=== PATIENT | female | born 1945 | race Caucasian/White ===

== ENCOUNTER → 2017-07-01 | Outpatient (POV) | payer MEDICARE, MEDICAID, SELFPAY | PROVIDERS: Family Provider Internal Medicine; PCP Internal Medicine; Visit Provider Internal Medicine | DX: D53.9 Nutritional anemia, unspecified (principal) | CPT/HCPCS: 99213 ==

== ENCOUNTER → 2017-07-04 | Outpatient (CLI) | payer MEDICARE, MEDICAID, SELFPAY | PROVIDERS: Visit Provider Internal Medicine | DX: R68.89 Other general symptoms and signs (principal) | CPT/HCPCS: 87275; 87276 ==

== ENCOUNTER 2017-11-03 09:26 | Outpatient (CLI) | payer MEDICARE, MEDICAID, SELFPAY ==
[2017-11-03 09:20] VITALS: BP 122/70; PULSE 68; RESP 20; TEMP 36.3; O2SAT 96
[2017-11-03 10:00] VITALS: BP 128/70; PULSE 68; RESP 20; TEMP 36.9; O2SAT 93
[2017-11-03 10:45] VITALS: BP 122/74; PULSE 68; RESP 20; TEMP 36.7; O2SAT 93
== END 2017-11-03 10:45 | disposition home or self-care (01) ==
LOC: INF 09:26
PROVIDERS: Family Provider Internal Medicine; PCP Internal Medicine; Visit Provider Internal Medicine
DX: D50.9 Iron deficiency anemia, unspecified
CPT/HCPCS: 96365; J1756

== ENCOUNTER 2017-11-10 08:40 | Outpatient (CLI) | payer MEDICARE, MEDICAID, SELFPAY ==
[2017-11-10 09:05] VITALS: BP 137/85; PULSE 68; RESP 20; TEMP 36.9; O2SAT 92
[2017-11-10 09:30] VITALS: BP 145/70; PULSE 66; RESP 20; TEMP 36.9; O2SAT 94
[2017-11-10 11:49] VITALS: BP 157/85; PULSE 68; RESP 20; TEMP 36.9; O2SAT 94
== END 2017-11-10 10:10 | disposition home or self-care (01) ==
LOC: INF 08:40
PROVIDERS: Family Provider Internal Medicine; PCP Internal Medicine; Visit Provider Internal Medicine
DX: D50.9 Iron deficiency anemia, unspecified (principal)
CPT/HCPCS: 96365; J1756

== ENCOUNTER → 2018-05-25 08:44 | Outpatient (CLI) | payer MEDICARE, MEDICAID, SELFPAY ==
--- NOTE | 2018-05-25 08:47 | MM_ITS ---
MM Dig screening mamm BI w/CAD CAD Screening COMPARISON: Digital mammograms with CAD 06/06/2011 INDICATION: There is a history of breast cancer in a patient paternal uncle diagnosed at age 50. There has been previous biopsy left breast for benign disease. TECHNIQUE: Standard CC and MLO images were obtained. R2 CAD reviewed. FINDINGS: Moderate diffuse fibroglandular densities are seen throughout both breasts. There is a mole marker in her quadrant right breast. There is no suspicious lesion and there are no suspicious microcalcifications. IMPRESSION: Moderate diffuse breast density with no suspicious lesion seen BI-RADS Category: 1 Negative RECOMMENDED FOLLOW-UP: 1YR - 1 YEAR FOLLOW-UP (A letter has been sent to the patient regarding results of the study.)
== END ==
PROVIDERS: PCP Family Medicine; Visit Provider Family Medicine
DX: Z12.31 Encounter for screening mammogram for malignant neoplasm of breast (principal)
CPT/HCPCS: 77067

== ENCOUNTER → 2018-07-01 06:17 | Outpatient (CLI) | payer MEDICARE, MEDICAID, SELFPAY ==
--- NOTE | 2018-07-01 06:22 | NM_ITS ---
CARDIOLITE SPECT MYOCARDIAL PERFUSION SCAN, REST AND STRESS: EXERCISE STRESS [facility] REVIEW QGS EF AND WALL MOTION EVALUATION: QPS - PERFUSION EVALUATION HISTORY: chest pain..short of air DOSE: 10.19 mCi technetium 99m mibi intravenously at rest followed by 31.0 mCi technetium 99m mibi following the intravenous ministration of 0.4 mg of Lexiscan. Resting blood pressure is 146/78. Stress blood pressure 150/71. FINDINGS: Ejection fraction is calculated to be 56%. Stress images reveal decreased activity in the anterior wall and inferior wall. There is also decreased activity in the lateral wall. Rest images reveal improved activity in the lateral wall with no significant change in the inferior and anterior wall. IMPRESSION: Lateral reversible ischemia. Decreased activity in the anterior and inferior wall suggests previous nontransmural myocardial infarction. There is normal ejection fraction normal wall motion. Clinical correlation is advised. This is a high risk abnormal stress test
--- NOTE | 2018-07-01 08:38 | HMH.ITSHM ---
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 []bisoprolol nitro asa cymbalta prilosec zocor lasix isosorbide gabapentin losartan
[2018-07-01 10:21] LABS: Basophils # 0.1 K/mm3 (0-0.2); Basophils % 0.5 % (0.1-2.0); Eosinophils # 0.1 K/mm3 (0.0-0.4); Eosinophils % 1.6 % (0.1-12.0); Hematocrit 32.3 % (37.0-47.0); Hemoglobin 9.5 g/dL (12.2-16.2); Lymphocytes # 1.4 K/mm3 (0.7-4.5); Lymphocytes % 16.6 % (10-50); Mean Corpuscular HGB Conc 29.6 g/dL (31.8-35.4); Mean Corpuscular Hemoglobin 23.1 pg (27.0-31.2); Mean Corpuscular Volume 78.2 fl (81-99); Mean Platelet Volume 6.7 fl (7.4-10.4); Monocytes # 0.4 K/mm3 (0.1-1.0); Monocytes % 4.7 % (1.7-9.3); Neutrophils # 6.5 K/mm3 (1.8-7.8); Neutrophils % 76.6 % (37.0-80.0); Platelet Count 333 K/mm3 (142-424); Red Blood Count 4.13 M/mm3 (4.20-5.40); Red Cell Distribution Width 15.6 % (11.5-17.5); White Blood Count 8.5 K/mm3 (4.8-10.8)
[2018-07-01 11:17] LABS: Alanine Aminotransferase 21 U/L (12-78); Albumin Level 3.3 gm/dL (3.4-5.0); Alkaline Phosphatase 95 U/L (46-116); Anion Gap 12.3 mEq/L (5-15); Aspartate Amino Transferase 13 U/L (15-37); Bilirubin,Direct 0.2 mg/dL (0.0-0.2); Bilirubin,Indirect 0.1 mg/dL (0.0-0.9); Bilirubin,Total 0.3 mg/dL (0.2-1.0); Blood Urea Nitrogen 17 mg/dL (7-18); Calcium 8.9 mg/dL (8.5-10.1); Carbon Dioxide 34 mmol/L (21.0-32.0); Chloride 98 mmol/L (98-107); Chol/HDL Ratio 4.1 (1-3.5); Cholesterol 155 mg/dL (140-200); Creatinine,Serum 0.85 mg/dL (0.55-1.02); Estimated Glomerular Filt Rate 66 ml/min (>60); GFR (African American) 80 ML/MIN (>60); Glucose 117 mg/dL (74-106); HDL Cholesterol 38 mg/dL (29-89); LDL Cholesterol 75 mg/dL (0-130); Potassium 4.3 mmoL/L (3.5-5.1); Sodium 140 mmol/L (136-145); Thyroid Stimulating Hormone 0.54 uIU/ml (0.358-3.740); Triglycerides 208 mg/dL (30-200); VLDL Cholesterol 42 mg/dL (0-40)
== END ==
PROVIDERS: Physician Assistant; Visit Provider Internal Medicine
DX: R06.02 Shortness of breath (principal); I10 Essential (primary) hypertension; E78.5 Hyperlipidemia, unspecified; E11.9 Type 2 diabetes mellitus without complications
CPT/HCPCS: 36415; 78452; 80048; 80061; 80076; 84443; 85025; 93017; 93306; A9502; J2785

== ENCOUNTER → 2018-07-11 08:30 | Outpatient (CLI) | payer MEDICARE, MEDICAID, SELFPAY ==
[2018-07-11 09:12] LABS: Occult Blood,Stool Positive (Negative)
== END ==
PROVIDERS: Visit Provider Family Medicine
DX: D64.9 Anemia, unspecified (principal)
CPT/HCPCS: 82272; G0328

== ENCOUNTER → 2018-08-02 13:27 | Outpatient (POV) | payer MEDICARE, MEDICAID, SELFPAY ==
[2018-08-02 14:56] LABS: Basophils # 0.1 K/mm3 (0-0.2); Basophils % 0.6 % (0.1-2.0); Eosinophils # 0.2 K/mm3 (0.0-0.4); Eosinophils % 1.8 % (0.1-12.0); Hematocrit 33.2 % (37.0-47.0); Hemoglobin 9.5 g/dL (12.2-16.2); Lymphocytes # 2.2 K/mm3 (0.7-4.5); Lymphocytes % 21.2 % (10-50); Mean Corpuscular HGB Conc 28.6 g/dL (31.8-35.4); Mean Corpuscular Hemoglobin 22.6 pg (27.0-31.2); Mean Platelet Volume 7.1 fl (7.4-10.4); Monocytes # 0.5 K/mm3 (0.1-1.0); Monocytes % 4.9 % (1.7-9.3); Neutrophils # 7.3 K/mm3 (1.8-7.8); Neutrophils % 71.4 % (37.0-80.0); Platelet Count 359 K/mm3 (142-424); Red Cell Distribution Width 15.6 % (11.5-17.5); White Blood Count 10.3 K/mm3 (4.8-10.8)
[2018-08-02 16:47] LABS: Alanine Aminotransferase 19 U/L (12-78); Albumin Level 3.5 gm/dL (3.4-5.0); Albumin/Globulin Ratio 0.9 (1.1-1.8); Alkaline Phosphatase 90 U/L (46-116); Anion Gap 12.1 mEq/L (5-15); Aspartate Amino Transferase 11 U/L (15-37); Bilirubin,Total 0.3 mg/dL (0.2-1.0); Blood Urea Nitrogen 30 mg/dL (7-18); Calcium 9.9 mg/dL (8.5-10.1); Carbon Dioxide 32 mmol/L (21.0-32.0); Chloride 97 mmol/L (98-107); Creatinine,Serum 1.17 mg/dL (0.55-1.02); Estimated Glomerular Filt Rate 45 ml/min (>60); Ferritin 26 ng/mL (8-388); GFR (African American) 55 ML/MIN (>60); Globulin 3.9 gm/dl (1.3-3.2); Glucose 110 mg/dL (74-106); Sodium 135 mmol/L (136-145); Total Protein,Serum 7.4 gm/dL (6.4-8.2)
[2018-08-02 16:53] LABS: Potassium 6.1 mmoL/L (3.5-5.1)
[2018-08-04 05:11] LABS: Iron 35 ug/dL (27-139); UIBC 355 ug/dL (118-369)
[2018-08-04 08:38] LABS: Iron Saturation 9 % (15-55)
== END ==
PROVIDERS: Visit Provider Nurse Practitioner Acute Care
DX: D64.9 Anemia, unspecified (principal)
CPT/HCPCS: 36415; 80053; 82728; 83540; 83550; 85025

== ENCOUNTER → 2018-08-03 13:23 | Outpatient (CLI) | payer MEDICARE, MEDICAID, SELFPAY ==
[2018-08-03 16:21] LABS: Potassium 6.4 mmoL/L (3.5-5.1)
== END ==
PROVIDERS: Visit Provider Family Medicine
DX: E87.5 Hyperkalemia (principal)
CPT/HCPCS: 84132

== ENCOUNTER → 2018-08-22 12:00 | Outpatient (CLI) | payer MEDICARE, MEDICAID, SELFPAY ==
[2018-08-25 18:39] LABS: Occult Blood,Stool Positive (Negative)
== END ==
PROVIDERS: Visit Provider Nurse Practitioner Acute Care
DX: D64.9 Anemia, unspecified (principal)
CPT/HCPCS: 82272; G0328

== ENCOUNTER → 2018-08-23 12:00 | Outpatient (CLI) | payer MEDICARE, MEDICAID, SELFPAY ==
[2018-08-25 18:40] LABS: Occult Blood,Stool Positive (Negative)
== END ==
PROVIDERS: Visit Provider Nurse Practitioner Acute Care
DX: D64.9 Anemia, unspecified (principal)
CPT/HCPCS: 82272; G0328

== ENCOUNTER → 2018-08-25 14:42 | Outpatient (CLI) | payer MEDICARE, MEDICAID, SELFPAY ==
[2018-08-25 18:40] LABS: Occult Blood,Stool Positive (Negative)
== END ==
PROVIDERS: Visit Provider Nurse Practitioner Acute Care
DX: D64.9 Anemia, unspecified (principal)
CPT/HCPCS: 82272; G0328

== ENCOUNTER 2018-09-26 07:51 | Inpatient (IN) ==
[2018-09-26 08:34] LABS: Basophils % 0.5 % (0.1-2.0); Eosinophils # 0.1 K/mm3 (0.0-0.4); Eosinophils % 1.6 % (0.1-12.0); Hematocrit 31.9 % (37.0-47.0); Lymphocytes # 1.2 K/mm3 (0.7-4.5); Lymphocytes % 14.7 % (10-50); Mean Corpuscular HGB Conc 28.3 g/dL (31.8-35.4); Mean Corpuscular Hemoglobin 21.5 pg (27.0-31.2); Mean Platelet Volume 6.6 fl (7.4-10.4); Monocytes # 0.4 K/mm3 (0.1-1.0); Monocytes % 4.7 % (1.7-9.3); Neutrophils # 6.2 K/mm3 (1.8-7.8); Neutrophils % 78.4 % (37.0-80.0); Platelet Count 343 K/mm3 (142-424); Red Cell Distribution Width 16.3 % (11.5-17.5); White Blood Count 7.9 K/mm3 (4.8-10.8)
[2018-09-26 08:43] LABS: INR 1.02 (0.9-1.1); Prothrombin Time 10.5 seconds (9.4-11.8)
--- NOTE | 2018-09-26 08:43 | Emergency Department Note ---
ED Disposition Clinical Impression: CHF (congestive heart failure), COPD (chronic obstructive pulmonary disease), Morbid obesity, Diastolic dysfunction, Anemia, LLL pneumonia Disposition: Still a Patient Condition on Discharge: Fair Referrals: Provider,Referral, [Primary Care Provider] - - Critical Care Critical Care Time: No Attestation: On 09/26/18, the high probability of a clinically significant, sudden or life threatening deterioration of the following system(s) required my full and direct attention, intervention and personal management. The time I documented below is in addition to time spent performing reported procedures but includes the following listed in this critical care notation. Medical Decision Making - Medical Records Medical records reviewed: Yes: I reviewed the patient's medical records. - Demond Inquiry Pt receiving controlled substance: No Demond was queried for this patient: No Vital Signs: 09/26/18 07:53 09/26/18 08:54 09/26/18 09:00 Temperature 100.1 F H Temperature Source Oral Pulse Rate [Left Radial] 77 79 78 Respiratory Rate 18 Blood Pressure [Left Arm] 158/70 H 140/44 L 138/89 Blood Pressure Mean [Left Arm] 99 76 105 Blood Pressure Source [Left Arm] Automatic Cuff Automatic Cuff Blood Pressure Position [Left Arm] Supine Sitting 02 Sat by Pulse Oximetry 89 L 91 L 92 L Oxygen Delivery Method Nasal Cannula Nasal Cannula Oxygen Flow Rate (LPM) 3 - Lab Data Lab Results 09/26/18 08:02: WBC 7.9, RBC 4.20, Hgb 9.0 L, Hct 31.9 L, MCV 76.0 L, MCH 21.5 L , MCHC 28.3 L, RDW 16.3, Plt Count 343, MPV 6.6 L, Neut % (Auto) 78.4, Lymph % (Auto) 14.7, [place] % (Auto) 4.7, Eos % (Auto) 1.6, Baso % (Auto) 0.5, Neut # (Auto) 6.2, Lymph # (Auto) 1.2, [place] # (Auto) 0.4, Eos # (Auto) 0.1, Baso # (Auto) 0.0 09/26/18 08:02: PT 10.5, INR 1.02 09/26/18 08:02: Sodium 142, Potassium 4.5, Chloride 100, Carbon Dioxide 34 H, Anion Gap 12.5, BUN 15, Creatinine 0.82, Estimated Creat Clear 49, Estimated GFR 69, Est GFR ( Amer) 83, Glucose 105, Calcium 9.4, Total Bilirubin 0.3, AST 10 L, ALT 14, Alkaline Phosphatase 83, Troponin I < 0.02, Total Protein 7.9, Albumin 3.3 L, Globulin 4.6 H, Albumin/Globulin Ratio 0.7 L 09/26/18 08:02: Lactate 1.0 09/26/18 08:02: B-Natriuretic Peptide 53 09/26/18 09:11: POC Glucose 106 Result diagrams: 09/26/18 08:02 09/26/18 08:02 Orders (Tests/Meds): ED MEDICATIONS Generic Name Dose Route Start Last Admin Trade Name Freq PRN Reason Stop Dose Admin Levofloxacin/Dextrose 750 mg in 150 mls @ 100 mls/hr 09/26/18 09:30 Levofloxacin 750mg/150ml Premix IV 10/10/18 09:29 Q24H JEROME Protocol Irbesartan 150 mg 09/26/18 09:00 09/26/18 10:14 Avapro 150mg Tablet PO 10/26/18 08:59 150 mg DAILY JEROME Administration Isosorbide Mononitrate 60 mg 09/26/18 09:00 09/26/18 08:40 Imdur 60mg Er Tablet PO 10/26/18 08:59 60 mg DAILY JEROME Administration Discontinued Medications Generic Name Dose Route Start Last Admin Trade Name Freq PRN Reason Stop Dose Admin Acetaminophen 1,000 mg 09/26/18 08:39 09/26/18 10:14 Tylenol 500mg Tablet PO 09/26/18 08:40 1,000 mg ONCE ONE Administration ORDERS Category Date Time Status XR chest portable Stat Exams 09/26/18 08:17 Taken Blood Culture Stat Micro 09/26/18 08:02 Received ECG Request by /Kalin Stat Y 09/26/18 08:17 Ordered - Radiology Data #1 Image Reviewed: Yes I reviewed the patient's radiology image Preliminary Findings: Abnormal Bibasilar chronic changes cannot exclude acute infiltrates, highly suspicious for lingular infiltrates. - ECG Data Tracing #1 Normal sinus rhythm 76/min, unifocal PAC, baseline artifact. No acute ST segment or T wave changes ECG initial impression date: 09/26/18 ECG initial impression time: 08:00 Medical Decision Narrative: Cardiac cath report from July 25 with diagnosis of diastolic dysfunction: IMPRESSION: 1. Normal coronary arteries 2. Normal ejection fraction 3. Severe diastolic congestive heart failure with secondary severe pulmonary hypertension based on LVEDP of 45 mmHg PLAN: 1. Patient requires significant diuresis with furosemide and Aldactone 2. Weight-loss would be beneficial 3. Recommend sleep study given patient's high likelihood for obstructive sleep apnea The patient remained hemodynamically stable, obtain her labs reviewed her chest x-ray and discussed with Dr. Beckford on-call for Dr. Morel agreed to admit for pneumonia. Started Levaquin 750 IV in the ED. Resp/SOB HPI - General Chief Complaint: Chest Pain Stated Complaint: chest tightness Time Seen by Provider: 09/26/18 08:00 Mode of Arrival: EMS Limitations: Physical Limitations Description of Symptoms (Recalled from ER Triage Doc. by RN): chest pain, SOB started 3 days ago, hx of COPD - History of Present Illness 73 years old white female with end-stage COPD, CHF, morbid obesity, she is on diuretics and oxygen dependent 2 L per nasal cannula. She is a resident of longterm, this morning she was found to have oxygen saturation of 84% and respiratory difficulty, also the patient experiences retrosternal chest pressure. She has chronic anemia and she is due for GI workup tomorrow. Upon arrival the patient was placed on 3 L of nasal cannula that brought her oxygen saturations to 91% and was found to have a temperature of 100.1F. The patient felt better and her symptoms resolved. The patient denies having palpitations hemoptysis coffee-ground emesis melanotic stool or bleeding per rectum. Patient denies having abdominal pain nausea vomiting or diarrhea. MD Complaint: shortness of breath, chest pain Onset (ago): hour(s) (1 hour prior to arrival.) Severity: mild Consistency/Duration: now resolved Relieving factors: oxygen, rest, bronchodilators, upright position Exacerbating factors: exertion Known history of: COPD, congestive heart failure Associated symptoms: chest pain, fever, wheezing - Related Data Home oxygen amount: 2 liters Home Medications Medication Instructions Recorded Confirmed aspirin 325 mg tablet 0.5 tab PO QDAY 08/05/17 07/27/18 duloxetine 60 mg capsule,delayed 120 mg PO QDAY cap 08/05/17 07/27/18 release hydrocodone 10 mg-acetaminophen 1 tab PO TID 08/05/17 07/27/18 325 mg tablet insulin human U-100 NPH-regulr 60 unit SUB-Q TID ml 08/05/17 07/27/18 70-30 mix 100 unit/mL subcutaneous susp isosorbide mononitrate ER 60 mg 60 mg PO BID tab 08/05/17 07/27/18 tablet,extended release 24 hr losartan 100 mg tablet 100 mg PO QDAY 08/05/17 07/27/18 melatonin 3 mg tablet 3 mg PO HS PRN 08/05/17 07/27/18 metformin 1,000 mg tablet 1,000 mg PO BID 08/05/17 07/27/18 nitroglycerin 0.4 mg sublingual 0.4 mg SUBLINGUAL Q5M PRN 08/05/17 07/27/18 tablet omeprazole 20 mg capsule,delayed 20 mg PO QDAY 08/05/17 07/27/18 release ondansetron HCl 4 mg tablet 4 mg PO Q8H PRN tab 08/05/17 07/27/18 polyethylene glycol powder 1 each MISCELLANE DAILY 08/05/17 07/27/18 polyvinyl alcohol 1.4 % eye drops 1 drp OPHTHALMIC BID PRN ml 08/05/17 07/27/18 sennosides 8.6 mg tablet 8.6 mg PO BID PRN tab 08/05/17 07/27/18 simvastatin 10 mg tablet 10 mg PO HS 08/05/17 07/27/18 verapamil 120 mg tablet 120 mg PO BID tab 08/05/17 07/27/18 acetaminophen 500 mg capsule 500 mg PO Q4-6H PRN 08/19/17 07/27/18 ipratropium-albuterol 0.5 mg-3 3 ml INHALATION Q20M 08/19/17 07/27/18 mg(2.5 mg base)/3 mL nebulization soln aluminum hydrox-magnesium carb 95 30 ml PO Q4HP PRN 09/22/17 07/27/18 mg-358 mg/15 mL oral suspension Cholecalciferol (Vitamin D3) 50,000 unit PO WEEKLY 10/15/17 07/27/18 [Vitamin D3 50,000 unit Cap] Multivitamin [Multivitamins] 1 each PO DAILY 10/15/17 07/27/18 gabapentin 100 mg capsule 200 mg PO TID cap 06/24/18 07/27/18 aripiprazole 5 mg tablet 5 mg PO DAILY 07/27/18 07/27/18 dextromethorphan-guaifenesin 10 10 ml PO Q4-6H PRN 07/27/18 07/27/18 mg-100 mg/5 mL oral syrup phenol 1.4 % mucosal aerosol spray 4 spray MUCOUS MEM Q4H 07/27/18 07/27/18 psyllium oral powder 1 tbsp PO DAILY PRN 07/27/18 07/27/18 sodium chloride 0.65 % nasal drops 1 drp INTRANASAL Q4H PRN 07/27/18 07/27/18 Bisoprolol Fumarate [Bisoprolol 5 mg PO DAILY 09/21/18 5mg Tablet] Miscellaneous [Unknown Home 0 each EYE-BOTH BID 09/21/18 09/21/18 Medication] guaiFENesin [Guaifenesin] 400 mg PO TID 09/21/18 09/21/18 Allergies Allergy/AdvReac Type Severity Reaction Status Date / Time codeine [CODEINE] Allergy Mild Unknown Verified 09/21/18 13:32 allergy reaction naproxen [NAPROXEN] Allergy Mild Unknown Verified 09/21/18 13:32 allergy reaction pregabalin [From LYRICA] Allergy Mild Unknown Verified 09/21/18 14:13 allergy reaction promethazine [PROMETHAZINE] Allergy Mild Unknown Verified 09/21/18 13:32 allergy reaction JOSE ELIAS Inhibitors Allergy Unknown Verified 09/21/18 13:32 allergy reaction [facility] History - Hepatitis A Screen Drug use history?: No High risk sexual behaviors?: No History of sexually transmitted infection?: No Currently employed?: No Childcare worker?: No Do you have indoor plumbing?: Yes Do you have electricity?: Yes Attestation statement:: This patient has been screened for Hepatitis A risk factors. I have reviewed the patient's past medical history: Yes Medical History: Reports:: Anxiety, Atrial Fibrillation, Cancer, Congestive Heart Failure, Depression, Diabetes Mellitus Type 2, Hyperlipidemia, Hypertension, Lung Disease (COPD), Migraine, Seizures Denies:: Diabetes Mellitus Type 1, Internal Pacemaker Other Medical History: Reports: Anemia, Arthritis, Other Other Surgeries: Yes: Appendectomy. No: Pacemaker Comment: gallbladder - Social History Smoking Status: Former smoker Tobacco Type: cigarettes Alcohol Intake: never Alcohol Intake Frequency:: other Substance Use Type: denies use Occupational Status: retired Household Members: family - Psychiatric History Expresses thoughts of harming self/others: None Suicide Plan Description: No Plan Pschychiatric History:: Reports:: Anxiety, Depression Family Hx:: Diabetes ROS Obtained: Yes All systems reviewed & no additional complaints Physical Exam - General General appearance: alert, in no apparent distress, obese, other (Sitting upright.) - Head Head exam: atraumatic, normocephalic, normal inspection - Eye Eye exam: Present: normal appearance, PERRL, EOMI. Absent: scleral icterus, nystagmus - ENT ENT exam: Present: normal exam, normal oropharynx, mucous membranes moist, TM's normal bilaterally, normal external ear exam - Neck Neck exam: Present: normal inspection, full ROM, trachea midline. Absent: tenderness, meningismus, lymphadenopathy - Chest Chest inspection: Present: normal inspection, symmetric chest wall rise. Absent: tenderness - Respiratory Respiratory exam: Present: normal lung sounds bilaterally. Absent: respiratory distress, wheezes - Cardiovascular Cardiovascular exam: Present: regular rate, normal rhythm, normal heart sounds. Absent: JVD - Abdominal Exam Abdominal exam: Present: soft, normal bowel sounds, other (Large abdominal girth, soft, nontender no guarding no rigidity no rebound.). Absent: distention, tenderness, guarding, rebound, rigidity, Altman's sign, tenderness at McBurney's Point - External exam: Present: normal external exam, other (Equal bilateral femoral pulse. ) - Extremities Exam Extremities exam: Present: normal inspection, full ROM, normal capillary refill. Absent: tenderness, pedal edema, calf tenderness - Back Exam Back exam: Present: normal inspection. Absent: tenderness, CVA tenderness (R), CVA tenderness (L) - Neurological Exam Neurological exam: Present: alert, oriented X3, CN II-XII intact, motor sensory deficit, reflexes normal - Psychiatric Psychiatric exam: Present: normal affect, normal mood - Skin Skin exam: Present: warm, dry, intact, normal color - Lymphatic Lymphatic Findings: no adenopathy
[2018-09-26 08:48] LABS: Alanine Aminotransferase 14 U/L (12-78); Albumin Level 3.3 gm/dL (3.4-5.0); Albumin/Globulin Ratio 0.7 (1.1-1.8); Alkaline Phosphatase 83 U/L (46-116); Anion Gap 12.5 mEq/L (5-15); Aspartate Amino Transferase 10 U/L (15-37); Bilirubin,Total 0.3 mg/dL (0.2-1.0); Blood Urea Nitrogen 15 mg/dL (7-18); Calcium 9.4 mg/dL (8.5-10.1); Carbon Dioxide 34 mmol/L (21.0-32.0); Chloride 100 mmol/L (98-107); Globulin 4.6 gm/dl (1.3-3.2); Glucose 105 mg/dL (74-106); Potassium 4.5 mmoL/L (3.5-5.1); Sodium 142 mmol/L (136-145); Total Protein,Serum 7.9 gm/dL (6.4-8.2)
--- NOTE | 2018-09-26 11:09 | History & Physical Report ---
*Admission Date: 09/26/18 *Chief complaint: Increased shortness of breath *History of present illness: She is a 73-year-old female who is a resident at [facility] started to having some shortness of breath this morning. She usually uses 2 L of oxygen at the long-term. However this morning her oxygen saturation dropped to 79 at 2 L. After getting neb treatments, she was not improving as far as her oxygen saturation. She was also having trouble breathing. In the ED chest x- ray showed possible pneumonia. Her previous cath showed HFpEF, needing severe diuresis with Aldactone and Lasix. Blood cultures were obtained in the ED and she was started on Levaquin 750 mg daily. During my exam, patient mentions that she still having some short of breath at 2 L of oxygen. I have increased it to 4 L which helped with her breathing. Mention to me that she has an appointment with Dr. Reyes for a EGD tomorrow morning. I reassured her that we will be changing that appointment for her to after this hospital visit. [facility] History I have reviewed the patient's past medical history: Yes Medical History: Reports:: Anxiety, Atrial Fibrillation, Cancer, Congestive Heart Failure, Depression, Diabetes Mellitus Type 2, Hyperlipidemia, Hypertension, Lung Disease (COPD), Migraine, Seizures Denies:: Diabetes Mellitus Type 1, Internal Pacemaker *Have you ever received a pneumonia vaccine?: Yes *Have you received a flu vaccine this season?: Yes Other Medical History: Reports: Anemia, Arthritis, Other Other Surgeries: Yes: Appendectomy. No: Pacemaker - *Social History Smoking Status: Former smoker Tobacco Type: cigarettes Alcohol Intake: never Alcohol Intake Frequency:: other Substance Use Type: denies use *Occupational Status:: retired Household Members: family *Travel in the last 8 weeks: None - Psychiatric History Expresses thoughts of harming self/others: None Suicide Plan Description: No Plan Pschychiatric History:: Reports:: Anxiety, Depression Family Hx:: Diabetes Review of Systems - Constitutional Reports lack of energy - Eyes Denies blurry vision - ENT Denies abnormal hearing, Denies bleeding gums - *Cardiovascular Denies chest pain at rest, Denies chest pain with activity - *Respiratory Reports cough, Reports shortness of breath, Reports shortness of breath with activity - *Gastrointestinal Denies abdominal pain - *Genitourinary Denies abnormal periods - *Musculoskeletal Denies abnormal walking, Denies joint pain, Denies decreased muscle mass - Integumentary/Breasts Denies bleeding lesions - *Neurologic Denies abnormal walking - Psychiatric Denies abnormal sleep pattern, Denies behavioral changes - Endocrine Denies cold intolerance - Hematologic/Lymphatic Denies easy bleeding - Allergic/Immunologic Denies tongue swelling Meds Home Medications Medication Instructions Recorded Confirmed Type aspirin 325 mg tablet 0.5 tab PO QDAY 08/05/17 07/27/18 History duloxetine 60 mg capsule,delayed 120 mg PO QDAY cap 08/05/17 07/27/18 History release hydrocodone 10 mg-acetaminophen 1 tab PO TID 08/05/17 07/27/18 History 325 mg tablet insulin human U-100 NPH-regulr 60 unit SUB-Q TID ml 08/05/17 07/27/18 History 70-30 mix 100 unit/mL subcutaneous susp isosorbide mononitrate ER 60 mg 60 mg PO BID tab 08/05/17 07/27/18 History tablet,extended release 24 hr losartan 100 mg tablet 100 mg PO QDAY 08/05/17 07/27/18 History melatonin 3 mg tablet 3 mg PO HS PRN 08/05/17 07/27/18 History metformin 1,000 mg tablet 1,000 mg PO BID 08/05/17 07/27/18 History nitroglycerin 0.4 mg sublingual 0.4 mg SUBLINGUAL Q5M PRN 08/05/17 07/27/18 History tablet omeprazole 20 mg capsule,delayed 20 mg PO QDAY 08/05/17 07/27/18 History release ondansetron HCl 4 mg tablet 4 mg PO Q8H PRN tab 08/05/17 07/27/18 History polyethylene glycol powder 1 each MISCELLANE DAILY 08/05/17 07/27/18 History polyvinyl alcohol 1.4 % eye drops 1 drp OPHTHALMIC BID PRN ml 08/05/17 07/27/18 History sennosides 8.6 mg tablet 8.6 mg PO BID PRN tab 08/05/17 07/27/18 History simvastatin 10 mg tablet 10 mg PO HS 08/05/17 07/27/18 History verapamil 120 mg tablet 120 mg PO BID tab 08/05/17 07/27/18 History acetaminophen 500 mg capsule 500 mg PO Q4-6H PRN 08/19/17 07/27/18 History ipratropium-albuterol 0.5 mg-3 3 ml INHALATION Q20M 08/19/17 07/27/18 History mg(2.5 mg base)/3 mL nebulization soln aluminum hydrox-magnesium carb 95 30 ml PO Q4HP PRN 09/22/17 07/27/18 History mg-358 mg/15 mL oral suspension Cholecalciferol (Vitamin D3) 50,000 unit PO WEEKLY 10/15/17 07/27/18 History [Vitamin D3 50,000 unit Cap] Multivitamin [Multivitamins] 1 each PO DAILY 10/15/17 07/27/18 History gabapentin 100 mg capsule 200 mg PO TID cap 06/24/18 07/27/18 History aripiprazole 5 mg tablet 5 mg PO DAILY 07/27/18 07/27/18 History dextromethorphan-guaifenesin 10 10 ml PO Q4-6H PRN 07/27/18 07/27/18 History mg-100 mg/5 mL oral syrup phenol 1.4 % mucosal aerosol spray 4 spray MUCOUS MEM Q4H 07/27/18 07/27/18 History psyllium oral powder 1 tbsp PO DAILY PRN 07/27/18 07/27/18 History sodium chloride 0.65 % nasal drops 1 drp INTRANASAL Q4H PRN 07/27/18 07/27/18 History Bisoprolol Fumarate [Bisoprolol 5 mg PO DAILY 09/21/18 History 5mg Tablet] Miscellaneous [Unknown Home 0 each EYE-BOTH BID 09/21/18 09/21/18 History Medication] guaiFENesin [Guaifenesin] 400 mg PO TID 09/21/18 09/21/18 History Allergies Allergy/AdvReac Type Severity Reaction Status Date / Time codeine [CODEINE] Allergy Mild Unknown Verified 09/21/18 13:32 allergy reaction naproxen [NAPROXEN] Allergy Mild Unknown Verified 09/21/18 13:32 allergy reaction pregabalin [From LYRICA] Allergy Mild Unknown Verified 09/21/18 14:13 allergy reaction promethazine [PROMETHAZINE] Allergy Mild Unknown Verified 09/21/18 13:32 allergy reaction JOSE ELIAS Inhibitors Allergy Unknown Verified 09/21/18 13:32 allergy reaction Exam Vital signs and Labs for Last 24 Hours: Temp Pulse Resp BP Pulse Ox 100.1 F H 78 18 138/89 92 L 09/26/18 07:53 09/26/18 09:00 09/26/18 07:53 09/26/18 09:00 09/26/18 09:00 Laboratory Results - last 24 hr 09/26/18 08:02: WBC 7.9, RBC 4.20, Hgb 9.0 L, Hct 31.9 L, MCV 76.0 L, MCH 21.5 L , MCHC 28.3 L, RDW 16.3, Plt Count 343, MPV 6.6 L, Neut % (Auto) 78.4, Lymph % (Auto) 14.7, [place] % (Auto) 4.7, Eos % (Auto) 1.6, Baso % (Auto) 0.5, Neut # (Auto) 6.2, Lymph # (Auto) 1.2, [place] # (Auto) 0.4, Eos # (Auto) 0.1, Baso # (A uto) 0.0 09/26/18 08:02: PT 10.5, INR 1.02 09/26/18 08:02: Sodium 142, Potassium 4.5, Chloride 100, Carbon Dioxide 34 H, Anion Gap 12.5, BUN 15, Creatinine 0.82, Estimated Creat Clear 49, Estimated GFR 69, Est GFR ( Amer) 83, Glucose 105, Calcium 9.4, Total Bilirubin 0.3, AST 10 L, ALT 14, Alkaline Phosphatase 83, Troponin I < 0.02, Total Protein 7.9, Albumin 3.3 L, Globulin 4.6 H, Albumin/Globulin Ratio 0.7 L 09/26/18 08:02: Lactate 1.0 09/26/18 08:02: B-Natriuretic Peptide 53 09/26/18 09:11: POC Glucose 106 I & O for Last 24 hours: Intake & Output 09/23/18 09/24/18 09/25/18 09/26/18 11:59 11:59 11:59 11:59 Weight 302 lb - Constitutional morbidly obese - *Routine HEENT Exam Head: Present: normocephalic Eye: Present: EOMI, PERRL ENT: Present: mucous membranes moist - *Routine Neck Exam Present: supple. Absent: lymphadenopathy - *Routine Respiratory Exam Present: decreased breath sounds (Bilaterally with some wheezing), wheezes - *Routine Cardiovascular Exam Present: RRR - *Routine Abdominal Exam Present: soft, normoactive bowel sounds. Absent: tenderness - *Routine Extremities Exam Present: edema (2+ edema bilaterally). Absent: cyanosis, clubbing - *Routine Skin Exam Present: warm. Absent: rash Assessment and Plan (1) Acute and chronic respiratory failure with hypoxia Current visit: Yes Status: Acute Category: Medical Code(s): J96.21 - Acute and chronic respiratory failure with hypoxia (2) Bilateral pneumonia Current visit: Yes Status: Acute Category: Medical Code(s): J18.9 - Pneumonia, unspecified organism (3) (HFpEF) heart failure with preserved ejection fraction Current visit: Yes Status: Acute Category: Medical Code(s): I50.30 - Unspecified diastolic (congestive) heart failure (4) Morbid obesity Current visit: Yes Status: Acute Category: Medical Code(s): E66.01 - Morbid (severe) obesity due to excess calories (5) Type 2 diabetes mellitus with diabetic neuropathy Current visit: Yes Status: Acute Category: Medical Code(s): E11.40 - Type 2 diabetes mellitus with diabetic neuropathy, unspecified (6) HLD (hyperlipidemia) Current visit: No Status: Chronic Qualifiers: Hyperlipidemia type: mixed hyperlipidemia Qualified Code(s): E78.2 - Mixed hyperlipidemia Category: Medical Code(s): E78.5 - Hyperlipidemia, unspecified (7) HTN (hypertension) Current visit: No Status: Chronic Qualifiers: Hypertension type: essential hypertension Qualified Code(s): I10 - Essential (primary) hypertension Category: Medical Code(s): I10 - Essential (primary) hypertension (8) Peripheral edema Current visit: Yes Status: Acute Category: Medical Code(s): R60.9 - Edema, unspecified - Assessment and plan all Dx Assessment and Plan for all problems:: We will continue IV Levaquin daily, DuoNeb every 4 hours, albuterol every 2 hours as needed and oxygen supplementation for her pneumonia. We will continue Lasix and Aldactone for diuresis. Continue home meds for her other diagnoses.
[2018-09-26 12:18] LABS: ABG Base Excess 6.4 mmol/L (-2.4-2.3); ABG HCO3 31.5 mmhg (22.0-26.0); ABG Oxygen Saturation 96 % (90-100); ABG PH 7.38 mmol/L (7.35-7.45); ABG PO2 87.2 mmhg (80-100); ABG TCO2 33.2 mmhg (23-27)
[2018-09-26 12:19] LABS: Allen's Test ACCEPTABLE; Oxygen 3.5 LPM %
[2018-09-26 12:21] LABS: ABG PCO2 54.2 mmhg (35.0-45.0)
[2018-09-27 06:56] LABS: Basophils % 0.3 % (0.1-2.0); Eosinophils # 0.1 K/mm3 (0.0-0.4); Eosinophils % 0.8 % (0.1-12.0); Hematocrit 30.7 % (37.0-47.0); Hemoglobin 8.5 g/dL (12.2-16.2); Lymphocytes # 1.4 K/mm3 (0.7-4.5); Lymphocytes % 14.6 % (10-50); Mean Corpuscular HGB Conc 27.8 g/dL (31.8-35.4); Mean Corpuscular Hemoglobin 21.7 pg (27.0-31.2); Mean Platelet Volume 6.6 fl (7.4-10.4); Monocytes # 0.5 K/mm3 (0.1-1.0); Monocytes % 4.7 % (1.7-9.3); Neutrophils # 7.8 K/mm3 (1.8-7.8); Neutrophils % 79.7 % (37.0-80.0); Platelet Count 323 K/mm3 (142-424); Red Blood Count 3.93 M/mm3 (4.20-5.40); Red Cell Distribution Width 16.2 % (11.5-17.5); White Blood Count 9.8 K/mm3 (4.8-10.8)
[2018-09-27 07:25] LABS: Anion Gap 10.3 mEq/L (5-15); Calcium 9.5 mg/dL (8.5-10.1); Potassium 4.3 mmoL/L (3.5-5.1)
--- NOTE | 2018-09-27 07:28 | Pharmacy Consult Notes ---
[facility] Pharmacy VTE Monitoring - Patient Demographics Admission date: 09/26/18 Report Date: 09/27/18 Time: 07:28 Allergies/Adverse Reactions: Patient Allergies codeine [CODEINE] Allergy (Mild, Verified 09/21/18 13:32) Unknown allergy reaction naproxen [NAPROXEN] Allergy (Mild, Verified 09/21/18 13:32) Unknown allergy reaction pregabalin [From LYRICA] Allergy (Mild, Verified 09/21/18 14:13) Unknown allergy reaction promethazine [PROMETHAZINE] Allergy (Mild, Verified 09/21/18 13:32) Unknown allergy reaction JOSE ELIAS Inhibitors Allergy (Verified 09/21/18 13:32) Unknown allergy reaction Height: 1.7 m Weight: 142.173 kg Patient Problems: Current Active Problems CHF (congestive heart failure) (Acute) Morbid obesity (Acute) Diastolic dysfunction (Acute) Anemia (Acute) LLL pneumonia (Acute) Bilateral pneumonia (Acute) Acute and chronic respiratory failure with hypoxia (Acute) (HFpEF) heart failure with preserved ejection fraction (Acute) Type 2 diabetes mellitus with diabetic neuropathy (Acute) Peripheral edema (Acute) COPD (chronic obstructive pulmonary disease) (Chronic) - VTE Risk Labs: VTE Related Lab Results Hgb 8.5 g/dL (12.2-16.2) L 09/27/18 06:08 Hct 30.7 % (37.0-47.0) L 09/27/18 06:08 Plt Count 323 K/mm3 (142-424) 09/27/18 06:08 PT 10.5 seconds (9.4-11.8) 09/26/18 08:02 INR 1.02 (0.9-1.1) 09/26/18 08:02 BUN 15 mg/dL (7-18) 09/26/18 08:02 Creatinine 0.82 mg/dL (0.55-1.02) 09/26/18 08:02 Estimated Creat Clear 49 mL/min (50-200) 09/26/18 08:02 VTE Score: 6 VTE Risk Level: Moderate Risk - Prophylaxis VTE Prophylaxis Ordered?: Yes Types of VTE Prophylaxis: TEDS Knee High Location of Applied Device: Bilateral Lower Extremeties - VTE Diagnosis Confirmed Treatment or plan recommended: Continue Current Treatment
--- NOTE | 2018-09-27 08:34 | Progress Note ---
<Leana Mcgowan - Last Filed: 09/27/18 08:38> Internal Medicine - PN: Subj Interval history: The patient is resting quietly in bed, she denies any complaints of pain or SOB. She reports that she feels like she is breathing easier this morning and she ate well. She is very concerned about making sure that Dr. Reyes' office be notified of her admisstion. Exam Vital signs and Labs for Last 24 Hours: Temp Pulse Resp BP Pulse Ox 97.9 F 85 18 150/52 H 91 L 09/27/18 07:56 09/27/18 07:56 09/27/18 07:56 09/27/18 07:56 09/27/18 07:56 Laboratory Results - last 24 hr 09/26/18 08:02: WBC 7.9, RBC 4.20, Hgb 9.0 L, Hct 31.9 L, MCV 76.0 L, MCH 21.5 L , MCHC 28.3 L, RDW 16.3, Plt Count 343, MPV 6.6 L, Neut % (Auto) 78.4, Lymph % (Auto) 14.7, [place] % (Auto) 4.7, Eos % (Auto) 1.6, Baso % (Auto) 0.5, Neut # (Auto) 6.2, Lymph # (Auto) 1.2, [place] # (Auto) 0.4, Eos # (Auto) 0.1, Baso # (Au to) 0.0 09/26/18 08:02: PT 10.5, INR 1.02 09/26/18 08:02: Sodium 142, Potassium 4.5, Chloride 100, Carbon Dioxide 34 H, Anion Gap 12.5, BUN 15, Creatinine 0.82, Estimated Creat Clear 49, Estimated GFR 69, Est GFR ( Amer) 83, Glucose 105, Calcium 9.4, Total Bilirubin 0.3, AST 10 L, ALT 14, Alkaline Phosphatase 83, Troponin I < 0.02, Total Protein 7.9, Albumin 3.3 L, Globulin 4.6 H, Albumin/Globulin Ratio 0.7 L 09/26/18 08:02: Lactate 1.0 09/26/18 08:02: B-Natriuretic Peptide 53 09/26/18 09:11: POC Glucose 106 09/26/18 11:44: Specimen Source R. radial, O2 % 3.5 lpm, ABG pH 7.38, ABG pCO2 54.2 H, ABG pO2 87.2, ABG HCO3 31.5 H, ABG Total CO2 33.2 H, ABG O2 Saturation 96, ABG Base Excess 6.4 H, Levar Test Acceptable 09/26/18 16:30: POC Glucose 184 H 09/26/18 21:16: POC Glucose 174 H 09/27/18 06:08: WBC 9.8, RBC 3.93 L, Hgb 8.5 L, Hct 30.7 L, MCV 78.0 L, MCH 21.7 L, MCHC 27.8 L, RDW 16.2, Plt Count 323, MPV 6.6 L, Neut % (Auto) 79.7, Lymph % (Auto) 14.6, [place] % (Auto) 4.7, Eos % (Auto) 0.8, Baso % (Auto) 0.3, Neut # (Auto) 7.8, Lymph # (Auto) 1.4, [place] # (Auto) 0.5, Eos # (Auto) 0.1, Baso # (Auto) 0.0 09/27/18 06:18: Sodium 141, Potassium 4.3, Chloride 100, Carbon Dioxide 35 H, An ion Gap 10.3, BUN 12, Creatinine 0.87, Estimated Creat Clear 49, Estimated GFR 64, Est GFR ( Amer) 77, Glucose 198 H D, Calcium 9.5 09/27/18 06:21: POC Glucose 213 H I & O for Last 24 hours: Intake & Output 09/24/18 09/25/18 09/26/18 09/27/18 11:59 11:59 11:59 11:59 Intake Total 1150 / 1150 1320 / 1320 Output Total 3800 / 3800 Balance 1150 / 1150 -2480 / -2480 Weight 314 lb 6 oz 313 lb 7 oz Radiology Reports for the Last 24 Hours: 09/26/18 CXR: Impression: Cardiomegaly with bibasilar atelectasis or infiltrate with 2 cm nodular opacity right lung base. Consider CT for further evaluation. - Constitutional no acute distress - *Routine HEENT Exam Head: Present: normocephalic, atraumatic ENT: Present: mucous membranes moist - *Routine Respiratory Exam Comments: generally diminished, rhonchi throughout with few scattered wheezes - *Routine Cardiovascular Exam Present: RRR - *Routine Abdominal Exam Comments: BS present, soft, nontender, obese, no G/M/R - *Routine Extremities Exam Present: full ROM, pulses intact. Absent: edema, calf tenderness - *Routine Neurological Exam Present: alert, oriented X3, moving all extremities, normal speech Assessment and Plan (1) Acute and chronic respiratory failure with hypoxia Current visit: Yes Status: Acute Category: Medical Code(s): J96.21 - Acute and chronic respiratory failure with hypoxia (2) Bilateral pneumonia Current visit: Yes Status: Acute Category: Medical Code(s): J18.9 - Pneumonia, unspecified organism (3) (HFpEF) heart failure with preserved ejection fraction Current visit: Yes Status: Acute Category: Medical Code(s): I50.30 - Unspecified diastolic (congestive) heart failure (4) Morbid obesity Current visit: Yes Status: Acute Category: Medical Code(s): E66.01 - Morbid (severe) obesity due to excess calories (5) Type 2 diabetes mellitus with diabetic neuropathy Current visit: Yes Status: Acute Category: Medical Code(s): E11.40 - Type 2 diabetes mellitus with diabetic neuropathy, unspecified (6) HLD (hyperlipidemia) Current visit: No Status: Chronic Qualifiers: Hyperlipidemia type: mixed hyperlipidemia Qualified Code(s): E78.2 - Mixed hyperlipidemia Category: Medical Code(s): E78.5 - Hyperlipidemia, unspecified (7) HTN (hypertension) Current visit: No Status: Chronic Qualifiers: Hypertension type: essential hypertension Qualified Code(s): I10 - Essential (primary) hypertension Category: Medical Code(s): I10 - Essential (primary) hypertension (8) Peripheral edema Current visit: Yes Status: Acute Category: Medical Code(s): R60.9 - Edema, unspecified - Assessment and plan all Dx Assessment and Plan for all problems:: Continue current care. CT chest for further evaluation of nodule seen on CXR. Cardiology consult ordered. <Gary Morel - Last Filed: 09/27/18 13:16> Exam Vital signs and Labs for Last 24 Hours: Temp Pulse Resp BP Pulse Ox 97.9 F 93 H 20 150/52 H 91 L 09/27/18 07:56 09/27/18 10:10 09/27/18 08:00 09/27/18 07:56 09/27/18 08:00 Laboratory Results - last 24 hr 09/26/18 16:30: POC Glucose 184 H 09/26/18 21:16: POC Glucose 174 H 09/27/18 06:08: WBC 9.8, RBC 3.93 L, Hgb 8.5 L, Hct 30.7 L, MCV 78.0 L, MCH 21.7 L, MCHC 27.8 L, RDW 16.2, Plt Count 323, MPV 6.6 L, Neut % (Auto) 79.7, Lymph % (Auto) 14.6, [place] % (Auto) 4.7, Eos % (Auto) 0.8, Baso % (Auto) 0.3, Neut # (Auto) 7.8, Lymph # (Auto) 1.4, [place] # (Auto) 0.5, Eos # (Auto) 0.1, Baso # (Auto) 0.0 09/27/18 06:18: Sodium 141, Potassium 4.3, Chloride 100, Carbon Dioxide 35 H, Anion Gap 10.3, BUN 12, Creatinine 0.87, Estimated Creat Clear 49, Estimated GFR 64, Est GFR ( Amer) 77, Glucose 198 H D, Calcium 9.5 09/27/18 06:21: POC Glucose 213 H 09/27/18 11:16: POC Glucose 240 H I & O for Last 24 hours: Intake & Output 09/25/18 09/26/18 09/27/18 09/28/18 11:59 11:59 11:59 11:59 Intake Total 1150 / 1150 1320 / 1320 Output Total 4200 / 4200 Balance 1150 / 1150 -2880 / -2880 Weight 314 lb 6 oz 313 lb Assessment and Plan (1) Acute and chronic respiratory failure with hypoxia Current visit: Yes Status: Acute Category: Medical Code(s): J96.21 - Acute and chronic respiratory failure with hypoxia (2) Bilateral pneumonia Current visit: Yes Status: Acute Category: Medical Code(s): J18.9 - Pneumonia, unspecified organism (3) (HFpEF) heart failure with preserved ejection fraction Current visit: Yes Status: Acute Category: Medical Code(s): I50.30 - Unspecified diastolic (congestive) heart failure (4) Morbid obesity Current visit: Yes Status: Acute Category: Medical Code(s): E66.01 - Morbid (severe) obesity due to excess calories (5) Type 2 diabetes mellitus with diabetic neuropathy Current visit: Yes Status: Acute Category: Medical Code(s): E11.40 - Type 2 diabetes mellitus with diabetic neuropathy, unspecified (6) HLD (hyperlipidemia) Current visit: No Status: Chronic Qualifiers: Hyperlipidemia type: mixed hyperlipidemia Qualified Code(s): E78.2 - Mixed hyperlipidemia Category: Medical Code(s): E78.5 - Hyperlipidemia, unspecified (7) HTN (hypertension) Current visit: No Status: Chronic Qualifiers: Hypertension type: essential hypertension Qualified Code(s): I10 - Essential (primary) hypertension Category: Medical Code(s): I10 - Essential (primary) hypertension (8) Peripheral edema Current visit: Yes Status: Acute Category: Medical Code(s): R60.9 - Edema, unspecified (9) Pulmonary hypertension Current visit: Yes Status: Acute Category: Medical Code(s): I27.20 - Pulmonary hypertension, unspecified (10) Lung nodule seen on imaging study Current visit: Yes Status: Acute Category: Medical Code(s): R91.1 - Solitary pulmonary nodule - Assessment and plan all Dx Assessment and Plan for all problems:: Patient seen and examined. She appear comfortable. Concur with assessment and plan.
--- NOTE | 2018-09-27 09:14 | Consult Report ---
History of Present Illness Consult date: 09/27/18 Requesting physician: Gary Morel Consult reason: shortness of breath Chief complaint: SOA Additional Medical History:: 1. Diastolic CHF with pulmonary HTN Cardiac cath, 07/2018 ANGIOGRAPHIC RESULTS: 1. The left main artery normal 2. The left anterior descending artery normal 3. The circumflex artery normal 4. The right coronary artery dominant normal 5. The HUSSEIN ventriculogram reveals normal 60% 6. The left ventricular end-diastolic pressure severely elevated at 45 mmHg IMPRESSION: 1. Normal coronary arteries 2. Normal ejection fraction 3. Severe diastolic congestive heart failure with secondary severe pulmonary hypertension based on LVEDP of 45 mmHg PLAN: 1. Patient requires significant diuresis with furosemide and Aldactone 2. Weight-loss would be beneficial 3. Recommend sleep study given patient's high likelihood for obstructive sleep apnea 2. Diabetes mellitus, treated for many years 3. Morbid obesity 4. prison resident 5. History of focal seizures 6. Hypertension 7. Hyperlipidemia History of present illness: She is a 73-year-old female who is a resident at [facility] started to having some shortness of breath this morning. She usually uses 2 L of oxygen at the residential. However this morning her oxygen saturation dropped to 79 at 2 L. After getting neb treatments, she was not improving as far as her oxygen saturation. She was also having trouble breathing. In the ED chest x- ray showed possible pneumonia. Her previous cath showed HFpEF, needing severe diuresis with Aldactone and Lasix. Blood cultures were obtained in the ED and she was started on Levaquin 750 mg daily. During my exam, patient mentions that she still having some short of breath at 2 L of oxygen. I have increased it to 4 L which helped with her breathing. Mention to me that she has an appointment with Dr. Reyes for a EGD tomorrow morning. I reassured her that we will be changing that appointment for her to after this hospital visit. The above per Dr. Beckford Pt denies any chest pain but continues to have SOA, some of which is chronic but worse recently. She has been told she has pneumonia and is awaiting a CT of the chest today. Recent cardiac cath 2 months ago showed evidence of normal coronary arteries, normal ejection fraction with elevated left ventricular end- diastolic pressure consistent with pulmonary hypertension. Diuretic therapy recommended. Cardiac troponins normal x1 with BNP 53 and no chest x-ray evidence of congestive heart failure. [facility] History Medical History: Reports:: Anxiety, Atrial Fibrillation, Congestive Heart Failure, Depression, Diabetes Mellitus Type 2, Hyperlipidemia, Hypertension, Lung Disease (COPD), Migraine, Seizures Denies:: Cancer, Diabetes Mellitus Type 1, Internal Pacemaker, MRSA *Have you ever received a pneumonia vaccine?: Yes *Have you received a flu vaccine this season?: Yes Other Medical History: Reports: Anemia, Arthritis, Other Other Surgeries: Yes: Appendectomy, Cholecystectomy. No: Pacemaker Amputation: No Fractures: No - *Social History Educational Level: Completed High School Smoking Status: Former smoker Tobacco Type: cigarettes Alcohol Intake: never Alcohol Intake Frequency:: other Substance Use Type: denies use *Occupational Status:: retired Housing: residential Household Members: family *Travel in the last 8 weeks: None - Psychiatric History Expresses thoughts of harming self/others: None Suicide Plan Description: No Plan Pschychiatric History:: Reports:: Anxiety, Depression Family Hx:: Diabetes Meds Home Medications Medication Instructions Recorded Confirmed Type aspirin 325 mg tablet 0.5 tab PO DAILY 08/05/17 09/27/18 History duloxetine 60 mg capsule,delayed 120 mg PO DAILY cap 08/05/17 09/26/18 History release hydrocodone 10 mg-acetaminophen 1 tab PO TID 08/05/17 09/26/18 History 325 mg tablet insulin human U-100 NPH-regulr 60 unit SQ TID ml 08/05/17 09/27/18 History 70-30 mix 100 unit/mL subcutaneous susp isosorbide mononitrate ER 60 mg 60 mg PO BID tab 08/05/17 09/26/18 History tablet,extended release 24 hr losartan 100 mg tablet 100 mg PO DAILY 08/05/17 09/27/18 History melatonin 3 mg tablet 3 mg PO HS 08/05/17 09/26/18 History metformin 1,000 mg tablet 1,000 mg PO BID 08/05/17 09/26/18 History nitroglycerin 0.4 mg sublingual 0.4 mg SUBLINGUAL Q5MINP PRN 08/05/17 09/27/18 History tablet omeprazole 20 mg capsule,delayed 20 mg PO HS 08/05/17 09/26/18 History release ondansetron HCl 4 mg tablet 4 mg PO Q8HP PRN tab 08/05/17 09/27/18 History polyethylene glycol powder 1 each PO BIDP PRN 08/05/17 09/27/18 History polyvinyl alcohol 1.4 % eye drops 1 drp OPHTHALMIC BID PRN ml 08/05/17 09/26/18 History simvastatin 10 mg tablet 10 mg PO HS 08/05/17 09/26/18 History verapamil 120 mg tablet 120 mg PO BID tab 08/05/17 09/26/18 History acetaminophen 500 mg capsule 500 mg PO Q4HP PRN 08/19/17 09/27/18 History aluminum hydrox-magnesium carb 95 30 ml PO Q4HP PRN 09/22/17 09/26/18 History mg-358 mg/15 mL oral suspension Multivitamin [Multivitamins] 1 each PO DAILY 10/15/17 09/26/18 History gabapentin 100 mg capsule 200 mg PO TID cap 06/24/18 09/26/18 History aripiprazole 5 mg tablet 5 mg PO DAILY 07/27/18 09/26/18 History dextromethorphan-guaifenesin 10 10 ml PO Q4HP PRN 07/27/18 09/27/18 History mg-100 mg/5 mL oral syrup phenol 1.4 % mucosal aerosol spray 2 spray MUCOUS MEM QIDP PRN 07/27/18 09/27/18 History psyllium oral powder 1 tbsp PO BIDP PRN 07/27/18 09/27/18 History sodium chloride 0.65 % nasal drops 1 drp INTRANASAL Q4H PRN 07/27/18 09/26/18 History Bisoprolol Fumarate [Bisoprolol 5 mg PO DAILY 09/21/18 09/26/18 History 5mg Tablet] guaiFENesin [Guaifenesin] 400 mg PO TID 09/21/18 09/26/18 History Cholecalciferol (Vitamin D3) 2,000 unit PO DAILY 09/26/18 09/26/18 History [Vitamin D3] Cyanocobalamin (Vitamin B-12) 2,000 mcg PO DAILY 09/26/18 09/26/18 History [Vitamin B-12 1000mcg Tablet] Icosapent Ethyl [Vascepa] 1 gram PO BIDWM 09/26/18 09/26/18 History Propylene Glycol/Peg 400 [Systane 1 drop OP BID 09/26/18 09/26/18 History Gel Eye Drops] Sennosides/Docusate Sodium 1 each PO BIDP PRN 09/26/18 09/27/18 History [Senna-Docusate Sodium Tablet] Torsemide 50 mg PO DAILY 09/26/18 09/26/18 History Ipratropium/Albuterol Sulfate 3 ml IH Q2HP PRN 09/27/18 09/27/18 History [Duoneb 3mL neb] Allergies Allergy/AdvReac Type Severity Reaction Status Date / Time codeine [CODEINE] Allergy Mild Unknown Verified 09/21/18 13:32 allergy reaction naproxen [NAPROXEN] Allergy Mild Unknown Verified 09/21/18 13:32 allergy reaction pregabalin [From LYRICA] Allergy Mild Unknown Verified 09/21/18 14:13 allergy reaction promethazine [PROMETHAZINE] Allergy Mild Unknown Verified 09/21/18 13:32 allergy reaction JOSE ELIAS Inhibitors Allergy Unknown Verified 09/21/18 13:32 allergy reaction Review of Systems - *Cardiovascular Reports shortness of breath, Reports shortness of breath with activity, Denies chest pain - *Respiratory Reports shortness of breath, Reports shortness of breath with activity - *Gastrointestinal Reports abdominal pain, Denies loose stools - *Genitourinary Denies blood in urine - *Musculoskeletal Reports joint pain, Reports back pain - *Neurologic Denies abnormal walking, Denies abnormal hearing, Denies behavioral changes Exam Vital signs and Labs for Last 24 Hours: Temp Pulse Resp BP Pulse Ox 97.9 F 85 18 150/52 H 91 L 09/27/18 07:56 09/27/18 07:56 09/27/18 07:56 09/27/18 07:56 09/27/18 07:56 Laboratory Results - last 24 hr 09/26/18 09:11: POC Glucose 106 09/26/18 11:44: Specimen Source R. radial, O2 % 3.5 lpm, ABG pH 7.38, ABG pCO2 54.2 H, ABG pO2 87.2, ABG HCO3 31.5 H, ABG Total CO2 33.2 H, ABG O2 Saturation 96, ABG Base Excess 6.4 H, Levar Test Acceptable 09/26/18 16:30: POC Glucose 184 H 09/26/18 21:16: POC Glucose 174 H 09/27/18 06:08: WBC 9.8, RBC 3.93 L, Hgb 8.5 L, Hct 30.7 L, MCV 78.0 L, MCH 21.7 L, MCHC 27.8 L, RDW 16.2, Plt Count 323, MPV 6.6 L, Neut % (Auto) 79.7, Lymph % (Auto) 14.6, [place] % (Auto) 4.7, Eos % (Auto) 0.8, Baso % (Auto) 0.3, Neut # (Auto) 7.8, Lymph # (Auto) 1.4, [place] # (Auto) 0.5, Eos # (Auto) 0.1, Baso # (Auto) 0.0 09/27/18 06:18: Sodium 141, Potassium 4.3, Chloride 100, Carbon Dioxide 35 H, Anion Gap 10.3, BUN 12, Creatinine 0.87, Estimated Creat Clear 49, Estimated GFR 64, Est GFR ( Amer) 77, Glucose 198 H D, Calcium 9.5 09/27/18 06:21: POC Glucose 213 H I & O for Last 24 hours: Intake & Output 09/24/18 09/25/18 09/26/18 09/27/18 11:59 11:59 11:59 11:59 Intake Total 1150 / 1150 1320 / 1320 Output Total 3800 / 3800 Balance 1150 / 1150 -2480 / -2480 Weight 314 lb 6 oz 313 lb 7 oz - *Routine HEENT Exam Head: Present: normocephalic Eye: Present: EOMI, PERRL ENT: Present: mucous membranes moist - *Routine Respiratory Exam Present: decreased breath sounds, diminished air movement. Absent: accessory muscle use, rales, rhonchi, wheezes - *Routine Cardiovascular Exam Present: RRR. Absent: murmur, gallop, rubs - *Routine Abdominal Exam Present: soft. Absent: tenderness, distended, guarding - *Routine Extremities Exam Absent: edema, calf tenderness - *Routine Neurological Exam Present: alert, oriented X3, moving all extremities Assessment and Plan (1) Acute and chronic respiratory failure with hypoxia Current visit: Yes Status: Acute Category: Medical Code(s): J96.21 - Acute and chronic respiratory failure with hypoxia (2) Bilateral pneumonia Current visit: Yes Status: Acute Category: Medical Code(s): J18.9 - Pneumonia, unspecified organism (3) (HFpEF) heart failure with preserved ejection fraction Current visit: Yes Status: Acute Category: Medical Code(s): I50.30 - Unspecified diastolic (congestive) heart failure (4) Morbid obesity Current visit: Yes Status: Acute Category: Medical Code(s): E66.01 - Morbid (severe) obesity due to excess calories (5) Type 2 diabetes mellitus with diabetic neuropathy Current visit: Yes Status: Acute Category: Medical Code(s): E11.40 - Type 2 diabetes mellitus with diabetic neuropathy, unspecified (6) HLD (hyperlipidemia) Current visit: No Status: Chronic Qualifiers: Hyperlipidemia type: mixed hyperlipidemia Qualified Code(s): E78.2 - Mixed hyperlipidemia Category: Medical Code(s): E78.5 - Hyperlipidemia, unspecified (7) HTN (hypertension) Current visit: No Status: Chronic Qualifiers: Hypertension type: essential hypertension Qualified Code(s): I10 - Essential (primary) hypertension Category: Medical Code(s): I10 - Essential (primary) hypertension (8) Peripheral edema Current visit: Yes Status: Acute Category: Medical Code(s): R60.9 - Edema, unspecified - Assessment and plan all Dx Assessment and Plan for all problems:: 1. Continue with aggressive IV diuretic therapy with close monitoring of renal status and I/O. 2. Continue treatment for pneumonia. 3. Nothing further to add at this time. Please call if needed.
--- NOTE | 2018-09-28 08:26 | Progress Note ---
<Leana Mcgowan - Last Filed: 09/28/18 08:23> Internal Medicine - PN: Subj *Date: 09/28/18 *Time: 07:50 Interval history: The patient is sitting up at bedside without complaint this morning. She reports she is breathing easier and coughing up only minimal sputum. She denies any pain and states she rested well overnight after a dose of benadryl. Exam Vital signs and Labs for Last 24 Hours: Temp Pulse Resp BP Pulse Ox 98.8 F 83 20 123/57 L 94 L 09/28/18 07:25 09/28/18 07:25 09/28/18 07:25 09/28/18 07:25 09/28/18 07:50 Laboratory Results - last 24 hr 09/27/18 11:16: POC Glucose 240 H I & O for Last 24 hours: Intake & Output 09/25/18 09/26/18 09/27/18 09/28/18 11:59 11:59 11:59 11:59 Intake Total 1150 / 1150 1320 / 1320 960 / 960 Output Total 4200 / 4200 1700 / 1700 Balance 1150 / 1150 -2880 / -2880 -740 / -740 Weight 314 lb 6 oz 313 lb 310 lb 7 oz Radiology Reports for the Last 24 Hours: 09/27/18 CT chest: IMPRESSION: 1. Bandlike area of increased density in the right middle lobe consistent with atelectasis and likely corresponding to the radiographic abnormality. No suspicious pulmonary nodules are evident. 2. Cardiomegaly with coronary artery calcifications. 3. Bilateral thyroid enlargement with heterogeneous density suggesting thyroid nodules which may be better ascertained with ultrasound. - Constitutional no acute distress - *Routine HEENT Exam Head: Present: normocephalic, atraumatic ENT: Present: mucous membranes moist - *Routine Respiratory Exam Comments: improved air movement with expiratory wheezes throughout - *Routine Cardiovascular Exam Present: RRR - *Routine Abdominal Exam Present: soft, normoactive bowel sounds. Absent: tenderness, rebound, guarding, rigid, organomegaly, mass Comments: obese - *Routine Extremities Exam Present: full ROM, pulses intact. Absent: edema, calf tenderness - *Routine Neurological Exam Present: alert, oriented X3, moving all extremities Assessment and Plan (1) Acute and chronic respiratory failure with hypoxia Status: Acute Category: Medical Code(s): J96.21 - Acute and chronic respiratory failure with hypoxia (2) Bilateral pneumonia Status: Acute Category: Medical Code(s): J18.9 - Pneumonia, unspecified organism (3) (HFpEF) heart failure with preserved ejection fraction Status: Acute Category: Medical Code(s): I50.30 - Unspecified diastolic (congestive) heart failure (4) Morbid obesity Status: Acute Category: Medical Code(s): E66.01 - Morbid (severe) obesity due to excess calories (5) Type 2 diabetes mellitus with diabetic neuropathy Status: Acute Category: Medical Code(s): E11.40 - Type 2 diabetes mellitus with diabetic neuropathy, unspecified (6) HLD (hyperlipidemia) Status: Chronic Qualifiers: Hyperlipidemia type: mixed hyperlipidemia Qualified Code(s): E78.2 - Mixed hyperlipidemia Category: Medical Code(s): E78.5 - Hyperlipidemia, unspecified (7) HTN (hypertension) Status: Chronic Qualifiers: Hypertension type: essential hypertension Qualified Code(s): I10 - Essential (primary) hypertension Category: Medical Code(s): I10 - Essential (primary) hypertension (8) Peripheral edema Status: Acute Category: Medical Code(s): R60.9 - Edema, unspecified (9) Pulmonary hypertension Status: Acute Category: Medical Code(s): I27.20 - Pulmonary hypertension, unspecified (10) Lung nodule seen on imaging study Status: Acute Category: Medical Code(s): R91.1 - Solitary pulmonary nodule - Assessment and plan all Dx Assessment and Plan for all problems:: Patient is improving. Cardiology note seen and appreciated. Will continue current care. Further per Dr. Morel. <Gary Morel - Last Filed: 09/28/18 13:18> Exam Vital signs and Labs for Last 24 Hours: Temp Pulse Resp BP Pulse Ox 98.8 F 78 20 123/57 L 94 L 09/28/18 07:25 09/28/18 09:42 09/28/18 07:25 09/28/18 07:25 09/28/18 07:50 I & O for Last 24 hours: Intake & Output 09/26/18 09/27/18 09/28/18 09/29/18 11:59 11:59 11:59 11:59 Intake Total 1150 / 1150 1470 / 1470 960 / 960 Output Total 4200 / 4200 1700 / 1700 Balance 1150 / 1150 -2730 / -2730 -740 / -740 Weight 314 lb 6 oz 313 lb 310 lb 7 oz Microbiology Reports for the Last 24 Hours: Microbiology 09/28/18 05:55 Sputum - Expectorated Sputum Gram Stain - Final 09/28/18 05:55 Sputum - Expectorated Sputum Sputum Culture - Final 09/26/18 08:02 Blood Blood Culture - Preliminary NO GROWTH AFTER 48 HOURS 09/26/18 08:02 Blood Blood Culture - Preliminary NO GROWTH AFTER 48 HOURS Assessment and Plan (1) Acute and chronic respiratory failure with hypoxia Status: Acute Category: Medical Code(s): J96.21 - Acute and chronic respiratory failure with hypoxia (2) (HFpEF) heart failure with preserved ejection fraction Status: Acute Category: Medical Code(s): I50.30 - Unspecified diastolic (congestive) heart failure (3) Morbid obesity Status: Acute Category: Medical Code(s): E66.01 - Morbid (severe) obesity due to excess calories (4) Type 2 diabetes mellitus with diabetic neuropathy Status: Acute Category: Medical Code(s): E11.40 - Type 2 diabetes mellitus with diabetic neuropathy, unspecified (5) HLD (hyperlipidemia) Status: Chronic Qualifiers: Hyperlipidemia type: mixed hyperlipidemia Qualified Code(s): E78.2 - Mixed hyperlipidemia Category: Medical Code(s): E78.5 - Hyperlipidemia, unspecified (6) HTN (hypertension) Status: Chronic Qualifiers: Hypertension type: essential hypertension Qualified Code(s): I10 - Essential (primary) hypertension Category: Medical Code(s): I10 - Essential (primary) hypertension (7) Peripheral edema Status: Acute Category: Medical Code(s): R60.9 - Edema, unspecified (8) Pulmonary hypertension Status: Acute Category: Medical Code(s): I27.20 - Pulmonary hypertension, unspecified (9) Lung nodule seen on imaging study Status: Acute Category: Medical Code(s): R91.1 - Solitary pulmonary nodule (10) Acute bronchitis Status: Acute Category: Medical Code(s): J20.9 - Acute bronchitis, unspecified - Assessment and plan all Dx Assessment and Plan for all problems:: Patient seen and examined. The CT yesterday ruled out any suspicious nodules and showed only some atelecatisis and no pneumonia. She is stable to return to [facility] and continue aggressive diuresis as recommended by cardiology for her pulmonary hypertension.
--- NOTE | 2018-09-28 09:32 | Discharge Summary ---
General - General Admission date:: 09/27/18 <AdrielGary - 09/28/18 13:19> 09/27/18 <Leana Mcgowan - 09/28/18 09:32> Discharge date: 09/28/18 <Leana Mcgowan - 09/28/18 09:32> HPI HPI: Ms. Cortés was a 73-year-old female who was a resident at [facility] who started having some shortness of breath on the morning of admission. She usually used 2 L of oxygen at the intermediate, however, that morning her oxygen saturation dropped to 79 at 2 L. After getting neb treatments, she was not improving as far as her oxygen saturation. She was also having trouble breath ing. In the ED, chest x-ray showed possible pneumonia. Her previous cath showed HFpEF, needing severe diuresis with Aldactone and Lasix. Blood cultures were obtained in the ED and she was started on Levaquin 750 mg daily. Upon initial exam, patient mentioned that she was still having some short of breath at 2 L of oxygen. Her oxygen was increased to 4 L which helped with her breathing. <Leana Mcgowan - 09/28/18 09:50> Hospital Course Hospital Course: The morning following admission, the patient was feeling slightly better with less SOB. CT of the chest was ordered to further evaluate a possible nodule seen on CXR and showed an area of atelectasis likely corresponding to the radiographic abnormality. CT also showed cardiomegaly with CAD and bilateral thyroid enlargement. By the morning of 09/28/18, the patient was feeling much better. She denied any SOB and was stable for discharge back to [facility]. <Leana Mcgowan - 09/28/18 09:50> Objective Vital signs: Temp Pulse Resp BP Pulse Ox 98.8 F 78 20 123/57 L 94 L 09/28/18 07:25 09/28/18 09:42 09/28/18 07:25 09/28/18 07:25 09/28/18 07:50 <AdrielGary chew - 09/28/18 13:19> Temp Pulse Resp BP Pulse Ox 98.8 F 83 20 123/57 L 94 L 09/28/18 07:25 09/28/18 07:25 09/28/18 07:25 09/28/18 07:25 09/28/18 07:50 <Leana Mcgowan 09/28/18 09:32> Results Labs on day of discharge: Preliminary micro results at discharge 09/26/18 08:02 Blood Culture - Preliminary Blood NO GROWTH AFTER 48 HOURS 09/26/18 08:02 Blood Culture - Preliminary Blood NO GROWTH AFTER 48 HOURS <Gary Morel - 09/28/18 13:19> Labs from last 24 hours 09/27/18 11:16 POC Glucose 240 H Preliminary micro results at discharge 09/26/18 08:02 Blood Culture - Preliminary Blood NO GROWTH AFTER 48 HOURS 09/26/18 08:02 Blood Culture - Preliminary Blood NO GROWTH AFTER 48 HOURS <Leana Mcgowan 09/28/18 09:32> DS: Diagnosis - Discharge Diagnosis (1) Acute and chronic respiratory failure with hypoxia Status: Acute (2) Bilateral pneumonia Status: Acute (3) (HFpEF) heart failure with preserved ejection fraction Status: Acute (4) Morbid obesity Status: Acute (5) Type 2 diabetes mellitus with diabetic neuropathy Status: Acute (6) HLD (hyperlipidemia) Status: Chronic (7) HTN (hypertension) Status: Chronic (8) Peripheral edema Status: Acute (9) Pulmonary hypertension Status: Acute (10) Lung nodule seen on imaging study Status: Acute <Leana Mcgowan 09/28/18 09:42> (1) Acute and chronic respiratory failure with hypoxia Status: Acute (2) (HFpEF) heart failure with preserved ejection fraction Status: Acute (3) Morbid obesity Status: Acute (4) Type 2 diabetes mellitus with diabetic neuropathy Status: Acute (5) HLD (hyperlipidemia) Status: Chronic (6) HTN (hypertension) Status: Chronic (7) Peripheral edema Status: Acute (8) Pulmonary hypertension Status: Acute (9) Lung nodule seen on imaging study Status: Acute (10) Acute bronchitis Status: Acute <Gary Morel - 09/28/18 13:19> Discharge Plan - Patient Discharge Instructions ACTIVITY: Continue current activity <Leana Mcgowan 09/28/18 09:32> DIET: continue same diet <Leana Mcgowan 09/28/18 09:32> Patient Instructions: Pulmonary Hypertension -- Adult, DI for Heart Failure, DI for Chronic Obstructive Pulmonary Disease, DI for Diabetes Type 2 <Gary Morel - 09/28/18 13:19> Forms: <Gary Morel - 09/28/18 13:19> - Follow up Plan Follow up with: <Gary Morel - 09/28/18 13:19> Disposition: Xfer SNF <Gary Morel - 09/28/18 13:19> Home Medications: Home Medications Medication Instructions Recorded Confirmed Type aspirin 325 mg tablet 0.5 tab PO DAILY 08/05/17 09/27/18 History duloxetine 60 mg capsule,delayed 120 mg PO DAILY cap 08/05/17 09/26/18 History release hydrocodone 10 mg-acetaminophen 1 tab PO TID 08/05/17 09/26/18 History 325 mg tablet insulin human U-100 NPH-regulr 60 unit SQ TID ml 08/05/17 09/27/18 History 70-30 mix 100 unit/mL subcutaneous susp isosorbide mononitrate ER 60 mg 60 mg PO BID tab 08/05/17 09/26/18 History tablet,extended release 24 hr losartan 100 mg tablet 100 mg PO DAILY 08/05/17 09/27/18 History metformin 1,000 mg tablet 1,000 mg PO BID 08/05/17 09/26/18 History nitroglycerin 0.4 mg sublingual 0.4 mg SUBLINGUAL Q5MINP PRN 08/05/17 09/27/18 History tablet omeprazole 20 mg capsule,delayed 20 mg PO HS 08/05/17 09/26/18 History release ondansetron HCl 4 mg tablet 4 mg PO Q8HP PRN tab 08/05/17 09/27/18 History polyethylene glycol powder 1 each PO BIDP PRN 08/05/17 09/27/18 History polyvinyl alcohol 1.4 % eye drops 1 drp OPHTHALMIC BID PRN ml 08/05/17 09/26/18 History simvastatin 10 mg tablet 10 mg PO HS 08/05/17 09/26/18 History verapamil 120 mg tablet 120 mg PO BID tab 08/05/17 09/26/18 History acetaminophen 500 mg capsule 500 mg PO Q4HP PRN 08/19/17 09/27/18 History aluminum hydrox-magnesium carb 95 30 ml PO Q4HP PRN 09/22/17 09/26/18 History mg-358 mg/15 mL oral suspension Multivitamin [Multivitamins] 1 each PO DAILY 10/15/17 09/26/18 History gabapentin 100 mg capsule 200 mg PO TID cap 06/24/18 09/26/18 History aripiprazole 5 mg tablet 5 mg PO DAILY 07/27/18 09/26/18 History dextromethorphan-guaifenesin 10 10 ml PO Q4HP PRN 07/27/18 09/27/18 History mg-100 mg/5 mL oral syrup phenol 1.4 % mucosal aerosol spray 2 spray MUCOUS MEM QIDP PRN 07/27/18 09/27/18 History psyllium oral powder 1 tbsp PO BIDP PRN 07/27/18 09/27/18 History sodium chloride 0.65 % nasal drops 1 drp INTRANASAL Q4H PRN 07/27/18 09/26/18 History Bisoprolol Fumarate [Bisoprolol 5 mg PO DAILY 09/21/18 09/26/18 History 5mg Tablet] guaiFENesin [Guaifenesin] 400 mg PO TID 09/21/18 09/26/18 History Cholecalciferol (Vitamin D3) 2,000 unit PO DAILY 09/26/18 09/26/18 History [Vitamin D3] Cyanocobalamin (Vitamin B-12) 2,000 mcg PO DAILY 09/26/18 09/26/18 History [Vitamin B-12 1000mcg Tablet] Icosapent Ethyl [Vascepa] 1 gram PO BIDWM 09/26/18 09/26/18 History Propylene Glycol/Peg 400 [Systane 1 drop OP BID 09/26/18 09/26/18 History Gel Eye Drops] Sennosides/Docusate Sodium 1 each PO BIDP PRN 09/26/18 09/27/18 History [Senna-Docusate Sodium Tablet] Torsemide 50 mg PO DAILY 09/26/18 09/26/18 History Ipratropium/Albuterol Sulfate 3 ml IH Q2HP PRN 09/27/18 09/27/18 History [Duoneb 3mL neb] Spironolactone [Aldactone 25mg 50 mg PO BID #60 tab 09/28/18 Rx Tab] diphenhydrAMINE HCl [Benadryl 25mg 25 mg PO HS PRN #30 cap 09/28/18 Rx Capsule] levoFLOXacin [Levaquin 500mg 500 mg PO DAILY #7 tab 09/28/18 Rx tab] <Gary Morel - 09/28/18 13:19> Prescriptions/Medication Reconciliation: New Spironolactone [Aldactone 25mg Tab] 50 mg PO BID #60 tab levoFLOXacin [Levaquin 500mg tab] 500 mg PO DAILY #7 tab diphenhydrAMINE HCl [Benadryl 25mg Capsule] 25 mg PO HS PRN #30 cap PRN Reason: Sleep Continue polyvinyl alcohol 1.4 % eye drops 1 drp OPHTHALMIC BID PRN ml PRN Reason: eyes nitroglycerin 0.4 mg sublingual tablet 0.4 mg SUBLINGUAL Q5MINP PRN PRN Reason: cp aspirin 325 mg tablet 0.5 tab PO DAILY duloxetine 60 mg capsule,delayed release 120 mg PO DAILY cap insulin human U-100 NPH-regulr 70-30 mix 100 unit/mL subcutaneous susp 60 unit SQ TID ml hydrocodone 10 mg-acetaminophen 325 mg tablet 1 tab PO TID isosorbide mononitrate ER 60 mg tablet,extended release 24 hr 60 mg PO BID tab losartan 100 mg tablet 100 mg PO DAILY metformin 1,000 mg tablet 1,000 mg PO BID simvastatin 10 mg tablet 10 mg PO HS verapamil 120 mg tablet 120 mg PO BID tab gabapentin 100 mg capsule 200 mg PO TID cap phenol 1.4 % mucosal aerosol spray 2 spray MUCOUS MEM QIDP PRN PRN Reason: Sore Throat psyllium oral powder 1 tbsp PO BIDP PRN PRN Reason: Constipation dextromethorphan-guaifenesin 10 mg-100 mg/5 mL oral syrup 10 ml PO Q4HP PRN PRN Reason: Cough aripiprazole 5 mg tablet 5 mg PO DAILY ondansetron HCl 4 mg tablet 4 mg PO Q8HP PRN tab PRN Reason: Nausea omeprazole 20 mg capsule,delayed release 20 mg PO HS acetaminophen 500 mg capsule 500 mg PO Q4HP PRN PRN Reason: pain aluminum hydrox-magnesium carb 95 mg-358 mg/15 mL oral suspension 30 ml PO Q4HP PRN PRN Reason: Indigestion sodium chloride 0.65 % nasal drops 1 drp INTRANASAL Q4H PRN PRN Reason: UNKNOWN Bisoprolol Fumarate [Bisoprolol 5mg Tablet] 5 mg PO DAILY Sennosides/Docusate Sodium [Senna-Docusate Sodium Tablet] 1 each PO BIDP PRN PRN Reason: Constipation Cyanocobalamin (Vitamin B-12) [Vitamin B-12 1000mcg Tablet] 2,000 mcg PO DAILY Icosapent Ethyl [Vascepa] 1 gram PO BIDWM Multivitamin [Multivitamins] 1 each PO DAILY guaiFENesin [Guaifenesin] 400 mg PO TID Cholecalciferol (Vitamin D3) [Vitamin D3] 2,000 unit PO DAILY Torsemide 50 mg PO DAILY Propylene Glycol/Peg 400 [Systane Gel Eye Drops] 1 drop OP BID Ipratropium/Albuterol Sulfate [Duoneb 3mL neb] 3 ml IH Q2HP PRN PRN Reason: Shortness Of Breath Discontinued melatonin 3 mg tablet 3 mg PO HS No Action polyethylene glycol powder 1 each PO BIDP PRN PRN Reason: Constipation <Gary Morel - 09/28/18 13:19>
== END 2018-09-28 11:12 | DRG 189 ==
LOC: ER 07:51 → 2ND 07:51
PROVIDERS: ADMIT Emergency Medicine; ATTEND Family Medicine
CPT/HCPCS: 36415; 71010; 71045; 71270; 80048; 80053; 82803; 82962; 83605; 83880; 84484; 85025; 85610; 87040; 87205; 93005; 94640; 94761; 96365; 96375; 99282; G0378; J1956; J2405; Q9967

== ENCOUNTER 2018-12-10 09:08 | Outpatient (CLI) | payer MEDICARE, MEDICAID, SELFPAY ==
[2018-12-10] VITALS (20 sets, daily range): BP systolic 110–139; BP diastolic 40–66; PULSE 64–83; RESP 18–22; TEMP 36.7–37.1; O2SAT 94–95; BMI 50.1
[2018-12-10 09:43] LABS: Hematocrit 28.5 % (37.0-47.0)
--- NOTE | 2018-12-10 10:06 | PC.NURSE ---
Spoke with Tamera at Dr. Morel's office. Informed this am's H&H 8.0, 28.5, up from 7.4 hgb on 12/08/18. Questioned if they want her to have the 2 units ordered just one unit based on increased H&H. Awaiting new orders
--- NOTE | 2018-12-10 16:06 | PC.NURSE ---
12/10/08 1120 Transfusion of 1st unit PRBC's initiated at this time. O2 in use at 2 lpm per NC/pt O2 dependent at 2lpm at [facility]. Lungs diminished in bases, otherwise no crackles or other adventitious lung sounds noted. VSS. Skin warm/dry to touch. Pt verbalizes s/s of transfusion reaction as reviewed with pt per nurse, handout provided. 1350 Transfusion of 1st unit of PRBC's complete. VSS. Pt has yarely well with no problems noted. No s/s reaction noted. Lungs remain diminished in bases b/l, consistent with baseline. Pt has slept at intervals and awakens easily for assessment/monitoring. Pt denies c/o. 1410 Transfusion of 2nd unit PRBC's initiated at this time. VSS. Pt denies c/o. No s/s reaction noted. Skin warm/dry to touch. Lungs diminished b/l bases, otherwise CTA. Reviewed s/s transfusion reaction with pt, who verbalizes understanding. 1610 2nd unit of PRBC's complete at this time. Pt has yarely well with no problems, denies c/o. VSS. Resp unlabored. O2 remains in use throughout stay at 2lpm per NC per pt chronic O2 dependency. Pt will receive Lasix 20mg IV as ordered due to hx of CHF, COPD
--- NOTE | 2018-12-10 17:38 | PC.NURSE ---
12/10/18 2698 detailed report called to [facility] [place]
--- NOTE | 2018-12-10 17:39 | PC.NURSE ---
12/10/18 1725 Pt transported back to [place] per [place] staff. VSS. Pt denies c/o. No s/s transfusion reaction noted. Pt has yarely blood transfusion well. Has had good urine output after receiving Lasix as ordered post transfusion. Pt states she is feeling some better/stronger. 1 hour post transfusion H&H pending.
[2018-12-10 17:49] LABS: Hematocrit 30.1 % (37.0-47.0); Hemoglobin 8.7 g/dL (12.2-16.2)
--- NOTE | 2018-12-10 18:19 | PC.NURSE ---
12/10/18 1 hour post H&H called to [facility] [place]
== END 2018-12-10 17:25 | disposition home or self-care (01) ==
LOC: INF 09:09
PROVIDERS: Visit Provider Family Medicine
DX: D64.9 Anemia, unspecified (principal)
CPT/HCPCS: 36430; 85014; 85018; 86850; P9016

== ENCOUNTER 2018-12-22 13:38 | Outpatient (CLI) | payer MEDICARE, MEDICAID, SELFPAY ==
[2018-12-22 13:41] VITALS: BP 95/57; PULSE 78; RESP 20
[2018-12-22 14:27] VITALS: BP 121/58; PULSE 74; RESP 18
== END 2018-12-22 14:27 | disposition home or self-care (01) ==
LOC: INF 13:39
PROVIDERS: Visit Provider Internal Medicine Gastroenterology
DX: D64.9 Anemia, unspecified (principal); D50.9 Iron deficiency anemia, unspecified; T45.4X5A Adverse effect of iron and its compounds, initial encounter
CPT/HCPCS: 96365; J1439

== ENCOUNTER 2018-12-29 13:20 | Outpatient (CLI) | payer MEDICARE, MEDICAID, SELFPAY ==
[2018-12-29 13:51] VITALS: BP 109/46; PULSE 74; RESP 18; O2SAT 93
[2018-12-29 14:30] VITALS: BP 122/49; PULSE 78; RESP 18; O2SAT 93
== END 2018-12-29 14:30 | disposition home or self-care (01) ==
LOC: INF 13:28
PROVIDERS: Visit Provider Internal Medicine Gastroenterology
DX: D64.9 Anemia, unspecified (principal); D50.0 Iron deficiency anemia secondary to blood loss (chronic); K29.40 Chronic atrophic gastritis without bleeding
CPT/HCPCS: 96365; J1439

== ENCOUNTER → 2019-08-03 12:40 | Outpatient (CLI) | payer MEDICARE, MEDICAID, SELFPAY ==
[2019-08-03 12:45] LABS: Microscopic, Urine URINE MICROSCOPIC (MICROSCOPIC)
[2019-08-03 12:53] LABS: Basophils % 0.5 % (0.1-2.0); Eosinophils # 0.1 K/mm3 (0.0-0.4); Eosinophils % 1.4 % (0.1-12.0); Lymphocytes # 1.2 K/mm3 (0.7-4.5); Mean Corpuscular HGB Conc 31.3 g/dL (31.8-35.4); Mean Corpuscular Hemoglobin 27.6 pg (27.0-31.2); Mean Corpuscular Volume 88.1 fl (81-99); Mean Platelet Volume 8.6 fl (7.4-10.4); Monocytes # 0.3 K/mm3 (0.1-1.0); Monocytes % 4.6 % (1.7-9.3); Neutrophils # 5.7 K/mm3 (1.8-7.8); Neutrophils % 77.5 % (37.0-80.0); Platelet Count 221 K/mm3 (142-424); Red Blood Count 3.97 M/mm3 (4.20-5.40); Red Cell Distribution Width 14.6 % (11.5-17.5); White Blood Count 7.3 K/mm3 (4.8-10.8)
[2019-08-03 13:06] LABS: Appearance,Urine CLEAR (Clear); Bilirubin,Urine Negative (Negative); Blood, Urine Negative (Negative); Color,Urine YELLOW (Yellow); Glucose,Urine (UA) Negative (Negative); Ketones,Urine Negative (Negative); Leukocyte Esterase,Urine Negative (Negative); Nitrate,Urine Negative (Negative); PH,Urine 7.5 (5.0-8.5); Protein,Urine Negative (Negative)
[2019-08-03 13:26] LABS: Bacteria,Urine Trace /lpf
== END ==
PROVIDERS: Visit Provider Family Medicine
DX: R05 Cough (principal); R31.9 Hematuria, unspecified
CPT/HCPCS: 81001; 85025

== ENCOUNTER → 2019-11-18 12:14 | Outpatient (CLI) | payer MEDICARE, MEDICAID, SELFPAY ==
[2019-11-18 12:17] LABS: Microscopic, Urine URINE MICROSCOPIC (MICROSCOPIC)
[2019-11-18 12:27] LABS: Appearance,Urine CLEAR (Clear); Bilirubin,Urine Negative (Negative); Blood, Urine Negative (Negative); Color,Urine YELLOW (Yellow); Glucose,Urine (UA) Negative (Negative); Ketones,Urine Negative (Negative); Leukocyte Esterase,Urine TRACE (Negative); Nitrate,Urine Negative (Negative); Protein,Urine Negative (Negative); Specific Gravity, Urine 1.015 (1.005-1.030); Urobilinogen,Urine 0.2 EU/dl (0.2)
[2019-11-18 12:34] LABS: Amorphous Sediment,Urine Trace /lpf; WBC,Urine Occasional #/hpf (0-3)
== END ==
PROVIDERS: Visit Provider Family Medicine
DX: N39.0 Urinary tract infection, site not specified (principal)
CPT/HCPCS: 81001; 87086; 87088; 87186

== ENCOUNTER → 2019-11-28 23:35 | Outpatient (REF) | payer MEDICARE, MEDICAID, SELFPAY ==
[2019-11-28 23:45] LABS: Microscopic, Urine URINE MICROSCOPIC (MICROSCOPIC)
[2019-11-28 23:46] LABS: Appearance,Urine CLEAR (Clear); Bilirubin,Urine Negative (Negative); Blood, Urine Negative (Negative); Color,Urine YELLOW (Yellow); Glucose,Urine (UA) Negative (Negative); Ketones,Urine Negative (Negative); Leukocyte Esterase,Urine TRACE (Negative); Nitrate,Urine Negative (Negative); PH,Urine 5.5 (5.0-8.5); Protein,Urine Negative (Negative); Specific Gravity, Urine 1.015 (1.005-1.030); Urobilinogen,Urine 0.2 EU/dl (0.2)
[2019-11-29 00:08] LABS: Bacteria,Urine 1+ /lpf
== END ==
LOC: LAB.DROPOF 23:35
PROVIDERS: Visit Provider Family Medicine
DX: Z79.899 Other long term (current) drug therapy (principal)
CPT/HCPCS: 81001; 87086

== ENCOUNTER → 2020-03-19 14:34 | Outpatient (POV) | payer MEDICARE, MEDICAID, SELFPAY | PROVIDERS: Visit Provider Nurse Practitioner Family | DX: Z00.00 Encounter for general adult medical examination without abnormal findings (principal) ==

== ENCOUNTER → 2020-10-23 05:49 | Outpatient (CLI) | payer MEDICARE, MEDICAID, SELFPAY ==
[2020-10-23 06:24] LABS: Occult Blood,Stool Negative (Negative)
[2020-10-23 06:24] LABS: Occult Blood,Stool Negative (Negative)
== END ==
PROVIDERS: Visit Provider Family Medicine
DX: D50.9 Iron deficiency anemia, unspecified (principal)
CPT/HCPCS: 82272; G0328

== ENCOUNTER 2020-10-24 12:53 | Outpatient (CLI) | payer MEDICARE, MEDICAID, SELFPAY ==
[2020-10-24 13:23] VITALS: BP 118/42; PULSE 67; RESP 18; TEMP 36.3; O2SAT 97
[2020-10-24 14:09] VITALS: BP 121/50; PULSE 70; RESP 18; O2SAT 98
--- NOTE | 2020-10-24 14:59 | PC.NURSE ---
10/24/20-1410-pt transported here from [place] with another resident getting tx. Informed pt that there is a slight delay due to the other pt taking more time and ordered a lunch tray to eat while waiting.
== END 2020-10-24 15:45 | disposition home or self-care (01) ==
LOC: INF 12:53
PROVIDERS: Visit Provider Nurse Practitioner Family
DX: D64.9 Anemia, unspecified (principal)
CPT/HCPCS: 96365; J1439

== ENCOUNTER 2020-11-01 13:00 | Outpatient (CLI) | payer MEDICARE, MEDICAID, SELFPAY ==
[2020-11-01 14:05] VITALS: BP 137/64; PULSE 73; RESP 16; O2SAT 97
== END 2020-11-01 14:49 | disposition home or self-care (01) ==
LOC: INF 13:01
PROVIDERS: Visit Provider Nurse Practitioner Family
DX: D64.9 Anemia, unspecified (principal)
CPT/HCPCS: 96365; J1439

== ENCOUNTER 2021-01-18 15:24 | Emergency (ER) | payer MEDICARE, MEDICAID, SELFPAY ==
[2021-01-18 15:25] VITALS: BP 136/56; PULSE 77; RESP 22; TEMP 36.9; O2SAT 96; BMI 47.2
[2021-01-18 16:18] VITALS: BP 136/56; PULSE 73; O2SAT 95
[2021-01-18 16:31] VITALS: BP 138/59; PULSE 72; RESP 20; O2SAT 96
--- NOTE | 2021-01-18 16:31 | CT_ITS ---
PROCEDURE INFORMATION: Exam: CT Abdomen And Pelvis With Contrast Exam date and time: 01/18/2021 4:31 PM Age: 75 years old Clinical indication: Abdominal pain; Tenderness; Other: Left flank; Patient HX: Lt flank pain; Additional info: L flank pain TECHNIQUE: Imaging protocol: Computed tomography of the abdomen and pelvis with contrast. Radiation optimization: All CT scans at this facility use at least one of these dose optimization techniques: automated exposure control; mA and/or kV adjustment per patient size (includes targeted exams where dose is matched to clinical indication); or iterative reconstruction. Contrast material: ISOVUE; Contrast volume: 100 ml; Contrast route: IV; COMPARISON: ABDPELW CT abdomen pelvis wo con 12/27/2018 9:44 AM FINDINGS: Lungs: Mild bibasilar atelectasis. Calcified pulmonary nodule noted. Heart: Mild cardiac enlargement. Aortic valvular calcifications noted. Mediastinal space: Calcified lymph nodes seen along the right lateral wall of the esophagus. Liver: Normal. No mass. Gallbladder and bile ducts: Status post cholecystectomy. Pancreas: Normal. No ductal dilation. Spleen: Normal. No splenomegaly. Adrenal glands: Normal. No mass. Kidneys and ureters: There is 3 cm hypodensity in the right kidney that was present on prior and is most likely cyst. Stomach and bowel: Redundant sigmoid colon. Appendix: No evidence of appendicitis. Intraperitoneal space: Unremarkable. No free air. No significant fluid collection. Vasculature: See Heart finding. Lymph nodes: Unremarkable. No enlarged lymph nodes. Urinary bladder: Unremarkable as visualized. Reproductive: Unremarkable as visualized. Bones/joints: Unremarkable. No acute fracture. Soft tissues: Small fat containing paraumbilical hernia. IMPRESSION: No acute intra-abdominal pathology. No findings to explain the patient's symptoms.
[2021-01-18 16:54] LABS: Microscopic, Urine URINE MICROSCOPIC (MICROSCOPIC)
[2021-01-18 16:58] LABS: Basophils # 0.1 K/mm3 (0-0.2); Basophils % 0.5 % (0.1-2.0); Eosinophils # 0.2 K/mm3 (0.0-0.4); Eosinophils % 1.8 % (0.1-12.0); Hematocrit 35.4 % (37.0-47.0); Hemoglobin 11.8 g/dL (12.2-16.2); Lymphocytes # 1.8 K/mm3 (0.7-4.5); Lymphocytes % 19.7 % (10-50); Mean Corpuscular HGB Conc 33.3 g/dL (31.8-35.4); Mean Corpuscular Hemoglobin 31.9 pg (27.0-31.2); Mean Corpuscular Volume 95.7 fl (81-99); Mean Platelet Volume 7.3 fl (7.4-10.4); Monocytes # 0.5 K/mm3 (0.1-1.0); Monocytes % 5.4 % (1.7-9.3); Neutrophils # 6.5 K/mm3 (1.8-7.8); Neutrophils % 72.6 % (37.0-80.0); Platelet Count 271 K/mm3 (142-424); Red Cell Distribution Width 14.5 % (11.5-17.5)
[2021-01-18 17:00] LABS: Chloride 100 mmol/L (98-107); Potassium 4.1 mmoL/L (3.5-5.1); Sodium 140 mmol/L (136-145)
[2021-01-18 17:01] VITALS: BP 134/56; PULSE 76; RESP 18; O2SAT 96
[2021-01-18 17:03] LABS: Alanine Aminotransferase 16 U/L (12-78); Albumin Level 4.3 g/dl (3.5-5.0); Albumin/Globulin Ratio 1.3 (1.1-1.8); Alkaline Phosphatase 74 U/L (38-126); Anion Gap 13.1 mEq/L (5-15); Aspartate Amino Transferase 22 U/L (14-36); Bilirubin,Total 0.2 mg/dl (0.2-1.3); Blood Urea Nitrogen 18 mg/dl (7-17); Calcium 9.3 mg/dl (8.4-10.2); Carbon Dioxide 31 mmol/L (22.0-30.0); Creatinine Clearance Estimated 48 mL/min (50-200); Estimated Glomerular Filt Rate 70 ml/min (>60); GFR (African American) 85 ML/MIN (>60); Globulin 3.2 g/dL (1.3-3.2); Glucose 141 mg/dl (74-100); Total Protein,Serum 7.5 g/dl (6.3-8.2)
[2021-01-18 17:06] LABS: Appearance,Urine SL CLOUDY (Clear); Bilirubin,Urine Negative (Negative); Blood, Urine Negative (Negative); Color,Urine YELLOW (Yellow); Glucose,Urine (UA) Negative (Negative); Ketones,Urine Negative (Negative); Leukocyte Esterase,Urine 1+ (Negative); Nitrate,Urine Negative (Negative); Protein,Urine Negative (Negative); Specific Gravity, Urine 1.015 (1.005-1.030); Urobilinogen,Urine 0.2 EU/dl (0.2)
[2021-01-18 17:25] LABS: WBC,Urine Occasional #/hpf (0-3)
--- NOTE | 2021-01-18 17:28 | HMH.EDGENADL ---
ED Disposition Clinical Impression: Left flank pain, Urinary hesitancy Disposition: Home, Self-Care Condition on Discharge: Good Instructions: DI for Flank Pain Additional Instructions: Follow-up with Dr. Morel for further care and evaluation. Follow-up urine culture results in 2 to 3 days. Referrals: Gary Morel MD [Primary Care Provider] - - Critical Care Critical Care Time: No Attestation: On 01/18/21, the high probability of a clinically significant, sudden or life threatening deterioration of the following system(s) required my full and direct attention, intervention and personal management. The time I documented below is in addition to time spent performing reported procedures but includes the following listed in this critical care notation. Medical Decision Making - Demond Inquiry Pt receiving controlled substance: No Vital Signs: 01/18/21 15:25 01/18/21 16:18 01/18/21 16:31 Temperature 98.5 F Temperature Source Oral Pulse Rate 73 72 Pulse Rate [Left] 77 Respiratory Rate 22 20 Blood Pressure 136/56 L 138/59 L Blood Pressure [Right Arm] 136/56 L Blood Pressure Mean 72 Blood Pressure Mean [Right Arm] 82 Blood Pressure Source [Right Arm] Automatic Cuff Blood Pressure Position [Right Arm] Supine 02 Sat by Pulse Oximetry 96 95 96 Oxygen Delivery Method Room Air 01/18/21 17:01 01/18/21 17:31 Temperature Temperature Source Pulse Rate 76 77 Pulse Rate [Left] Respiratory Rate 18 18 Blood Pressure 134/56 L 137/51 L Blood Pressure [Right Arm] Blood Pressure Mean 82 89 Blood Pressure Mean [Right Arm] Blood Pressure Source [Right Arm] Blood Pressure Position [Right Arm] 02 Sat by Pulse Oximetry 96 95 Oxygen Delivery Method - Lab Data Lab Results 01/18/21 16:07: WBC 9.0, RBC 3.70 L, Hgb 11.8 L, Hct 35.4 L, MCV 95.7, MCH 31.9 H, MCHC 33.3, RDW 14.5, Plt Count 271, MPV 7.3 L, Neut % (Auto) 72.6, Lymph % (Auto) 19.7, [place] % (Auto) 5.4, Eos % (Auto) 1.8, Baso % (Auto) 0.5, Neut # (Auto) 6.5, Lymph # (Auto) 1.8, [place] # (Auto) 0.5, Eos # (Auto) 0.2, Baso # (Auto) 0.1 01/18/21 16:07: Sodium 140, Potassium 4.1, Chloride 100, Carbon Dioxide 31 H, Anion Gap 13.1, BUN 18 H, Creatinine 0.80, Estimated Creat Clear 48, Estimated GFR 70, Est GFR ( Amer) 85, Glucose 141 H, Calcium 9.3, Total Bilirubin 0.2, AST 22, ALT 16, Alkaline Phosphatase 74, Total Protein 7.5, Albumin 4.3, Globulin 3.2, Albumin/Globulin Ratio 1.3 01/18/21 16:21: Urine Color Yellow, Urine Appearance Sl cloudy, Urine pH 6.0, Ur Specific [place] 1.015, Urine Protein Negative, Urine Glucose (UA) Negative, Urine Ketones Negative, Urine Blood Negative, Urine Nitrate Negative, Urine Bilirubin Negative, Urine Urobilinogen 0.2, Ur Leukocyte Esterase 1+ A, Urine RBC None, Urine WBC Occasional, Ur Squamous Epith Cells None, Urine Bacteria None Result diagrams: 01/18/21 16:07 01/18/21 16:07 Orders (Tests/Meds): ED MEDICATIONS Discontinued Medications Generic Name Dose Route Start Last Admin Trade Name Daveq PRN Reason Stop Dose Admin Iopamidol 100 ml 01/18/21 17:48 01/18/21 17:49 Iopamidol-370 (76%);100ml Bottle IV 01/18/21 17:49 100 ml ONCE ONE Administration Ketorolac Tromethamine 15 mg 01/18/21 17:37 01/18/21 18:03 Ketorolac 30mg/Ml Vial IV 01/18/21 17:38 15 mg ONCE ONE Administration Sodium Chloride 10 ml 01/18/21 17:48 01/18/21 17:49 Sodium Chloride 0.9% 10ml Syr (Rad Only) IV 01/18/21 17:49 10 ml ONCE ONE Administration ORDERS Category Date Time Status Urine Culture Stat Micro 01/18/21 16:21 Received - CT Data CT Scan: Abdomen, Pelvis Time Received: 18:[address] Reviewed: Yes: I have viewed the radiologist's interpretation Findings Narrative: PROCEDURE INFORMATION: Exam: CT Abdomen And Pelvis With Contrast Exam date and time: 01/18/2021 4:31 PM Age: 75 years old Clinical indication: Abdominal pain; Tenderness; Other: Left
[2021-01-18 17:31] VITALS: BP 137/51; PULSE 77; RESP 18; O2SAT 95
--- NOTE | 2021-01-18 18:58 | PC.NURSE ---
Dave called and I provided update on patient condition. informed [facility] that patient will be transported back to them once discharged.
--- NOTE | 2021-01-18 19:07 | PC.NURSE ---
called fabby [facility] about arranging transport to get patient back to facility. spoke with Margo and she stated that she will have to call her DON about arranging transportation for patient back to facility.
--- NOTE | 2021-01-18 19:15 | PC.NURSE ---
phone call from Margo @ [facility], states that the two people they have to transport patient back are not available to transport patient, one person is in [place] and the other is in [place]. Margo was told that [facility] has a contract with the ambulance service to transport patient back to facility if [facility] is unable to do so. I placed a phone call to [facility]'s ambulance and spoke with Prema Seth, [facility] and was told that he would check with his bosses and get back with me.
--- NOTE | 2021-01-18 19:22 | PC.NURSE ---
Spoke with Prema Seth, they will come to hand picker patient and return her to [place]
[2021-01-18 19:27] VITALS: BP 135/60; PULSE 74; RESP 18; TEMP 36.9; O2SAT 95
== END 2021-01-18 19:32 | disposition home or self-care (01) ==
PROVIDERS: Emergency Provider Emergency Medicine; PCP Family Medicine
DX: R10.32 Left lower quadrant pain (principal); R39.11 Hesitancy of micturition; I48.0 Paroxysmal atrial fibrillation; J44.9 Chronic obstructive pulmonary disease, unspecified; F41.8 Other specified anxiety disorders; I10 Essential (primary) hypertension; I50.9 Heart failure, unspecified; E78.5 Hyperlipidemia, unspecified; Z79.899 Other long term (current) drug therapy
CPT/HCPCS: 74177; 80053; 81001; 85025; 87086; 99283; Q9967

== ENCOUNTER → 2021-01-21 13:02 | Outpatient (POV) | payer MEDICARE, MEDICAID, SELFPAY | PROVIDERS: Visit Provider Nurse Practitioner Family | DX: Z00.00 Encounter for general adult medical examination without abnormal findings (principal) ==

== ENCOUNTER → 2021-03-19 13:11 | Outpatient (CLI) | payer MEDICARE, MEDICAID, SELFPAY ==
[2021-03-19 14:30] VITALS: PULSE 68; PULSE 70
--- NOTE | 2021-03-19 15:04 | CT_ITS ---
PROCEDURE: CT CHEST WO CON CLINICAL INDICATION: SOB Shortness of breath, former smoker COMPARISON: CT CHESTWW CT chest wo/w con from 09/27/2018 TECHNIQUE: Axial images obtained with sagittal and coronal reformats. All CT scans at the facility use one or more dose reduction, viz: automated exposure control, ma/kV adjustment per patient size (including targeted exams where dose is matched to indication, i.e. head), or iterative reconstruction technique. FINDINGS: HEART AND MEDIASTINAL STRUCTURES: The thyroid gland is enlarged bilaterally left greater than right. The trachea is slightly deviated toward the right from the enlarged left lobe. Partially calcified nodes are present in the mediastinum there are scattered small mediastinal lymph nodes present unchanged. Minor coronary artery calcification noted. Aortic valve calcifications are present. LUNGS AND PLEURAL SPACES: There is a calcified granuloma in the right middle lobe with scarring in the right middle lobe medially. Scarring and/or atelectatic change present in the left lower lobe posteriorly slightly increased. There is some mild scarring in the right lung base is well.. BONY STRUCTURES: Mild midthoracic curvature convex right. UPPER ABDOMEN: There is a right renal cyst incompletely imaged. ADDITIONAL FINDINGS: No other significant abnormalities. IMPRESSION: 1. Thyromegaly. 2. Scattered atelectatic and/or fibrotic changes. No acute finding the Dictated by: Levar Brown MD 03/20/2021 15:18 Levar Brown MD in [place] 03/20/2021 15:18
== END ==
PROVIDERS: PCP Family Medicine; Visit Provider Internal Medicine Pulmonary Disease
DX: R06.00 Dyspnea, unspecified (principal)
CPT/HCPCS: 71250; 94060; 94640; 94727; 94729

== ENCOUNTER → 2021-04-30 14:48 | Outpatient (CLI) | payer MEDICARE, MEDICAID, SELFPAY | PROVIDERS: Visit Provider Family Medicine | DX: L03.115 Cellulitis of right lower limb (principal); B95.8 Unspecified staphylococcus as the cause of diseases classified elsewhere | CPT/HCPCS: 87070; 87186; 87205 ==

== ENCOUNTER → 2021-05-15 07:24 | Outpatient (CLI) | payer MEDICARE, MEDICAID, SELFPAY ==
--- NOTE | 2021-05-15 07:28 | MM_ITS ---
PROCEDURE: MM DIG SCREENING MAMM BI W/CAD Digital Breast Tomosynthesis Included CLINICAL INDICATION: SCREENING There is a history of breast cancer patient's paternal uncle diagnosed at age 50. There has been a previous biopsy left breast for benign disease. There is a questionable palpable area right breast. COMPARISON: MG DMSB DIGITAL MAMM-SCREEN BILATERAL from 06/04/2010 MG DMSB DIGITAL MAMM-SCREEN BILATERAL from 06/06/2011 MG SCBI MM Dig screening mamm BI w/CAD from 05/25/2018 TECHNIQUE: Standard CC and MLO images and 3D Tomosynthesis was obtained. R2 CAD reviewed. FINDINGS: Moderate diffuse fibroglandular densities are seen throughout both breasts. There is a markedly suspicious mass with spiculated borders outer quadrant right breast approximately 5 cm from the nipple. The spiculated borders is definitely appreciated on the marlo images. There are faint tiny microcalcifications associated with the lesion too small to definitely characterize. There is a mole marker inner quadrant right breast. There is no suspicious lesion left breast. IMPRESSION: Markedly suspicious spiculated mass outer quadrant right breast BI-RAD Category: 5 highly suspicious of malignancy FOLLOW-UP: Biopsy recommended (A letter has been sent to the patient regarding results of the study.) Dictated by: Dr. Tristan Lincoln MD 05/17/2021 15:58 Dr. Tristan Lincoln MD in [place] 05/17/2021 15:58
--- NOTE | 2021-05-15 07:30 | US_ITS ---
PROCEDURE: US THYROID CLINICAL INDICATION: SCREENING FOR THYROID DISORDER COMPARISON: US THY US THYROID from 05/05/2014 FINDINGS: Thyroid is poorly demonstrated due to patient's body habitus and limited mobility. No obvious thyroid mass. The right lobe is 3.9 x 1.7 x 1.7 cm in the left lobe is 4.9 x 2.2 x 2.5 cm. The isthmus is prominent at 1 cm in thickness IMPRESSION: Somewhat limited exam. No obvious thyroid nodule. Mildly prominent thyroid gland. Dictated by: Levar Brown MD 05/15/2021 17:28 Levar Brown MD in [place] 05/15/2021 17:28
--- NOTE | 2021-05-15 08:25 | US_ITS ---
PROCEDURE: US BREAST RT COMPLETE CLINICAL INDICATION: RT BREAST PAIN AND TENDERNESS PALPABLE AREA COMPARISON: US US BREAST LT COMPLETE from 05/15/2021 MG MM DIG SCREENING MAMM BI W/CAD from 05/15/2021 FINDINGS: There is a hypoechoic irregular spiculated nodule in the right breast near the nipple at 9 o'clock corresponding to the palpable abnormality. There is posterior acoustical shadowing. This measures 2.1 x 1.5 cm and is highly suspicious for malignancy. This corresponds to the spiculated nodule noted in the outer aspect of the right breast on the previous mammogram. There is a mildly prominent right axillary lymph node at 2.6 x 1 cm IMPRESSION: Right breast mass at 9 o'clock highly suspicious for malignancy. BI-RADS category 5. Highly suspicious Recommendations: Ultrasound-guided mammotome biopsy of the right breast. Would also consider ultrasound-guided FNA of right axillary lymph nodes in the same setting Dictated by: Levar Brown MD 05/24/2021 11:25 Levar Brown MD in [place] 05/24/2021 11:25
--- NOTE | 2021-05-15 08:28 | US_ITS ---
PROCEDURE: US BREAST LT COMPLETE CLINICAL INDICATION: LIMITED MAMM, COMPARISON: MG MM DIG SCREENING MAMM BI W/CAD from 05/15/2021 FINDINGS: Hypoechoic nodule 4 o'clock near the nipple 10 x 6 x 4 mm and may be due to a complicated cyst. Small cyst at 8 o'clock near the nipple at 2 mm. Simple appearing cyst at 11 o'clock at 7 x 6 mm. Additional cyst at 11 o'clock at 3 mm. Mildly prominent axillary lymph nodes. IMPRESSION: Probably benign findings regarding left breast nodules. Recommend six-month sonographic follow-up. Mildly prominent axillary lymph nodes for which correlation with clinical parameters are needed Dictated by: Levar Brown MD 05/24/2021 11:28 Levar Brown MD in [place] 05/24/2021 11:28
--- NOTE | 2021-05-15 08:46 | XR_ITS ---
PROCEDURE: XR CHEST 2V CLINICAL HISTORY: BREAST PAIN, RT COMPARISON: CR CXR1 CHEST-PORTABLE from 07/19/2016 CR XR chest portable from 09/26/2018 CR XR CHEST PORTABLE from 04/06/[address] CHEST WO CON from 03/19/2021 FINDINGS: Borderline cardiomegaly without failure. Bilateral lower lobe atelectatic changes. Calcified granuloma right lung base. No acute bony abnormalities. IMPRESSION: Bibasilar atelectasis with cardiomegaly Dictated by: Levar Brown MD 05/15/2021 15:36 Levar Brown MD in [place] 05/15/2021 15:36
== END ==
PROVIDERS: PCP Family Medicine; Visit Provider Family Medicine
DX: Z12.31 Encounter for screening mammogram for malignant neoplasm of breast (principal); N64.4 Mastodynia; Z13.9 Encounter for screening, unspecified; Z79.899 Other long term (current) drug therapy
CPT/HCPCS: 71046; 76536; 76641; 77063; 77067

== ENCOUNTER → 2021-06-06 09:49 | Outpatient (CLI) | payer MEDICARE, MEDICAID, SELFPAY ==
--- NOTE | 2021-06-06 | MM_ITS ---
PROCEDURE: US MAMMOTOME BX RT Mm clip placement right CLINICAL INDICATION: BREAST CA Right breast mass upper at 9 o'clock near the nipple COMPARISON: US US BREAST RT COMPLETE from 05/15/2021 MG MM DIG SCREENING MAMM BI W/CAD from 05/15/2021 MG MM CLIP PLACEMENT RT from 06/06/2021 FINDINGS: Following obtaining informed consent and time-out procedure, under aseptic conditions and local anesthesia with 1 percent buffered lidocaine and deeper anesthesia with lidocaine mixed with epinephrine, mammotome needle was inserted within the right breast mass at the 9 o'clock region. Multiple mammotome biopsies were obtained and a clip placed. The patient tolerated the procedure well without evidence of immediate complication and left radiology suite in stable condition. In the same setting FNA was performed a mildly prominent right axillary nodule. Two passes were made into the nodule. 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 ER IN positive and HER2 Erin negative Right axillary node FNA: Negative for malignant cells consistent with reactive lymphadenopathy. Mammo right clip placement: Post biopsy changes with clip present within the central aspect of the spiculated mass within the junction of the anterior 1/3 of the right breast slightly lateral to the nipple. IMPRESSION: Uneventful ultrasound-guided mammotome biopsy of the right breast showing invasive ductal carcinoma and focal low-grade DCIS. FNA of prominent right axillary lymph node demonstrates reactive adenopathy. Negative for malignancy Dictated by: Levar Brown MD 06/14/2021 12:24 Levar Brown MD in [place] 06/14/2021 12:24
== END ==
PROVIDERS: PCP Family Medicine; Visit Provider Surgery
DX: R92.8 Other abnormal and inconclusive findings on diagnostic imaging of breast (principal)
CPT/HCPCS: 19083; 76641; 77065; 88173; 88305; 88342; 88360; C2618

== ENCOUNTER → 2021-07-04 14:55 | Outpatient (CLI) | payer MEDICARE, MEDICAID, SELFPAY ==
--- NOTE | 2021-07-04 14:55 | CT_ITS ---
PROCEDURE INFORMATION: Exam: CT Chest Without Contrast; Diagnostic; High Resolution Exam date and time: 07/04/2021 2:55 PM Age: 76 years old Clinical indication: Shortness of breath; Additional info: Severe SOB TECHNIQUE: Imaging protocol: Diagnostic computed tomography of the chest without contrast. Exam was performed with high resolution protocol. Radiation optimization: All CT scans at this facility use at least one of these dose optimization techniques: automated exposure control; mA and/or kV adjustment per patient size (includes targeted exams where dose is matched to clinical indication); or iterative reconstruction. COMPARISON: CT CHEST WO CON 03/19/2021 3:14 PM FINDINGS: Lungs: Atelectasis is seen in the lower lobes bilaterally, greater on the left. Pneumonitis cannot be excluded. There is evidence of previous granulomatous reaction. Pleural space: Pleural thickening is seen at the left lung base. No pneumothorax. Heart: There is mild cardiomegaly. No pericardial effusion. Pulmonary arteries: There is central prominence of the pulmonary vasculature. Consider pulmonary arterial hypertension. Aorta: The thoracic aorta is normal caliber. No aneurysm or dissection is seen. Lymph nodes: Small to mildly prominent mediastinal and hilar lymph nodes remain within upper limits of normal size. Bones/joints: No acute osseous abnormality is detected. Spinal degenerative changes are noted. IMPRESSION: 1. Prominence of the central pulmonary vasculature. Consider pulmonary arterial hypertension. 2. Mild cardiomegaly. 3. Atelectasis in the lower lobes, the left. Pneumonitis cannot be excluded. 4. Evidence of previous granulomatous reaction.
== END ==
PROVIDERS: PCP Family Medicine; Visit Provider Internal Medicine Pulmonary Disease
DX: R06.02 Shortness of breath (principal)
CPT/HCPCS: 71250

== ENCOUNTER → 2021-07-23 13:45 | Outpatient (CLI) | payer MEDICARE, MEDICAID, SELFPAY | PROVIDERS: PCP Family Medicine; Visit Provider Internal Medicine Pulmonary Disease | DX: R06.02 Shortness of breath (principal) | CPT/HCPCS: 94762 ==

== ENCOUNTER → 2021-08-13 20:25 | Outpatient (CLI) | payer MEDICARE, MEDICAID, SELFPAY | PROVIDERS: PCP Family Medicine; Visit Provider Internal Medicine Pulmonary Disease | DX: G47.30 Sleep apnea, unspecified (principal) | CPT/HCPCS: 95810 ==

== ENCOUNTER 2021-11-04 06:14 | Emergency (ER) | payer MEDICARE, MEDICAID, SELFPAY ==
[2021-11-04 05:49] VITALS: BP 181/79; PULSE 84; RESP 21; TEMP 36.8; O2SAT 97
[2021-11-04 06:07] VITALS: BMI 49.9
--- NOTE | 2021-11-04 06:08 | XR_ITS ---
FINAL REPORT CLINICAL HISTORY: soa..rt breast ca..copd COMPARISON: 05/15/2021 FINDINGS: SINGLE-VIEW CHEST The heart size is normal. The mediastinum is normal. There is mild bibasilar atelectasis or scar. There is no pneumothorax. IMPRESSION: Mild bibasilar atelectasis or scar. Reviewed, Interpreted and Dictated by Albino Nuno III, MD Transcribed by Alma Schaefer Authenticated by Albino Nuno III, MD on 11/04/2021 08:04:19 AM [facility]
--- NOTE | 2021-11-04 06:13 | ECG_ITS ---
APPROVED REPORT Exam: Resting ECG HR:86 bpm ECG Measurements Heart Rate 86 AXES QRSd 83 QRS 30 QT 337 T 64 QTc 380 Conclusion Sinus rhythm with a variable atrial morphology-questionable wandering pacemaker MINIMAL ST DEPRESSION [0.025+ mV ST DEPRESSION] ABNORMAL RHYTHM ECG UNCONFIRMED REPORT Electronically signed by : Kyle Thomas MD 11/06/2021 17:59:16
[2021-11-04 06:28] LABS: ABG Base Excess 7.2 mmol/L (-2.4-2.3); ABG HCO3 32.2 mmhg (22.0-26.0); ABG Oxygen Saturation 95 % (90-100); ABG PH 7.38 mmol/L (7.35-7.45); ABG PO2 74.8 mmhg (80-100); ABG TCO2 33.9 mmhg (23-27)
[2021-11-04 06:28] LABS: Coronavirus 19, PCR Not Detected (NotDetected); Influenza A, PCR Not Detected (NotDetected); Influenza B, PCR Not Detected (NotDetected)
[2021-11-04 06:29] LABS: Basophils # 0.1 K/mm3 (0-0.2); Basophils % 0.8 % (0.1-2.0); Eosinophils # 0.2 K/mm3 (0.0-0.4); Eosinophils % 2.6 % (0.1-12.0); Hematocrit 34.3 % (37.0-47.0); Hemoglobin 11.4 g/dL (12.2-16.2); Lymphocytes # 1.3 K/mm3 (0.7-4.5); Lymphocytes % 19.4 % (10-50); Mean Corpuscular HGB Conc 33.1 g/dL (31.8-35.4); Mean Corpuscular Hemoglobin 31.1 pg (27.0-31.2); Mean Platelet Volume 7.7 fl (7.4-10.4); Monocytes # 0.4 K/mm3 (0.1-1.0); Monocytes % 5.3 % (1.7-9.3); Neutrophils # 4.8 K/mm3 (1.8-7.8); Platelet Count 201 K/mm3 (142-424); Red Blood Count 3.65 M/mm3 (4.20-5.40); Red Cell Distribution Width 14.4 % (11.5-17.5); White Blood Count 6.6 K/mm3 (4.8-10.8)
[2021-11-04 06:30] LABS: Allen's Test Acceptable; Oxygen 2 LPM %
[2021-11-04 06:31] LABS: Source Right Radial
[2021-11-04 06:32] LABS: ABG PCO2 55.2 mmhg (35.0-45.0)
[2021-11-04 06:52] LABS: Alanine Aminotransferase 22 U/L (12-78); Alkaline Phosphatase 74 U/L (38-126); Anion Gap 10.5 mEq/L (5-15); Aspartate Amino Transferase 21 U/L (14-36); Bilirubin,Direct 0.1 mg/dl (0.0-0.4); Bilirubin,Indirect 0.2 mg/dL (0.0-0.9); Bilirubin,Total 0.3 mg/dl (0.2-1.3); Bilirubin,Unconjugated 0.2 mg/dL (0.0-1.1); Blood Urea Nitrogen 20 mg/dl (7-17); Calcium 9.2 mg/dl (8.4-10.2); Carbon Dioxide 33 mmol/L (22.0-30.0); Chloride 97 mmol/L (98-107); Creatinine Clearance Estimated 44 mL/min (50-200); Erythrocyte Sedimentation Rate 68 mm/hr (0-30); Estimated Glomerular Filt Rate 70 ml/min (>60); GFR (African American) 85 ML/MIN (>60); Glucose 157 mg/dl (74-100); Magnesium 1.6 mg/dl (1.6-2.3); Potassium 4.5 mmoL/L (3.5-5.1); Sodium 136 mmol/L (136-145)
[2021-11-04 06:58] LABS: C-Reactive Protein 16.4 mg/L (0-4)
[2021-11-04 07:03] VITALS: BP 151/65; PULSE 82; O2SAT 95
[2021-11-04 07:07] LABS: Troponin I < 0.01 ng/ml (0.00-0.034)
[2021-11-04 07:11] LABS: Procalcitonin 0.079 ng/mL (0.0-2.0)
[2021-11-04 07:31] VITALS: BP 115/50; PULSE 80; O2SAT 97
--- NOTE | 2021-11-04 07:43 | HMH.EDSOB ---
ED Disposition Condition on Discharge: Fair - Critical Care Critical Care Time: No <Flynn Landa - Last Filed: 11/04/21 07:53> Condition on Discharge: Fair - Critical Care Critical Care Time: No <Erik Patton - Last Filed: 11/04/21 09:53> Clinical Impression: Morbid obesity CHF (congestive heart failure) Qualifiers: Heart failure type: diastolic Heart failure chronicity: acute on chronic Qualified Code(s): I50.33 - Acute on chronic diastolic (congestive) heart failure Disposition: Home, Self-Care Instructions: Heart Failure Referrals: Gary Morel MD [Primary Care Provider] - Attestation: On 11/04/21, the high probability of a clinically significant, sudden or life threatening deterioration of the following system(s) required my full and direct attention, intervention and personal management. The time I documented below is in addition to time spent performing reported procedures but includes the following listed in this critical care notation. Medical Decision Making - Medical Records Medical records reviewed: Yes: I reviewed the patient's medical records. - Demond Inquiry Pt receiving controlled substance: No - Lab Data Lab results reviewed: Yes: I reviewed the patient's lab results. Result diagrams: 11/04/21 06:19 11/04/21 06:19 - ECG Data Tracing #1 Arrhythmias present: wandering atrial pacemaker Ischemic changes: non-specific ST-T wave changes - CARMELO Score for Non-Stemi Age of Patient: 70-79 years old Heart Rate: 70-89 bpm Systolic Blood Pressure: 160-199 mmHg Serum Creatinine: 0.80-1.19 mg/dl CHF Killip Class: II-Pulmonary Rales or Jug Other Risk Factors: None Non-Stemi Risk Score: 121 <Flynn Landa - Last Filed: 11/04/21 07:53> - Lab Data Result diagrams: 11/04/21 06:19 11/04/21 06:19 - Reevaluation(s) Time: 09:52 <Erki Patton - Last Filed: 11/04/21 09:53> Vital Signs: 11/04/21 05:49 11/04/21 07:03 11/04/21 07:31 Temperature 98.2 F Temperature Source Oral Pulse Rate 82 80 Pulse Rate [Right] 84 Respiratory Rate 21 Blood Pressure 151/65 H 115/50 L Blood Pressure [Right Arm] 181/79 H Blood Pressure Mean [Right Arm] 113 Blood Pressure Source [Right Arm] Automatic Cuff 02 Sat by Pulse Oximetry 97 95 97 Oxygen Delivery Method Nasal Cannula Nasal Cannula Nasal Cannula Oxygen Flow Rate (LPM) 2 3 3 11/04/21 08:00 Temperature Temperature Source Pulse Rate 81 Pulse Rate [Right] Respiratory Rate Blood Pressure 123/61 Blood Pressure [Right Arm] Blood Pressure Mean [Right Arm] Blood Pressure Source [Right Arm] 02 Sat by Pulse Oximetry 93 L Oxygen Delivery Method Nasal Cannula Oxygen Flow Rate (LPM) 3 - Lab Data Lab Results 11/04/21 06:08: Specimen Source Right radial, O2 % 2 lpm, ABG pH 7.38, ABG pCO2 55.2 H, ABG pO2 74.8 L, ABG HCO3 32.2 H, ABG Total CO2 33.9 H, ABG O2 Saturation 95, ABG Base Excess 7.2 H, Levar Test Acceptable 11/04/21 06:19: WBC 6.6, RBC 3.65 L, Hgb 11.4 L, Hct 34.3 L, MCV 94.0, MCH 31.1, MCHC 33.1, RDW 14.4, Plt Count 201, MPV 7.7, Neut % (Auto) 72.0, Lymph % (Auto) 19.4, [place] % (Auto) 5.3, Eos % (Auto) 2.6, Baso % (Auto) 0.8, Neut # (Auto) 4.8, Lymph # (Auto) 1.3, [place] # (Auto) 0.4, Eos # (Auto) 0.2, Baso # (Auto) 0.1, ESR 68 H 11/04/21 06:19: Sodium 136, Potassium 4.5, Chloride 97 L, Carbon Dioxide 33 H, Anion Gap 10.5, BUN 20 H, Creatinine 0.80, Estimated Creat Clear 44, Estimated GFR 70, Est GFR ( Amer) 85, Glucose 157 H, Calcium 9.2, Magnesium 1.6, Total Bilirubin 0.3, Direct Bilirubin 0.1, Conjugated Bilirubin 0.0, Indirect Bilirubin 0.2, Unconjugated Bilirubin 0.2, AST 21, ALT 22, Alkaline Phosphatase 74, Troponin I < 0.01, C-Reactive Protein 16.4 H, Total Protein 7.0, Albumin 4.0, Procalcitonin 0.079 11/04/21 06:19: SARS-CoV-2 (PCR) Not detected, Influenza A Untype (PCR) Not detected, Influenza Type B (PCR) Not detected 11/04/21 06:19: NT-Pro-B Natriuret Pep 93.0 11/04/21 0
--- NOTE | 2021-11-04 07:52 | CA_ITS ---
APPROVED REPORT EXAM: Comprehensive 2D, Doppler, and color-flow Echocardiogram Practical Nursing Faculty: Traci Velasquez, [place], RVS Ht: 5 ft 5 in Wt: 300lbs BSA: 2.35 BP: 151/65 mmHg Indications: SOA, Afib, CHF, CAD, Home O2, phtn, niru, Breast ca x 6mo with RX TX. 2D Dimensions IVSd 1.16 cm LVEF (Visual) 46.60 % PWd 1.28 cm LA Volume 84.70 mL LVDd 6.32 cm LA Volume Index 36.00 mL/m2 (M/F) 16-34 LVDs 4.59 cm Aortic Root 3.59 cm Left Atrium 3.41 cm LVOT 1.95 cm (M/F) 1.5-2.5 M-Mode Dimensions LA Diam 3.95 cm (1.9-4.0) Ao Diam 3.95 cm (2.0-3.7) EPSs 0.94 cm TAPSE 2.61 (<1.7) LV Diastology E Decel Time 150.00 (160-240 msec) E/A Ratio 1.15 MED E' 7.00 (< 7 cm/sec) MED A' 8.80 cm/s E'/MED E' Ratio 16.17 (>14) LAT E' 6.80 (<10 cm/sec) LAT A' 10.50 cm/s E/LAT E' Ratio 16.65 (>14) Aortic Valve LVOT Max 109.00 (70-110 cm/s) LVOT VTI 21.94 cm AoV Peak Ismael. 252.00 (50-130 cm/s) AO Peak GR. 25.40 mmHg AO Mean GR. 12.40 (<5 mmHg) AO VTI 46.93 (18-25 cm) HAFSA (VTI) 1.40 (2.5-4.5 cm2) Mitral Valve MV A Velocity 98.00 (40-130 cm/s) E/A Ratio 1.15 MV Decel. Time 150.00 (160-240 ms) MV Mean Gr. 2.20 (<2mmHg) MV PHT 43.00 ms Pulmonary Valve PV Peak Velocity 102.00 (50-150 cm/s) MN End VMAX 182.00 cm/s Tricuspid Valve TR P. Velocity 168.00 cm/s RAP Estimate 10.00 mmHg RVSP 21.30 mmHg Left Ventricle Left atrium is mildly enlarged, left ventricle is normal size, mild concentric left ventricular hypertrophy, estimated ejection fraction 55% with no obvious regional wall motion abnormality, endocardial surfaces are poorly visualized. Grade 1 diastolic dysfunction seen with tissue Doppler evidence of raise left atrial pressure. Right Ventricle Right atrium and right ventricle are mildly enlarged with normal contractility. Aortic Valve Aortic valve is thickened and calcified with mean gradient across valve is 12 mmHg, valve area is 1.4 cm represents mild aortic stenosis, there is no significant aortic insufficiency. Mitral Valve Mitral valve leaflets are minimally thickened, there is mild mitral regurgitation. Tricuspid Valve Tricuspid valve grossly normal, there is mild tricuspid regurgitation, tricuspid regurgitation jet velocity is inadequate for calculation of the right ventricular systolic pressure. Pulmonic Valve Pulmonic valve is poorly visualized. Great Vessels Aortic root is normal size. Inferior vena cava is poorly visualized. Pericardium No significant pericardial effusion noted. Conclusion 1. Biatrial enlargement, normal left ventricular size, mild concentric left ventricular hypertrophy, estimated ejection fraction 55% with no regional wall motion abnormality, grade 1 diastolic dysfunction seen with tissue Doppler evidence of raise left atrial pressure. 2. Mildly enlarged right ventricle with normal contractility. 3. Thickened and calcified aortic valve with mild aortic stenosis, valve area is 1.4 cm???, there is no significant aortic insufficiency. 4. Mild mitral and tricuspid regurgitation. 5. No significant pericardial effusion noted. Electronically signed by : Jagjit Hill MD 11/04/2021 10:33:13
[2021-11-04 08:00] VITALS: BP 123/61; PULSE 81; O2SAT 93
--- NOTE | 2021-11-04 08:01 | PC.NURSE ---
Received report from SUKUMAR Treviño. No new needs at this time
--- NOTE | 2021-11-04 08:17 | PC.NURSE ---
CV at bedside at this time.
--- NOTE | 2021-11-04 09:04 | PC.NURSE ---
Marlo Arellano at bedside
--- NOTE | 2021-11-04 09:30 | HMH.CNCARD ---
History of Present Illness Consult date: 11/04/21 Requesting physician: Flynn Landa Consult reason: shortness of breath Chief complaint: SOA Additional Medical History:: 1. Obesity 2. Diabetes mellitus 3. Ex-smoker with history of COPD 4. Left heart catheterization, 07/2018, 1. Normal coronary arteries 2. Normal ejection fraction 3. Severe diastolic congestive heart failure with secondary severe pulmonaryhypertension based on LVEDP of 45 mmHg 5. Hypertension 6. Hyperlipidemia 7. EKG today, 11-04-21, shows what appears to be a wandering atrial pacemaker. Discussed with Dr. Luo, it does not appear to be atrial fibrillation and she does not need anticoagulation at this time. 8. History of diastolic congestive heart failure History of present illness: 76-year-old white female resident of [facility] care home sent to the emergency department for complaint of shortness of breath. Patient denies chest pain, pressure or tightness. She has noted a 9 pound weight increase recently. She is aware that she needs to be eating more protein and less carbohydrates and reducing her salt intake but states it is hard since she does not do her own shopping and cooking. Initial troponin here and BNP were within normal limits. Second troponin is pending. Preliminary echocardiogram today shows ejection fraction around 50% with mild valvular heart disease and evidence of diastolic dysfunction. [facility] History Medical History: Reports:: Anxiety, Atrial Fibrillation, Cancer, Congestive Heart Failure, Chronic Obstructive Pulmonary Disease (COPD), Coronary Artery Disease, Depression, Diabetes Mellitus Type 2, Home Oxygen, Hyperlipidemia, Hypertension, Lung Disease, Migraine Denies:: Diabetes Mellitus Type 1, Internal Pacemaker, MRSA, Seizures *Have you ever received a pneumonia vaccine?: Yes *Have you received a flu vaccine this season?: Yes Other Medical History: Reports: Anemia, Arthritis, Other. Denies: Blood Transfusion Reaction Other Surgeries: Yes: Appendectomy, Cholecystectomy, Colonoscopy, EGD. No: Pacemaker Amputation: No Fractures: No - *Social History Smoking Status: Never smoker Tobacco Type: cigarettes Alcohol Intake: never Alcohol Intake Frequency:: other Substance Use Type: denies use *Occupational Status:: disabled Housing: care home Household Members: family *Travel in the last 8 weeks: Inside the [place] - Psychiatric History Pschychiatric History:: Reports:: Anxiety, Depression Family Hx:: Diabetes Meds Home Medications Medication Instructions Recorded Confirmed Type Cholecalciferol (Vitamin D3) 2,000 unit PO DAILY 04/06/19 11/04/21 History [Vitamin D3] Cyanocobalamin/Folic Acid [Vitamin 1 each PO DAILY 04/06/19 11/04/21 History Z58-Alfzh Acid Tablet] Duloxetine HCl 120 mg PO DAILY 04/06/19 11/04/21 History Hydrocodone/Acetaminophen 10 mg PO NEEDED PRN 04/06/19 11/04/21 History [Hydrocodone-Acetamin 10-325 mg] Icosapent Ethyl [Vascepa] 1 g PO BID 04/06/19 11/04/21 History Isosorbide Mononitrate [Imdur 60mg 60 mg PO BID 04/06/19 11/04/21 History ER tablet] Losartan Potassium 100 mg PO DAILY 04/06/19 11/04/21 History Multivit with Calcium,Iron,Min 1 each PO DAILY 04/06/19 11/04/21 History [One Daily Women's] Nitroglycerin 0.4 mg SL NEEDED PRN 04/06/19 11/04/21 History Sennosides [Senna] 8.6 mg PO NEEDED PRN 04/06/19 11/04/21 History Simvastatin 10 mg PO DAILY 04/06/19 11/04/21 History Torsemide 100 mg PO DAILY 04/06/19 11/04/21 History Verapamil HCl 120 mg PO DAILY 04/06/19 11/04/21 History bisoproloL fumarate [Bisoprolol 5 mg PO DAILY 04/06/19 11/04/21 History Fumarate] levETIRAcetam [Levetiracetam] 750 mg PO BID 04/06/19 11/04/21 History ondansetron HCL [Ondansetron 4mg 4 mg PO NEEDED PRN 04/06/19 11/04/21 History Tablet] Famotidine [Acid Controller] 20 mg PO HS 01/18/21 11/04/21 History Linaclotide [Linzess] 290 mcg PO DAILY 01/18/21 11/04/21
[2021-11-04 09:50] LABS: Troponin I < 0.01 ng/ml (0.00-0.034)
--- NOTE | 2021-11-04 09:55 | PC.NURSE ---
marlo sequeira for pt transport
[2021-11-04 10:41] VITALS: BP 124/64; PULSE 80; RESP 16; TEMP 36.9; O2SAT 97
== END 2021-11-04 10:42 | disposition home or self-care (01) ==
PROVIDERS: Emergency Provider Emergency Medicine; PCP Family Medicine
DX: I50.33 Acute on chronic diastolic (congestive) heart failure (principal); E66.01 Morbid (severe) obesity due to excess calories; Z68.42 Body mass index [BMI] 45.0-49.9, adult; I10 Essential (primary) hypertension; F41.8 Other specified anxiety disorders; I48.0 Paroxysmal atrial fibrillation; Z79.899 Other long term (current) drug therapy
CPT/HCPCS: 36415; 71045; 80048; 80076; 82803; 83735; 83880; 84145; 84484; 85025; 85651; 86140; 93005; 93306; 99284; C9803; U0003; U0005

== ENCOUNTER 2022-01-10 09:31 | Outpatient (CLI) | payer MEDICARE, MEDICAID, SELFPAY ==
[2022-01-10 09:55] VITALS: BP 109/51; PULSE 65; RESP 20; TEMP 36.9; O2SAT 95
[2022-01-10 10:40] VITALS: BP 124/53; PULSE 61; RESP 20; TEMP 36.9; O2SAT 95
== END 2022-01-10 10:40 | disposition home or self-care (01) ==
LOC: INF 09:31
PROVIDERS: PCP Family Medicine; Visit Provider Family Medicine
DX: D50.8 Other iron deficiency anemias (principal)
CPT/HCPCS: 96365; J1439

== ENCOUNTER 2022-01-17 10:17 | Outpatient (CLI) | payer MEDICARE, MEDICAID, SELFPAY ==
[2022-01-17 10:45] VITALS: BP 130/52; PULSE 68; RESP 20; TEMP 36.9; O2SAT 95
[2022-01-17 11:15] VITALS: BP 132/58; PULSE 68; RESP 20; TEMP 36.9; O2SAT 95
== END 2022-01-17 11:25 | disposition home or self-care (01) ==
LOC: INF 10:18
PROVIDERS: PCP Family Medicine; Visit Provider Family Medicine
DX: D50.9 Iron deficiency anemia, unspecified (principal)
CPT/HCPCS: 96365; J1439

== ENCOUNTER 2022-07-18 15:28 | Emergency (ER) | payer MEDICARE, MEDICAID, SELFPAY ==
[2022-07-18] VITALS (9 sets, daily range): BP systolic 122–187; BP diastolic 64–82; PULSE 72–83; RESP 14–22; TEMP 36.8; O2SAT 94–97; BMI 49.7
--- NOTE | 2022-07-18 15:28 | ECG_ITS ---
APPROVED REPORT Exam: Resting ECG HR:79 bpm ECG Measurements Heart Rate 79 AXES OH 232 P 62 QRSd 149 QRS -33 QT 372 T -42 QTc 406 Conclusion Afib vs flutter POSSIBLE RIGHT ATRIAL ENLARGEMENT [0.25mV P-WAVE] LEFT AXIS DEVIATION [QRS AXIS < -30] INTRAVENTRICULAR CONDUCTION DELAY [130+ ms QRS DURATION] ABNORMAL ECG UNCONFIRMED REPORT Electronically signed by : Kyle Thmoas MD 07/18/2022 17:28:06
--- NOTE | 2022-07-18 15:36 | XR_ITS ---
FINAL REPORT TECHNIQUE: Single view chest CLINICAL HISTORY: chest pain COMPARISON: 11/04/2021 FINDINGS: A single view of the chest was obtained. The heart is enlarged. There is mild bibasilar atelectasis or pneumonia. There is no pneumothorax. Osseous structures are unremarkable. IMPRESSION: Mild bibasilar atelectasis or pneumonia. Reviewed, Interpreted and Dictated by Albino Nuno III, MD Transcribed by Sarah Minaya Authenticated and [facility]
[2022-07-18 16:06] LABS: Basophils # 0.1 K/mm3 (0-0.2); Basophils % 0.7 % (0.1-2.0); Chloride 97 mmol/L (98-107); Eosinophils # 0.2 K/mm3 (0.0-0.4); Hematocrit 35.3 % (37.0-47.0); Hemoglobin 11.6 g/dL (12.2-16.2); Lymphocytes # 1.5 K/mm3 (0.7-4.5); Lymphocytes % 15.2 % (10-50); Mean Corpuscular HGB Conc 32.8 g/dL (31.8-35.4); Mean Corpuscular Hemoglobin 31.4 pg (27.0-31.2); Mean Platelet Volume 7.4 fl (7.4-10.4); Monocytes # 0.5 K/mm3 (0.1-1.0); Monocytes % 4.6 % (1.7-9.3); Neutrophils # 7.6 K/mm3 (1.8-7.8); Neutrophils % 77.5 % (37.0-80.0); Platelet Count 236 K/mm3 (142-424); Red Blood Count 3.68 M/mm3 (4.20-5.40); Red Cell Distribution Width 13.6 % (11.5-17.5); Sodium 139 mmol/L (136-145); White Blood Count 9.8 K/mm3 (4.8-10.8)
[2022-07-18 16:07] LABS: Potassium 4.5 mmoL/L (3.5-5.1)
[2022-07-18 16:09] LABS: Blood Urea Nitrogen 15 mg/dl (7-17); Estimated Glomerular Filt Rate 61 ml/min (>60); GFR (African American) 74 ML/MIN (>60)
[2022-07-18 16:10] LABS: Anion Gap 9.5 mEq/L (5-15); Calcium 9.2 mg/dl (8.4-10.2); Carbon Dioxide 37 mmol/L (22.0-30.0); Creatine Kinase 32 U/L (30-135); Glucose 168 mg/dl (74-100)
[2022-07-18 16:19] LABS: CKMB Relative Index 1.3 U/L (0-4.0); Creatine Kinase MB 0.4 ng/ml (0.0-2.03)
[2022-07-18 16:28] LABS: Troponin I < 0.01 ng/ml (0.00-0.034)
[2022-07-18 16:30] LABS: Lipase 66 U/L (23-300)
[2022-07-18 16:40] LABS: NT Pro Brain Natriuretic Pep. 325 pg/mL (0-450)
--- NOTE | 2022-07-18 17:12 | PC.NURSE ---
assisted patient to walk to bathroom and wheeled patient back to room call light within reach
[2022-07-18 17:32] LABS: Coronavirus 19, PCR Not Detected (NotDetected); Influenza A, PCR Not Detected (NotDetected); Influenza B, PCR Not Detected (NotDetected)
--- NOTE | 2022-07-18 19:44 | PC.NURSE ---
repeat troponin sent per attending
--- NOTE | 2022-07-18 20:01 | HMH.EDGENADL ---
Discharge Plan Disposition Patient Disposition: Home, Self-Care Condition: Fair Prescriptions Prescriptions: New doxycycline hyclate 100 mg tablet 100 mg PO BID 5 Days Qty: 10 0RF amoxicillin-pot clavulanate 875-125 mg tablet 1 tab PO BID Qty: 10 0RF No Action albuterol sulfate 90 mcg/actuation HFA aerosol inhaler 1 inh INHALATION Q6H PRN (Reason: shortness of breath or wheezing) 90 Days Qty: 8.5 3RF acetaminophen [Tylenol Extra Strength] 500 mg tablet 500 mg PO Q6H PRN (Reason: pain) [facility] 2.65 % aerosol,spray 1 spray INTRANASAL NEEDED PRN (Reason: Congestion) bisacodyl [Dulcolax (bisacodyl)] 10 mg suppository 10 mg MN DAILY PRN (Reason: bowel) Systane Complete 0.6 % drops 1 drp OPHTHALMIC DAILY PRN (Reason: dryness) anastrozole 1 mg tablet 1 mg PO DAILY insulin asp prt-insulin aspart 100 unit/mL (70-30) insulin pen 47 unit SQ BID polyethylene glycol 3350 [Miralax] 17 gram/dose powder 17 g PO DAILY Relistor 12 mg/0.6 mL solution 12 mg SQ Q OTHER DAY potassium chloride 20 mEq tablet,ER particles/crystals 20 meq PO DAILY ipratropium-albuterol 0.5 mg-3 mg(2.5 mg base)/3 mL solution for nebulization 3 ml INHALATION QID PRN (Reason: shortness of breath or wheezing) 90 Days Qty: 360 3RF hydrocodone-acetaminophen 10MG-32 tablet 10 mg PO NEEDED PRN (Reason: pain) losartan 100 MG tablet 100 mg PO DAILY icosapent ethyl 1 G capsule 1 g PO BID sennosides 8.6 MG tablet 8.6 mg PO NEEDED PRN (Reason: Constipation) ondansetron HCl 4 MG tablet 4 mg PO NEEDED PRN (Reason: Nausea) simvastatin 10 MG tablet 10 mg PO DAILY bisoprolol fumarate 5 MG tablet 5 mg PO DAILY torsemide 100 MG tablet 100 mg PO DAILY nitroglycerin 0.4 MG tablet, sublingual 0.4 mg SL NEEDED PRN (Reason: Chest Pain) levetiracetam 750 MG tablet 750 mg PO BID duloxetine 60 MG capsule,delayed release(DR/EC) 120 mg PO DAILY verapamil 120 MG tablet 120 mg PO DAILY isosorbide mononitrate 60 MG tablet extended release 24 hr 60 mg PO BID vvkazcmscayd-Ye-hvpb-minerals 1 EACH tablet 1 each PO DAILY cholecalciferol (vitamin D3) 2,000 UNIT tablet 2,000 unit PO DAILY vitamin X06-cskiu acid 1 EACH tablet 1 each PO DAILY metformin 1,000 mg tablet 1,000 mg PO BID insulin NPH and regular human 100 unit/mL (70-30) insulin pen 52 unit SQ DAILY famotidine 20 MG tablet 20 mg PO HS melatonin-pyridoxine (vit B6) 1 EACH tablet 1 each PO HS linaclotide 290 MCG capsule 290 mcg PO DAILY gabapentin 300 mg capsule 400 mg PO BID tiotropium-olodaterol 4 GM mist 2 puff IH DAILY Referrals Follow up/Referrals: Gary Morel MD [Primary Care Provider] - See instructions Clinical Impressions Clinical Impression: Chest pain Instructions Patient Instructions: DI for Pneumonia -- Adult, DI for Chest Pain Discharge ED Provider: Juarez Carr General Adult HPI General Chief complaint: PAIN Stated complaint: chest pain Time Seen by Provider: 07/18/22 15:35 Mode of Arrival: EMS Source of Information: Patient Limitations: No Limitations Description of Symptoms (Recalled from ER Triage Doc. by RN): pt to ed c/o right sided chest pain that radiates into her arm. pt states the pain started a few days ago. pt states she has a hx of gerd and was receivng her acid reflux medication with no relief. History of Present Illness HPI narrative: Patient is a 77-year-old female with a past medical history of chronic respiratory failure, heart failure, diabetes congestive heart failure, COPD, hyperlipidemia, hypertension who presents with concern for chest pain. Patient states that for the last for the last couple of days she has had some right-sided chest pain. She says that it really stays there but might go up i
--- NOTE | 2022-07-18 20:02 | PC.NURSE ---
pt's son, Michael Shanks, called for an update and pt gave consent to give update. Son was updated on pt's poc and that she will be d/c soon but may need to stay in the er until EMS can transfer.
--- NOTE | 2022-07-18 20:30 | PC.NURSE ---
Report called to Margo at [facility]. Spoke to [facility] and they will be here within the next 1-1.5 hour d/t another truck being out of town.
--- NOTE | 2022-07-18 20:55 | PC.NURSE ---
Pt wanted to know when she would be going back to [place]. She was advised that has soon as [place] had a truck available they would be here to get her and take her back.
[2022-07-18 20:59] LABS: Troponin I < 0.01 ng/ml (0.00-0.034)
--- NOTE | 2022-07-18 21:16 | PC.NURSE ---
Tung called about pt transport back to [place]
== END 2022-07-18 22:10 | disposition home or self-care (01) ==
PROVIDERS: Emergency Provider Student in an Organized Health Care Education/Training Program; PCP Family Medicine
DX: R07.89 Other chest pain (principal); J96.00 Acute respiratory failure, unspecified whether with hypoxia or hypercapnia; I50.9 Heart failure, unspecified; E11.9 Type 2 diabetes mellitus without complications; I11.0 Hypertensive heart disease with heart failure; E78.5 Hyperlipidemia, unspecified; J44.9 Chronic obstructive pulmonary disease, unspecified; Z20.822 Contact with and (suspected) exposure to COVID-19
CPT/HCPCS: 71045; 80048; 82550; 82553; 83690; 83880; 84484; 85025; 93005; 99285; C9803; U0003; U0005

== ENCOUNTER → 2022-09-26 10:09 | Outpatient (CLI) | payer MEDICARE, MEDICAID, SELFPAY ==
--- NOTE | 2022-09-26 10:16 | XR_ITS ---
FINAL REPORT CLINICAL HISTORY: pain FINDINGS: RIGHT SHOULDER Three views demonstrate no acute fracture or dislocation. There is moderate glenohumeral joint space narrowing with sclerosis seen along the medial humeral head. The soft tissues are unremarkable. IMPRESSION: Degenerative changes without acute process. Reviewed, Interpreted and Dictated by Gonzalo Bryant MD Transcribed by Sarah Minaya Authenticated and . [facility]
== END ==
PROVIDERS: PCP Emergency Medicine; Visit Provider Orthopaedic Surgery
DX: M25.511 Pain in right shoulder (principal)
CPT/HCPCS: 73030

== ENCOUNTER 2022-10-12 11:03 | Inpatient (IN) | payer MEDICARE, MEDICAID, SELFPAY ==
[2022-10-12] VITALS (18 sets, daily range): BP systolic 91–139; BP diastolic 35–99; PULSE 66–125; RESP 16–25; TEMP 36.4–36.6; O2SAT 92–100; BMI 47.1; BMI 48.6
--- NOTE | 2022-10-12 11:09 | ECG_ITS ---
APPROVED REPORT Exam: Resting ECG HR:98 bpm ECG Measurements Heart Rate 98 AXES QRSd 92 QRS 3 QT 363 T 36 QTc 419 Conclusion ATRIAL FIBRILLATION POSSIBLE RIGHT VENTRICULAR CONDUCTION DELAY [RSR (QR) IN V1/V2] ABNORMAL RHYTHM ECG UNCONFIRMED REPORT Electronically signed by : Kyle Thomas MD 10/12/2022 15:54:37
--- NOTE | 2022-10-12 11:11 | CT_ITS ---
PROCEDURE INFORMATION: Exam: CTA Chest With Contrast Exam date and time: 10/12/2022 11:59 AM Age: 77 years old Clinical indication: Cough and dyspnea and shortness of breath; Patient HX: PT unable to lay flat at all- morbidly obese and unable to hold breath- best possible images- could not move any further into scanner due to hitting the sides and stopping the scan due to safety feature; Additional info: SOA, cough, HX breast cancer, afib not on anticoag TECHNIQUE: Imaging protocol: Computed tomographic angiography of the chest with contrast. 3D rendering (Not supervised by radiologist): MIP and/or 3D reconstructed images were created by the technologist. Radiation optimization: All CT scans at this facility use at least one of these dose optimization techniques: automated exposure control; mA and/or kV adjustment per patient size (includes targeted exams where dose is matched to clinical indication); or iterative reconstruction. Contrast material: ISOVUE; Contrast volume: 75 ml; Contrast route: INTRAVENOUS (IV); REPORTING DATA: Count of CT and Cardiac NM exams in prior 12 months: This patient has received 0 known CTs and 0 known cardiac nuclear medicine studies in the 12 months prior to the current study. COMPARISON: CT HR CHEST X3 07/04/2021 3:10 PM FINDINGS: Pulmonary arteries: No filling defects are identified in lobar and segmental pulmonary arteries. Contrast opacification of the pulmonary arteries is not optimal. Aorta: Unremarkable. No aortic aneurysm. No aortic dissection. Veins: Persistent alee azygous vein flows into the left subclavian vein. Lungs: Consolidation both lower lobes could be due to atelectasis or pneumonia. Pleural spaces: Small bilateral pleural effusions. Heart: The heart is enlarged including left atrial enlargement, which measures 9 cm in diameter. Small pericardial effusion. Coronary arteries: Small number coronary artery calcifications. Lymph nodes: Calcified right hilar and pretracheal and subcarinal mediastinal lymph nodes are unchanged. Kidneys and ureters: Right kidney has a 3 cm low-density cyst that was reported on 12/27/2018 CT of the abdomen and pelvis. Bones/joints: Unremarkable. No acute fracture. Soft tissues: Unremarkable. IMPRESSION: 1. No pulmonary emboli in the proximal pulmonary arteries. Distal pulmonary artery opacification is not optimal. 2. No aortic aneurysm or intimal dissection. 3. Bibasilar atelectasis or pneumonia. 4. Small bilateral pleural effusions. 5. Cardiomegaly. 6. 3 cm right kidney cyst. COMMENTS: Consistent with the [employer]'s Incidental Findings Committee white paper (J Am Melanie Radiol 2018): Any incidental renal lesion less than 1 cm or classified as too small to characterize, or any incidental cystic renal lesion characterized as simple-appearing, is likely benign. No follow-up imaging is recommended for these lesions per consensus recommendations based on imaging criteria.
--- NOTE | 2022-10-12 11:16 | HMH.EDGENADL ---
Discharge Plan Disposition Patient Disposition: Admitted As Inpatient Condition: Fair Chief Complaint: Arrhythmia/Palpitations Prescriptions Prescriptions: No Action albuterol sulfate 90 mcg/actuation HFA aerosol inhaler 1 inh inhalation Q6H PRN (Reason: shortness of breath or wheezing) 90 Days Qty: 8.5 3RF acetaminophen [Tylenol Extra Strength] 500 mg tablet 500 mg PO Q6H PRN (Reason: pain) [place] [facility] 2.65 % aerosol,spray 1 spray intranasal NEEDED PRN (Reason: Congestion) bisacodyl [Dulcolax (bisacodyl)] 10 mg suppository 10 mg [place] DAILY PRN (Reason: bowel) Systane Complete 0.6 % drops 1 drp OPHTHALMIC DAILY PRN (Reason: dryness) anastrozole 1 mg tablet 1 mg PO DAILY insulin asp prt-insulin aspart 100 unit/mL (70-30) insulin pen 47 unit SQ BID polyethylene glycol 3350 [Miralax] 17 gram/dose powder 17 g PO DAILY Relistor 12 mg/0.6 mL solution 12 mg SQ Q OTHER DAY potassium chloride 20 mEq tablet,ER particles/crystals 20 meq PO DAILY ipratropium-albuterol 0.5 mg-3 mg(2.5 mg base)/3 mL solution for nebulization 3 ml inhalation QID PRN (Reason: shortness of breath or wheezing) 90 Days Qty: 360 3RF gabapentin 800 mg tablet 800 mg PO BID Qty: 60 2RF hydrocodone-acetaminophen 10MG-32 tablet 10 mg PO NEEDED PRN (Reason: pain) losartan 100 MG tablet 100 mg PO DAILY icosapent ethyl 1 G capsule 1 g PO BID sennosides 8.6 MG tablet 8.6 mg PO NEEDED PRN (Reason: Constipation) ondansetron HCl 4 MG tablet 4 mg PO NEEDED PRN (Reason: Nausea) simvastatin 10 MG tablet 10 mg PO DAILY bisoprolol fumarate 5 MG tablet 5 mg PO DAILY torsemide 100 MG tablet 100 mg PO DAILY nitroglycerin 0.4 MG tablet, sublingual 0.4 mg SL NEEDED PRN (Reason: Chest Pain) levetiracetam 750 MG tablet 750 mg PO BID duloxetine 60 MG capsule,delayed release(DR/EC) 120 mg PO DAILY verapamil 120 MG tablet 120 mg PO DAILY isosorbide mononitrate 60 MG tablet extended release 24 hr 60 mg PO BID smarmultizhs-Dj-yekh-minerals 1 EACH tablet 1 each PO DAILY cholecalciferol (vitamin D3) 2,000 UNIT tablet 2,000 unit PO DAILY vitamin E56-ianke acid 1 EACH tablet 1 each PO DAILY metformin 1,000 mg tablet 1,000 mg PO BID insulin NPH and regular human 100 unit/mL (70-30) insulin pen 52 unit SQ DAILY famotidine 20 MG tablet 20 mg PO HS melatonin-pyridoxine (vit B6) 1 EACH tablet 1 each PO HS linaclotide 290 MCG capsule 290 mcg PO DAILY tiotropium-olodaterol 4 GM mist 2 puff IH DAILY doxycycline hyclate 100 mg tablet 100 mg PO BID 5 Days Qty: 10 0RF amoxicillin-pot clavulanate 875-125 mg tablet 1 tab PO BID Qty: 10 0RF Clinical Impressions Clinical Impression: Acute exacerbation of chronic obstructive pulmonary disease, Hypercapnic acidosis, Elevated brain natriuretic peptide (BNP) level Discharge ED Provider: Stephon Hatfield General Adult HPI General Chief complaint: Arrhythmia/Palpitations Stated complaint: elevated HR Time Seen by Provider: 10/12/22 11:11 History of Present Illness HPI narrative: Patient is a 77-year-old female with past medical history of atrial fibrillation unspecified not on anticoagulation, COPD on 2 L nasal cannula at baseline, previous breast cancer on oral medication therapy chronically, insulin-dependent diabetes, history of previous COVID-19, history of chronic falls, history of hypertension, hyperlipidemia, GERD who presents to the emergency department as a transfer patient from retirement for evaluation of intermittent rapid heart rate. Per report patient had heart rate in the 140s at retirement however upon EMS arrival rate was consistently below 100 with intermittent spikes up to approximately 110 bpm. Patient has associated cough, chest soreness that has been going on f
[2022-10-12 11:25] LABS: VBG Base Excess 9.2 mmol/L (-2.4-2.3); VBG HCO3 35.7 mmol/L (23-30); VBG Oxygen Saturation 54.1 % (50-70); VBG PO2 28.4 mmol/L (28-40); VBG Total CO2 37.9 mmol/L (23-27)
[2022-10-12 11:27] LABS: VBG PCO2 74.3 mmol/L (35-51)
[2022-10-12 11:27] LABS: Basophils % 0.4 % (0.1-2.0); Eosinophils # 0.2 K/mm3 (0.0-0.4); Eosinophils % 2.3 % (0.1-12.0); Hematocrit 35.4 % (37.0-47.0); Hemoglobin 11.1 g/dL (12.2-16.2); Lymphocytes # 1.5 K/mm3 (0.7-4.5); Lymphocytes % 16.3 % (10-50); Mean Corpuscular HGB Conc 31.5 g/dL (31.8-35.4); Mean Corpuscular Hemoglobin 31.2 pg (27.0-31.2); Mean Corpuscular Volume 99.2 fl (81-99); Mean Platelet Volume 7.6 fl (7.4-10.4); Monocytes # 0.4 K/mm3 (0.1-1.0); Monocytes % 4.4 % (1.7-9.3); Neutrophils # 6.8 K/mm3 (1.8-7.8); Neutrophils % 76.7 % (37.0-80.0); Platelet Count 265 K/mm3 (142-424); Red Blood Count 3.57 M/mm3 (4.20-5.40); Red Cell Distribution Width 13.5 % (11.5-17.5); White Blood Count 8.9 K/mm3 (4.8-10.8)
--- NOTE | 2022-10-12 11:29 | PC.NURSE ---
vbg results given to TERESA MOORE MD requests pt be on bipap for at least an hr, notified RT
[2022-10-12 11:30] LABS: Chloride 99 mmol/L (98-107); Potassium 5.1 mmoL/L (3.5-5.1); Sodium 139 mmol/L (136-145)
[2022-10-12 11:32] LABS: Alanine Aminotransferase 18 U/L (12-78); Aspartate Amino Transferase 19 U/L (14-36); Blood Urea Nitrogen 19 mg/dl (7-17); Creatinine Clearance Estimated 47 mL/min (50-200); Estimated Glomerular Filt Rate 70 ml/min (>60); GFR (African American) 84 ML/MIN (>60)
[2022-10-12 11:33] LABS: Albumin Level 3.9 g/dl (3.5-5.0); Albumin/Globulin Ratio 1.3 (1.1-1.8); Alkaline Phosphatase 79 U/L (38-126); Anion Gap 9.1 mEq/L (5-15); Bilirubin,Total 0.3 mg/dl (0.2-1.3); Calcium 8.9 mg/dl (8.4-10.2); Carbon Dioxide 36 mmol/L (22.0-30.0); Globulin 3.1 g/dL (1.3-3.2); Glucose 77 mg/dl (74-100); Magnesium 2.3 mg/dl (1.6-2.3)
--- NOTE | 2022-10-12 11:35 | PC.NURSE ---
RT at BS
[2022-10-12 11:44] LABS: NT Pro Brain Natriuretic Pep. 1700 pg/mL (0-450)
[2022-10-12 11:48] LABS: Troponin I < 0.01 ng/ml (0.00-0.034)
--- NOTE | 2022-10-12 11:49 | PC.NURSE ---
Patient to CT
[2022-10-12 11:52] LABS: Coronavirus 19, PCR Not Detected (NotDetected); Influenza A, PCR Not Detected (NotDetected); Influenza B, PCR Not Detected (NotDetected)
[2022-10-12 12:03] LABS: Lactic Acid 1.1 mmol/L (0.7-2.1)
--- NOTE | 2022-10-12 12:25 | PC.NURSE ---
TERESA CHOWDARY speaking with hospitalist
--- NOTE | 2022-10-12 12:25 | PC.NURSE ---
ED doctor on phone with hospitalist re: admission
--- NOTE | 2022-10-12 12:27 | PC.NURSE ---
notified clubhouse manager of admission
[2022-10-12 13:04] LABS: Microscopic, Urine URINE MICROSCOPIC (MICROSCOPIC)
[2022-10-12 13:07] LABS: Appearance,Urine CLEAR (Clear); Bilirubin,Urine Negative (Negative); Blood, Urine Negative (Negative); Color,Urine YELLOW (Yellow); Glucose,Urine (UA) Negative (Negative); Ketones,Urine Negative (Negative); Leukocyte Esterase,Urine Negative (Negative); Nitrate,Urine Negative (Negative); PH,Urine 5.5 (5.0-8.5); Protein,Urine Negative (Negative); Specific Gravity, Urine <= 1.005 (1.005-1.030); Urobilinogen,Urine 0.2 EU/dl (0.2)
--- NOTE | 2022-10-12 13:12 | PC.NURSE ---
pt on bedpan at this time.
[2022-10-12 13:25] LABS: Bacteria,Urine Trace /lpf; Squamous Epithelial Cell,Urine Occasional #/hpf (0-5)
--- NOTE | 2022-10-12 13:29 | PC.NURSE ---
Pt arrived to the floor at this time
--- NOTE | 2022-10-12 14:04 | EXP.HP ---
History of Present Illness *Admission Date: 10/12/22 *Reason for visit:: tachycardia *History of present illness: Dina Cortés is a 77 year old female resident at [facility] with a past medical history of atrial fibrillation not on anticoagulation, CAD, CHF, COPD, chronic hypoxic respiratory failure on 2L NC continuously at baseline, t2dm, HTN, HLD, morbid obesity, seizure disorder, and right sided breast cancer. She presented to the ED earlier this morning because her nurse was obtaining routine vitals and saw that her HR was elevated in the 140s. Her HR has been below 110 here. VBG revealed pH 7.3 and pCO2 74 and CTA Chest revealed bibasilar atelectasis or pneumonia. She denies worsening shortness of breath, cough, fever or swelling. She has chronic joint pain that is unchanged. She takes gabapentin 800mg BID and Norco10 HS and BID PRN. No new medications or any recent changes to her medications. She denies having had any confusion. Initial vitals: BP 111/67 - P 114 - RR 20 - SpO2 92% on 2L NC - T 97.8 degrees F Initial workup includes: VBG pH 7.3 and pCO2 74 COVID and Flu PCR studies are negative BNP 1700 (325 on 07/18/22) troponin I <0.01 Chest CTA - No pulmonary emboli. Bibasilar atelectasis or pneumonia Echo 11/05/21 - LVEF 45-50%, LV diastolic dysfunction/slight dysynchrony ED Medications: Solumedrol 125mg, Duoneb, Ceftriaxone 1 g PFSH PFSH Disclaimer: The information contained in this section may have been updated after the patient was seen, as this information can be updated by other users. Medical History Abnormal EKG Abnormal stress test Atypical chest pain COPD (chronic obstructive pulmonary disease) Diabetes Edema Fatigue HLD (hyperlipidemia) HTN (hypertension) Shortness of Breath ST segment abnormality Family History (Updated 10/12/22 @ 13:11 by Fanta Simental RN) Other No significant family history Social History (Updated 10/12/22 @ 13:12 by Fanta Simental RN) Smoking Status: Never smoker second hand exposure: No alcohol intake: never counseling provided: provider counseling substance use type: denies use current occupational status: disabled Travel in the last 8 weeks: None household members: caregiver housing: group home caffeine: No Review of Systems Review of Systems Review of systems (narrative): All systems were reviewed and are negative except for what is mentioned in the HPI. Meds Home Medications and Allergies Home Medications Medication Instructions Recorded Confirmed Type bisoprolol fumarate 5 mg tablet 5 mg PO DAILY BLOOD PRESSURE 04/06/19 10/12/22 History duloxetine 60 mg capsule,delayed 120 mg PO DAILY Depression 04/06/19 10/12/22 History release icosapent ethyl 1 gram capsule 1 g PO BID Cholesterol 04/06/19 10/12/22 History isosorbide mononitrate 60 mg 60 mg PO BID Hypertension 04/06/19 10/12/22 History tablet,extended release 24 hr levetiracetam 750 mg tablet 750 mg PO BID SEIZURES 04/06/19 10/12/22 History losartan 100 mg tablet 100 mg PO DAILY Hypertension 04/06/19 10/12/22 History jffrwvjvhdyu-Jp-bvky-minerals 27 1 each PO DAILY Supplement 04/06/19 10/12/22 History mg-0.4 mg tablet nitroglycerin 0.4 mg sublingual 0.4 mg sublingual NEEDED PRN 04/06/19 10/12/22 History tablet Chest Pain ondansetron HCl 4 mg tablet 4 mg PO Q6HP PRN Nausea 04/06/19 10/12/22 History simvastatin 10 mg tablet 10 mg PO HS Cholesterol 04/06/19 10/12/22 History torsemide 100 mg tablet 50 mg PO DAILY Fluid 04/06/19 10/12/22 History verapamil 120 mg tablet 120 mg PO BID BLOOD PRESSURE 04/06/19 10/12/22 History famotidine 20 mg tablet 20 mg PO HS GERD 01/18/21 10/12/22 History linaclotide 290 mcg capsule 290 mcg PO DAILY IBS 01/18/21 10/12/22 History potassium chloride 20 mEq 20 meq PO DAILY Supplement 03/05/21 10/12/22 History tablet,extended release(part/cryst) acetaminophen 500 mg tablet
[2022-10-12 14:42] LABS: VBG Base Excess 3.9 mmol/L (-2.4-2.3); VBG HCO3 31.3 mmol/L (23-30); VBG Oxygen Saturation 90.3 % (50-70); VBG PH 7.24 mmol/L (7.31-7.41); VBG PO2 61.7 mmol/L (28-40); VBG Total CO2 33.6 mmol/L (23-27)
[2022-10-12 14:44] LABS: VBG PCO2 74.3 mmol/L (35-51)
[2022-10-12 14:55] LABS: Troponin I < 0.01 ng/ml (0.00-0.034)
--- NOTE | 2022-10-12 16:39 | PC.NURSE ---
notified Dr. Bartlett of HR sustaining in the 130's and FSBS of 91, new orders received for HR, ok to hold humalog 75/25
[2022-10-12 17:07] LABS: ABG Base Excess 4.3 mmol/L (-2.4-2.3); ABG HCO3 29.9 mmhg (22.0-26.0); ABG Oxygen Saturation 97 % (90-100); ABG PH 7.35 mmol/L (7.35-7.45); ABG PO2 92.2 mmhg (80-100); ABG TCO2 31.6 mmhg (23-27)
[2022-10-12 17:10] LABS: Allen's Test Y; Oxygen 50 %; Source Left Radial; Vent Rate 20
[2022-10-12 17:11] LABS: ABG PCO2 55.1 mmhg (35.0-45.0)
--- NOTE | 2022-10-12 17:20 | PC.NURSE ---
notified Dr. Bartlett of ABG results, stated ok to put on 2L NC while eating and awake, but Bipap at night to sleep, Will RT notified of plan
[2022-10-12 17:59] LABS: Troponin I < 0.01 ng/ml (0.00-0.034)
[2022-10-12 19:48] LABS: POC Glucose,Bedside 197 (70-110)
--- NOTE | 2022-10-12 23:02 | PC.NURSE ---
Spoke with Sarahy WHEAT regarding patients heart rate bouncing from 100 to 130's. Awaiting order to be put in.
--- NOTE | 2022-10-12 23:35 | PC.NURSE ---
Po metoprolol given for high heart rate
[2022-10-13] VITALS (20 sets, daily range): BP systolic 84–146; BP diastolic 41–78; PULSE 64–140; RESP 18–22; TEMP 36.3–36.7; O2SAT 90–97; BMI 49.3
--- NOTE | 2022-10-13 00:30 | PC.NURSE ---
Sarahy WHEAT notified of patients heart rate staying elevated 110-140's, afib on the monitor after po metoprolol given. Patient denies any chest pain or sob at this time. one time dose of 2.5mg IV metoprolol given. BP 110/51 at this time. Will continue to monitor.
--- NOTE | 2022-10-13 00:40 | PC.NURSE ---
Sarahy WHEAT spoke with Valerio regarding patients heart rate, patient to be transferred to step down for diltiazem drip.
--- NOTE | 2022-10-13 01:31 | PC.NURSE ---
Addendum entered by Lou Sun, SUKUMAR 10/13/22 01:42: after gave diltiazem bolus pt's HR decreased from 130-140's to 80-120's, started drip at 5mg/hr Original Note: pt admitted to 217 from 207, pt needs step down and is being placed on diltiazem drip at 15mg/hr
--- NOTE | 2022-10-13 06:17 | PC.NURSE ---
pt requested to remove bipap and be placed on nasal cannula, placed pt on 2LNC and oxygen saturations were 86%, placed pt on 4LNC and oxygen saturations were 90%
[2022-10-13 06:20] LABS: Basophils % 0.2 % (0.1-2.0); Eosinophils # 0.1 K/mm3 (0.0-0.4); Eosinophils % 0.9 % (0.1-12.0); Hematocrit 34.3 % (37.0-47.0); Hemoglobin 10.9 g/dL (12.2-16.2); Lymphocytes # 0.6 K/mm3 (0.7-4.5); Lymphocytes % 5.7 % (10-50); Mean Corpuscular HGB Conc 31.6 g/dL (31.8-35.4); Mean Corpuscular Hemoglobin 31.1 pg (27.0-31.2); Mean Corpuscular Volume 98.4 fl (81-99); Mean Platelet Volume 7.7 fl (7.4-10.4); Monocytes # 0.3 K/mm3 (0.1-1.0); Monocytes % 2.7 % (1.7-9.3); Neutrophils % 90.5 % (37.0-80.0); Platelet Count 223 K/mm3 (142-424); Red Blood Count 3.49 M/mm3 (4.20-5.40); Red Cell Distribution Width 13.6 % (11.5-17.5); White Blood Count 9.9 K/mm3 (4.8-10.8)
[2022-10-13 06:23] LABS: MANUAL DIFFERENTIAL MANUAL DIFFERENTIAL (MANUAL DIFF)
[2022-10-13 06:36] LABS: Chloride 98 mmol/L (98-107); Potassium 5.5 mmoL/L (3.5-5.1); Sodium 135 mmol/L (136-145)
[2022-10-13 06:39] LABS: Anion Gap 11.5 mEq/L (5-15); Blood Urea Nitrogen 29 mg/dl (7-17); Calcium 8.8 mg/dl (8.4-10.2); Carbon Dioxide 31 mmol/L (22.0-30.0); Creatinine Clearance Estimated 45 mL/min (50-200); Estimated Glomerular Filt Rate 61 ml/min (>60); GFR (African American) 74 ML/MIN (>60); Glucose 197 mg/dl (74-100)
--- NOTE | 2022-10-13 07:05 | PC.NURSE ---
Diltiazem increased to 10mls/hr heart rate at 136.
[2022-10-13 07:19] LABS: Lymphocytes % 6 % (10-50); Monocytes % 1 % (2-9); Neutrophils % 93 % (42-76); Total Cells Counted 100
[2022-10-13 07:20] LABS: Anisocytosis 1+; Hypochromasia 1+; Macrocytosis 1+; Platelet Estimate Normal
--- NOTE | 2022-10-13 07:22 | INFXCTL.NOTE ---
Diltiazem increased to 15mls/hr heart rate 144 right radial.
--- NOTE | 2022-10-13 07:23 | EXP.PN ---
Subjective *Date: 10/13/22 *Time: 09:57 Interval history: Overnight the patient's heart rate went into the 140s; Cardiology was consulted and she was started on a Cardizem drip. This morning she is saturating 90% on 4L NC K is 5.5 She states that she feels weak generally but not significantly different from her baseline. She slept well last night with BIPAP. No worsening pain, dyspnea. Exam Data for Last 24 hours Vital signs and Labs for Last 24 Hours: Temp Pulse Resp BP Pulse Ox FiO2 97.4 F L 113 H 21 114/78 90 L 50 10/13/22 04:00 10/13/22 06:00 10/13/22 06:00 10/13/22 06:00 10/13/22 06:00 10/13/22 05:55 Laboratory Results - last 24 hr 10/12/22 11:11: VBG pH 7.30 L, VBG pCO2 74.3 H, VBG pO2 28.4, VBG HCO3 35.7 H, VBG Total CO2 37.9 H, VBG O2 Saturation 54.1, VBG Base Excess 9.2 H 10/12/22 11:14: Urine Color Yellow, Urine Appearance Clear, Urine pH 5.5, Ur Specific [place] <= 1.005, Urine Protein Negative, Urine Glucose (UA) Negative, Urine Ketones Negative, Urine Blood Negative, Urine Nitrate Negative, Urine Bilirubin Negative, Urine Urobilinogen 0.2, Ur Leukocyte Esterase Negative, Urine RBC None, Urine WBC None, Ur Squamous Epith Cells Occasional, Urine Bacteria Trace 10/12/22 11:17: WBC 8.9, RBC 3.57 L, Hgb 11.1 L, Hct 35.4 L, MCV 99.2 H, MCH 31.2, MCHC 31.5 L, RDW 13.5, Plt Count 265, MPV 7.6, Neut % (Auto) 76.7, Lymph % (Auto) 16.3, [place] % (Auto) 4.4, Eos % (Auto) 2.3, Baso % (Auto) 0.4, Neut # (Auto) 6.8, Lymph # (Auto) 1.5, [place] # (Auto) 0.4, Eos # (Auto) 0.2, Baso # (Auto) 0.0 10/12/22 11:17: Sodium 139, Potassium 5.1, Chloride 99, Carbon Dioxide 36 H, Anion Gap 9.1, BUN 19 H, Creatinine 0.80, Estimated Creat Clear 47, Estimated GFR 70, Est GFR ( Amer) 84, Glucose 77, Calcium 8.9, Magnesium 2.3, Total Bilirubin 0.3, AST 19, ALT 18, Alkaline Phosphatase 79, Troponin I < 0.01, NT-Pro-B Natriuret Pep 1700 H, Total Protein 7.0, Albumin 3.9, Globulin 3.1, Albumin/Globulin Ratio 1.3 10/12/22 11:39: Lactate 1.1 10/12/22 11:45: SARS-CoV-2 (PCR) Not detected, Influenza A Untype (PCR) Not detected, Influenza Type B (PCR) Not detected 10/12/22 13:16: VBG pH 7.24 L, VBG pCO2 74.3 H, VBG pO2 61.7 H, VBG HCO3 31.3 H, VBG Total CO2 33.6 H, VBG O2 Saturation 90.3 H, VBG Base Excess 3.9 H 10/12/22 14:24: Troponin I < 0.01 10/12/22 17:14: Specimen Source Left radial, O2 % 50, ABG pH 7.35, ABG pCO2 55.1 H, ABG pO2 92.2, ABG HCO3 29.9 H, ABG Total CO2 31.6 H, ABG O2 Saturation 97, ABG Base Excess 4.3 H, Levar Test Y, Vent Rate 20 10/12/22 17:25: Troponin I < 0.01 10/12/22 19:40: POC Glucose 197 H 10/13/22 06:10: WBC 9.9, RBC 3.49 L, Hgb 10.9 L, Hct 34.3 L, MCV 98.4, MCH 31.1, MCHC 31.6 L, RDW 13.6, Plt Count 223, MPV 7.7, Neut % (Auto) 90.5 H, Lymph % (Auto) 5.7 L, [place] % (Auto) 2.7, Eos % (Auto) 0.9, Baso % (Auto) 0.2, Neut # (Auto) 9.0 H, Lymph # (Auto) 0.6 L, [place] # (Auto) 0.3, Eos # (Auto) 0.1, Baso # (Auto) 0.0, Total Counted 100, Neutrophils % (Manual) 93 H, Lymphocytes % (Manual) 6 L, Monocytes % (Manual) 1 L, Platelet Estimate Normal, Hypochromasia 1+, Anisocytosis 1+, Macrocytosis 1+ 10/13/22 06:10: Sodium 135 L, Potassium 5.5 H, Chloride 98, Carbon Dioxide 31 H, Anion Gap 11.5, BUN 29 H D, Creatinine 0.90, Estimated Creat Clear 45, Estimated GFR 61, Est GFR ( Amer) 74, Glucose 197 H D, Calcium 8.8 I & O for Last 24 hours: Intake & Output 10/10/22 10/11/22 10/12/22 10/13/22 23:59 23:59 23:59 23:59 Intake Total 610 / 730 120 / 120 Output Total 0 / 0 Balance 610 / 730 120 / 120 Weight 141.096 kg 142.457 kg Constitutional Constitutional: no acute distress *Routine HEENT Exam Head: Present normocephalic Eye: Present EOMI and PERRL ENT: Present mucous membranes moist *Routine Neck Exam Neck: Present supple; Absent lymphadenopathy *Routine Respiratory Exam Respiratory: Present crackles (bilateral bases) *Routine Cardiovascular Exam Cardiovascular: Present RRR *Routine Abdominal Exam Abdominal: Present soft a
--- NOTE | 2022-10-13 07:25 | XR_ITS ---
FINAL REPORT CLINICAL HISTORY: acute hypercapneic respiratory failure COMPARISON: 07/18/2022 FINDINGS: A single portable view of the chest was obtained. There is cardiomegaly and pulmonary vascular congestion. There pulmonary opacities, favor edema. The bony thorax is intact. IMPRESSION: Cardiomegaly with pulmonary vascular congestion. Pulmonary opacities favor edema, overall not significantly changed. Reviewed, Interpreted and Dictated by Albino Nuno III, MD Transcribed by Susannah Escobar Authenticated and [facility]
--- NOTE | 2022-10-13 07:30 | PC.NURSE ---
Cardizem drips titrated to 15 mg/hr HR- 140's.
[2022-10-13 08:48] LABS: ABG Base Excess 5.1 mmol/L (-2.4-2.3); ABG HCO3 30.7 mmhg (22.0-26.0); ABG Oxygen Saturation 92 % (90-100); ABG PH 7.35 mmol/L (7.35-7.45); ABG PO2 63.3 mmhg (80-100); ABG TCO2 32.5 mmhg (23-27)
[2022-10-13 08:49] LABS: Allen's Test ACCEPTABLE; Oxygen 4 %; Source Right Radial
[2022-10-13 08:50] LABS: ABG PCO2 56.8 mmhg (35.0-45.0)
--- NOTE | 2022-10-13 09:35 | EXP.PULM.CON ---
History of Present Illness History of present illness: Ms. Cortés is a 79-year-old female greater than [id number] smoking has a diagnosis COPD, diastolic heart failure, history of breast cancer, untreated sleep apnea presented to hospital worsening respiratory distress found to be hypercarbic and pulmonary was consulted for further evaluation. [facility] Disclaimer: The information contained in this section may have been updated after the patient was seen, as this information can be updated by other users. Medical History Abnormal EKG Abnormal stress test Atypical chest pain COPD (chronic obstructive pulmonary disease) Diabetes Edema Fatigue HLD (hyperlipidemia) HTN (hypertension) Shortness of Breath ST segment abnormality Family History (Updated 10/12/22 @ 13:11 by Fanta Simental RN) Other No significant family history Social History (Updated 10/12/22 @ 13:12 by Fanta Simental, RN) Smoking Status: Never smoker second hand exposure: No alcohol intake: never counseling provided: provider counseling substance use type: denies use current occupational status: disabled Travel in the last 8 weeks: None household members: caregiver housing: correction caffeine: No Review of Systems Constitutional Constitutional: Reports anorexia, Reports body ache(s) and Reports fatigue Eyes Eyes: Denies eye discharge, Denies dry eyes, Denies irritation and Denies itchy eyes ENT Ears, Nose, Mouth, and Throat: Denies epistaxis, Denies facial pain, Denies lip swelling and Denies throat swelling *Cardiovascular Cardiovascular: Reports dyspnea, Reports dyspnea on exertion and Reports orthopnea *Respiratory Respiratory: Reports chest congestion, Reports cough, Reports dyspnea, Reports dyspnea on exertion, Reports excessive phlegm production and Reports wheezing *Gastrointestinal Gastrointestinal: Denies abdominal pain, Denies belching and Denies cramping *Musculoskeletal Musculoskeletal: Reports back pain, Reports myalgias and Reports other (No small joint swelling or Pain) Psychiatric Psychiatric: Denies homicidal ideation and Denies suicidal ideation Endocrine Endocrine: Reports fatigue and Denies heat intolerance Hematologic/Lymphatic Hematologic/Lymphatic: Denies easy bleeding and Denies lymphadenopathy Allergic/Immunologic Allergic/Immunologic: Denies itchy eyes, Denies lip swelling, Denies throat swelling and Reports wheezing Pulmonology Exam Inpatient Vital signs and Labs for Last 24 Hours: Temp Pulse Resp BP Pulse Ox FiO2 98.0 F 120 H 22 108/53 L 93 L 50 04/10/23 08:00 10/13/22 08:00 10/13/22 08:00 10/13/22 08:00 10/13/22 08:00 10/13/22 05:55 Laboratory Results - last 24 hr 10/12/22 11:11: VBG pH 7.30 L, VBG pCO2 74.3 H, VBG pO2 28.4, VBG HCO3 35.7 H, VBG Total CO2 37.9 H, VBG O2 Saturation 54.1, VBG Base Excess 9.2 H 10/12/22 11:14: Urine Color Yellow, Urine Appearance Clear, Urine pH 5.5, Ur Specific [place] <= 1.005, Urine Protein Negative, Urine Glucose (UA) Negative, Urine Ketones Negative, Urine Blood Negative, Urine Nitrate Negative, Urine Bilirubin Negative, Urine Urobilinogen 0.2, Ur Leukocyte Esterase Negative, Urine RBC None, Urine WBC None, Ur Squamous Epith Cells Occasional, Urine Bacteria Trace 10/12/22 11:17: WBC 8.9, RBC 3.57 L, Hgb 11.1 L, Hct 35.4 L, MCV 99.2 H, MCH 31.2, MCHC 31.5 L, RDW 13.5, Plt Count 265, MPV 7.6, Neut % (Auto) 76.7, Lymph % (Auto) 16.3, Rich % (Auto) 4.4, Eos % (Auto) 2.3, Baso % (Auto) 0.4, Neut # (Auto) 6.8, Lymph # (Auto) 1.5, Rich # (Auto) 0.4, Eos # (Auto) 0.2, Baso # (Auto) 0.0 10/12/22 11:17: Sodium 139, Potassium 5.1, Chloride 99, Carbon Dioxide 36 H, Anion Gap 9.1, BUN 19 H, Creatinine 0.80, Estimated Creat Clear 47, Estimated GFR 70, Est GFR ( Amer) 84, Glucose 77, Calcium 8.9, Magnesium 2.3, Total Bilirubin 0.3, AST 19, ALT 18, Alkaline Phosphatase 79, Troponin I < 0.01, NT-Pro-B Natriuret
--- NOTE | 2022-10-13 09:53 | EXP.CARD.CON ---
History of Present Illness History of Present Illness Consult date: 10/13/22 Requesting physician: Rikki Bartlett Consult reason: atrial fibrillation Chief complaint: tachycardia History of present illness: 77-year-old white female with significant past medical history for A-fib not on anticoagulation, HFpEF, COPD, chronic hypoxic respiratory failure on 2 L nasal cannula continuously at baseline, diabetes mellitus type 2, hypertension, hyperlipidemia, obstructive sleep apnea, morbid obesity, seizure disorder and history of right-sided breast cancer presented to emergency department early this morning with complaints of tachycardia. Patient was evaluated by her nurse this morning and her heart rate was found to be 140 prompting nursing staff to send patient to emergency department. Patient denies chest pain, worsening shortness of breath, cough, fever or swelling. EKG upon arrival to ER showed A-fib with a rate of 98 and was negative for acute ischemic changes. Labs were significant as follow: WBC 8.9, hemoglobin 11.1, hematocrit 35.4, sodium 139, potassium 5.1, creatinine 0.80, BUN 19 troponin 0.01, proBNP 17,000. Respiratory PCR was negative for COVID and influenza. CTA of chest was negative for PE and aortic dissection. Bibasilar atelectasis or pneumonia was noted with small bilateral pleural effusions and cardiomegaly. VBG on admission: pH 7.3 and PCO2 74. Patient was admitted for acute on chronic respiratory failure and A-fib. Over the evening patient's heart rate went into the 140s and cardiology was consulted. Patient was started on Cardizem drip this morning heart rate has improved. Of note last time patient was evaluated in cardiology clinic was in 2018. At that time patient was ordered a myocardial perfusion scan which did come back abnormal. Patient never followed up Echo from 11/2021 Conclusion 1.? Biatrial enlargement, normal left ventricular size, mild concentric left ventricular hypertrophy, estimated ejection fraction 55% with no regional wall motion abnormality, grade 1 diastolic dysfunction seen with tissue Doppler evidence of raise left atrial pressure. 2.? Mildly enlarged right ventricle with normal contractility. 3.? Thickened and calcified aortic valve with mild aortic stenosis, valve area is 1.4 cm???, there is no significant aortic insufficiency. 4.? Mild mitral and tricuspid regurgitation. 5.? No significant pericardial effusion noted. Stress from 08/2017 IMPRESSION: Lateral reversible ischemia. Decreased activity in the anterior and inferior wall suggests previous nontransmural myocardial infarction. There is normal ejection fraction normal wall motion. Clinical correlation is advised. This is a high risk abnormal stress test [facility] Disclaimer: The information contained in this section may have been updated after the patient was seen, as this information can be updated by other users. Medical History Abnormal EKG Abnormal stress test Atypical chest pain COPD (chronic obstructive pulmonary disease) Diabetes Edema Fatigue HLD (hyperlipidemia) HTN (hypertension) Shortness of Breath ST segment abnormality Family History (Updated 10/12/22 @ 13:11 by Fanta Simental, RN) Other No significant family history Social History (Updated 10/12/22 @ 13:12 by Fanta Simental, RN) Smoking Status: Never smoker second hand exposure: No alcohol intake: never counseling provided: provider counseling substance use type: denies use current occupational status: disabled Travel in the last 8 weeks: None household members: caregiver housing: senior care caffeine: No Review of Systems Review of Systems Review of systems:: pertinent systems reviewed and negative unless documented below *Respiratory Comments: Chronic shortness of air Exam Data for Last 24 hours Vital signs and Labs for Last 24 Hours: Temp Pulse Resp BP Pulse Ox FiO
--- NOTE | 2022-10-13 11:02 | PC.NURSE ---
Attempted to call cardiology office to speak with JARRET Arreola in regards to new medication orders, no answer at this time. Spoke with Marcel in pharmacy regarding new meds order and he is going to work on calling Elba d/t carmela navarroe in therapy.
--- NOTE | 2022-10-13 11:25 | PC.NURSE ---
Spoke with Marcel in pharmacy who spoke with El[facility] regarding new orders for medications. Instructed to go ahead and give Bumex at this time d/t Dr. Luo wanting patient to have both Torsemide and Bumex. Instructed to restart Cardizem drip at low dose, pt will receive po Cardizem today at 1700 and then to stop the Cardizem drip at 1800.
[2022-10-13 11:26] LABS: POC Glucose,Bedside 269 (70-110)
[2022-10-13 13:50] LABS: Chloride 95 mmol/L (98-107); Potassium 5.2 mmoL/L (3.5-5.1); Sodium 136 mmol/L (136-145)
[2022-10-13 13:53] LABS: Blood Urea Nitrogen 31 mg/dl (7-17)
[2022-10-13 13:54] LABS: Anion Gap 14.2 mEq/L (5-15); Calcium 9.1 mg/dl (8.4-10.2); Carbon Dioxide 32 mmol/L (22.0-30.0); Creatinine Clearance Estimated 45 mL/min (50-200); Estimated Glomerular Filt Rate 54 ml/min (>60); GFR (African American) 65 ML/MIN (>60); Glucose 248 mg/dl (74-100)
--- NOTE | 2022-10-13 15:15 | PC.NURSE ---
while helping patient to BSC pt was c/o right shoulder pain. upon furthering assess characteristics of pain pt stated that this is pain that she always has and that it isn't a new pain. pt denies chest pain. pt to be medicated per MAR for pain.
--- NOTE | 2022-10-13 15:56 | PC.NURSE ---
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 pt's pain again addressed and pt states this is pain she has daily. pt informed that pain has been addressed and we would continue to monitor. pt denies chest pain again. pt states pain has been presents for awhile with no new changes.
--- NOTE | 2022-10-13 16:15 | PC.NURSE ---
pt states Tylenol relieved pain and she is currently pain free. pt states she takes pain meds at [facility] as needed for pain.
--- NOTE | 2022-10-13 16:43 | PC.NURSE ---
Called Dr. Bartlett regarding pt's fsbs of 184 with sliding scale insulin and scheduled insulin ordered, MD states to give both.
--- NOTE | 2022-10-13 17:42 | PC.NURSE ---
pt alert and oriented t/o shift. pt has been wearing 2LNC since earlier this am when she was titrated from 4L-2L, pt has tolerated well with sats being 90-94% t/o today. LS diminished t/o. pt has been on a Cardizem drip t/o this shift at various titrations. Pt was started on PO Cardizem today and educated on medication and reasoning. Abdomen is round, firm with active bowel sounds. bowel regimen in place. pt has sat on the side of the bed most of the day. pt was washed up today.
--- NOTE | 2022-10-13 17:50 | PC.NURSE ---
Called Dr. Bartlett regarding pt's heart rate being 140's and Cardizem supposed to be stopped at 1800 due to PO med being given. Dr. Bartlett states to call and let cardiology know.
--- NOTE | 2022-10-13 17:52 | PC.NURSE ---
Dr. Luo paged at this time.
--- NOTE | 2022-10-13 18:28 | PC.NURSE ---
Addendum entered by Crys Gandhi RN 10/13/22 18:39: also notified that pt received PO dose of Cardizem at 1616 and is currently on 15 mg/hr Cardizem drip. Original Note: Spoke with Dr. Luo regarding pt's heart rate, MD states to give 10 mg PO Bisoprolol at this time. Order read back and verified. Faxed order to night watch.
--- NOTE | 2022-10-13 18:39 | PC.NURSE ---
order faxed to continue [facility]ri[facility] ip.
[2022-10-13 20:40] LABS: POC Glucose,Bedside 180 (70-110)
[2022-10-13 21:11] LABS: POC Glucose,Bedside 184 (70-110)
[2022-10-13 21:11] LABS: POC Glucose,Bedside 224 (70-110)
--- NOTE | 2022-10-13 21:11 | PC.NURSE ---
HR sustaining 80-90, Dilt gtt titrated to 10mg/hr at this time.
--- NOTE | 2022-10-13 23:55 | PC.NURSE ---
HR sustaining 70-90, Dilt gtt titrated to 5mg/hr at this time.
[2022-10-14] VITALS (32 sets, daily range): BP systolic 70–150; BP diastolic 40–93; PULSE 72–145; RESP 16–22; TEMP 36.6–36.8; O2SAT 70–100; BMI 48.6
[2022-10-14 01:51] LABS: POC Glucose,Bedside 91 (70-110)
--- NOTE | 2022-10-14 03:37 | PC.NURSE ---
Pt sat mid 80s on 2L nc while asleep. Pt titrated up to 4 L nc at this time.
--- NOTE | 2022-10-14 04:26 | PC.NURSE ---
Dilt gtt turned off at this time due to pt HR 65-80. [employer] aware.
[2022-10-14 05:52] LABS: Basophils % 0.2 % (0.1-2.0); Eosinophils # 0.1 K/mm3 (0.0-0.4); Eosinophils % 0.6 % (0.1-12.0); Hematocrit 32.3 % (37.0-47.0); Hemoglobin 10.1 g/dL (12.2-16.2); Lymphocytes # 1.8 K/mm3 (0.7-4.5); Lymphocytes % 18.7 % (10-50); Mean Corpuscular HGB Conc 31.3 g/dL (31.8-35.4); Mean Corpuscular Hemoglobin 30.9 pg (27.0-31.2); Mean Corpuscular Volume 98.7 fl (81-99); Mean Platelet Volume 7.6 fl (7.4-10.4); Monocytes # 0.4 K/mm3 (0.1-1.0); Monocytes % 4.7 % (1.7-9.3); Neutrophils # 7.2 K/mm3 (1.8-7.8); Neutrophils % 75.8 % (37.0-80.0); Platelet Count 209 K/mm3 (142-424); Red Blood Count 3.27 M/mm3 (4.20-5.40); Red Cell Distribution Width 13.7 % (11.5-17.5); White Blood Count 9.5 K/mm3 (4.8-10.8)
[2022-10-14 06:00] LABS: Chloride 95 mmol/L (98-107); Sodium 135 mmol/L (136-145)
[2022-10-14 06:03] LABS: Blood Urea Nitrogen 38 mg/dl (7-17); Carbon Dioxide 36 mmol/L (22.0-30.0); Creatinine Clearance Estimated 41 mL/min (50-200); Estimated Glomerular Filt Rate 48 ml/min (>60); GFR (African American) 58 ML/MIN (>60)
[2022-10-14 06:04] LABS: Calcium 8.7 mg/dl (8.4-10.2); Glucose 94 mg/dl (74-100)
[2022-10-14 06:04] LABS: POC Glucose,Bedside 110 (70-110)
--- NOTE | 2022-10-14 06:05 | PC.NURSE ---
Pt is currently on 3 L nc. Tolerates 2 L nc while awake but requires 3-4L nc while asleep. Dilt gtt remains off and HR is sustaining 70-90, Afib on tele. Pt is able to use BSC with 1x assist. No BM thus far. Abdomen is firm and round, no tenderness noted. Call light within reach.
--- NOTE | 2022-10-14 09:34 | EXP.ACUTE.PN ---
Subjective *Date: 10/14/22 *Time: 09:34 Interval history: Feels better today. Wants to try diet. Medical Exam Vital signs and Labs for Last 24 Hours: Vital Signs Temp Pulse Pulse Resp BP Pulse Ox 10/14/22 08:00 90 L 10/14/22 08:00 98.2 F 81 16 113/49 L 90 L 10/14/22 05:50 85 L 10/14/22 06:00 75 17 117/87 90 L 10/14/22 05:53 78 10/14/22 05:53 72 10/14/22 05:53 92 L 10/14/22 04:37 97 10/14/22 04:00 87 91 L 10/14/22 04:00 82 20 104/48 L 92 L 10/14/22 04:00 80 10/14/22 02:00 79 20 109/54 L 93 L 10/14/22 00:00 70 L 10/14/22 00:00 77 20 105/47 L 91 L 10/14/22 00:00 100 H 10/13/22 22:00 84 18 98/41 L 90 L 10/13/22 20:00 100 H 10/13/22 20:00 106 H 94 L 10/13/22 20:00 106 H 20 146/76 H 96 10/13/22 20:00 98.0 F 10/13/22 18:42 75 10/13/22 18:42 75 10/13/22 18:42 91 L 10/13/22 18:00 97.8 F 124 H 18 138/60 91 L 10/13/22 16:00 80 10/13/22 16:00 115 H 90 L 10/13/22 15:59 97.9 F 107 H 20 140/63 90 L 10/13/22 15:41 93 H 10/13/22 15:40 94 L 10/13/22 13:58 97.8 F 92 H 18 123/53 L 91 L 10/13/22 12:00 80 10/13/22 12:43 75 10/13/22 12:43 73 10/13/22 12:00 82 10/13/22 12:00 97.7 F 85 20 126/72 91 L 10/13/22 11:16 64 20 101/70 L 90 L 10/13/22 10:00 87 20 91/51 L 90 L Intake and Output 10/13/22 10/14/22 10/14/22 23:59 07:59 15:59 Intake Total 480 / 1512 103 / 343 240 / 343 Output Total 1500 / 2500 400 / 400 0 / 400 Balance -1020 / -988 -297 / -57 240 / -57 Intake: Intake, Oral Amount 480 / 1440 240 / 240 Intake, Total IV Amount 103 / 103 dilTIAZem HCL 100 mg In 0.9 % 103 / 103 Sodium Chloride 100 ml @ 15 mls /hr IV .[id number] [facility] Rx#:[id number] Output: Output, Urine Amount 1500 / 2500 400 / 400 0 / 400 Other: Number of Voids 0 Number of Unmeasured Voids 1 1 Weight 140.75 kg Patient Weight 10/14/22 23:59 Weight 140.75 kg Laboratory Results - last 24 hr 10/12/22 16:33: POC Glucose 91 10/13/22 06:06: POC Glucose 224 H 10/13/22 11:18: POC Glucose 269 H 10/13/22 13:36: Sodium 136, Potassium 5.2 H, Chloride 95 L, Carbon Dioxide 32 H, Anion Gap 14.2, BUN 31 H, Creatinine 1.00, Estimated Creat Clear 45, Estimated GFR 54 L, Est GFR ( Amer) 65, Glucose 248 H D, Calcium 9.1 10/13/22 16:37: POC Glucose 184 H 10/13/22 20:25: POC Glucose 180 H 10/14/22 05:35: WBC 9.5, RBC 3.27 L, Hgb 10.1 L, Hct 32.3 L, MCV 98.7, MCH 30.9, MCHC 31.3 L, RDW 13.7, Plt Count 209, MPV 7.6, Neut % (Auto) 75.8, Lymph % (Auto) 18.7, [place] % (Auto) 4.7, Eos % (Auto) 0.6, Baso % (Auto) 0.2, Neut # (Auto) 7.2, Lymph # (Auto) 1.8, [place] # (Auto) 0.4, Eos # (Auto) 0.1, Baso # (Auto) 0.0 10/14/22 05:35: Sodium 135 L, Potassium 5.0, Chloride 95 L, Carbon Dioxide 36 H, Anion Gap 9.0, BUN 38 H, Creatinine 1.10 H, Estimated Creat Clear 41, Estimated GFR 48 L, Est GFR ( Amer) 58 L, Glucose 94 D, Calcium 8.7 10/14/22 05:58: POC Glucose 110 I & O for Labs for Last 24 Hours: Intake & Output 10/11/22 10/12/22 10/13/22 10/14/22 23:59 23:59 23:59 23:59 Intake Total 610 / 730 1512 / 1512 343 / 343 Output Total 0 / 0 2300 / 2500 400 / 400 Balance 610 / 730 -788 / -988 -57 / -57 Weight 141.096 kg 142.5 kg 140.75 kg Constitutional: Present no acute distress and obese Comment:: Nasal cannula Respiratory: Present normal respiratory effort Cardiac: Present Reg Rate and Rhythm GI: Present normal bowel sounds; Absent tenderness Extremities: Present normal inspection and full ROM Skin: Present intact; Absent erythema Neuro: Present Grossly Intact and moves all extremities Assessment and Plan *Assessment and plan (1) Mild aortic stenosis: Status: Acute Category: Medical Code(s): I35.0 - Nonrheumatic aortic (valve) stenosis (2) Atrial fibril
--- NOTE | 2022-10-14 09:38 | EXP.PULM.PN ---
Subjective *Date: 10/14/22 *Time: 10:11 Interval history: No acute respiratory vents overnight. Patient denies any worsening respiratory symptoms. Pulmonology Exam Inpatient Vital signs and Labs for Last 24 Hours: Temp Pulse Resp BP Pulse Ox FiO2 98.2 F 81 16 113/49 L 90 L 50 10/14/22 08:00 10/14/22 08:00 10/14/22 08:00 10/14/22 08:00 10/14/22 08:00 10/13/22 05:55 Laboratory Results - last 24 hr 10/12/22 16:33: POC Glucose 91 10/13/22 06:06: POC Glucose 224 H 10/13/22 11:18: POC Glucose 269 H 10/13/22 13:36: Sodium 136, Potassium 5.2 H, Chloride 95 L, Carbon Dioxide 32 H, Anion Gap 14.2, BUN 31 H, Creatinine 1.00, Estimated Creat Clear 45, Estimated GFR 54 L, Est GFR ( Amer) 65, Glucose 248 H D, Calcium 9.1 10/13/22 16:37: POC Glucose 184 H 10/13/22 20:25: POC Glucose 180 H 10/14/22 05:35: WBC 9.5, RBC 3.27 L, Hgb 10.1 L, Hct 32.3 L, MCV 98.7, MCH 30.9, MCHC 31.3 L, RDW 13.7, Plt Count 209, MPV 7.6, Neut % (Auto) 75.8, Lymph % (Auto) 18.7, [place] % (Auto) 4.7, Eos % (Auto) 0.6, Baso % (Auto) 0.2, Neut # (Auto) 7.2, Lymph # (Auto) 1.8, [place] # (Auto) 0.4, Eos # (Auto) 0.1, Baso # (Auto) 0.0 10/14/22 05:35: Sodium 135 L, Potassium 5.0, Chloride 95 L, Carbon Dioxide 36 H, Anion Gap 9.0, BUN 38 H, Creatinine 1.10 H, Estimated Creat Clear 41, Estimated GFR 48 L, Est GFR ( Amer) 58 L, Glucose 94 D, Calcium 8.7 10/14/22 05:58: POC Glucose 110 I & O for Labs for Last 24 Hours: Intake & Output 10/11/22 10/12/22 10/13/22 10/14/22 23:59 23:59 23:59 23:59 Intake Total 610 / 730 1512 / 1512 343 / 343 Output Total 0 / 0 2300 / 2500 400 / 400 Balance 610 / 730 -788 / -988 -57 / -57 Weight 311 lb 1 oz 314 lb 2.539 oz 310 lb 4.8 oz Constitutional: Present moderate distress Head: Present normocephalic and atraumatic ENT: Present normal exam, normal oropharynx and mucous membranes moist Neck: Present normal inspection and full ROM Respiratory: Present respiratory distress, wheezes, crackles, diminished air movement and able to speak in complete sentences Cardiac: Present Tachycardia and radial pulses present; Absent S1/S2 GI: Present soft and distention; Absent tenderness or guarding Rectal (female): Present deferred (female): Present deferred Skin: Present intact; Absent cyanosis or jaundice Neuro: Present alert, awake and oriented x 3 Extremities: Present normal inspection; Absent clubbing or cyanosis Psychiatric: Present normal affect and cooperative Assessment and Plan *Assessment and plan (1) Acute and chronic respiratory failure with hypercapnia: Status: Acute Category: Medical Code(s): J96.22 - Acute and chronic respiratory failure with hypercapnia (2) Acute exacerbation of chronic obstructive pulmonary disease: Status: Acute Category: Medical Code(s): J44.1 - Chronic obstructive pulmonary disease with (acute) exacerbation Plan 77-year-old history of COPD, diastolic heart failure, aortic stenosis, history of breast cancer presents worsening respiratory distress. CTA from admission reviewed, significant motion artifact and poor contrast timing. No large pulm embolism. Low lung volumes. Bilateral small pleural effusions along with adjacent atelectasis. Small pericardial effusion. GGO noted. VBG on admission showed hypercarbic respiratory failure with a PCO2 was in pH of 7.24, subsequent ABGs are within normal limits with respect to hypercarbia. Noted to have hypoxic respiratory failure. Labs personally reviewed no leukocytosis upon admission. Neutrophil predominance. Hyperkalemia noted on today's labs. COVID-19 and flu PCR negative upon admission Echo from November 2021: Bilateral atrial enlargement, LV concentric hypertrophy, diastolic dysfunction, mild aortic stenosis along with enlarged RV with normal contractility. Polysomnography August 2021: Sleep apnea mild AHI 10.4. Etiology of this patient's current hypoxia is likely 2/2 combination of volume overload and COPD
--- NOTE | 2022-10-14 09:40 | IR_ITS ---
APPROVED REPORT Patient Location: Inpatient PROCEDURES Selective coronary angiogram INDICATION LV dysfunction, New onset congestive heart failure, Atrial fibrillation, Abnormal stress test Informed consent was obtained prior to the procedure. COMPLICATIONS NONE Estimated Blood Loss: LESS THAN 10 ML TECHNIQUE One percent lidocaine used to anesthetize the right anterior aspect of the wrist. The right radial artery was accessed via the Seldinger technique. A 6 [place] sheath was placed in the right radial artery. 150 mg magnesium sulfate, 800 mcg of nitroglycerin, 1mg Lidocaine and 5000 U Heparin were given through the arterial sheath. The papa catheter was also used to perform left heart catheterization, left ventriculogram and selective coronary angiogram. At the end of the procedure the sheath was removed good hemostasis was achieved using Traclet band, patient was transferred to the postop holding area in stable condition. ANGIOGRAPHIC RESULTS The left main artery Normal The left anterior descending artery Has proximal 20 to 30% stenosis The circumflex artery Large dominant with mild luminal irregularities The right coronary artery Large dominant with mild luminal irregularities The HUSSEIN ventriculogram reveals Not performed The left ventricular end-diastolic pressure Not measured IMPRESSION Mild nonflow limiting coronary disease Atrial fibrillation rapid ventricular response Severe diastolic dysfunction PLAN 1. IV diuresis 2. Risk factor modification 3. Rate control 4. Anticoagulation Electronically signed by : Ke Luo MD 10/14/2022 18:14:16
--- NOTE | 2022-10-14 09:56 | EXP.CARD.PN ---
Subjective Subjective Date: 10/14/22 Time: 09:00 Principal diagnosis: CHF, Afib Interval history: This is a 77-year-old white female who presented to the emergency department with complaints of tachycardia. The patient was found to be in atrial fibrillation upon arrival to the emergency department as well as acute on chronic respiratory failure and an acute exacerbation of her diastolic congestive heart failure. The patient reports this morning that she just does not feel well. She states that she has been short of breath for a long time but it has worsened in the last few days. She denies any lower extremity edema. She denies any chest pain or pressure. She states that her shortness of breath is associated with fatigue and no energy to do anything. She denies any fevers or cough. The patient just repeatedly keeps telling me that she does not feel well today and has not felt well for the last several days and does not know what is wrong with her. She states that despite being in the hospital she feels no better. She denies any fever, chills, nausea, vomiting, diarrhea, PND or orthopnea. Exam Data for Last 24 hours Vital signs and Labs for Last 24 Hours: Temp Pulse Resp BP Pulse Ox FiO2 98.2 F 81 16 113/49 L 90 L 50 10/14/22 08:00 10/14/22 08:00 10/14/22 08:00 10/14/22 08:00 10/14/22 08:00 10/13/22 05:55 Laboratory Results - last 24 hr 10/12/22 16:33: POC Glucose 91 10/13/22 06:06: POC Glucose 224 H 10/13/22 11:18: POC Glucose 269 H 10/13/22 13:36: Sodium 136, Potassium 5.2 H, Chloride 95 L, Carbon Dioxide 32 H, Anion Gap 14.2, BUN 31 H, Creatinine 1.00, Estimated Creat Clear 45, Estimated GFR 54 L, Est GFR ( Amer) 65, Glucose 248 H D, Calcium 9.1 10/13/22 16:37: POC Glucose 184 H 10/13/22 20:25: POC Glucose 180 H 10/14/22 05:35: WBC 9.5, RBC 3.27 L, Hgb 10.1 L, Hct 32.3 L, MCV 98.7, MCH 30.9, MCHC 31.3 L, RDW 13.7, Plt Count 209, MPV 7.6, Neut % (Auto) 75.8, Lymph % (Auto) 18.7, [place] % (Auto) 4.7, Eos % (Auto) 0.6, Baso % (Auto) 0.2, Neut # (Auto) 7.2, Lymph # (Auto) 1.8, [place] # (Auto) 0.4, Eos # (Auto) 0.1, Baso # (Auto) 0.0 10/14/22 05:35: Sodium 135 L, Potassium 5.0, Chloride 95 L, Carbon Dioxide 36 H, Anion Gap 9.0, BUN 38 H, Creatinine 1.10 H, Estimated Creat Clear 41, Estimated GFR 48 L, Est GFR ( Amer) 58 L, Glucose 94 D, Calcium 8.7 10/14/22 05:58: POC Glucose 110 I & O for Last 24 hours: Intake & Output 10/11/22 10/12/22 10/13/22 10/14/22 23:59 23:59 23:59 23:59 Intake Total 610 / 730 1512 / 1512 343 / 343 Output Total 0 / 0 2300 / 2500 400 / 400 Balance 610 / 730 -788 / -988 -57 / -57 Weight 311 lb 1 oz 314 lb 2.539 oz 310 lb 4.8 oz Constitutional Constitutional: no acute distress and morbidly obese *Routine HEENT Exam Head: Present normocephalic and atraumatic ENT: Present mucous membranes moist *Routine Neck Exam Neck: Present supple, full ROM and normal carotid upstroke; Absent JVD, carotid bruit or lymphadenopathy *Routine Respiratory Exam Respiratory: Present wheezes (Expiratory wheezing noted), able to speak in complete sentences and symmetric chest movement *Routine Cardiovascular Exam Cardiovascular: Present Normal S1, Normal S2 and irregularly irregular; Absent murmur or gallop *Routine Abdominal Exam Abdominal: Present soft and normoactive bowel sounds; Absent tenderness, distended or organomegaly *Routine Extremities Exam Extremities: Present full ROM, pulses intact and normal capillary refill; Absent cyanosis, clubbing or edema *Routine Skin Exam Skin: Present intact and warm; Absent erythema *Routine Neurological Exam Neurological: Present alert, oriented X3 and CN II-XII intact; Absent sensory deficit or motor deficit Routine Psychiatric Exam Psychiatric: Present normal affect Progress Note: A&P Assessment and plan (1) HFrEF (heart failure with reduced ejection fraction): Status: Acute (2) Atypical angina: Status: Acute (3) Shortness of Breath:
--- NOTE | 2022-10-14 11:23 | CARE MANAGER ---
Spoke with Sandi from [facility]. She states patient resides there ICF level of care. SUKUMAR Hatch
[2022-10-14 11:56] LABS: POC Glucose,Bedside 220 (70-110)
--- NOTE | 2022-10-14 13:38 | PC.NURSE ---
pt off unit with company laborer rn [id number]
--- NOTE | 2022-10-14 14:16 | PC.NURSE ---
1043 attempted to contact pt RICKEY Shanks to notify of procedure/get consent for procedure. no answer at number in computer, voicemail left to return call to [facility]. Called [facility] to see if additional number was available. per Silke RN, dave has not been able to contact pt RICKEY for awhile . advised to contact 2nd person to notify, pt sister Jennifer. call goes straight to voicemail, no name on message. pt is currently alert and oriented x 4 and is aware as to why she was admitted to the hospital. pt consented to procedure at 1110.
[2022-10-14 15:17] LABS: Microscopic, Urine URINE MICROSCOPIC (MICROSCOPIC)
[2022-10-14 15:25] LABS: Appearance,Urine CLEAR (Clear); Bilirubin,Urine Negative (Negative); Blood, Urine Negative (Negative); Color,Urine STRAW (Yellow); Glucose,Urine (UA) Negative (Negative); Ketones,Urine Negative (Negative); Leukocyte Esterase,Urine Negative (Negative); Nitrate,Urine Negative (Negative); Protein,Urine Negative (Negative); Specific Gravity, Urine <= 1.005 (1.005-1.030); Urobilinogen,Urine 0.2 EU/dl (0.2)
[2022-10-14 15:50] LABS: Hyaline Casts,Urine Occasional #/lpf (0); Squamous Epithelial Cell,Urine Occasional #/hpf (0-5)
[2022-10-14 18:27] LABS: POC Glucose,Bedside 152 (70-110)
--- NOTE | 2022-10-14 19:39 | PC.NURSE ---
pt traclet slow to remove r/t pt needing reminding about not using r wrist for pushing and pulling when getting up to bsc. bowel sounds are active, no bm noted this shift. pt did receive ordered bowel regime. lungs are clear with faint crackles in tashi bases. nad noted. pt has [address] at this time. upon arrival to unit from cath pt was offered bipap at that time. pt refused.
[2022-10-14 21:40] LABS: POC Glucose,Bedside 238 (70-110)
[2022-10-15] VITALS (14 sets, daily range): BP systolic 96–159; BP diastolic 52–78; PULSE 70–130; RESP 16–24; TEMP 36.5–37.2; O2SAT 87–94; BMI 47.4
--- NOTE | 2022-10-15 01:24 | PC.NURSE ---
2215- Pt BP 70/40 manually; pt is asymptomatic. NISHANT Schneider made aware, states to continue to monitor and notify MD Luo if pt becomes symptomatic or BP continues to drop. 2308 BP 87/61, pt continues to be asymptomatic.
[2022-10-15 06:24] LABS: POC Glucose,Bedside 191 (70-110)
--- NOTE | 2022-10-15 06:31 | PC.NURSE ---
Pt BP has improved t/o night. Romero in place, 3350 ml urine output total for shift. 4x4 [address] to right radial cath site, CDI. Pt has been restless t/o night moving from sitting on side of bed to laying down multiple times. States she feels SOA while laying down. Currently on 3 L nc maintaining sat >90%. Has refused pain. No BM this shift. Call light within reach.
[2022-10-15 07:27] LABS: Basophils % 0.3 % (0.1-2.0); Eosinophils # 0.1 K/mm3 (0.0-0.4); Eosinophils % 1.2 % (0.1-12.0); Hematocrit 35.8 % (37.0-47.0); Hemoglobin 11.3 g/dL (12.2-16.2); Lymphocytes # 1.4 K/mm3 (0.7-4.5); Lymphocytes % 16.3 % (10-50); Mean Corpuscular HGB Conc 31.5 g/dL (31.8-35.4); Mean Corpuscular Hemoglobin 30.8 pg (27.0-31.2); Mean Corpuscular Volume 97.7 fl (81-99); Mean Platelet Volume 8.4 fl (7.4-10.4); Monocytes # 0.6 K/mm3 (0.1-1.0); Monocytes % 6.7 % (1.7-9.3); Neutrophils # 6.7 K/mm3 (1.8-7.8); Neutrophils % 75.6 % (37.0-80.0); Platelet Count 230 K/mm3 (142-424); Red Blood Count 3.66 M/mm3 (4.20-5.40); Red Cell Distribution Width 13.7 % (11.5-17.5); White Blood Count 8.8 K/mm3 (4.8-10.8)
[2022-10-15 07:28] LABS: Chloride 92 mmol/L (98-107); Potassium 4.1 mmoL/L (3.5-5.1); Sodium 137 mmol/L (136-145)
[2022-10-15 07:31] LABS: Anion Gap 11.1 mEq/L (5-15); Blood Urea Nitrogen 36 mg/dl (7-17); Carbon Dioxide 38 mmol/L (22.0-30.0); Cholesterol 119 mg/dl (140-200); Creatinine Clearance Estimated 45 mL/min (50-200); Estimated Glomerular Filt Rate 54 ml/min (>60); GFR (African American) 65 ML/MIN (>60); Triglycerides 245 mg/dl (30-150); VLDL Cholesterol 49 mg/dL (0-40)
[2022-10-15 07:32] LABS: Chol/HDL Ratio 4.3 (1-3.5); Glucose 177 mg/dl (74-100); HDL Cholesterol 28 mg/dl (40-60)
[2022-10-15 07:43] LABS: Direct LDL Cholesterol 62.38 mg/dL (100-129)
--- NOTE | 2022-10-15 09:42 | EXP.PULM.PN ---
Subjective *Date: 10/15/22 *Time: 10:23 Interval history: No acute respiratory vents overnight. Patient denies any new respiratory complaints. Pulmonology Exam Inpatient Vital signs and Labs for Last 24 Hours: Temp Pulse Resp BP Pulse Ox FiO2 98.3 F 104 H 24 108/61 L 91 L 50 10/15/22 08:00 10/15/22 08:00 10/15/22 08:00 10/15/22 08:00 10/15/22 08:00 10/13/22 05:55 Laboratory Results - last 24 hr 10/14/22 11:36: POC Glucose 220 H 10/14/22 14:51: Urine Color Straw, Urine Appearance Clear, Urine pH 6.0, Ur Specific [place] <= 1.005, Urine Protein Negative, Urine Glucose (UA) Negative, Urine Ketones Negative, Urine Blood Negative, Urine Nitrate Negative, Urine Bilirubin Negative, Urine Urobilinogen 0.2, Ur Leukocyte Esterase Negative, Urine RBC None, Urine WBC None, Ur Squamous Epith Cells Occasional, Urine Bacteria None, Hyaline Casts Occasional 10/14/22 17:16: POC Glucose 152 H 10/14/22 20:04: POC Glucose 238 H 10/15/22 06:17: POC Glucose 191 H 10/15/22 06:45: WBC 8.8, RBC 3.66 L, Hgb 11.3 L, Hct 35.8 L, MCV 97.7, MCH 30.8, MCHC 31.5 L, RDW 13.7, Plt Count 230, MPV 8.4, Neut % (Auto) 75.6, Lymph % (Auto) 16.3, [place] % (Auto) 6.7, Eos % (Auto) 1.2, Baso % (Auto) 0.3, Neut # (Auto) 6.7, Lymph # (Auto) 1.4, [place] # (Auto) 0.6, Eos # (Auto) 0.1, Baso # (Auto) 0.0 10/15/22 06:45: Sodium 137, Potassium 4.1, Chloride 92 L, Carbon Dioxide 38 H, Anion Gap 11.1, BUN 36 H, Creatinine 1.00, Estimated Creat Clear 45, Estimated GFR 54 L, Est GFR ( Amer) 65, Glucose 177 H, Calcium 9.0, Triglycerides 245 H, Cholesterol 119 L, LDL Cholesterol Direct 62.38 L, VLDL Cholesterol 49 H, HDL Cholesterol 28 L, Cholesterol/HDL Ratio 4.3 H I & O for Labs for Last 24 Hours: Intake & Output 10/12/22 10/13/22 10/14/22 10/15/22 23:59 23:59 23:59 23:59 Intake Total 610 / 730 1512 / 1512 463 / 463 600 / 600 Output Total 0 / 0 2300 / 2500 7350 / 7950 1200 / 1200 Balance 610 / 730 -788 / -988 -6887 / -7487 -600 / -600 Weight 311 lb 1 oz 314 lb 2.539 oz 310 lb 4.8 oz 302 lb 2 oz Microbiology Reports for the Last 24 Hours: Microbiology 10/12/22 11:48 Blood Blood Culture - Preliminary NO GROWTH AFTER 48 HOURS 10/12/22 11:39 Blood Blood Culture - Preliminary NO GROWTH AFTER 48 HOURS Constitutional: Present moderate distress Head: Present normocephalic and atraumatic ENT: Present normal exam, normal oropharynx and mucous membranes moist Neck: Present normal inspection and full ROM Respiratory: Present respiratory distress, rhonchi, diminished air movement and able to speak in complete sentences; Absent wheezes Cardiac: Present Tachycardia and radial pulses present; Absent S1/S2 GI: Present soft and distention; Absent tenderness or guarding Rectal (female): Present deferred (female): Present deferred Skin: Present intact; Absent cyanosis or jaundice Neuro: Present alert, awake and oriented x 3 Extremities: Present normal inspection; Absent clubbing or cyanosis Psychiatric: Present normal affect and cooperative Assessment and Plan *Assessment and plan (1) Acute and chronic respiratory failure with hypercapnia: Status: Acute Category: Medical Code(s): J96.22 - Acute and chronic respiratory failure with hypercapnia (2) Acute exacerbation of chronic obstructive pulmonary disease: Status: Acute Category: Medical Code(s): J44.1 - Chronic obstructive pulmonary disease with (acute) exacerbation Plan 77-year-old history of COPD, diastolic heart failure, aortic stenosis, history of breast cancer presents worsening respiratory distress. CTA from admission reviewed, significant motion artifact and poor contrast timing. No large pulm embolism. Low lung volumes. Bilateral small pleural effusions along with adjacent atelectasis. Small pericardial effusion. GGO noted. VBG on admission showed hypercarbic respiratory failure with a PCO2 was in pH of 7.24, sub
--- NOTE | 2022-10-15 10:01 | EXP.DC.SUM ---
General Admission date:: 10/12/22 Discharge date: 10/17/22 HPI HPI HPI: Dina Cortés is a 77 year old female resident at [facility] with a past medical history of atrial fibrillation not on anticoagulation, CAD, CHF, COPD, chronic hypoxic respiratory failure on 2L NC continuously at baseline, t2dm, HTN, HLD, morbid obesity, seizure disorder, and right sided breast cancer. She presented to the ED earlier this morning because her nurse was obtaining routine vitals and saw that her HR was elevated in the 140s. Her HR has been below 110 here. VBG revealed pH 7.3 and pCO2 74 and CTA Chest revealed bibasilar atelectasis or pneumonia. She denies worsening shortness of breath, cough, fever or swelling. She has chronic joint pain that is unchanged. She takes gabapentin 800mg BID and Norco10 HS and BID PRN. No new medications or any recent changes to her medications. She denies having had any confusion. Initial vitals: BP 111/67 - P 114 - RR 20 - SpO2 92% on 2L NC - T 97.8 degrees F Initial workup includes: VBG pH 7.3 and pCO2 74 COVID and Flu PCR studies are negative BNP 1700 (325 on 07/18/22) troponin I <0.01 Chest CTA - No pulmonary emboli. Bibasilar atelectasis or pneumonia Echo 11/05/21 - LVEF 45-50%, LV diastolic dysfunction/slight dysynchrony ED Medications: Solumedrol 125mg, Duoneb, Ceftriaxone 1 g Hospital Course Hospital Course Hospital Course: Patient was admitted with respiratory failure. Hypercapnic hypoxemic respiratory failure. Cardiology consulted for atrial fibrillation with RVR and also diastolic heart failure exacerbation. Patient was taken for cardiac catheterization which demonstrated no obstructive coronary artery disease. Patient was started on aggressive diuresis with greater than 10 L diuresis during hospital stay. She was transitioned to Bisoprolol 20 mg p.o. twice daily, Bumex 2 mg daily, Jardiance 10 mg daily, metolazone 5 mg daily, diltiazem ER 240 mg p.o. twice daily, pravastatin 20 mg p.o. nightly, Xarelto 15 mg p.o. with supper. Improvement of symptoms and dyspnea. Of note patient had urinary retention and also hematuria. Suspect hematuria is from initiation of Xarelto for atrial fibrillation. Will refer to urology. She will need Romero on discharge. Exam Data for Last 24 hours Vital signs and Labs for Last 24 Hours: Temp Pulse Resp BP Pulse Ox FiO2 98.3 F 104 H 24 108/61 L 91 L 50 10/15/22 08:00 10/15/22 08:00 10/15/22 08:00 10/15/22 08:00 10/15/22 08:00 10/13/22 05:55 Laboratory Results - last 24 hr 10/14/22 11:36: POC Glucose 220 H 10/14/22 14:51: Urine Color Straw, Urine Appearance Clear, Urine pH 6.0, Ur Specific [place] <= 1.005, Urine Protein Negative, Urine Glucose (UA) Negative, Urine Ketones Negative, Urine Blood Negative, Urine Nitrate Negative, Urine Bilirubin Negative, Urine Urobilinogen 0.2, Ur Leukocyte Esterase Negative, Urine RBC None, Urine WBC None, Ur Squamous Epith Cells Occasional, Urine Bacteria None, Hyaline Casts Occasional 10/14/22 17:16: POC Glucose 152 H 10/14/22 20:04: POC Glucose 238 H 10/15/22 06:17: POC Glucose 191 H 10/15/22 06:45: WBC 8.8, RBC 3.66 L, Hgb 11.3 L, Hct 35.8 L, MCV 97.7, MCH 30.8, MCHC 31.5 L, RDW 13.7, Plt Count 230, MPV 8.4, Neut % (Auto) 75.6, Lymph % (Auto) 16.3, [place] % (Auto) 6.7, Eos % (Auto) 1.2, Baso % (Auto) 0.3, Neut # (Auto) 6.7, Lymph # (Auto) 1.4, [place] # (Auto) 0.6, Eos # (Auto) 0.1, Baso # (Auto) 0.0 10/15/22 06:45: Sodium 137, Potassium 4.1, Chloride 92 L, Carbon Dioxide 38 H, Anion Gap 11.1, BUN 36 H, Creatinine 1.00, Estimated Creat Clear 45, Estimated GFR 54 L, Est GFR ( Amer) 65, Glucose 177 H, Calcium 9.0, Triglycerides 245 H, Cholesterol 119 L, LDL Cholesterol Direct 62.38 L, VLDL Cholesterol 49 H, HDL Cholesterol 28 L, Cholesterol/HDL Ratio 4.3 H I & O for Last 24 hours: Intake & Output 10/12/22 10/13/22 10/14/22 10/15/22 23:59 23:59 23:59 23:59 Intake Total 610 / 730 1512 / 1512 463 / 463 600 / 600
[2022-10-15 11:31] LABS: POC Glucose,Bedside 276 (70-110)
--- NOTE | 2022-10-15 11:50 | EXP.CARD.PN ---
Subjective Subjective Date: 10/15/22 Time: 11:30 Principal diagnosis: CHF, Afib, severe diastolic dysfunction Interval history: This is a 77-year-old white female who presented to the emergency department tachycardia. The patient was found to be in atrial fibrillation. She remains in atrial fibrillation this morning with a heart rate of anywhere from 84 to 110 bpm. The patient underwent left cardiac catheterization yesterday and was found to have mild nonocclusive coronary artery disease with severe right ventricular failure and almost certainly severe pulmonary hypertension. The patient has severe diastolic dysfunction. She was diuresed with IV Bumex and chlorothiazide yesterday. She diuresed 8 L with a -7430 fluid balance overnight. This morning she states that her shortness of breath has improved a little bit. She states that she still feels short of breath all the time. She states that she is still very fatigued and has no energy. She denies any chest pain or pressure. She denies any fever, chills, nausea, vomiting, diarrhea, PND or orthopnea. She states that her lower extremity edema has improved. Left cardiac catheterization shows: The left main artery Normal The left anterior descending artery Has proximal 20 to 30% stenosis The circumflex artery Large dominant with mild luminal irregularities The right coronary artery Large dominant with mild luminal irregularities The HUSSEIN ventriculogram reveals Not performed The left ventricular end-diastolic pressure Not measured IMPRESSION Mild nonflow limiting coronary disease Atrial fibrillation rapid ventricular response Severe diastolic dysfunction PLAN 1. IV diuresis 2. Risk factor modification 3. Rate control 4. Anticoagulation Exam Data for Last 24 hours Vital signs and Labs for Last 24 Hours: Temp Pulse Resp BP Pulse Ox FiO2 98.5 F 106 H 20 123/66 91 L 50 10/15/22 11:44 10/15/22 11:44 10/15/22 11:44 10/15/22 11:44 10/15/22 11:44 10/13/22 05:55 Laboratory Results - last 24 hr 10/14/22 11:36: POC Glucose 220 H 10/14/22 14:51: Urine Color Straw, Urine Appearance Clear, Urine pH 6.0, Ur Specific [place] <= 1.005, Urine Protein Negative, Urine Glucose (UA) Negative, Urine Ketones Negative, Urine Blood Negative, Urine Nitrate Negative, Urine Bilirubin Negative, Urine Urobilinogen 0.2, Ur Leukocyte Esterase Negative, Urine RBC None, Urine WBC None, Ur Squamous Epith Cells Occasional, Urine Bacteria None, Hyaline Casts Occasional 10/14/22 17:16: POC Glucose 152 H 10/14/22 20:04: POC Glucose 238 H 10/15/22 06:17: POC Glucose 191 H 10/15/22 06:45: WBC 8.8, RBC 3.66 L, Hgb 11.3 L, Hct 35.8 L, MCV 97.7, MCH 30.8, MCHC 31.5 L, RDW 13.7, Plt Count 230, MPV 8.4, Neut % (Auto) 75.6, Lymph % (Auto) 16.3, [place] % (Auto) 6.7, Eos % (Auto) 1.2, Baso % (Auto) 0.3, Neut # (Auto) 6.7, Lymph # (Auto) 1.4, [place] # (Auto) 0.6, Eos # (Auto) 0.1, Baso # (Auto) 0.0 10/15/22 06:45: Sodium 137, Potassium 4.1, Chloride 92 L, Carbon Dioxide 38 H, Anion Gap 11.1, BUN 36 H, Creatinine 1.00, Estimated Creat Clear 45, Estimated GFR 54 L, Est GFR ( Amer) 65, Glucose 177 H, Calcium 9.0, Triglycerides 245 H, Cholesterol 119 L, LDL Cholesterol Direct 62.38 L, VLDL Cholesterol 49 H, HDL Cholesterol 28 L, Cholesterol/HDL Ratio 4.3 H 10/15/22 11:18: POC Glucose 276 H I & O for Last 24 hours: Intake & Output 10/12/22 10/13/22 10/14/22 10/15/22 23:59 23:59 23:59 23:59 Intake Total 610 / 730 1512 / 1512 463 / 463 600 / 600 Output Total 0 / 0 2300 / 2500 7350 / 7950 1200 / 1200 Balance 610 / 730 -788 / -988 -6887 / -7487 -600 / -600 Weight 311 lb 1 oz 314 lb 2.539 oz 310 lb 4.8 oz 302 lb 2 oz Microbiology Reports for the Last 24 Hours: Microbiology 10/12/22 11:48 Blood Blood Culture - Preliminary NO GROWTH AFTER 48 HOURS 10/12/22 11:39 Blood Blood Culture - Preliminary NO GROWTH AFTER 48 HOURS Narrative: Telemetry strip show
--- NOTE | 2022-10-15 15:53 | EXP.ACUTE.PN ---
Subjective *Date: 10/15/22 *Time: 15:53 Interval history: doing better, no issues Medical Exam Vital signs and Labs for Last 24 Hours: Vital Signs Temp Pulse Pulse Resp BP Pulse Ox 10/15/22 13:41 95 H 19 10/15/22 13:20 79 10/15/22 13:20 78 10/15/22 15:38 97.7 F 89 17 96/52 L 87 L 10/15/22 11:44 98.5 F 106 H 20 123/66 91 L 10/15/22 08:00 98.3 F 104 H 24 108/61 L 91 L 10/15/22 06:31 82 10/15/22 06:31 85 10/15/22 06:31 90 L 10/15/22 04:00 98.2 F 88 18 159/78 H 94 L 10/15/22 04:00 80 10/15/22 00:00 110 H 10/14/22 20:00 130 H 10/15/22 00:00 98.3 F 102 H 16 115/56 L 91 L 10/14/22 23:38 91/58 L 10/14/22 23:34 86 10/14/22 23:33 84 10/14/22 23:08 87/61 L 10/14/22 23:07 86 22 70/40 L 91 L 10/14/22 20:00 92 H 94 L 10/14/22 20:00 98.0 F 145 H 18 128/67 94 L 10/14/22 18:45 114 H 20 80/51 L 92 L 10/14/22 17:45 91 H 20 149/68 H 91 L 10/14/22 17:15 125 H 20 150/93 H 92 L 10/14/22 16:45 105 H 20 130/58 L 91 L 10/14/22 16:15 129 H 20 126/74 95 10/14/22 18:28 91 H 10/14/22 18:28 90 10/14/22 18:28 93 L 10/14/22 16:00 107 H Intake and Output 10/14/22 10/15/22 10/15/22 23:59 07:59 15:59 Intake Total 120 / 463 240 / 1100 860 / 1100 Output Total 3950 / 7950 1200 / 1200 0 / 1200 Balance -3830 / -7487 -960 / -100 860 / -100 Intake: Intake, Oral Amount 120 / 360 240 / 1100 860 / 1100 Output: Output, Urine Amount 0 / 4000 1200 / 1200 0 / 1200 Output, Urine Amount (Catheter) 3950 / 3950 Romero 3950 / 3950 Other: Number of Unmeasured Voids 0 0 1 Weight 137.042 kg Patient Weight 10/15/22 23:59 Weight 137.042 kg Laboratory Results - last 24 hr 10/14/22 17:16: POC Glucose 152 H 10/14/22 20:04: POC Glucose 238 H 10/15/22 06:17: POC Glucose 191 H 10/15/22 06:45: WBC 8.8, RBC 3.66 L, Hgb 11.3 L, Hct 35.8 L, MCV 97.7, MCH 30.8, MCHC 31.5 L, RDW 13.7, Plt Count 230, MPV 8.4, Neut % (Auto) 75.6, Lymph % (Auto) 16.3, [place] % (Auto) 6.7, Eos % (Auto) 1.2, Baso % (Auto) 0.3, Neut # (Auto) 6.7, Lymph # (Auto) 1.4, [place] # (Auto) 0.6, Eos # (Auto) 0.1, Baso # (Auto) 0.0 10/15/22 06:45: Sodium 137, Potassium 4.1, Chloride 92 L, Carbon Dioxide 38 H, Anion Gap 11.1, BUN 36 H, Creatinine 1.00, Estimated Creat Clear 45, Estimated GFR 54 L, Est GFR ( Amer) 65, Glucose 177 H, Calcium 9.0, Triglycerides 245 H, Cholesterol 119 L, LDL Cholesterol Direct 62.38 L, VLDL Cholesterol 49 H, HDL Cholesterol 28 L, Cholesterol/HDL Ratio 4.3 H 10/15/22 11:18: POC Glucose 276 H I & O for Labs for Last 24 Hours: Intake & Output 10/12/22 10/13/22 10/14/22 10/15/22 23:59 23:59 23:59 23:59 Intake Total 610 / 730 1512 / 1512 463 / 463 1100 / 1100 Output Total 0 / 0 2300 / 2500 7350 / 7950 1200 / 1200 Balance 610 / 730 -788 / -988 -6887 / -7487 -100 / -100 Weight 141.096 kg 142.5 kg 140.75 kg 137.042 kg Microbiology Reports for the Last 24 Hours: Microbiology 10/12/22 11:48 Blood Blood Culture - Preliminary NO GROWTH AFTER 48 HOURS 10/12/22 11:39 Blood Blood Culture - Preliminary NO GROWTH AFTER 48 HOURS Constitutional: Present no acute distress and obese Comment:: Nasal cannula Respiratory: Present normal respiratory effort Cardiac: Present Reg Rate and Rhythm GI: Present normal bowel sounds; Absent tenderness Extremities: Present normal inspection and full ROM Skin: Present intact; Absent erythema Neuro: Present Grossly Intact and moves all extremities Assessment and Plan *Assessment and plan (1) Acute and chronic respiratory failure with hypercapnia: Status: Acute Category: Medical Code(s): J96.22 - Acute and chronic respiratory failure with hypercapnia (2) Acute exacerbation of chronic obstructive pulmonary disease: Stat
[2022-10-15 16:57] LABS: POC Glucose,Bedside 115 (70-110)
--- NOTE | 2022-10-15 17:52 | PC.NURSE ---
Pt has rested in bed throughout the shift. She remains on 3L NC with O2 sats measuring >90%. Shes been afib on tele, HR has been 90's - 110. Nystatin applied to abd folds per order. Glucose was 276 and 118 at checks. Her graf is to bedside draining clear, marycruz colored urine. She's had 5L out this shift. She is currently resting in bed with her eyes closed. Bed is locked and in the lowest position, call light is within reach.
--- NOTE | 2022-10-15 20:10 | PC.NURSE ---
pt attempted bm on bsc with no success, will give pt night doses of stool regimen per pt request
--- NOTE | 2022-10-15 20:30 | PC.NURSE ---
2029-pt had enormous bowel movement, pt stated could hold night bowel regimen since finally had a bm
[2022-10-16] VITALS (12 sets, daily range): BP systolic 105–162; BP diastolic 60–90; PULSE 49–131; RESP 16–33; TEMP 36.6–37.1; O2SAT 90–95; BMI 47.7
[2022-10-16 00:14] LABS: POC Glucose,Bedside 202 (70-110)
--- NOTE | 2022-10-16 04:04 | PC.NURSE ---
NO ACUTE CHANGES SINCE TAKING REPORT FROM SUKUMAR BORREGO. PT HAS SLEPT WELL. GONZALEZ REMAINS IN PLACE AND IS DRAINING ADEQUATE AMOUNTS OF PALE PINK URINE. REMAINS ON 3L NASAL CANNULA. NO C/O N/V/D. VSS.
[2022-10-16 06:04] LABS: POC Glucose,Bedside 206 (70-110)
[2022-10-16 09:24] LABS: Chloride 85 mmol/L (98-107); Potassium 3.7 mmoL/L (3.5-5.1); Sodium 133 mmol/L (136-145)
[2022-10-16 09:27] LABS: Anion Gap 12.7 mEq/L (5-15); Blood Urea Nitrogen 27 mg/dl (7-17); Calcium 9.2 mg/dl (8.4-10.2); Carbon Dioxide 39 mmol/L (22.0-30.0); Creatinine Clearance Estimated 45 mL/min (50-200); Estimated Glomerular Filt Rate 61 ml/min (>60); GFR (African American) 74 ML/MIN (>60); Glucose 286 mg/dl (74-100)
--- NOTE | 2022-10-16 09:35 | EXP.PULM.PN ---
Subjective *Date: 10/16/22 *Time: 10:06 Interval history: No acute respiratory events overnight. Patient denies any new respiratory complaints. Pulmonology Exam Inpatient Vital signs and Labs for Last 24 Hours: Temp Pulse Resp BP Pulse Ox FiO2 98.8 F 101 H 33 H 162/90 H 91 L 50 10/16/22 08:00 10/16/22 08:00 10/16/22 08:00 10/16/22 08:00 10/16/22 08:00 10/13/22 05:55 Laboratory Results - last 24 hr 10/15/22 11:18: POC Glucose 276 H 10/15/22 16:50: POC Glucose 115 H 10/15/22 20:56: POC Glucose 202 H 10/16/22 05:53: POC Glucose 206 H 10/16/22 09:11: Sodium 133 L, Potassium 3.7, Chloride 85 L, Carbon Dioxide 39 H, Anion Gap 12.7, BUN 27 H, Creatinine 0.90, Estimated Creat Clear 45, Estimated GFR 61, Est GFR ( Amer) 74, Glucose 286 H, Calcium 9.2 I & O for Labs for Last 24 Hours: Intake & Output 10/13/22 10/14/22 10/15/22 10/16/22 23:59 23:59 23:59 23:59 Intake Total 1512 / 1512 463 / 463 1100 / 1100 360 / 360 Output Total 2300 / 2500 7350 / 7950 1200 / 1200 2900 / 2900 Balance -788 / -988 -6887 / -7487 -100 / -100 -2540 / -2540 Weight 314 lb 2.539 oz 310 lb 4.8 oz 302 lb 2 oz 304 lb 8.075 oz Microbiology Reports for the Last 24 Hours: Microbiology 10/12/22 11:48 Blood Blood Culture - Preliminary NO GROWTH AFTER 48 HOURS 10/12/22 11:39 Blood Blood Culture - Preliminary NO GROWTH AFTER 48 HOURS Constitutional: Present mild distress Head: Present normocephalic and atraumatic ENT: Present normal exam, normal oropharynx and mucous membranes moist Neck: Present normal inspection and full ROM Respiratory: Present respiratory distress, rhonchi and able to speak in complete sentences; Absent wheezes or diminished air movement Cardiac: Present Tachycardia and radial pulses present; Absent S1/S2 GI: Present soft and distention; Absent tenderness or guarding Rectal (female): Present deferred (female): Present deferred Skin: Present intact; Absent cyanosis or jaundice Neuro: Present alert, awake and oriented x 3 Extremities: Present normal inspection; Absent clubbing or cyanosis Psychiatric: Present normal affect and cooperative Assessment and Plan *Assessment and plan (1) Acute and chronic respiratory failure with hypercapnia: Status: Acute Category: Medical Code(s): J96.22 - Acute and chronic respiratory failure with hypercapnia (2) Acute exacerbation of chronic obstructive pulmonary disease: Status: Acute Category: Medical Code(s): J44.1 - Chronic obstructive pulmonary disease with (acute) exacerbation Plan 77-year-old history of COPD, diastolic heart failure, aortic stenosis, history of breast cancer presents worsening respiratory distress. CTA from admission reviewed, significant motion artifact and poor contrast timing. No large pulm embolism. Low lung volumes. Bilateral small pleural effusions along with adjacent atelectasis. Small pericardial effusion. GGO noted. VBG on admission showed hypercarbic respiratory failure with a PCO2 was in pH of 7.24, subsequent ABGs are within normal limits with respect to hypercarbia. Noted to have hypoxic respiratory failure. Labs personally reviewed no leukocytosis upon admission. Neutrophil predominance. Hyperkalemia noted on today's labs. COVID-19 and flu PCR negative upon admission Echo from November 2021: Bilateral atrial enlargement, LV concentric hypertrophy, diastolic dysfunction, mild aortic stenosis along with enlarged RV with normal contractility. Polysomnography August 2021: Sleep apnea mild AHI 10.4. Etiology of this patient's current hypoxia is likely 2/2 combination of volume overload and COPD exacerbation. Echo October 2022. EF ranging from 35 to 50%, A-fib RV moderately dilated along with right ventricular hypertrophy. Likely elevated RVSP, unable to assess. Pulmonary hypertension and RV failure, multifactorial likely combination of obesity, COPD untrea
--- NOTE | 2022-10-16 10:20 | EXP.CARD.PN ---
Subjective Subjective Date: 10/16/22 Time: 08:30 Principal diagnosis: CHF, Afib, severe diastolic dysfunction Interval history: This is a 77-year-old white female who presented to the emergency department with tachycardia. The patient was found to be in atrial fibrillation. She remains in atrial fibrillation with a heart rate in the low 100s this morning. She has underwent left cardiac catheterization on this admission was found to have mild nonocclusive coronary artery disease with severe diastolic dysfunction, severe biventricular failure and almost certainly severe pulmonary hypertension. The patient is getting IV diuresis. We will continue IV diuretics at this time. She did have a -2540 fluid balance overnight with diuresis. This morning the patient is actually sitting up on the side of the bed. She states that her shortness of breath has improved and she is feeling a lot better. She denies any lower extremity edema. She denies any chest pain or pressure. She denies any fever, chills, nausea, vomiting, diarrhea, PND or orthopnea. Exam Data for Last 24 hours Vital signs and Labs for Last 24 Hours: Temp Pulse Resp BP Pulse Ox FiO2 98.8 F 101 H 33 H 162/90 H 91 L 50 10/16/22 08:00 10/16/22 08:00 10/16/22 08:00 10/16/22 08:00 10/16/22 08:00 10/13/22 05:55 Laboratory Results - last 24 hr 10/15/22 11:18: POC Glucose 276 H 10/15/22 16:50: POC Glucose 115 H 10/15/22 20:56: POC Glucose 202 H 10/16/22 05:53: POC Glucose 206 H 10/16/22 09:11: Sodium 133 L, Potassium 3.7, Chloride 85 L, Carbon Dioxide 39 H, Anion Gap 12.7, BUN 27 H, Creatinine 0.90, Estimated Creat Clear 45, Estimated GFR 61, Est GFR ( Amer) 74, Glucose 286 H, Calcium 9.2 I & O for Last 24 hours: Intake & Output 10/13/22 10/14/22 10/15/22 10/16/22 23:59 23:59 23:59 23:59 Intake Total 1512 / 1512 463 / 463 1100 / 1100 360 / 360 Output Total 2300 / 2500 7350 / 7950 1200 / 1200 2900 / 2900 Balance -788 / -988 -6887 / -7487 -100 / -100 -2540 / -2540 Weight 314 lb 2.539 oz 310 lb 4.8 oz 302 lb 2 oz 304 lb 8.075 oz Narrative: Telemetry strip shows atrial fibrillation with a rate of 110. Constitutional Constitutional: no acute distress and morbidly obese *Routine HEENT Exam Head: Present normocephalic and atraumatic ENT: Present mucous membranes moist *Routine Neck Exam Neck: Present supple, full ROM and normal carotid upstroke; Absent JVD, carotid bruit or lymphadenopathy *Routine Respiratory Exam Respiratory: Present CTA bilaterally, able to speak in complete sentences and symmetric chest movement *Routine Cardiovascular Exam Cardiovascular: Present Normal S1, Normal S2, tachycardia and irregularly irregular; Absent murmur or gallop *Routine Abdominal Exam Abdominal: Present soft and normoactive bowel sounds; Absent tenderness, distended or organomegaly *Routine Extremities Exam Extremities: Present edema, full ROM, pulses intact and normal capillary refill; Absent cyanosis or clubbing *Routine Skin Exam Skin: Present intact and warm; Absent erythema *Routine Neurological Exam Neurological: Present alert, oriented X3 and CN II-XII intact; Absent sensory deficit or motor deficit Routine Psychiatric Exam Psychiatric: Present normal affect Progress Note: A&P Assessment and plan (1) Diastolic dysfunction: Status: Acute (2) HFrEF (heart failure with reduced ejection fraction): Status: Acute (3) Coronary artery disease: Status: Acute (4) Acute on chronic diastolic (congestive) heart failure: Status: Acute (5) Acute and chronic respiratory failure with hypercapnia: Status: Acute (6) Acute exacerbation of chronic obstructive pulmonary disease: Status: Acute (7) Shortness of Breath: Status: Acute (8) Atrial fibrillation: Status: Acute (9) HLD (hyperlipidemia): Status: Chronic (10) HTN (hypertension): Status: Chronic (11) Diabetes: Status: Chronic (12) Pulmonary hypert
[2022-10-16 10:34] LABS: Microscopic, Urine URINE MICROSCOPIC (MICROSCOPIC)
[2022-10-16 10:41] LABS: Appearance,Urine SL CLOUDY (Clear); Bilirubin,Urine Negative (Negative); Blood, Urine 3+ (Negative); Color,Urine RED (Yellow); Glucose,Urine (UA) Negative (Negative); Ketones,Urine Negative (Negative); Leukocyte Esterase,Urine Negative (Negative); Nitrate,Urine Negative (Negative); PH,Urine 7.5 (5.0-8.5); Protein,Urine 1+ (Negative); Urobilinogen,Urine 0.2 EU/dl (0.2)
[2022-10-16 10:58] LABS: RBC,Urine 20-50 #/hpf (0-3)
[2022-10-16 11:16] LABS: POC Glucose,Bedside 278 (70-110)
--- NOTE | 2022-10-16 14:23 | PC.NURSE ---
pt requested PRN norco r/t right shoulder pain and lower back pain at 9 on a scale of 0-10
--- NOTE | 2022-10-16 14:58 | HMH.PTEV ---
Physical Therapy Evaluation Rehab PT IP Evaluation Start: 10/16/22 13:40 Freq: ONCE Status: Active Protocol: Document 10/16/22 13:50 PHOCRIS (Rec: 10/16/22 14:57 PHORNE [id number]) Subjective/History History History 77 yowf adm to [facility] with CHF exac and hypercarbic resp failure. She reports she lives at a ns home and does not ambulate. She uses a w/c for all mobility and is generally able to transfer to the w/c independently. Subjective Subjective Pt reports pain in her L UE at this time, but that hurts that way all the time. Rehab PT IP Eval Objective Appearance Patient Behavior Appropriate Patient Orientation Person,Place,Time Difficulty following instructions none Speech Pattern Clear Ambulation Patient Able to Ambulate No Balance Ability to Arise Able, uses arms to help Sitting Balance Steady, safe Standing Balance Steady, wide stance Dynamic Sitting Balance Ability Good Dynamic Standing Balance Ability Fair Transfers Bed Transfer Ability Contact Guard/Hand Hold Chair Transfer Ability Contact Guard/Hand Hold Sit to Stand Bed Transfer Ability Contact Guard/Hand Hold Sit to Stand Chair Transfer Ability Contact Guard/Hand Hold ROM All Extremities PT ROM Status WFL MMT All Extremities PT MMT WFL Rehab PT IP prob,goals,plan Problems Date of Evaluation: 10/16/22 PT IP Problems Bed Mobility,Transfers Rehab Potential Rehab Potential Good Plan PT Intervention Plan Bed Mobility,Transfers, Therapeutic Exercise PT Plan Frequency BID Duration LOS Discharge Goals Bed Transfer Ability Supervision/Stand by Sit to Stand Chair Transfer Ability Supervision/Stand by Discharge Plan PT Discharge Plan Pt is currently most appropriate to return to [facility] once medically stable. Receommend therapy services initiated upon return to [facility]. G -code Required No Eval Complexity Eval Charge Codes 71493 - Moderate Complexity PHYSICIAN CERTIFICATION: I certify the specified therapy services for Dina Cortés are required, authorized, and reviewed every 30 days.
[2022-10-16 17:44] LABS: POC Glucose,Bedside 240 (70-110)
--- NOTE | 2022-10-16 17:51 | EXP.ACUTE.PN ---
Subjective *Date: 10/16/22 *Time: 17:51 Interval history: Still having shoulder pain. Otherwise feeling better. Medical Exam Vital signs and Labs for Last 24 Hours: Vital Signs Temp Pulse Pulse Resp BP Pulse Ox 10/16/22 12:00 120 H 10/16/22 08:00 120 H 10/16/22 15:18 98.2 F 131 H 18 105/60 L 93 L 10/16/22 11:29 128 H 10/16/22 11:29 128 H 10/16/22 11:29 95 10/16/22 11:25 98.2 F 129 H 16 123/80 94 L 10/16/22 08:00 98.8 F 101 H 33 H 162/90 H 91 L 10/16/22 06:12 68 10/16/22 06:12 65 10/16/22 06:12 90 L 10/16/22 04:00 98.2 F 70 18 129/69 93 L 10/16/22 04:00 70 10/16/22 00:00 109 H 10/16/22 00:00 98.2 F 49 L 20 118/62 94 L 10/15/22 20:00 130 H 10/15/22 23:10 107 H 10/15/22 23:10 109 H 10/15/22 20:45 90 L 10/15/22 20:00 99.0 F 105 H 20 111/77 93 L 10/15/22 19:04 107 H 10/15/22 19:04 105 H 10/15/22 19:04 91 L Intake and Output 10/16/22 10/16/22 10/16/22 07:59 15:59 23:59 Intake Total 800 / 800 Output Total 2900 / 4000 1100 / 4000 Balance -2900 / -3200 -300 / -3200 Intake: Intake, Oral Amount 800 / 800 Output: Output, Urine Amount 2900 / 3700 800 / 3700 Output, Urine Amount (Catheter) 300 / 300 Romero 300 / 300 Other: Number of Unmeasured Voids 0 1 Weight 138.121 kg Patient Weight 10/16/22 23:59 Weight 138.121 kg Laboratory Results - last 24 hr 10/15/22 20:56: POC Glucose 202 H 10/16/22 05:53: POC Glucose 206 H 10/16/22 09:11: Sodium 133 L, Potassium 3.7, Chloride 85 L, Carbon Dioxide 39 H, Anion Gap 12.7, BUN 27 H, Creatinine 0.90, Estimated Creat Clear 45, Estimated GFR 61, Est GFR ( Amer) 74, Glucose 286 H, Calcium 9.2 10/16/22 10:20: Urine Color Red, Urine Appearance Sl cloudy, Urine pH 7.5, Ur Specific [place] 1.010, Urine Protein 1+, Urine Glucose (UA) Negative, Urine Ketones Negative, Urine Blood 3+, Urine Nitrate Negative, Urine Bilirubin Negative, Urine Urobilinogen 0.2, Ur Leukocyte Esterase Negative, Urine RBC 20-50, Urine WBC 3-5, Ur Squamous Epith Cells 3-5, Urine Bacteria None 10/16/22 11:09: POC Glucose 278 H 10/16/22 17:37: POC Glucose 240 H I & O for Labs for Last 24 Hours: Intake & Output 10/13/22 10/14/22 10/15/22 10/16/22 23:59 23:59 23:59 23:59 Intake Total 1512 / 1512 463 / 463 1100 / 1100 800 / 800 Output Total 2300 / 2500 7350 / 7950 1200 / 1200 4000 / 4000 Balance -788 / -988 -6887 / -7487 -100 / -100 -3200 / -3200 Weight 142.5 kg 140.75 kg 137.042 kg 138.121 kg Microbiology Reports for the Last 24 Hours: Microbiology 10/12/22 11:48 Blood Blood Culture - Preliminary NO GROWTH AFTER 48 HOURS 10/12/22 11:39 Blood Blood Culture - Preliminary NO GROWTH AFTER 48 HOURS Constitutional: Present no acute distress and obese Comment:: Nasal cannula Respiratory: Present normal respiratory effort Cardiac: Present Reg Rate and Rhythm GI: Present normal bowel sounds; Absent tenderness Extremities: Present normal inspection and full ROM Skin: Present intact; Absent erythema Neuro: Present Grossly Intact and moves all extremities Assessment and Plan *Assessment and plan (1) Acute and chronic respiratory failure with hypercapnia: Status: Acute Category: Medical Code(s): J96.22 - Acute and chronic respiratory failure with hypercapnia (2) Acute exacerbation of chronic obstructive pulmonary disease: Status: Acute Category: Medical Code(s): J44.1 - Chronic obstructive pulmonary disease with (acute) exacerbation Plan 77-year-old history of COPD diastolic heart failure aortic stenosis she is admitted with worsening respiratory status, CT PE showed no pulmonary embolism.? Small pericardial effusion.? Also in atrial fibrillation with RVR. Atrial fibrillation with RVR -Was on Cardizem
--- NOTE | 2022-10-16 17:52 | PC.NURSE ---
Pt has been alert and oriented x4. She been weaned to 1L NC with O2 saturations measuring > 90%. She's sat on the bedside most of the day. Appetite has been good. She's been sinus tach on telemetry with HR measuring up to the 130's. Romero catheter has been removed. No further requests or complaints at this time.
[2022-10-16 20:58] LABS: POC Glucose,Bedside 149 (70-110)
[2022-10-17] VITALS (8 sets, daily range): BP systolic 84–160; BP diastolic 51–84; PULSE 60–94; RESP 18–19; TEMP 36.6–36.9; O2SAT 89–97; BMI 46.7
--- NOTE | 2022-10-17 01:01 | PC.NURSE ---
Masood DILLARD made aware of pt BP of 80s/40s. States to hold next order of bumex, and any other meds that could lower bp at this time.
[2022-10-17 06:23] LABS: POC Glucose,Bedside 149 (70-110)
--- NOTE | 2022-10-17 06:51 | PC.NURSE ---
Addendum entered by Rhoda Messina RN 10/17/22 07:13: graf catheter inserted, 750 ml yellow/pink tinged urine output upon insertion. graf catheter anchored Original Note: Pt noted to only have about 100 ml UOP this shift, Bladder scan shows urine in bladder. Masood DILLARD notified and orders received to insert catheter and anchor graf if urine output >200 ml.
[2022-10-17 07:27] LABS: Basophils % 0.3 % (0.1-2.0); Eosinophils # 0.3 K/mm3 (0.0-0.4); Eosinophils % 2.4 % (0.1-12.0); Hemoglobin 11.2 g/dL (12.2-16.2); Lymphocytes # 1.8 K/mm3 (0.7-4.5); Lymphocytes % 16.5 % (10-50); Mean Corpuscular Hemoglobin 30.4 pg (27.0-31.2); Mean Corpuscular Volume 95.3 fl (81-99); Mean Platelet Volume 7.3 fl (7.4-10.4); Monocytes # 0.6 K/mm3 (0.1-1.0); Monocytes % 5.3 % (1.7-9.3); Neutrophils # 8.3 K/mm3 (1.8-7.8); Neutrophils % 75.6 % (37.0-80.0); Platelet Count 236 K/mm3 (142-424); Red Blood Count 3.68 M/mm3 (4.20-5.40); Red Cell Distribution Width 13.6 % (11.5-17.5); White Blood Count 10.9 K/mm3 (4.8-10.8)
[2022-10-17 07:32] LABS: Chloride 82 mmol/L (98-107); Potassium 3.5 mmoL/L (3.5-5.1); Sodium 129 mmol/L (136-145)
[2022-10-17 07:35] LABS: Anion Gap 12.5 mEq/L (5-15); Blood Urea Nitrogen 42 mg/dl (7-17); Calcium 8.6 mg/dl (8.4-10.2); Carbon Dioxide 38 mmol/L (22.0-30.0); Creatinine Clearance Estimated 34 mL/min (50-200); Estimated Glomerular Filt Rate 40 ml/min (>60); GFR (African American) 48 ML/MIN (>60); Glucose 151 mg/dl (74-100)
--- NOTE | 2022-10-17 08:50 | XR_ITS ---
FINAL REPORT CLINICAL HISTORY: follow up hx COPD, former smoker COMPARISON: 10/13/2022 FINDINGS: SINGLE-VIEW CHEST There is cardiomegaly and pulmonary vascular congestion. The mediastinum is normal. There are bibasilar opacities, favor atelectasis over pneumonia. There is no pneumothorax. IMPRESSION: Bibasilar opacities, favor atelectasis over pneumonia. Reviewed, Interpreted and Dictated by Albino Nuno III, MD Transcribed by Alma Schaefer Authenticated and [facility]
--- NOTE | 2022-10-17 09:44 | EXP.PULM.PN ---
Subjective *Date: 10/17/22 *Time: 10:29 Interval history: No acute respiratory vents overnight. Patient denies any new respiratory complaints. Pulmonology Exam Inpatient Vital signs and Labs for Last 24 Hours: Temp Pulse Resp BP Pulse Ox FiO2 97.9 F 88 19 160/84 H 97 50 10/17/22 08:00 10/17/22 08:00 10/17/22 08:00 10/17/22 08:00 10/17/22 08:00 10/13/22 05:55 Laboratory Results - last 24 hr 10/16/22 10:20: Urine Color Red, Urine Appearance Sl cloudy, Urine pH 7.5, Ur Specific [place] 1.010, Urine Protein 1+, Urine Glucose (UA) Negative, Urine Ketones Negative, Urine Blood 3+, Urine Nitrate Negative, Urine Bilirubin Negative, Urine Urobilinogen 0.2, Ur Leukocyte Esterase Negative, Urine RBC 20-50, Urine WBC 3-5, Ur Squamous Epith Cells 3-5, Urine Bacteria None 10/16/22 11:09: POC Glucose 278 H 10/16/22 17:37: POC Glucose 240 H 10/16/22 20:24: POC Glucose 149 H 10/17/22 05:56: POC Glucose 149 H 10/17/22 06:40: WBC 10.9 H, RBC 3.68 L, Hgb 11.2 L, Hct 35.0 L, MCV 95.3, MCH 30.4, MCHC 32.0, RDW 13.6, Plt Count 236, MPV 7.3 L, Neut % (Auto) 75.6, Lymph % (Auto) 16.5, [place] % (Auto) 5.3, Eos % (Auto) 2.4, Baso % (Auto) 0.3, Neut # (Auto) 8.3 H, Lymph # (Auto) 1.8, [place] # (Auto) 0.6, Eos # (Auto) 0.3, Baso # (Auto) 0.0 10/17/22 06:40: Sodium 129 L, Potassium 3.5, Chloride 82 L, Carbon Dioxide 38 H, Anion Gap 12.5, BUN 42 H D, Creatinine 1.30 H D, Estimated Creat Clear 34, Estimated GFR 40 L, Est GFR ( Amer) 48 L D, Glucose 151 H D, Calcium 8.6 I & O for Labs for Last 24 Hours: Intake & Output 10/14/22 10/15/22 10/16/22 10/17/22 23:59 23:59 23:59 23:59 Intake Total 463 / 463 1100 / 1100 1160 / 1160 240 / 240 Output Total 7350 / 7950 1200 / 1200 4000 / 4000 100 / 100 Balance -6887 / -7487 -100 / -100 -2840 / -2840 140 / 140 Weight 310 lb 4.8 oz 302 lb 2 oz 304 lb 8.075 oz 298 lb 3 oz Microbiology Reports for the Last 24 Hours: Microbiology 10/12/22 11:48 Blood Blood Culture - Preliminary NO GROWTH AFTER 48 HOURS 10/12/22 11:39 Blood Blood Culture - Preliminary NO GROWTH AFTER 48 HOURS Constitutional: Present mild distress Head: Present normocephalic and atraumatic ENT: Present normal exam, normal oropharynx and mucous membranes moist Neck: Present normal inspection and full ROM Respiratory: Present respiratory distress, rhonchi and able to speak in complete sentences; Absent wheezes or diminished air movement Cardiac: Present Tachycardia and radial pulses present; Absent S1/S2 GI: Present soft and distention; Absent tenderness or guarding Rectal (female): Present deferred (female): Present deferred Skin: Present intact; Absent cyanosis or jaundice Neuro: Present alert, awake and oriented x 3 Extremities: Present normal inspection; Absent clubbing or cyanosis Psychiatric: Present normal affect and cooperative Assessment and Plan *Assessment and plan (1) Acute and chronic respiratory failure with hypercapnia: Status: Acute Category: Medical Code(s): J96.22 - Acute and chronic respiratory failure with hypercapnia (2) Acute exacerbation of chronic obstructive pulmonary disease: Status: Acute Category: Medical Code(s): J44.1 - Chronic obstructive pulmonary disease with (acute) exacerbation Plan 77-year-old history of COPD, diastolic heart failure, aortic stenosis, history of breast cancer presents worsening respiratory distress. CTA from admission reviewed, significant motion artifact and poor contrast timing. No large pulm embolism. Low lung volumes. Bilateral small pleural effusions along with adjacent atelectasis. Small pericardial effusion. GGO noted. VBG on admission showed hypercarbic respiratory failure with a PCO2 was in pH of 7.24, subsequent ABGs are within normal limits with respect to hypercarbia. Noted to have hypoxic respiratory failure. Labs personally reviewed no leukocytosis upon admission. Ne
--- NOTE | 2022-10-17 09:48 | HMH.OTEV ---
OT Inpatient Evaluation Rehab OT IP Evaluation Start: 10/16/22 13:40 Freq: ONCE Status: Active Protocol: Document 10/17/22 09:38 DEACON (Rec: 10/17/22 09:47 DEACON [id number]) Rehab OT IP Assessment Subjective History Dina Cortés is a 77 year old female resident at [facility] with a past medical history of atrial fibrillation not on anticoagulation, CAD, CHF, COPD, chronic hypoxic respiratory failure on 2L NC continuously at baseline, t2dm , HTN, HLD, morbid obesity, seizure disorder, and right sided breast cancer. She presented to the ED earlier this morning because her nurse was obtaining routine vitals and saw that her HR was elevated in the 140s. Her HR has been below 110 here. VBG revealed pH 7.3 and pCO2 74 and CTA Chest revealed bibasilar atelectasis or pneumonia. She denies worsening shortness of breath, cough, fever or swelling. She has chronic joint pain that is unchanged. She takes gabapentin 800mg BID and Norco10 HS and BID PRN. No new medications or any recent changes to her medications. She denies having had any confusion. Initial vitals: BP 111/67 - P 114 - RR 20 - SpO2 92% on 2L NC - T 97.8 degrees F Initial workup includes: VBG pH 7.3 and pCO2 74 COVID and Flu PCR studies are negative BNP 1700 (325 on 07/18/22) troponin I <0.01 Chest CTA - No pulmonary emboli. Bibasilar atelectasis or pneumonia Echo 11/05/21 - LVEF 45-50%, LV diastolic dysfunction/slight dysynchrony ED Medications: Solumedrol
--- NOTE | 2022-10-17 10:15 | EXP.CARD.PN ---
Subjective Subjective Date: 10/17/22 Time: 10:00 Principal diagnosis: CHF, Afib, severe diastolic dysfunction Interval history: This is a 77-year-old female who presented to the emergency department with tachycardia. Patient was found to be in atrial fibrillation and she remains in atrial fibrillation this morning with rate control. She did undergo left cardiac catheterization on this admission was found to have mild nonocclusive coronary artery disease with severe diastolic dysfunction and severe right ventricular failure and almost certainly severe pulmonary hypertension. The patient has been being diuresed with IV diuretics and oral metolazone. She does have a -2840 fluid balance overnight. She states that her shortness of breath has significantly improved. She denies any chest pain or pressure. She denies any lower extremity edema. She denies any fever, chills, nausea, vomiting, diarrhea, PND orthopnea. Exam Data for Last 24 hours Vital signs and Labs for Last 24 Hours: Temp Pulse Resp BP Pulse Ox FiO2 97.9 F 88 19 160/84 H 97 50 10/17/22 08:00 10/17/22 08:00 10/17/22 08:00 10/17/22 08:00 10/17/22 08:00 10/13/22 05:55 Laboratory Results - last 24 hr 10/16/22 10:20: Urine Color Red, Urine Appearance Sl cloudy, Urine pH 7.5, Ur Specific [place] 1.010, Urine Protein 1+, Urine Glucose (UA) Negative, Urine Ketones Negative, Urine Blood 3+, Urine Nitrate Negative, Urine Bilirubin Negative, Urine Urobilinogen 0.2, Ur Leukocyte Esterase Negative, Urine RBC 20-50, Urine WBC 3-5, Ur Squamous Epith Cells 3-5, Urine Bacteria None 10/16/22 11:09: POC Glucose 278 H 10/16/22 17:37: POC Glucose 240 H 10/16/22 20:24: POC Glucose 149 H 10/17/22 05:56: POC Glucose 149 H 10/17/22 06:40: WBC 10.9 H, RBC 3.68 L, Hgb 11.2 L, Hct 35.0 L, MCV 95.3, MCH 30.4, MCHC 32.0, RDW 13.6, Plt Count 236, MPV 7.3 L, Neut % (Auto) 75.6, Lymph % (Auto) 16.5, [place] % (Auto) 5.3, Eos % (Auto) 2.4, Baso % (Auto) 0.3, Neut # (Auto) 8.3 H, Lymph # (Auto) 1.8, [place] # (Auto) 0.6, Eos # (Auto) 0.3, Baso # (Auto) 0.0 10/17/22 06:40: Sodium 129 L, Potassium 3.5, Chloride 82 L, Carbon Dioxide 38 H, Anion Gap 12.5, BUN 42 H D, Creatinine 1.30 H D, Estimated Creat Clear 34, Estimated GFR 40 L, Est GFR ( Amer) 48 L D, Glucose 151 H D, Calcium 8.6 I & O for Last 24 hours: Intake & Output 10/14/22 10/15/22 10/16/22 10/17/22 23:59 23:59 23:59 23:59 Intake Total 463 / 463 1100 / 1100 1160 / 1160 240 / 240 Output Total 7350 / 7950 1200 / 1200 4000 / 4000 100 / 100 Balance -6887 / -7487 -100 / -100 -2840 / -2840 140 / 140 Weight 310 lb 4.8 oz 302 lb 2 oz 304 lb 8.075 oz 298 lb 3 oz Narrative: Telemetry strip shows atrial fibrillation with a rate of 73 bpm. Constitutional Constitutional: no acute distress and morbidly obese *Routine HEENT Exam Head: Present normocephalic and atraumatic ENT: Present mucous membranes moist *Routine Neck Exam Neck: Present supple, full ROM and normal carotid upstroke; Absent JVD, carotid bruit or lymphadenopathy *Routine Respiratory Exam Respiratory: Present CTA bilaterally, able to speak in complete sentences and symmetric chest movement *Routine Cardiovascular Exam Cardiovascular: Present Normal S1, Normal S2 and irregularly irregular; Absent murmur or gallop *Routine Abdominal Exam Abdominal: Present soft and normoactive bowel sounds; Absent tenderness, distended or organomegaly *Routine Extremities Exam Extremities: Present edema, full ROM, pulses intact and normal capillary refill; Absent cyanosis or clubbing *Routine Skin Exam Skin: Present intact and warm; Absent erythema *Routine Neurological Exam Neurological: Present alert, oriented X3 and CN II-XII intact; Absent sensory deficit or motor deficit Routine Psychiatric Exam Psychiatric: Present normal affect Progress Note: A&P Assessment and plan (1) Coronary artery disease: Status: Acute (2) Atrial fibrillation: Status: Acute (3) Diastolic dysfunction:
--- NOTE | 2022-10-17 10:58 | PC.NURSE ---
courtesy tech note; rounded on pt, pt c/o pain in her hands, notified nurse. pt using bedside commode at this time, pt denied need for drink or need to reposition. call light within reach, no further request at this time. Anatoly Andrade, SRNA
[2022-10-17 11:05] LABS: POC Glucose,Bedside 309 (70-110)
--- NOTE | 2022-10-20 15:33 | CARE MANAGER ---
Spoke with patient nurse phoenix Acosta, no issues noted.
[2022-10-20 20:20] LABS: Legionella pneumophila Urinary Negative (Negative)
== END 2022-10-17 13:23 | DRG 189 ==
LOC: ER 12:28 → 2ND 12:37
PROVIDERS: Internal Medicine; Internal Medicine Pulmonary Disease; Nurse Practitioner Family; Admitting Provider Internal Medicine; Emergency Provider Emergency Medicine; Visit Provider Internal Medicine
DX: J96.22 Acute and chronic respiratory failure with hypercapnia (principal); I50.33 Acute on chronic diastolic (congestive) heart failure; J44.1 Chronic obstructive pulmonary disease with (acute) exacerbation; E87.20 Acidosis, unspecified; Z68.42 Body mass index [BMI] 45.0-49.9, adult; J96.11 Chronic respiratory failure with hypoxia; I11.0 Hypertensive heart disease with heart failure; I48.91 Unspecified atrial fibrillation; Z99.81 Dependence on supplemental oxygen; K21.9 Gastro-esophageal reflux disease without esophagitis; Z79.4 Long term (current) use of insulin; Z86.16 Personal history of COVID-19; I25.10 Atherosclerotic heart disease of native coronary artery without angina pectoris; E66.01 Morbid (severe) obesity due to excess calories; E11.40 Type 2 diabetes mellitus with diabetic neuropathy, unspecified; G47.33 Obstructive sleep apnea (adult) (pediatric); E87.5 Hyperkalemia; Z85.3 Personal history of malignant neoplasm of breast; E78.2 Mixed hyperlipidemia; I35.0 Nonrheumatic aortic (valve) stenosis; I27.20 Pulmonary hypertension, unspecified
CPT/HCPCS: 36415; 71045; 71275; 80048; 80053; 80061; 81001; 82803; 82962; 83605; 83735; 83880; 84484; 85007; 85025; 87040; 93005; 93306; 93454; 94640; 94760; 94761; 97162; 97165; 99152; 99153; 99291; C1725; C1769; C1894; C9803; J0456; J0696; J1205; J1644; Q9967; U0003; U0005

== ENCOUNTER → 2022-12-23 11:56 | Outpatient (CLI) | payer MEDICARE, MEDICAID, SELFPAY | PROVIDERS: PCP Emergency Medicine; Visit Provider Emergency Medicine | DX: S81.801A Unspecified open wound, right lower leg, initial encounter (principal); B95.7 Other staphylococcus as the cause of diseases classified elsewhere | CPT/HCPCS: 87070; 87077; 87186; 87205 ==

== ENCOUNTER → 2023-01-01 09:08 | Outpatient (CLI) | payer MEDICARE, MEDICAID, SELFPAY | PROVIDERS: PCP Emergency Medicine; Visit Provider Nurse Practitioner Family | DX: G93.40 Encephalopathy, unspecified (principal) ==

== ENCOUNTER → 2023-01-10 15:53 | Outpatient (CLI) | payer MEDICARE, MEDICAID, SELFPAY ==
[2023-01-10 16:03] LABS: Microscopic, Urine URINE MICROSCOPIC (MICROSCOPIC)
[2023-01-10 16:09] LABS: Appearance,Urine CLEAR (Clear); Bilirubin,Urine Negative (Negative); Blood, Urine Negative (Negative); Color,Urine YELLOW (Yellow); Glucose,Urine (UA) 1+ (Negative); Ketones,Urine Negative (Negative); Leukocyte Esterase,Urine TRACE (Negative); Nitrate,Urine Negative (Negative); Protein,Urine Negative (Negative); Urobilinogen,Urine 0.2 EU/dl (0.2)
[2023-01-10 16:52] LABS: Squamous Epithelial Cell,Urine Occasional #/hpf (0-5); WBC,Urine Occasional #/hpf (0-3)
== END ==
PROVIDERS: PCP Emergency Medicine; Visit Provider Emergency Medicine
DX: R41.3 Other amnesia (principal)
CPT/HCPCS: 81001

== ENCOUNTER → 2023-01-15 11:01 | Outpatient (CLI) | payer MEDICARE, MEDICAID, SELFPAY ==
--- NOTE | 2023-01-15 11:01 | CT_ITS ---
FINAL REPORT CLINICAL HISTORY: seizures and memory loss COMPARISON: 04/06/2019 FINDINGS: Axial images of the head were obtained without contrast. Coronal reformatted images were also obtained. This study was performed with techniques to keep radiation doses as low as reasonably achievable (ALARA). Individualized dose reduction techniques using automated exposure control or adjustment of mA and/or kV according to the patient's size were employed. There is generalized age-appropriate atrophy. Periventricular low-attenuation areas are seen consistent with mild chronic ischemic changes. There is no evidence of intracranial hemorrhage or mass. There is no evidence of acute infarct. There is no evidence of shift of the midline structures. No skull abnormality is seen on the bone window images. IMPRESSION: Atrophy and mild periventricular chronic ischemic changes. No acute intracranial abnormality identified. Reviewed, Interpreted and Dictated by Albino Nuno III, MD Transcribed by Alma Schaefer Authenticated and [facility]
== END ==
PROVIDERS: PCP Emergency Medicine; Visit Provider Nurse Practitioner Family
DX: R41.3 Other amnesia (principal); Z85.820 Personal history of malignant melanoma of skin; Z87.898 Personal history of other specified conditions
CPT/HCPCS: 70450

== ENCOUNTER 2023-03-07 10:13 | Inpatient (IN) | payer MEDICARE, MEDICAID, SELFPAY ==
[2023-03-07] VITALS (13 sets, daily range): BP systolic 100–141; BP diastolic 44–92; PULSE 59–110; RESP 16–22; TEMP 36.6–36.7; O2SAT 88–95; BMI 47.1; BMI 47.0
--- NOTE | 2023-03-07 10:14 | PC.NURSE ---
DR ARMAS AT BEDSIDE
--- NOTE | 2023-03-07 10:15 | ECG_ITS ---
APPROVED REPORT Exam: Resting ECG HR:64 bpm ECG Measurements Heart Rate 64 AXES QRSd 101 QRS 28 QT 391 T 68 QTc 400 Conclusion ATRIAL FIBRILLATION INCOMPLETE RIGHT BUNDLE BRANCH BLOCK [90+ ms QRS DURATION, TERMINAL R IN V1/V2, 40+ ms S IN I/aVL/V4/V5/V6] MODERATE ST DEPRESSION [0.05+ mV ST DEPRESSION] ABNORMAL ECG UNCONFIRMED REPORT Electronically signed by : Kyle Thomas MD 03/09/2023 15:54:05
--- NOTE | 2023-03-07 10:21 | XR_ITS ---
PROCEDURE INFORMATION: Exam: XR Chest Exam date and time: 03/07/2023 10:44 AM Age: 77 years old Clinical indication: Shortness of breath; Additional info: SOA, TECHNIQUE: Imaging protocol: Radiologic exam of the chest. Views: 1 view. COMPARISON: CR XR CHEST PORTABLE 10/17/2022 9:19 AM FINDINGS: Lungs: Interstitial prominence and asymmetric bibasilar airspace disease. Pleural spaces: Asymmetric pleural effusions, left greater than right. Heart/Mediastinum: Cardiomegaly. Bones/joints: Degenerative change. IMPRESSION: 1. Interstitial prominence and asymmetric bibasilar airspace disease. 2. Asymmetric pleural effusions, left greater than right.
[2023-03-07 10:29] LABS: VBG Base Excess 5.8 mmol/L (-2.4-2.3); VBG HCO3 32.5 mmol/L (23-30); VBG Oxygen Saturation 85.8 % (50-70); VBG PH 7.28 mmol/L (7.31-7.41); VBG PO2 54.5 mmol/L (28-40); VBG Total CO2 34.7 mmol/L (23-27)
--- NOTE | 2023-03-07 10:30 | HMH.EDGENADL ---
Discharge Plan Disposition Patient Disposition: Admitted Condition: Fair Chief Complaint: Shortness of Breath/Dyspnea Prescriptions Prescriptions: No Action acetaminophen [Tylenol Extra Strength] 500 mg tablet 500 mg PO Q4HP PRN (Reason: pain) bisacodyl [Dulcolax (bisacodyl)] 10 mg suppository 10 mg [place] .Q72HP PRN (Reason: Constipation) Rx Instructions: EVERY 3 DAYS NEEDED. Systane Complete 0.6 % drops 1 drp OPHTHALMIC BIDP PRN (Reason: Dry Eyes) anastrozole 1 mg tablet 1 mg PO DAILY polyethylene glycol 3350 [Miralax] 17 gram/dose powder 17 g PO DAILYP PRN (Reason: Constipation) Relistor 12 mg/0.6 mL solution 12 mg SQ MOWEFR Stiolto Respimat 2.5-2.5 mcg/actuation mist 2 puff inhalation DAILY 90 Days Qty: 4 3RF potassium chloride 20 mEq tablet,ER particles/crystals 20 meq PO DAILY Xarelto 15 mg tablet 15 mg PO DAILY Rx Instructions: must administer with evening meal bupropion HCl 150 mg tablet sustained-release 12 hr 150 mg PO DAILY acetaminophen 325 mg capsule 650 mg PO .COMPLEX Rx Instructions: 650 mg orally bid; hydrocodone-acetaminophen 10-325 mg tablet 1 tab PO .COMPLEX Qty: 90 0RF Rx Instructions: 1 tablet po BID PRN & 1 tablet qhs gabapentin 400 mg capsule 400 mg PO TID Qty: 90 5RF losartan 100 MG tablet 100 mg PO DAILY Hold Instructions: Resume on 10/12/22. icosapent ethyl 1 G capsule 1 g PO BID ondansetron HCl 4 MG tablet 4 mg PO Q6HP PRN (Reason: Nausea) nitroglycerin 0.4 MG tablet, sublingual 0.4 mg SL NEEDED PRN (Reason: Chest Pain) levetiracetam 750 MG tablet 750 mg PO BID duloxetine 60 MG capsule,delayed release(DR/EC) 120 mg PO DAILY jbmoketeeikd-Jg-unne-minerals 1 EACH tablet 1 each PO DAILY famotidine 20 MG tablet 20 mg PO HS linaclotide 290 MCG capsule 290 mcg PO DAILY tiotropium-olodaterol 4 GM mist 2 puff IH DAILY Gaviscon 95-358 mg/15 mL Suspension 30 ml PO Q4HP PRN (Reason: upset stomach) metformin 500 mg Tablet 500 mg PO BIDWMEAL Hold Instructions: Resume on 10/20/22. simethicone 80 mg Tablet,Chewable 80 mg PO TIDP PRN (Reason: gas pain) [place] Saline 0.65 % Aerosol,Ulysses 2 spray INTRANASAL TIDP PRN (Reason: dry nose) Novolin 70-30 FlexPen U-100 100 unit/mL (70-30) Insulin Pen 52 unit SQ AM Novolin 70-30 FlexPen U-100 100 unit/mL (70-30) Insulin Pen 47 unit SQ 1130,1630 Rx Instructions: with lunch and supper melatonin 5 mg Tablet 5 mg PO HS cyanocobalamin (vitamin B-12) 1,000 mcg/mL Solution 1,000 mcg SQ MONTHLY albuterol sulfate 90 mcg/actuation HFA aerosol inhaler 1 inh INHALATION Q6HP PRN (Reason: shortness of breath or wheezing) cholecalciferol (vitamin D3) [Vitamin D3] 50 mcg (2,000 unit) Capsule 50 mcg PO DAILY sennosides-docusate sodium [Senokot-S] 8.6-50 mg Tablet 1 tab-cap PO BID ipratropium-albuterol 0.5 mg-3 mg(2.5 mg base)/3 mL solution for nebulization 3 ml INHALATION Q6HP PRN (Reason: shortness of breath or wheezing) psyllium seed (with dextrose) Powder 3.4 g PO BID Rx Instructions: mix into at least 8 oz of water or juice before administering bisoprolol fumarate 5 mg Tablet 20 mg PO BID Qty: 120 4RF diltiazem HCl 240 mg Capsule,Extended Release 24hr 240 mg PO BID 30 Days Qty: 60 3RF bumetanide 1 mg Tablet 2 mg PO DAILY 30 Days Qty: 60 3RF Jardiance 10 mg Tablet 10 mg PO DAILY Qty: 30 0RF metolazone 2.5 mg Tablet 5 mg PO DAILY 30 Days Qty: 60 3RF pravastatin 20 mg tablet 20 mg PO DAILY Qty: 30 0RF buspirone 15 mg tablet 15 mg PO BID Referrals Follow up/Referrals: Provider,Referral, MD [Primary Care Provider] - See instructions Clinical Impressions Clinical Impression: Respiratory failure, Pneumonia, Asthma exacerbation in COPD Disch
--- NOTE | 2023-03-07 10:32 | PC.NURSE ---
1030 VBG RESULTS RECEIVED FROM [facility]EMA IN RESPIRATORY, REPORTED TO DR ARMAS
--- NOTE | 2023-03-07 10:33 | PC.NURSE ---
XR AT BEDSIDE
[2023-03-07 10:47] LABS: Alanine Aminotransferase 18 U/L (12-78); Albumin Level 4.1 g/dl (3.5-5.0); Alkaline Phosphatase 143 U/L (38-126); Aspartate Amino Transferase 21 U/L (14-36); Bilirubin,Total 0.3 mg/dl (0.2-1.3); Blood Urea Nitrogen 28 mg/dl (7-17); Calcium 9.3 mg/dl (8.4-10.2); Carbon Dioxide 38 mmol/L (22.0-30.0); Chloride 88 mmol/L (98-107); Creatinine Clearance Estimated 47 mL/min (50-200); Estimated Glomerular Filt Rate 54 ml/min (>60); GFR (African American) 65 ML/MIN (>60); Globulin 4.1 g/dL (1.3-3.2); Glucose 139 mg/dl (74-100); Sodium 135 mmol/L (136-145); Total Protein,Serum 8.2 g/dl (6.3-8.2)
--- NOTE | 2023-03-07 10:47 | PC.NURSE ---
RAD at for CXR
[2023-03-07 10:48] LABS: Lactic Acid 0.8 mmol/L (0.7-2.1)
[2023-03-07 10:59] LABS: Basophils % 0.3 % (0.1-2.0); Eosinophils # 0.1 K/mm3 (0.0-0.4); Eosinophils % 0.8 % (0.1-12.0); Hemoglobin 12.1 g/dL (12.2-16.2); Lymphocytes # 1.3 K/mm3 (0.7-4.5); Mean Corpuscular Hemoglobin 30.1 pg (27.0-31.2); Mean Corpuscular Volume 97.2 fl (81-99); Mean Platelet Volume 7.8 fl (7.4-10.4); Monocytes # 0.5 K/mm3 (0.1-1.0); Monocytes % 4.2 % (1.7-9.3); Neutrophils # 9.7 K/mm3 (1.8-7.8); Neutrophils % 83.8 % (37.0-80.0); Platelet Count 314 K/mm3 (142-424); Red Blood Count 4.02 M/mm3 (4.20-5.40); Red Cell Distribution Width 15.5 % (11.5-17.5); White Blood Count 11.6 K/mm3 (4.8-10.8)
[2023-03-07 11:00] LABS: Troponin I < 0.01 ng/ml (0.00-0.034)
--- NOTE | 2023-03-07 11:00 | PC.NURSE ---
Pt assisted to bedside toilet and back to bed. Urine sample collected. Pt provided with remote. Call light within reach.
--- NOTE | 2023-03-07 11:05 | PC.NURSE ---
speaking with Hospitalist
--- NOTE | 2023-03-07 11:10 | EXP.HP ---
History of Present Illness *Admission Date: 03/07/23 *Reason for visit:: shortness of breath *History of present illness: Dina Cortés is a 77 year old female with a past medical history of COPD on 2L NC continously, diastolic CHF, pulmonary hypertension, CAD, atrial fibrillation on Xarelto, morbid obesity, htn, hld, and t2dm. 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 She denies wheezing and worsening swelling. She hasn't had any recent hospitalizations. She denies worsening swelling of the lower extremities but may have had worsening swelling of the abdomen. Initial vitals from the ED: spo2 89% on 6L NC - BP 141/76 - HR 94 - RR 22 - T 98F Initial workup: CBC with 11.6L wbcs CMP with na 136, K 5, cr 1.0 ua 3-5 wbcs cxr interstitial prominence and asymmetric bibasilar airspace disease. asymmetric pleural effusions, left greater than right. [facility] Disclaimer: The information contained in this section may have been updated after the patient was seen, as this information can be updated by other users. Medical History Abnormal cardiovascular stress test Abnormal EKG Abnormal stress test Acute on chronic diastolic (congestive) heart failure Atypical angina Atypical chest pain COPD (chronic obstructive pulmonary disease) COPD mixed type Coronary artery disease Diabetes Diastolic dysfunction Edema Fatigue Hematuria HFrEF (heart failure with reduced ejection fraction) History of sleep apnea History of smoking 30 or more pack years HLD (hyperlipidemia) HTN (hypertension) Restrictive lung disease Shortness of Breath Shortness of Breath ST segment abnormality Family History Other No significant family history Social History Smoking Status: Former smoker second hand exposure: No alcohol intake: never counseling provided: provider counseling substance use type: denies use current occupational status: disabled Travel in the last 8 weeks: None household members: caregiver housing: usp marital status: caffeine: No Review of Systems Review of Systems Review of systems:: pertinent systems reviewed and negative unless documented below *Cardiovascular Cardiovascular: Reports dyspnea and Reports dyspnea on exertion *Respiratory Respiratory: Reports cough, Reports dyspnea and Reports dyspnea on exertion Meds Home Medications and Allergies Home Medications Medication Instructions Recorded Confirmed Type duloxetine 60 mg capsule,delayed 120 mg PO DAILY Depression 04/06/19 03/07/23 History release icosapent ethyl 1 gram capsule 1 g PO BID Cholesterol 04/06/19 03/07/23 History levetiracetam 750 mg tablet 750 mg PO BID seizures 04/06/19 03/07/23 History losartan 100 mg tablet 100 mg PO DAILY blood pressure 04/06/19 03/07/23 History wwdrtwcpdwqz-Hy-rxol-minerals 27 1 each PO DAILY Supplement 04/06/19 03/07/23 History mg-0.4 mg tablet nitroglycerin 0.4 mg sublingual 0.4 mg sublingual NEEDED PRN 04/06/19 03/07/23 History tablet Chest Pain ondansetron HCl 4 mg tablet 4 mg PO Q6HP PRN Nausea 04/06/19 03/07/23 History famotidine 20 mg tablet 20 mg PO HS Acid reflux 01/18/21 03/07/23 History linaclotide 290 mcg capsule 290 mcg PO DAILY 01/18/21 03/07/23 History constipation/irritable bowel syndrome potassium chloride 20 mEq 20 meq PO DAILY Supplement 03/05/21 03/07/23 History tablet,extended release(part/cryst) acetaminophen 500 mg tablet 500 mg PO Q4HP PRN pain 09/25/21 03/07/23 History (Tylenol Extra Strength) anastrozole 1 mg tablet 1 mg PO DAILY breast cancer 09/25/21 03/07/23 History bisacodyl 10 mg rectal suppository 10 mg [place] .Q72HP PRN Constipation 09/25/21 03/07/23 History (Dulcolax (bisaco
[2023-03-07 11:18] LABS: Coronavirus 19, PCR Not Detected (NotDetected); Influenza A, PCR Not Detected (NotDetected); Influenza B, PCR Not Detected (NotDetected)
[2023-03-07 11:36] LABS: Appearance,Urine Clear (Clear); Color,Urine Yellow (Yellow); Glucose,Urine (UA) 1+ (Negative); Ketones,Urine Negative (Negative); Protein,Urine Negative (Negative)
[2023-03-07 11:37] LABS: Bilirubin,Urine Negative (Negative); Blood, Urine Negative (Negative); Leukocyte Esterase,Urine Negative (Negative); Nitrate,Urine Negative (Negative); Urobilinogen,Urine 0.2 EU/dl (0.2)
--- NOTE | 2023-03-07 11:41 | PC.NURSE ---
Dr. Hatfield at BS to update pt that she is getting admitted
--- NOTE | 2023-03-07 11:42 | PC.NURSE ---
REPORT GIVEN TO SUKUMAR YANG
[2023-03-07 12:07] LABS: Squamous Epithelial Cell,Urine Occasional #/hpf (0-5)
--- NOTE | 2023-03-07 12:07 | PC.NURSE ---
arrived by stretcher from ED
[2023-03-07 14:38] LABS: Microscopic, Urine URINE MICROSCOPIC (MICROSCOPIC)
[2023-03-07 15:08] LABS: Troponin I < 0.01 ng/ml (0.00-0.034)
--- NOTE | 2023-03-07 15:54 | PC.NURSE ---
placed pt on 50% for o2 desaturation. dr cruz made aware
[2023-03-07 16:56] LABS: POC Glucose,Bedside 473 (70-110)
[2023-03-07 20:52] LABS: POC Glucose,Bedside 339 (70-110)
[2023-03-07 20:58] LABS: ABG Base Excess 8.7 mmol/L (-2.4-2.3); ABG HCO3 33.7 mmhg (22.0-26.0); ABG Oxygen Saturation 97 % (90-100); ABG PH 7.39 mmol/L (7.35-7.45); ABG PO2 92.2 mmhg (80-100); ABG TCO2 35.5 mmhg (23-27)
[2023-03-07 21:00] LABS: Allen's Test y; Oxygen 60 %; Source rr
[2023-03-07 21:01] LABS: ABG PCO2 57.6 mmhg (35.0-45.0)
[2023-03-08] VITALS (18 sets, daily range): BP systolic 105–177; BP diastolic 52–80; PULSE 62–118; RESP 18–25; TEMP 36.6–37.5; O2SAT 90–95; BMI 46.8; BMI 46.7
[2023-03-08 06:01] LABS: POC Glucose,Bedside 227 (70-110)
[2023-03-08 06:57] LABS: ABG Base Excess 11.3 mmol/L (-2.4-2.3); ABG HCO3 36.2 mmhg (22.0-26.0); ABG Oxygen Saturation 92 % (90-100); ABG PH 7.39 mmol/L (7.35-7.45); ABG PO2 64.2 mmhg (80-100); ABG TCO2 38.1 mmhg (23-27)
[2023-03-08 06:59] LABS: Allen's Test Patient Unable; Source Right Radial; Vent Rate 18
--- NOTE | 2023-03-08 07:00 | XR_ITS ---
PROCEDURE INFORMATION: Exam: XR Chest Exam date and time: 03/08/2023 6:43 AM Age: 77 years old Clinical indication: Shortness of breath; Patient HX: Pneumonia, chf exac, ; additional info: Pneumonia and chf exac TECHNIQUE: Imaging protocol: Radiologic exam of the chest. Views: 1 view. COMPARISON: CR XR CHEST PORTABLE 03/07/2023 10:44 AM FINDINGS: Lungs: Pulmonary vascular prominence. Bibasilar atelectasis. Interstitial edema. Pleural spaces: Bilateral pleural effusions. Heart/Mediastinum: Marked cardiomegaly. Bones/joints: Unremarkable. IMPRESSION: Cardiomegaly with bilateral effusions and evidence of volume overload.
[2023-03-08 07:02] LABS: ABG PCO2 61.2 mmhg (35.0-45.0)
[2023-03-08 07:11] LABS: Basophils % 0.1 % (0.1-2.0); Eosinophils % 0.1 % (0.1-12.0); Hematocrit 37.9 % (37.0-47.0); Hemoglobin 12.2 g/dL (12.2-16.2); Lymphocytes # 0.7 K/mm3 (0.7-4.5); Lymphocytes % 6.1 % (10-50); Mean Corpuscular HGB Conc 32.1 g/dL (31.8-35.4); Mean Corpuscular Hemoglobin 30.9 pg (27.0-31.2); Mean Corpuscular Volume 96.4 fl (81-99); Mean Platelet Volume 7.8 fl (7.4-10.4); Monocytes # 0.5 K/mm3 (0.1-1.0); Monocytes % 4.3 % (1.7-9.3); Neutrophils % 89.5 % (37.0-80.0); Platelet Count 331 K/mm3 (142-424); Red Blood Count 3.93 M/mm3 (4.20-5.40); Red Cell Distribution Width 15.7 % (11.5-17.5); White Blood Count 12.3 K/mm3 (4.8-10.8)
--- NOTE | 2023-03-08 07:11 | EXP.PN ---
Subjective *Date: 03/08/23 *Time: 08:39 Interval history: She didn't use BIPAP all night. She is lethargic and denies pain. ABG from this morning 7.39/61/64/36 on BIPAP She is saturating in the mid 90s on BIPAP 15/7 with FIO2 85%; her tidal volumes are good. I/O over 24 hrs is +590mL/-1250mL, net -660mL CBC is with 12.3K WBCs; it was 11K yesterday. BMP with cr 1.2, increased from 1.0, glucose 227 BNP is 7150 cxr is with cariomegaly with bilateral effusons and evidence of volume overload Blood cultures are pending, sputum culture hasn't been collected Exam Data for Last 24 hours Vital signs and Labs for Last 24 Hours: Temp Pulse Resp BP Pulse Ox O2 Del Method O2 Flow Rate 98.1 F 118 H 22 145/80 H 94 L BiPAP 6 03/08/23 04:00 03/08/23 04:00 03/08/23 04:00 03/08/23 04:00 03/08/23 04:00 03/08/23 06:46 03/07/23 15:00 FiO2 85 03/08/23 04:09 Laboratory Results - last 24 hr 03/07/23 10:16: WBC 11.6 H, RBC 4.02 L, Hgb 12.1 L, Hct 39.0, MCV 97.2, MCH 30.1, MCHC 31.0 L, RDW 15.5, Plt Count 314, MPV 7.8, Neut % (Auto) 83.8 H, Lymph % (Auto) 11.0, [place] % (Auto) 4.2, Eos % (Auto) 0.8, Baso % (Auto) 0.3, Neut # (Auto) 9.7 H, Lymph # (Auto) 1.3, [place] # (Auto) 0.5, Eos # (Auto) 0.1, Baso # (Auto) 0.0, Sodium 135 L, Potassium 5.0, Chloride 88 L, Carbon Dioxide 38 H, Anion Gap 14.0, BUN 28 H, Creatinine 1.00, Estimated Creat Clear 47, Estimated GFR 54 L, Est GFR ( Amer) 65, Glucose 139 H, Calcium 9.3, Total Bilirubin 0.3, AST 21, ALT 18, Alkaline Phosphatase 143 H, Troponin I < 0.01, Total Protein 8.2, Albumin 4.1, Globulin 4.1 H, Albumin/Globulin Ratio 1.0 L 03/07/23 10:17: Lactate 0.8 03/07/23 10:21: VBG pH 7.28 L, VBG pCO2 71.0 H, VBG pO2 54.5 H, VBG HCO3 32.5 H, VBG Total CO2 34.7 H, VBG O2 Saturation 85.8 H, VBG Base Excess 5.8 H 03/07/23 10:59: Urine Color Yellow, Urine Appearance Clear, Urine pH 6.0, Ur Specific [place] 1.020, Urine Protein Negative, Urine Glucose (UA) 1+, Urine Ketones Negative, Urine Blood Negative, Urine Nitrate Negative, Urine Bilirubin Negative, Urine Urobilinogen 0.2, Ur Leukocyte Esterase Negative, Urine RBC None, Urine WBC 3-5, Ur Squamous Epith Cells Occasional, Urine Bacteria None 03/07/23 11:03: SARS-CoV-2 (PCR) Not detected, Influenza A Untype (PCR) Not detected, Influenza Type B (PCR) Not detected 03/07/23 13:20: Troponin I < 0.01 03/07/23 16:13: POC Glucose 473 H* 03/07/23 16:37: Specimen Source rr, O2 % 60, ABG pH 7.39, ABG pCO2 57.6 H, ABG pO2 92.2, ABG HCO3 33.7 H, ABG Total CO2 35.5 H, ABG O2 Saturation 97, ABG Base Excess 8.7 H, Levar Test y 03/07/23 20:03: POC Glucose 339 H* 03/08/23 05:51: POC Glucose 227 H 03/08/23 06:32: Specimen Source Right radial, O2 % 85% bipap, ABG pH 7.39, ABG pCO2 61.2 H, ABG pO2 64.2 L, ABG HCO3 36.2 H, ABG Total CO2 38.1 H, ABG O2 Saturation 92, ABG Base Excess 11.3 H, Levar Test Patient unable, Vent Rate 18 I & O for Last 24 hours: Intake & Output 03/05/23 03/06/23 03/07/2303/08/23 23:59 23:59 23:59 23:59 Intake Total 540 / 540 50 / 50 Output Total 750 / 750 500 / 500 Balance -210 / -210 -450 / -450 Weight 136.219 kg 135.488 kg Constitutional Constitutional: chronically ill appearing Comments: lethargic *Routine HEENT Exam Head: Present normocephalic Eye: Present EOMI and PERRL ENT: Present mucous membranes moist *Routine Neck Exam Neck: Present supple; Absent lymphadenopathy *Routine Respiratory Exam Respiratory: Present CTA bilaterally, respiratory distress and diminished air movement *Routine Cardiovascular Exam Cardiovascular: Present RRR *Routine Abdominal Exam Abdominal: Present soft and normoactive bowel sounds; Absent tenderness *Routine Extremities Exam Extremities: Absent cyanosis, clubbing or edema *Routine Skin Exam Skin: Present warm; Absent rash *Routine Neurological Exam Neurological: Present altered mental status Comments: Lethargic Assessment and Plan *Assessment and plan (1) Acute and chronic respiratory
[2023-03-08 07:18] LABS: MANUAL DIFFERENTIAL MANUAL DIFFERENTIAL (MANUAL DIFF)
[2023-03-08 07:20] LABS: Anion Gap 15.3 mEq/L (5-15); Blood Urea Nitrogen 36 mg/dl (7-17); Calcium 9.6 mg/dl (8.4-10.2); Carbon Dioxide 39 mmol/L (22.0-30.0); Chloride 90 mmol/L (98-107); Creatinine Clearance Estimated 37 mL/min (50-200); Estimated Glomerular Filt Rate 44 ml/min (>60); GFR (African American) 53 ML/MIN (>60); Glucose 189 mg/dl (74-100); Potassium 4.3 mmoL/L (3.5-5.1); Sodium 140 mmol/L (136-145)
[2023-03-08 07:29] LABS: NT Pro Brain Natriuretic Pep. 7150 pg/mL (0-450)
[2023-03-08 08:20] LABS: Lymphocytes % 11 % (10-50); Monocytes % 6 % (2-9); Neutrophils % 83 % (42-76); Platelet Estimate Normal; RBC Morphology Normal; Total Cells Counted 100
[2023-03-08 08:39] LABS: Procalcitonin 0.092 ng/mL (0.0-2.0)
[2023-03-08 11:39] LABS: POC Glucose,Bedside 155 (70-110)
[2023-03-08 14:02] LABS: Chloride 90 mmol/L (98-107); Potassium 4.2 mmoL/L (3.5-5.1); Sodium 137 mmol/L (136-145)
[2023-03-08 14:05] LABS: Anion Gap 11.2 mEq/L (5-15); Blood Urea Nitrogen 37 mg/dl (7-17); Calcium 9.9 mg/dl (8.4-10.2); Carbon Dioxide 40 mmol/L (22.0-30.0); Creatinine Clearance Estimated 41 mL/min (50-200); Estimated Glomerular Filt Rate 48 ml/min (>60); GFR (African American) 58 ML/MIN (>60); Glucose 175 mg/dl (74-100)
[2023-03-08 16:43] LABS: POC Glucose,Bedside 250 (70-110)
[2023-03-08 17:23] LABS: Microscopic,Cath URINE MICROSCOPIC (MICROSCOPIC)
--- NOTE | 2023-03-08 17:45 | PC.WOUNDNOTE ---
ULCER NOTED TO THE THIRD TOE ON THE LEFT FOOT
--- NOTE | 2023-03-08 17:46 | PC.NURSE ---
PT IS RESTING IN BED. ALERT AND ORIENTED X4. PT HAS BEEN MORE AWAKE THIS AFTERNOON. PT HAS TOLERATED BIPAP WELL THIS SHIFT. ATTEMPTED TO REMOVE BIPAP AT 1500 THIS AFTERNOON. PT DESATTED RAPIDLY TO THE 70'S ON 4 L NC AND HAD TO GO BACK ON BIPAP. PT HAS GIVEN SIPS OF WATER AND JUICE WITH STAFF ASSISTANCE. PT WAS ABLE TO TOLERATE TAKING HER PO MEDICATIONS. LUNG SOUNDS DIMINISHED WITH SCATTERED RHONCHI. ABDOMEN SOFT/LARGE WITH HYPOACTIVE BOWEL SOUNDS. CATHETER DRAINING AT BEDSIDE. HAS DIURESED WELL THIS SHIFT (2,975 ML'S). WILL CONTINUE TO MONITOR.
[2023-03-08 18:54] LABS: Appearance,Urine/Cath Clear (Clear); Bilirubin,Cath Negative (Negative); Blood, Urine/Cath Negative (Negative); Color,Urine/Cath Yellow (Yellow); Glucose,Urine/Cath (UA) 2+ (Negative); Ketones,Urine/Cath Negative (Negative); Nitrate,Cath Negative (Negative); Protein,Urine/Cath Negative (Negative)
[2023-03-08 18:55] LABS: Leukocyte Esterase,Cath Negative (Negative); Urobilinogen,Cath 0.2 EU/dl (0.2)
[2023-03-08 18:56] LABS: Uric Acid Crystals,Ur/Cath 3+ /lpf
[2023-03-08 20:54] LABS: POC Glucose,Bedside 115 (70-110)
[2023-03-09] VITALS (30 sets, daily range): BP systolic 89–158; BP diastolic 44–80; PULSE 78–120; RESP 18–23; TEMP 36.7–37.1; O2SAT 85–100
--- NOTE | 2023-03-09 02:40 | PC.NURSE ---
Tempted to wean pt down to 4 L nc and pt was not able to tolerate and o2 dropped to mid 80s. Then went on to attempt a venti mask due to pt stating she is a mouth breather, pt was not able to keep o2 above 90% while on venti. Bipap reapplied.
--- NOTE | 2023-03-09 05:43 | PC.NURSE ---
Pt continues on bipap with following settings- RR 18 IP 18 EP 10 FI02 85% Pt tolerating bipap well with sats 94-99%. Pt has c/o pain in bilateral legs 2x t/o shift. One time dose 10mg [place] x2 ordered as well as 400mg Gabapentin was given second time. Pt stated favorable results. Pt has remained in A fib on tele with HR 80-115. AOx4. Romero in place. 1275ml total of urine output for shift. Pt has generalized +2 edema. Pt got up and slept in chair majority of night. Sats improved after getting into chair. Call light within reach.
[2023-03-09 06:18] LABS: POC Glucose,Bedside 185 (70-110)
[2023-03-09 06:41] LABS: ABG Base Excess 11.9 mmol/L (-2.4-2.3); ABG HCO3 36.1 mmhg (22.0-26.0); ABG Oxygen Saturation 94 % (90-100); ABG PH 7.44 mmol/L (7.35-7.45); ABG PO2 69.4 mmhg (80-100); ABG TCO2 37.8 mmhg (23-27)
[2023-03-09 06:44] LABS: Allen's Test Acceptable; Oxygen 85% %; Pressure Support 18/10; Source Right Brachial; Vent Rate 18
[2023-03-09 06:45] LABS: ABG PCO2 54.5 mmhg (35.0-45.0)
--- NOTE | 2023-03-09 06:59 | PC.NURSE ---
Attempted nc again this AM, pt continues unable to wean off bipap.
--- NOTE | 2023-03-09 07:00 | XR_ITS ---
PROCEDURE INFORMATION: Exam: XR Chest Exam date and time: 03/09/2023 7:27 AM Age: 77 years old Clinical indication: Other: Chf; Additional info: Chf exac TECHNIQUE: Imaging protocol: Radiologic exam of the chest. Views: 1 view. COMPARISON: CR XR CHEST PORTABLE 03/08/2023 6:43 AM FINDINGS: Lungs: Opacities in both bases may represent atelectasis or pneumonia.. Pleural spaces: There may be mild bilateral pleural effusions. Heart/Mediastinum: Cardiomegaly Bones/joints: Unremarkable. IMPRESSION: 1. Opacities in both bases may represent atelectasis or pneumonia.. 2. There may be mild bilateral pleural effusions.
[2023-03-09 07:56] LABS: Basophils # 0.1 K/mm3 (0-0.2); Basophils % 0.4 % (0.1-2.0); Eosinophils # 0.1 K/mm3 (0.0-0.4); Eosinophils % 0.5 % (0.1-12.0); Hematocrit 40.1 % (37.0-47.0); Hemoglobin 12.7 g/dL (12.2-16.2); Lymphocytes # 1.9 K/mm3 (0.7-4.5); Lymphocytes % 13.2 % (10-50); Mean Corpuscular HGB Conc 31.6 g/dL (31.8-35.4); Mean Corpuscular Hemoglobin 30.5 pg (27.0-31.2); Mean Corpuscular Volume 96.6 fl (81-99); Mean Platelet Volume 7.6 fl (7.4-10.4); Monocytes # 0.8 K/mm3 (0.1-1.0); Monocytes % 5.4 % (1.7-9.3); Neutrophils # 11.9 K/mm3 (1.8-7.8); Neutrophils % 80.5 % (37.0-80.0); Platelet Count 340 K/mm3 (142-424); Red Blood Count 4.15 M/mm3 (4.20-5.40); White Blood Count 14.8 K/mm3 (4.8-10.8)
[2023-03-09 08:04] LABS: Blood Urea Nitrogen 42 mg/dl (7-17); Calcium 9.8 mg/dl (8.4-10.2); Chloride 86 mmol/L (98-107); Creatinine Clearance Estimated 34 mL/min (50-200); Estimated Glomerular Filt Rate 40 ml/min (>60); GFR (African American) 48 ML/MIN (>60); Glucose 156 mg/dl (74-100); Potassium 3.7 mmoL/L (3.5-5.1); Sodium 138 mmol/L (136-145)
[2023-03-09 08:12] LABS: Anion Gap 15.7 mEq/L (5-15); Carbon Dioxide 40 mmol/L (22.0-30.0)
--- NOTE | 2023-03-09 08:39 | PC.NURSE ---
MD Bartlett wanted pt on vapotherm to be able to eat and take a break from bipap, pt on 40L 90%, oxygen saturations 92-96% on vapotherm
[2023-03-09 10:53] LABS: POC Glucose,Bedside 213 (70-110)
--- NOTE | 2023-03-09 11:29 | EXP.PN ---
Subjective *Date: 03/09/23 *Time: 15:24 Interval history: The patient tolerated BIPAP well overnight. She feels less short of breath and denies chest pain. Exam Data for Last 24 hours Vital signs and Labs for Last 24 Hours: Temp Pulse Resp BP Pulse Ox O2 Del Method O2 Flow Rate 98.7 F 99 H 20 149/76 H 90 L Vapotherm 40 03/09/23 11:14 03/09/23 10:00 03/09/23 10:00 03/09/23 10:00 03/09/23 10:00 03/09/23 10:00 03/09/23 10:00 FiO2 90 03/09/23 10:00 Laboratory Results - last 24 hr 03/08/23 10:00: Urine Color Yellow, Urine Appearance Clear, Urine pH 6.0, Ur Specific [place] 1.020, Urine Protein Negative, Urine Glucose (UA) 2+, Urine Ketones Negative, Urine Blood Negative, Urine Nitrate Negative, Urine Bilirubin Negative, Urine Urobilinogen 0.2, Ur Leukocyte Esterase Negative, Urine RBC None, Urine WBC None, Ur Squamous Epith Cells None, Uric Acid Crystals 3+, Urine Bacteria None 03/08/23 11:32: POC Glucose 155 H 03/08/23 13:27: Sodium 137, Potassium 4.2, Chloride 90 L, Carbon Dioxide 40 H, Anion Gap 11.2, BUN 37 H, Creatinine 1.10 H, Estimated Creat Clear 41, Estimated GFR 48 L, Est GFR ( Amer) 58 L, Glucose 175 H, Calcium 9.9 03/08/23 16:36: POC Glucose 250 H 03/08/23 20:26: POC Glucose 115 H 03/09/23 06:00: Specimen Source Right brachial, O2 % 85%, ABG pH 7.44, ABG pCO2 54.5 H, ABG pO2 69.4 L, ABG HCO3 36.1 H, ABG Total CO2 37.8 H, ABG O2 Saturation 94, ABG Base Excess 11.9 H, Levar Test Acceptable, Vent Rate 18 03/09/23 06:07: POC Glucose 185 H 03/09/23 07:00: WBC 14.8 H, RBC 4.15 L, Hgb 12.7, Hct 40.1, MCV 96.6, MCH 30.5, MCHC 31.6 L, RDW 16.0, Plt Count 340, MPV 7.6, Neut % (Auto) 80.5 H, Lymph % (Auto) 13.2, [place] % (Auto) 5.4, Eos % (Auto) 0.5, Baso % (Auto) 0.4, Neut # (Auto) 11.9 H, Lymph # (Auto) 1.9, [place] # (Auto) 0.8, Eos # (Auto) 0.1, Baso # (Auto) 0.1, Sodium 138, Potassium 3.7, Chloride 86 L, Carbon Dioxide 40 H, Anion Gap 15.7 H, BUN 42 H, Creatinine 1.30 H, Estimated Creat Clear 34, Estimated GFR 40 L, Est GFR ( Amer) 48 L, Glucose 156 H, Calcium 9.8 03/09/23 10:46: POC Glucose 213 H I & O for Last 24 hours: Intake & Output 03/06/23 03/07/23 03/08/23 03/09/23 23:59 23:59 23:59 23:59 Intake Total 540 / 540 110 / 699 589 / 589 Output Total 750 / 750 3475 / 3475 1175 / 1175 Balance -210 / -210 -3365 / -2776 -586 / -586 Weight 136.219 kg 135 kg Microbiology Reports for the Last 24 Hours: Microbiology 03/07/23 10:43 Blood Blood Culture - Preliminary NO GROWTH AFTER 48 HOURS 03/07/23 10:17 Blood Blood Culture - Preliminary NO GROWTH AFTER 48 HOURS Constitutional Constitutional: morbidly obese and chronically ill appearing *Routine HEENT Exam Head: Present normocephalic Eye: Present EOMI and PERRL ENT: Present mucous membranes moist *Routine Neck Exam Neck: Present supple; Absent lymphadenopathy *Routine Respiratory Exam Respiratory: Present CTA bilaterally, respiratory distress and diminished air movement *Routine Cardiovascular Exam Cardiovascular: Present RRR *Routine Abdominal Exam Abdominal: Present soft and normoactive bowel sounds; Absent tenderness *Routine Extremities Exam Extremities: Absent cyanosis, clubbing or edema *Routine Skin Exam Skin: Present warm; Absent rash *Routine Neurological Exam Neurological: Present alert and oriented X3 Assessment and Plan *Assessment and plan (1) Acute and chronic respiratory failure with hypoxia: Status: Acute Category: Medical Code(s): J96.21 - Acute and chronic respiratory failure with hypoxia (2) Pneumonia: Status: Acute Category: Medical Code(s): J18.9 - Pneumonia, unspecified organism (3) COPD (chronic obstructive pulmonary disease): Status: Chronic Qualifiers: COPD type: chronic bronchitis Chronic bronchitis type: simple Qualified Code(s): J41.0 - Simple chronic bronchitis Categ
--- NOTE | 2023-03-09 13:43 | CT_ITS ---
PROCEDURE INFORMATION: Exam: CTA Chest With Contrast Exam date and time: 03/09/2023 2:19 PM Age: 77 years old Clinical indication: Shortness of breath; Additional info: Hypoxia TECHNIQUE: Imaging protocol: Computed tomographic angiography of the chest with contrast. Exam focused on the arteries. 3D rendering (Not supervised by radiologist): MIP and/or 3D reconstructed images were created by the technologist. Radiation optimization: All CT scans at this facility use at least one of these dose optimization techniques: automated exposure control; mA and/or kV adjustment per patient size (includes targeted exams where dose is matched to clinical indication); or iterative reconstruction. Contrast material: ISOVUE; Contrast volume: 70 ml; Contrast route: INTRAVENOUS (IV); REPORTING DATA: Count of CT and Cardiac NM exams in prior 12 months: This patient has received 2 known CTs and 0 known cardiac nuclear medicine studies in the 12 months prior to the current study. COMPARISON: CT ANGIO CHEST PE PROTOCOL 10/12/2022 11:59 AM FINDINGS: Limitations: Respiratory motion artifact severely degrades images, limiting sensitivity of exam. Pulmonary arteries: Dilated central pulmonary arteries suggestive of longstanding pulmonary arterial hypertension. No evidence of large central pulmonary emboli. Respiratory motion artifact limits evaluation for definitive exclusion of smaller pulmonary emboli (subsegmental). Aorta: Aorta is normal in caliber. Thyroid: Multinodular goiter. No discrete nodules. Lungs: Mild interstitial pulmonary edema. No evidence of acute airspace consolidation. Calcified pulmonary granuloma in the right middle lobe consistent with chronic sequelae of prior granulomatous disease. Pleural spaces: Bilateral pleural effusions with passive atelectasis in the lung bases. No pneumothorax. Heart: Biatrial enlargement suggestive of diastolic heart dysfunction. Aortic valve leaflet calcifications. Coronary arteries: Calcific coronary artery disease. Lymph nodes: No enlarged lymph nodes by CT criteria. Bones/joints: No acute osseous abnormality. Soft tissues: Unremarkable. IMPRESSION: 1. No evidence of pulmonary emboli, noting technically inadequate study for definitive exclusion of some smaller pulmonary emboli (subsegmental). 2. Mild interstitial pulmonary edema. 3. Biatrial enlargement suggestive of diastolic heart dysfunction. 4. Bilateral pleural effusions with passive atelectasis in the lung bases. 5. Dilated central pulmonary arteries suggestive of longstanding pulmonary arterial hypertension. 6. Calcific coronary artery disease. 7. Aortic valve leaflet calcifications.
[2023-03-09 18:06] LABS: POC Glucose,Bedside 213 (70-110)
[2023-03-09 21:07] LABS: POC Glucose,Bedside 281 (70-110)
[2023-03-10] VITALS (24 sets, daily range): BP systolic 98–166; BP diastolic 61–89; PULSE 79–145; RESP 16–28; TEMP 36.7–37.4; O2SAT 88–99; BMI 45.3
[2023-03-10 05:46] LABS: POC Glucose,Bedside 152 (70-110)
[2023-03-10 06:35] LABS: Basophils # 0.1 K/mm3 (0-0.2); Basophils % 0.4 % (0.1-2.0); Eosinophils # 0.1 K/mm3 (0.0-0.4); Hematocrit 38.3 % (37.0-47.0); Hemoglobin 12.3 g/dL (12.2-16.2); Lymphocytes # 1.7 K/mm3 (0.7-4.5); Lymphocytes % 12.1 % (10-50); Mean Corpuscular HGB Conc 32.2 g/dL (31.8-35.4); Mean Corpuscular Hemoglobin 30.5 pg (27.0-31.2); Mean Corpuscular Volume 94.9 fl (81-99); Mean Platelet Volume 7.7 fl (7.4-10.4); Monocytes # 0.8 K/mm3 (0.1-1.0); Monocytes % 6.2 % (1.7-9.3); Neutrophils # 10.9 K/mm3 (1.8-7.8); Neutrophils % 80.3 % (37.0-80.0); Platelet Count 280 K/mm3 (142-424); Red Blood Count 4.03 M/mm3 (4.20-5.40); Red Cell Distribution Width 15.9 % (11.5-17.5); White Blood Count 13.6 K/mm3 (4.8-10.8)
[2023-03-10 06:44] LABS: Blood Urea Nitrogen 39 mg/dl (7-17); Calcium 9.4 mg/dl (8.4-10.2); Chloride 85 mmol/L (98-107); Creatinine Clearance Estimated 45 mL/min (50-200); Estimated Glomerular Filt Rate 54 ml/min (>60); GFR (African American) 65 ML/MIN (>60); Glucose 132 mg/dl (74-100); Potassium 3.3 mmoL/L (3.5-5.1); Sodium 136 mmol/L (136-145)
[2023-03-10 06:51] LABS: Anion Gap 16.3 mEq/L (5-15); Carbon Dioxide 38 mmol/L (22.0-30.0)
--- NOTE | 2023-03-10 07:00 | XR_ITS ---
PROCEDURE INFORMATION: Exam: XR Chest Exam date and time: 03/10/2023 6:28 AM Age: 77 years old Clinical indication: Cardiovascular condition or disease; Congestive heart failure (chf); Cause unknown; Additional info: Chf exac TECHNIQUE: Imaging protocol: Radiologic exam of the chest. Views: 1 view. COMPARISON: CR XR CHEST PORTABLE 03/09/2023 7:27 AM FINDINGS: Lungs: Consolidation in the right lung base and right mid lung. Airspace disease versus atelectasis in the left lung base and mid lung. Pleural spaces: Bilateral pleural effusions at least moderate in size. Heart/Mediastinum: Cardiomegaly. Pulmonary vascular congestion. Widening of the upper mediastinum at least partially related to hypoventilatory changes. Bones/joints: No acute findings. IMPRESSION: Findings consistent with severe CHF with cardiomegaly, bilateral pleural effusions, pulmonary vascular congestion and bilateral airspace disease versus atelectasis.
[2023-03-10 07:03] LABS: NT Pro Brain Natriuretic Pep. 2920 pg/mL (0-450)
[2023-03-10 07:21] LABS: ABG Base Excess 17.4 mmol/L (-2.4-2.3); ABG HCO3 40.7 mmhg (22.0-26.0); ABG Oxygen Saturation 96 % (90-100); ABG PH 7.49 mmol/L (7.35-7.45); ABG PO2 74.5 mmhg (80-100); ABG TCO2 42.4 mmhg (23-27); Allen's Test Acceptable; Oxygen 40L 85% %; Source Left Radial
[2023-03-10 07:23] LABS: ABG PCO2 54.7 mmhg (35.0-45.0)
--- NOTE | 2023-03-10 08:14 | CA_ITS ---
APPROVED REPORT EXAM: Comprehensive 2D, Doppler, and color-flow Echocardiogram Photocomposition Keyboard Operator: Traci Velasquez, RCS, RVS Ht: 5 ft 6 in Wt: 289lbs BSA: 2.34 BP: 102/71 mmHg Rhythm: Atrial Fibrillation Indications: afib, CHF, Obesity, Preevious EF 33-50%, PHTN, CAD, DD, ABN EKG 2D Dimensions Aortic Root 3.29 cm LA Volume 105.30 mL Left Atrium 4.36 cm LA Volume Index 43.90 mL/m2 (M/F) 16-34 LVOT 2.12 cm (M/F) 1.5-2.5 M-Mode Dimensions RVDd 3.43 cm (0.9-2.6) LA Diam 5.11 cm (1.9-4.0) LVDd 5.49 cm (3.5-5.7) Ao Diam 3.72 cm (2.0-3.7) LVDs 4.28 cm (3.5-5.7) IVSd 1.20 cm (0.6-1.1) PWd 1.16 cm (0.6-1.1) EF (Teich) 44.00% EPSs 1.17 cm FS 22.00% EDV (Teich) 146.80 mL TAPSE 1.39 (<1.7) ESV (Teich) 82.20 mL LV Diastology E Decel Time 217.00 (160-240 msec) E/A Ratio 3.60 MED E' 8.90 (< 7 cm/sec) E'/MED E' Ratio 11.69 (>14) LAT E' 10.60 (<10 cm/sec) E/LAT E' Ratio 9.81 (>14) Aortic Valve LVOT Max 76.00 (70-110 cm/s) LVOT VTI 13.26 cm AoV Peak Ismael. 236.00 (50-130 cm/s) AO Peak GR. 22.30 mmHg AO Mean GR. 12.30 (<5 mmHg) AO VTI 38.79 (18-25 cm) HAFSA (VTI) 1.21 (2.5-4.5 cm2) Mitral Valve MV A Velocity 29.00 (40-130 cm/s) E/A Ratio 3.60 MV Decel. Time 217.00 (160-240 ms) Pulmonary Valve PV Peak Velocity 114.00 (50-150 cm/s) Tricuspid Valve TR P. Velocity 188.00 cm/s RAP Estimate 10.00 mmHg RVSP 24.10 mmHg Left Ventricle The left ventricle is normal size. Left ventricular systolic function is mild to moderately decreased. There is increased LV wall thickness. There is mild to moderate global hypokinesis. The septum appears asynchronous. The left ventricular diastolic function is normal. LVEF is 40%. Right Ventricle The right ventricle appears severely dilated. Right ventricular systolic function is moderately reduced. There is increased RV wall thickness. Atria The left atrium size is normal. The right atrium size is normal. There is no Doppler evidence of interatrial shunt. Aortic Valve The aortic valve is moderately thickened. Moderate aortic stenosis is present. HAFSA by continuity equation is 1.3 cm2. HAFSA by 2D planimetry is 1.4 cm2. Peak velocity is 2.5 m/s. Mean AV gradient is 12 mmHg. Max AV gradient is 23 mmHg. DI=0.30. Trace aortic regurgitation. Mitral Valve The mitral valve is mildly thickened. No evidence of mitral valve stenosis. Trace mitral regurgitation. Tricuspid Valve The tricuspid valve leaflets are thin and pliable. Mild tricuspid regurgitation. RVSP is 15 mmHg + RA pressure. Pulmonic Valve The pulmonary valve is normal in structure. Trace pulmonic regurgitation. Great Vessels The aortic root is normal in size. The ascending aorta is not well visualized. IVC is normal in size and collapses >50% with inspiration. Pericardium There is no pericardial effusion. Pleural effusion is present. Other Information Study Quality: Fair Conclusion Mild to moderate reduction in LV systolic function (LVEF 40%) Severely dilated RV with moderate reduction in RV function. Moderate (HAFSA by continuity equation is 1.3 cm2. HAFSA by 2D planimetry is 1.4 cm2. Peak velocity is 2.5 m/s. Mean AV gradient is 12 mmHg. Max AV gradient is 23 mmHg. DI=0.30). Pleural effusion. Electronically signed by : Magda Lee, 03/10/2023 20:53:07
--- NOTE | 2023-03-10 09:19 | EXP.PULM.CON ---
History of Present Illness History of present illness: Ms. Cortés is a 77-year-old female history of COPD CHF presented to hospital worsening respiratory distress hypoxicrespiratory failure along with volume overload, initiated on diuretics along with BiPAP therapy and pulmonary was consulted for further evaluation and management [facility] Disclaimer: The information contained in this section may have been updated after the patient was seen, as this information can be updated by other users. Medical History (Updated 03/10/23 @ 10:00 by Asahish Meyer MD) Abnormal cardiovascular stress test Abnormal EKG Abnormal stress test Acute on chronic diastolic (congestive) heart failure Atelectasis of both lungs Atypical angina Atypical chest pain COPD (chronic obstructive pulmonary disease) COPD mixed type Coronary artery disease Diabetes Diastolic dysfunction Edema Fatigue Hematuria HFrEF (heart failure with reduced ejection fraction) History of sleep apnea History of smoking 30 or more pack years HLD (hyperlipidemia) HTN (hypertension) Pleural effusion due to CHF (congestive heart failure) Restrictive lung disease Shortness of Breath Shortness of Breath ST segment abnormality Family History Other No significant family history Social History Smoking Status: Former smoker second hand exposure: No alcohol intake: never counseling provided: provider counseling substance use type: denies use current occupational status: disabled Travel in the last 8 weeks: None household members: caregiver housing: half-way marital status: caffeine: No Review of Systems Constitutional Constitutional: Reports anorexia, Reports body ache(s) and Reports fatigue Eyes Eyes: Denies eye discharge, Denies dry eyes, Denies irritation and Denies itchy eyes ENT Ears, Nose, Mouth, and Throat: Denies epistaxis, Denies facial pain, Denies lip swelling and Denies throat swelling *Cardiovascular Cardiovascular: Reports dyspnea, Reports dyspnea on exertion, Reports orthopnea and Reports palpitations *Respiratory Respiratory: Reports chest congestion, Reports cough, Reports dyspnea, Reports dyspnea on exertion, Reports excessive phlegm production and Denies wheezing *Gastrointestinal Gastrointestinal: Denies abdominal pain, Denies belching and Denies cramping *Musculoskeletal Musculoskeletal: Reports back pain, Reports myalgias and Reports other (No small joint swelling or Pain) Psychiatric Psychiatric: Denies homicidal ideation and Denies suicidal ideation Endocrine Endocrine: Reports fatigue, Denies heat intolerance and Reports palpitations Hematologic/Lymphatic Hematologic/Lymphatic: Denies easy bleeding and Denies lymphadenopathy Allergic/Immunologic Allergic/Immunologic: Denies itchy eyes, Denies lip swelling, Denies throat swelling and Denies wheezing Pulmonology Exam Inpatient Vital signs and Labs for Last 24 Hours: Temp Pulse Resp BP Pulse Ox O2 Del Method O2 Flow Rate 98.2 F 79 20 166/79 H 88 L Vapotherm 45 03/10/23 07:22 03/10/23 08:00 03/10/23 08:00 03/10/23 08:00 03/10/23 08:00 03/10/23 08:00 03/10/23 06:09 FiO2 85 03/10/23 06:03 Laboratory Results - last 24 hr 03/09/23 10:46: POC Glucose 213 H 03/09/23 16:39: POC Glucose 213 H 03/09/23 20:22: POC Glucose 281 H 03/10/23 05:27: WBC 13.6 H, RBC 4.03 L, Hgb 12.3, Hct 38.3, MCV 94.9, MCH 30.5, MCHC 32.2, RDW 15.9, Plt Count 280, MPV 7.7, Neut % (Auto) 80.3 H, Lymph % (Auto) 12.1, [place] % (Auto) 6.2, Eos % (Auto) 1.0, Baso % (Auto) 0.4, Neut # (Auto) 10.9 H, Lymph # (Auto) 1.7, [place] # (Auto) 0.8, Eos # (Auto) 0.1, Baso # (Auto) 0.1, Sodium 136, Potassium 3.3 L, Chloride 85 L, Carbon Dioxide 38 H, Anion Gap 16.3 H, BUN 39 H, Creatinine 1.00 D, Estimated Creat Clear 45, Estimated GFR 54 L, Est GFR ( Amer) 65 D, Glucose 132 H, Calcium
[2023-03-10 10:00] LABS: POC Glucose,Bedside 132 (70-110)
--- NOTE | 2023-03-10 10:02 | EXP.CARD.CON ---
History of Present Illness History of Present Illness Consult date: 03/10/23 Requesting physician: Moo Fuentes Consult reason: congestive heart failure and shortness of breath Chief complaint: SOA History of present illness: This is a 77-year-old white female who presented to the emergency department with complaints of shortness of breath. The patient has a known history of COPD, diastolic congestive heart failure, pulmonary hypertension, mild CAD, atrial fibrillation, hypertension, hyperlipidemia, diabetes and morbid obesity. The patient is a long-term resident at [facility] and she had progressively worsening shortness of breath over the last 2 weeks. She had an associated productive cough and chills. The patient was brought to the emergency department because of her worsening shortness of breath. She denies any chest pain or pressure. She denies any lower extremity edema. She denies any fever, nausea, vomiting, diarrhea, PND or orthopnea. The patient repeatedly states this morning that she just does not feel well. She states that she is very fatigued and has no energy. And she just feels short of breath all the time. She is on 2 L nasal cannula consistently at the long term but has been upgraded to a Vapotherm mask here at the hospital. [facility] Disclaimer: The information contained in this section may have been updated after the patient was seen, as this information can be updated by other users. Medical History (Updated 03/10/23 @ 17:55 by Moo Fuentes MD) Abnormal cardiovascular stress test Abnormal EKG Abnormal stress test Acute on chronic diastolic (congestive) heart failure Atelectasis of both lungs Atypical angina Atypical chest pain COPD (chronic obstructive pulmonary disease) COPD mixed type Coronary artery disease Diabetes Diastolic dysfunction Edema Fatigue Hematuria HFrEF (heart failure with reduced ejection fraction) History of sleep apnea History of smoking 30 or more pack years HLD (hyperlipidemia) HTN (hypertension) Pleural effusion due to CHF (congestive heart failure) Restrictive lung disease Shortness of Breath Shortness of Breath ST segment abnormality Family History Other No significant family history Social History Smoking Status: Former smoker second hand exposure: No alcohol intake: never counseling provided: provider counseling substance use type: denies use current occupational status: disabled Travel in the last 8 weeks: None household members: caregiver housing: long term marital status: caffeine: No Review of Systems Review of Systems Review of systems:: pertinent systems reviewed and negative unless documented below Constitutional Constitutional: Reports system reviewed and no additional complaints, except as documented, Reports chills, Reports fatigue, Reports lethargy, Reports malaise and Reports weakness Eyes Eyes: Reports system reviewed and no additional complaints, except as documented ENT Ears, Nose, Mouth, and Throat: Reports system reviewed and no additional complaints, except as documented *Cardiovascular Cardiovascular: Reports system reviewed and no additional complaints, except as documented, Denies chest pain, Reports dyspnea, Reports dyspnea on exertion and Denies leg edema *Respiratory Respiratory: Reports system reviewed and no additional complaints, except as documented, Reports dyspnea and Reports dyspnea on exertion *Gastrointestinal Gastrointestinal: Reports system reviewed and no additional complaints, except as documented *Genitourinary Genitourinary: Reports system reviewed and no additional complaints, except as documented *Musculoskeletal Musculoskeletal: Reports system reviewed and no additional complaints, except as documented Integumentary/Breasts Skin/Breast: Reports system reviewed an
--- NOTE | 2023-03-10 10:36 | SW/DCPLANNER ---
Addendum entered by Mecca Garcia 03/12/23 09:54: I have informed Sandi quiles/ Dave Walker the plan for this patient is to return today [facility] level of care. Original Note: This patient currently resides at [facility] level of care. I will continue to follow up w/ Sandi until patient is medically stable for discharge. Discharge date is unknown at this time.
[2023-03-10 11:47] LABS: POC Glucose,Bedside 190 (70-110)
--- NOTE | 2023-03-10 15:07 | EXP.ACUTE.PN ---
Subjective *Date: 03/10/23 *Time: 17:55 Interval history: Patient has diuresed quite well. Put out 2.6 L negative fluid status over the past 24 hours. Negative almost 7 L since admission. Still requiring Vapotherm this morning, weaned to 55% by pulmonology with good tolerance. Saturations remaining above 90%. Patient remains afebrile. Labs today reviewed. Patient complaining of no bowel movement since admission. Denies any chest pain. Alert and oriented on exam. Got up to bedside for breakfast. Medical Exam Vital signs and Labs for Last 24 Hours: Vital Signs Temp Pulse Pulse Pulse Resp BP Pulse Ox 03/10/23 15:00 03/10/23 14:00 121 H 28 H 164/89 H 03/10/23 13:00 03/10/23 11:30 98.3 F 03/10/23 11:25 120 H 18 03/10/23 11:20 126 H 03/10/23 11:20 120 H 03/10/23 11:20 92 L 03/10/23 08:00 90 03/10/23 11:00 03/10/23 10:00 98.2 F 105 H 16 116/70 92 L 03/10/23 09:00 03/10/23 10:28 98 H 26 H 92 L 03/10/23 08:00 79 20 166/79 H 88 L 03/10/23 07:22 98.2 F 03/10/23 04:00 100 H 03/10/23 06:09 03/10/23 06:00 98.1 F 105 H 21 138/61 90 L 03/10/23 06:03 115 H 03/10/23 06:03 119 H 03/10/23 06:03 90 L 03/10/23 05:00 92 H 20 158/87 H 92 L 03/10/23 05:00 03/10/23 04:00 98.3 F 03/10/23 04:00 93 H 20 147/82 H 93 L 03/10/23 03:56 90 03/10/23 03:00 03/10/23 02:00 98 H 19 165/64 H 93 L 03/10/23 00:00 100 H 03/09/23 20:00 120 H 03/10/23 01:00 90 23 116/70 94 L 03/10/23 00:59 03/10/23 00:00 100 H 03/09/23 20:00 90 03/10/23 00:00 98.0 F 03/10/23 00:00 94 H 20 116/69 94 L 03/09/23 23:54 88 03/09/23 23:54 94 H 03/09/23 23:54 93 L 03/09/23 23:00 95 03/09/23 23:00 03/09/23 23:00 99 H 20 103/67 L 98 03/09/23 21:00 03/09/23 22:00 78 20 103/67 L 98 03/09/23 21:00 100 H 23 97/60 L 98 03/09/23 20:00 98.2 F 109 H 23 119/57 L 94 L 03/09/23 19:00 03/09/23 16:00 110 H 03/09/23 18:00 106 H 20 158/54 H 92 L 03/09/23 17:00 03/09/23 16:00 89 22 145/80 H 91 L 03/09/23 15:45 98.1 F 03/09/23 15:35 94 L O2 Del Method O2 Flow Rate FiO2 03/10/23 15:00 Vapotherm 40 03/10/23 14:00 40 55 03/10/23 13:00 Vapotherm 40 03/10/23 11:30 03/10/23 11:25 03/10/23 11:20 03/10/23 11:20 03/10/23 11:20 Vapotherm 40 55 03/10/23 08:00 03/10/23 11:00 Vapotherm 40 03/10/23 10:00 Vapotherm 40 55 03/10/23 09:00 Vapotherm 03/10/23 10:28 Vapotherm 40 55 03/10/23 08:00 Vapotherm 03/10/23 07:22 03/10/23 04:00 03/10/23 06:09 Mechanical Ventilation 45 03/10/23 06:00 Vapotherm 45 80 03/10/23 06:03 03/10/23 06:03 03/10/23 06:03 Vapotherm 40 85 03/10/23 05:00 Vapotherm 45 80 03/10/23 05:00 Vapotherm 45 03/10/23 04:00 03/10/23 04:00 Vapotherm 45 80 03/10/23 03:56 03/10/23 03:00 Vapotherm 45 03/10/23 02:00 Vapotherm 40 85 03/10/23 00:00 03/09/23 20:00 03/10/23 01:00 Vapotherm 45 80 03/10/23 00:59 Vapotherm 45 03/10/23 00:00 03/09/23 20:00 03/10/23 00:00 03/10/23 00:00 Vapotherm 40 85 03/09/23 23:54 03/09/23 23:54 03/09/23 23:54 Vapotherm 40 85 03/09/23 23:00 Vapotherm 40 85 03/09/23 23:00 Vapotherm 40 03/09/23 23:00 Vapotherm 40 85 03/09/23 21:00 Vapotherm 40 03/09/23 22:00 Vapotherm 40 85 03/09/23 21:00 Vapotherm 40 85 03/09/23 20:00 Vapotherm 40 85 03/09/23 19:00 Vapotherm 40 03/09/23 16:00 03/09/23 18:00 Vapotherm 40 85 03/09/23 17:00 Vapotherm 40 03/09/23 16:00 Vapotherm 40 85 03/09/23 15:45 03/09/23 15:35 Vapotherm 40 85 Intake and Output 03/09/23 03/10/23 03/10/23 23:59
--- NOTE | 2023-03-10 17:14 | ECG_ITS ---
APPROVED REPORT Exam: Resting ECG HR:136 bpm ECG Measurements Heart Rate 136 AXES QRSd 90 QRS -25 QT 303 T 82 QTc 383 Conclusion ATRIAL FIBRILLATION WITH RAPID VENTRICULAR RESPONSE POSSIBLE RIGHT VENTRICULAR CONDUCTION DELAY [RSR (QR) IN V1/V2] SEPTAL MYOCARDIAL INFARCTION , OF INDETERMINATE AGE [40+ ms Q WAVE IN V1/V2] ABNORMAL ECG UNCONFIRMED REPORT Electronically signed by : Kyle Thomas MD 03/10/2023 19:51:17
[2023-03-10 17:17] LABS: POC Glucose,Bedside 255 (70-110)
--- NOTE | 2023-03-10 18:20 | PC.NURSE ---
Called RT. Patient saturation 85% on 55% 40L.
--- NOTE | 2023-03-10 18:55 | PC.NURSE ---
Per Dr. Fuentes, allow medications (Metoprolol 100XR) (Metoprolol 5mg IV) given an additional 30 minutes prior to calling cardiology for orders concerning HR of 148 unless the bp drops.
[2023-03-10 18:58] LABS: Chloride 83 mmol/L (98-107); Sodium 136 mmol/L (136-145)
[2023-03-10 18:59] LABS: Potassium 3.8 mmoL/L (3.5-5.1)
--- NOTE | 2023-03-10 19:00 | PC.NURSE ---
Paged cardiology HR sustained 135-170.
[2023-03-10 19:01] LABS: Blood Urea Nitrogen 33 mg/dl (7-17); Creatinine Clearance Estimated 45 mL/min (50-200); Estimated Glomerular Filt Rate 54 ml/min (>60); GFR (African American) 65 ML/MIN (>60)
[2023-03-10 19:02] LABS: Calcium 9.7 mg/dl (8.4-10.2); Glucose 263 mg/dl (74-100)
--- NOTE | 2023-03-10 19:03 | PC.NURSE ---
Dr. Luo notified.
[2023-03-10 19:13] LABS: Anion Gap 15.8 mEq/L (5-15); Carbon Dioxide 41 mmol/L (22.0-30.0)
[2023-03-10 19:34] LABS: Magnesium 1.6 mg/dl (1.6-2.3)
[2023-03-10 20:23] LABS: POC Glucose,Bedside 280 (70-110)
[2023-03-11] VITALS (24 sets, daily range): BP systolic 74–134; BP diastolic 41–90; PULSE 92–140; RESP 17–24; TEMP 36.6–36.9; O2SAT 89–99
[2023-03-11 05:35] LABS: POC Glucose,Bedside 119 (70-110)
[2023-03-11 06:06] LABS: Basophils # 0.1 K/mm3 (0-0.2); Basophils % 0.4 % (0.1-2.0); Eosinophils # 0.2 K/mm3 (0.0-0.4); Eosinophils % 1.3 % (0.1-12.0); Hematocrit 40.9 % (37.0-47.0); Hemoglobin 12.9 g/dL (12.2-16.2); Lymphocytes % 12.7 % (10-50); Mean Corpuscular HGB Conc 31.7 g/dL (31.8-35.4); Mean Corpuscular Hemoglobin 29.8 pg (27.0-31.2); Mean Platelet Volume 7.5 fl (7.4-10.4); Monocytes # 0.9 K/mm3 (0.1-1.0); Monocytes % 5.5 % (1.7-9.3); Neutrophils # 12.8 K/mm3 (1.8-7.8); Platelet Count 296 K/mm3 (142-424); Red Blood Count 4.35 M/mm3 (4.20-5.40); White Blood Count 15.9 K/mm3 (4.8-10.8)
[2023-03-11 06:07] LABS: MANUAL DIFFERENTIAL MANUAL DIFFERENTIAL (MANUAL DIFF)
[2023-03-11 06:15] LABS: Alanine Aminotransferase 23 U/L (12-78); Albumin Level 3.9 g/dl (3.5-5.0); Alkaline Phosphatase 120 U/L (38-126); Anion Gap 12.1 mEq/L (5-15); Aspartate Amino Transferase 46 U/L (14-36); Bilirubin,Direct 0.1 mg/dl (0.0-0.4); Bilirubin,Indirect 0.9 mg/dL (0.0-0.9); Bilirubin,Unconjugated 0.9 mg/dL (0.0-1.1); Blood Urea Nitrogen 44 mg/dl (7-17); Calcium 9.2 mg/dl (8.4-10.2); Carbon Dioxide 38 mmol/L (22.0-30.0); Chloride 85 mmol/L (98-107); Chol/HDL Ratio 6.2 (1-3.5); Cholesterol 186 mg/dl (140-200); Creatinine Clearance Estimated 30 mL/min (50-200); Estimated Glomerular Filt Rate 34 ml/min (>60); GFR (African American) 41 ML/MIN (>60); Glucose 134 mg/dl (74-100); HDL Cholesterol 30 mg/dl (40-60); Potassium 4.1 mmoL/L (3.5-5.1); Sodium 131 mmol/L (136-145); Total Protein,Serum 7.9 g/dl (6.3-8.2); Triglycerides 206 mg/dl (30-150); VLDL Cholesterol 41 mg/dL (0-40)
[2023-03-11 06:25] LABS: Direct LDL Cholesterol 91.82 mg/dL (100-129)
[2023-03-11 07:49] LABS: Lymphocytes % 18 % (10-50); Monocytes % 2 % (2-9); Neutrophils % 80 % (42-76); Total Cells Counted 100
[2023-03-11 07:50] LABS: Platelet Estimate Normal; RBC Morphology Normal
--- NOTE | 2023-03-11 07:57 | EXP.PHA.PN ---
Subjective *Date: 03/11/23 *Time: 07:57 Medical Exam Vital signs and Labs for Last 24 Hours: Vital Signs Temp Pulse Pulse Pulse Resp BP Pulse Ox 03/11/23 04:00 100 H 03/11/23 06:03 122 H 03/11/23 06:03 104 H 03/11/23 06:03 97 03/11/23 04:00 97.8 F 103 H 20 74/58 L 95 03/11/23 00:00 102 H 96 03/11/23 06:57 03/11/23 06:00 101 H 20 99/45 L 97 03/11/23 05:00 03/11/23 04:00 103 H 92 L 03/11/23 03:00 03/11/23 02:00 92 H 17 89/41 L 97 03/11/23 00:00 122 H 03/10/23 20:00 88 03/11/23 01:00 03/11/23 00:00 98.4 F 95 H 20 98/45 L 95 03/11/23 00:21 109 H 03/11/23 00:21 103 H 03/10/23 23:00 03/10/23 20:00 125 H 98 03/10/23 22:00 105 H 22 101/68 L 99 03/10/23 21:00 03/10/23 20:00 98.8 F 116 H 18 106/61 L 96 03/10/23 20:27 145 H 03/10/23 18:00 143 H 26 H 98/62 L 94 L 03/10/23 18:47 03/10/23 18:24 92 L 03/10/23 17:00 03/10/23 16:00 120 H 03/10/23 12:00 108 H 03/10/23 16:00 121 H 03/10/23 15:35 99.4 F 03/10/23 15:00 03/10/23 14:00 121 H 28 H 164/89 H 03/10/23 13:00 03/10/23 11:30 98.3 F 03/10/23 11:25 120 H 18 03/10/23 11:20 126 H 03/10/23 11:20 120 H 03/10/23 11:20 92 L 03/10/23 08:00 90 03/10/23 11:00 03/10/23 10:00 98.2 F 105 H 16 116/70 92 L 03/10/23 09:00 03/10/23 10:28 98 H 26 H 92 L 03/10/23 08:00 79 20 166/79 H 88 L O2 Del Method O2 Flow Rate FiO2 03/11/23 04:00 03/11/23 06:03 03/11/23 06:03 03/11/23 06:03 Vapotherm 40 50 03/11/23 04:00 Vapotherm 40 90 03/11/23 00:00 Vapotherm 40 90 03/11/23 06:57 Vapotherm 35 03/11/23 06:00 Vapotherm 40 55 03/11/23 05:00 Vapotherm 40 03/11/23 04:00 Vapotherm 40 90 03/11/23 03:00 Vapotherm 40 03/11/23 02:00 Vapotherm 40 90 03/11/23 00:00 03/10/23 20:00 03/11/23 01:00 Vapotherm 40 03/11/23 00:00 Vapotherm 40 90 03/11/23 00:21 03/11/23 00:21 03/10/23 23:00 Vapotherm 40 03/10/23 20:00 Vapotherm 40 90 03/10/23 22:00 Vapotherm 40 90 03/10/23 21:00 Vapotherm 40 03/10/23 20:00 Vapotherm 40 90 03/10/23 20:27 03/10/23 18:00 Vapotherm 40 03/10/23 18:47 Vapotherm 03/10/23 18:24 Vapotherm 40 55 03/10/23 17:00 Vapotherm 40 03/10/23 16:00 03/10/23 12:00 03/10/23 16:00 Vapotherm 03/10/23 15:35 03/10/23 15:00 Vapotherm 40 03/10/23 14:00 40 55 03/10/23 13:00 Vapotherm 40 03/10/23 11:30 03/10/23 11:25 03/10/23 11:20 03/10/23 11:20 03/10/23 11:20 Vapotherm 40 55 03/10/23 08:00 03/10/23 11:00 Vapotherm 40 03/10/23 10:00 Vapotherm 40 55 03/10/23 09:00 Vapotherm 03/10/23 10:28 Vapotherm 40 55 03/10/23 08:00 Vapotherm Intake and Output 03/10/23 03/10/23 03/11/23 15:59 23:59 07:59 Intake Total 470 / 1195.636 485.636 / 1510.182 5747 / 1679 Output Total 1700 / 4050 1750 / 4050 500 / 500 Balance -1230 / -2854.364 -1264.364 / -2854.364 1179 / 1179 Intake: Intake, Oral Amount 470 / 980 270 / 980 710 / 710 Intake, Total IV Amount 215.636 / 215.636 969 / 969 Cefepime HCl 2 gm In 0.9 % 100 / 100 Sodium Chloride 100 ml @ 200 mls/hr IV Q12H [facility] Rx#:[id number] Esmolol HCl in Sterile Water 2, 419 / 419 500 mg In 250 ml @ 50 MCG/KG/ MIN 39.326 mls/hr IV .Q6H22M [facility] Rx#:[id number] Metronidaz/Sod Chl 500 mg In 100 / 100 100 ml @ 100 mls/hr IV Q8H [facility] Rx#:[id number] levETIRAcetam 750 mg In 0.9 % 100 / 100 Sodium Chloride 100 ml @ 215 mls/hr IV Q12 [facility] Rx#:[id number] Output: Output, Urine Amount 1700 / 2300 500 / 500 Output, Urine Amount (Catheter) 1750 / 1750 Romero 1750 / 1750 Other:
[2023-03-11 07:59] LABS: Magnesium 1.7 mg/dl (1.6-2.3)
--- NOTE | 2023-03-11 08:46 | PC.NURSE ---
got pt from chair to bsc, pt did not have bm and wanted to get back to bed so got pt back to bed, pt stated had been up in chair all night was very tired, call light within reach
--- NOTE | 2023-03-11 09:12 | EXP.CARD.PN ---
Subjective Subjective Date: 03/11/23 Time: 08:30 Principal diagnosis: acute HFrEF, afib with RVR Interval history: This is a 77-year-old white female who presented to the emergency department complains of shortness of breath. The patient was found to have an acute exacerbation of HFrEF. The patient has been treated with IV Bumex and oral metolazone. Yesterday she was started on oral spironolactone as well as Entresto. Her diltiazem had to be stopped secondary to her cardiomyopathy. She had her beta-kendrick switched and titrated. The patient did go in atrial fibrillation with RVR last night. She remains on an esmolol drip this morning. She was also given a dose of IV digoxin. This morning the patient remains in atrial fibrillation with a heart rate between 98 and 122 bpm. She states that she is feeling much better today. She states her shortness of breath is significantly improved. She states that she slept in the chair all night last night and just transferred from the chair to the bed and had no shortness of breath. She denies any lower extremity edema. She denies any chest pain or pressure. She denies any fever, chills, nausea, vomiting, diarrhea, PND or orthopnea. She does remain on a Vapotherm mask this morning. Exam Data for Last 24 hours Vital signs and Labs for Last 24 Hours: Temp Pulse Resp BP Pulse Ox O2 Del Method O2 Flow Rate 97.8 F 123 H 20 110/64 89 L Vapotherm 40 03/11/23 04:00 03/11/23 08:39 03/11/23 08:39 03/11/23 08:39 03/11/23 08:39 03/11/23 08:39 03/11/23 08:39 FiO2 55 03/11/23 08:39 Laboratory Results - last 24 hr 03/10/23 09:42: POC Glucose 132 H 03/10/23 11:35: POC Glucose 190 H 03/10/23 17:11: POC Glucose 255 H 03/10/23 17:50: Sodium 136, Potassium 3.8, Chloride 83 L, Carbon Dioxide 41 H*, Anion Gap 15.8 H, BUN 33 H, Creatinine 1.00, Estimated Creat Clear 45, Estimated GFR 54 L, Est GFR ( Amer) 65, Glucose 263 H D, Calcium 9.7 03/10/23 17:55: Magnesium 1.6 03/10/23 20:14: POC Glucose 280 H 03/11/23 05:28: POC Glucose 119 H 03/11/23 05:42: WBC 15.9 H, RBC 4.35, Hgb 12.9, Hct 40.9, MCV 94.0, MCH 29.8, MCHC 31.7 L, RDW 16.0, Plt Count 296, MPV 7.5, Neut % (Auto) 80.0, Lymph % (Auto) 12.7, Gem % (Auto) 5.5, Eos % (Auto) 1.3, Baso % (Auto) 0.4, Neut # (Auto) 12.8 H, Lymph # (Auto) 2.0, Gem # (Auto) 0.9, Eos # (Auto) 0.2, Baso # (Auto) 0.1, Total Counted 100, Neutrophils % (Manual) 80 H, Lymphocytes % (Manual) 18, Monocytes % (Manual) 2, Platelet Estimate Normal, RBC Morphology Normal, Sodium 131 L, Potassium 4.1, Chloride 85 L, Carbon Dioxide 38 H, Anion Gap 12.1, BUN 44 H D, Creatinine 1.50 H D, Estimated Creat Clear 30, Estimated GFR 34 L, Est GFR ( Amer) 41 L D, Glucose 134 H D, Calcium 9.2, Magnesium 1.7, Total Bilirubin 1.0, Direct Bilirubin 0.1, Conjugated Bilirubin 0.0, Indirect Bilirubin 0.9, Unconjugated Bilirubin 0.9, AST 46 H, ALT 23, Alkaline Phosphatase 120, Total Protein 7.9, Albumin 3.9, Triglycerides 206 H, Cholesterol 186, LDL Cholesterol Direct 91.82 L, VLDL Cholesterol 41 H, HDL Cholesterol 30 L, Cholesterol/HDL Ratio 6.2 H I & O for Last 24 hours: Intake & Output 03/08/23 03/09/23 03/10/23 03/11/23 23:59 23:59 23:59 23:59 Intake Total 110 / 699 829 / 829 955.636 / 5948.369 0962 / 1809 Output Total 3475 / 3475 3425 / 4025 4050 / 4050 500 / 500 Balance -3365 / -2496 -5086 / -4551 -6476.364 / -2854.364 1309 / 1309 Weight 297 lb 9.985 oz 289 lb Constitutional Constitutional: no acute distress and morbidly obese *Routine HEENT Exam Head: Present normocephalic and atraumatic ENT: Present mucous membranes moist *Routine Neck Exam Neck: Present supple, full ROM and normal carotid upstroke; Absent JVD, carotid bruit or lymphadenopathy *Routine Respiratory Exam Respiratory: Present rales, rhonchi, crackles, diminished air movement and symmetric chest movement *Routine Cardiovascular Exam Cardiovascular: Present Normal S1, Normal S2, murmur, tachycardia and irreg
--- NOTE | 2023-03-11 09:34 | EXP.PULM.PN ---
Subjective *Date: 03/11/23 *Time: 13:45 Interval history: No acute respiratory vents overnight. Pulmonology Exam Inpatient Vital signs and Labs for Last 24 Hours: Temp Pulse Resp BP Pulse Ox O2 Del Method O2 Flow Rate 97.8 F 104 H 20 122/60 95 Vapotherm 40 03/11/23 04:00 03/11/23 09:17 03/11/23 08:39 03/11/23 09:17 03/11/23 09:17 03/11/23 09:17 03/11/23 09:17 FiO2 50 03/11/23 09:17 Laboratory Results - last 24 hr 03/10/23 09:42: POC Glucose 132 H 03/10/23 11:35: POC Glucose 190 H 03/10/23 17:11: POC Glucose 255 H 03/10/23 17:50: Sodium 136, Potassium 3.8, Chloride 83 L, Carbon Dioxide 41 H*, Anion Gap 15.8 H, BUN 33 H, Creatinine 1.00, Estimated Creat Clear 45, Estimated GFR 54 L, Est GFR ( Amer) 65, Glucose 263 H D, Calcium 9.7 03/10/23 17:55: Magnesium 1.6 03/10/23 20:14: POC Glucose 280 H 03/11/23 05:28: POC Glucose 119 H 03/11/23 05:42: WBC 15.9 H, RBC 4.35, Hgb 12.9, Hct 40.9, MCV 94.0, MCH 29.8, MCHC 31.7 L, RDW 16.0, Plt Count 296, MPV 7.5, Neut % (Auto) 80.0, Lymph % (Auto) 12.7, Jack % (Auto) 5.5, Eos % (Auto) 1.3, Baso % (Auto) 0.4, Neut # (Auto) 12.8 H, Lymph # (Auto) 2.0, Jack # (Auto) 0.9, Eos # (Auto) 0.2, Baso # (Auto) 0.1, Total Counted 100, Neutrophils % (Manual) 80 H, Lymphocytes % (Manual) 18, Monocytes % (Manual) 2, Platelet Estimate Normal, RBC Morphology Normal, Sodium 131 L, Potassium 4.1, Chloride 85 L, Carbon Dioxide 38 H, Anion Gap 12.1, BUN 44 H D, Creatinine 1.50 H D, Estimated Creat Clear 30, Estimated GFR 34 L, Est GFR ( Amer) 41 L D, Glucose 134 H D, Calcium 9.2, Magnesium 1.7, Total Bilirubin 1.0, Direct Bilirubin 0.1, Conjugated Bilirubin 0.0, Indirect Bilirubin 0.9, Unconjugated Bilirubin 0.9, AST 46 H, ALT 23, Alkaline Phosphatase 120, Total Protein 7.9, Albumin 3.9, Triglycerides 206 H, Cholesterol 186, LDL Cholesterol Direct 91.82 L, VLDL Cholesterol 41 H, HDL Cholesterol 30 L, Cholesterol/HDL Ratio 6.2 H I & O for Labs for Last 24 Hours: Intake & Output 03/08/23 03/09/23 03/10/23 03/11/23 23:59 23:59 23:59 23:59 Intake Total 110 / 699 829 / 829 955.636 / 1322.417 2881 / 1809 Output Total 3475 / 3475 3425 / 4025 4050 / 4050 530 / 530 Balance -3365 / -2776 -2596 / -3196 -3094.364 / -2854.364 1279 / 1279 Weight 297 lb 9.985 oz 289 lb Microbiology Reports for the Last 24 Hours: Microbiology 03/07/23 10:43 Blood Blood Culture - Preliminary NO GROWTH AFTER 48 HOURS 03/07/23 10:17 Blood Blood Culture - Preliminary NO GROWTH AFTER 48 HOURS Constitutional: Present severe distress Head: Present normocephalic and atraumatic ENT: Present normal exam, normal oropharynx and mucous membranes moist Neck: Present normal inspection and full ROM Respiratory: Present respiratory distress, rhonchi, crackles and diminished air movement; Absent wheezes or able to speak in complete sentences Cardiac: Present Tachycardia and radial pulses present; Absent S1/S2 GI: Present soft and distention; Absent tenderness or guarding Rectal (female): Present deferred (female): Present deferred Skin: Present intact; Absent cyanosis or jaundice Neuro: Present alert and awake Extremities: Present normal inspection; Absent clubbing or cyanosis Psychiatric: Present normal affect and cooperative Assessment and Plan *Assessment and plan (1) Acute respiratory failure with hypoxemia: Status: Acute Category: Medical Code(s): J96.01 - Acute respiratory failure with hypoxia (2) Pleural effusion due to CHF (congestive heart failure): Status: Acute Category: Medical Code(s): I50.9 - Heart failure, unspecified (3) Atelectasis of both lungs: Status: Acute Category: Medical Code(s): J98.11 - Atelectasis (4) Pneumonia: Status: Acute Qualifiers: Laterality: bilateral Lung location: lower lobe of lung Pneumonia type: due to unspecified organism Qualifie
--- NOTE | 2023-03-11 09:37 | EXP.ACUTE.PN ---
Subjective *Date: 03/11/23 *Time: 09:37 Interval history: Patient states she is feeling little better this morning. Slept in the chair for comfort overnight. Has diuresed well over the past 24 hours. -3 L yesterday. -8.5 L since admission. Denies chest pain, nausea, vomiting. Last bowel movement was Thursday, small. Tolerating bowel regimen at this time. Discussed with patient that if no bowel movement by this afternoon, would consider enema. Medical Exam Vital signs and Labs for Last 24 Hours: Vital Signs Temp Pulse Pulse Pulse Resp BP Pulse Ox 03/11/23 09:00 03/11/23 08:39 123 H 20 110/64 89 L 03/11/23 08:00 108 H 24 98/60 L 95 03/11/23 09:17 104 H 122/60 95 03/11/23 09:00 94 H 102/43 L 90 L 03/11/23 07:00 103 H 22 114/59 L 97 03/11/23 04:00 100 H 03/11/23 06:03 122 H 03/11/23 06:03 104 H 03/11/23 06:03 97 03/11/23 04:00 97.8 F 103 H 20 74/58 L 95 03/11/23 00:00 102 H 96 03/11/23 06:57 03/11/23 06:00 101 H 20 99/45 L 97 03/11/23 05:00 03/11/23 04:00 103 H 92 L 03/11/23 03:00 03/11/23 02:00 92 H 17 89/41 L 97 03/11/23 00:00 122 H 03/10/23 20:00 88 03/11/23 01:00 03/11/23 00:00 98.4 F 95 H 20 98/45 L 95 03/11/23 00:21 109 H 03/11/23 00:21 103 H 03/10/23 23:00 03/10/23 20:00 125 H 98 03/10/23 22:00 105 H 22 101/68 L 99 03/10/23 21:00 03/10/23 20:00 98.8 F 116 H 18 106/61 L 96 03/10/23 20:27 145 H 03/10/23 18:00 143 H 26 H 98/62 L 94 L 03/10/23 18:47 03/10/23 18:24 92 L 03/10/23 17:00 03/10/23 16:00 120 H 03/10/23 12:00 108 H 03/10/23 16:00 121 H 03/10/23 15:35 99.4 F 03/10/23 15:00 03/10/23 14:00 121 H 28 H 164/89 H 03/10/23 13:00 03/10/23 11:30 98.3 F 03/10/23 11:25 120 H 18 03/10/23 11:20 126 H 03/10/23 11:20 120 H 03/10/23 11:20 92 L 03/10/23 11:00 03/10/23 10:00 98.2 F 105 H 16 116/70 92 L 03/10/23 10:28 98 H 26 H 92 L O2 Del Method O2 Flow Rate FiO2 03/11/23 09:00 Vapotherm 40 03/11/23 08:39 Vapotherm 40 50 03/11/23 08:00 Vapotherm 40 55 03/11/23 09:17 Vapotherm 40 50 03/11/23 09:00 Vapotherm 40 50 03/11/23 07:00 Vapotherm 40 55 03/11/23 04:00 03/11/23 06:03 03/11/23 06:03 03/11/23 06:03 Vapotherm 40 50 03/11/23 04:00 Vapotherm 40 90 03/11/23 00:00 Vapotherm 40 90 03/11/23 06:57 Vapotherm 35 03/11/23 06:00 Vapotherm 40 55 03/11/23 05:00 Vapotherm 40 03/11/23 04:00 Vapotherm 40 90 03/11/23 03:00 Vapotherm 40 03/11/23 02:00 Vapotherm 40 90 03/11/23 00:00 03/10/23 20:00 03/11/23 01:00 Vapotherm 40 03/11/23 00:00 Vapotherm 40 90 03/11/23 00:21 03/11/23 00:21 03/10/23 23:00 Vapotherm 40 03/10/23 20:00 Vapotherm 40 90 03/10/23 22:00 Vapotherm 40 90 03/10/23 21:00 Vapotherm 40 03/10/23 20:00 Vapotherm 40 90 03/10/23 20:27 03/10/23 18:00 Vapotherm 40 03/10/23 18:47 Vapotherm 03/10/23 18:24 Vapotherm 40 55 03/10/23 17:00 Vapotherm 40 03/10/23 16:00 03/10/23 12:00 03/10/23 16:00 Vapotherm 03/10/23 15:35 03/10/23 15:00 Vapotherm 40 03/10/23 14:00 40 55 03/10/23 13:00 Vapotherm 40 03/10/23 11:30 03/10/23 11:25 03/10/23 11:20 03/10/23 11:20 03/10/23 11:20 Vapotherm 40 55 03/10/23 11:00 Vapotherm 40 03/10/23 10:00 Vapotherm 40 55 03/10/23 10:28 Vapotherm 40 55 Intake and Output 03/10/23 03/11/23 03/11/23 23:59 07:59 15:59 Intake Total 485.636 / 2943.410 5868 / 1809 130 / 1809 Output Total 1750 / 4050 500 / 530 30 / 530 Balance -1264.364 / -2854.364 1179 / 1279 100 / 1279 Intake: Intake, Oral Amount 270 / 980 710 / 840 130 / 840 Intake, Total IV
--- NOTE | 2023-03-11 10:19 | PC.NURSE ---
MD Murray decreased vapotherm rate to 30L and 40%FIO2, pt oxygen saturation 88-91%
--- NOTE | 2023-03-11 10:43 | PC.NURSE ---
pt's oxygen saturations 83-86%, increased vapotherm to 35L and 50%FIO2 per order from MD Murray; sats stayed low while pt laying down, RT's and this RN pulled pt up in bed, sats still low; sat pt up on edge of bed and sats 94-96%
[2023-03-11 11:23] LABS: POC Glucose,Bedside 239 (70-110)
--- NOTE | 2023-03-11 11:50 | PC.NURSE ---
got pt up to bsc
--- NOTE | 2023-03-11 12:05 | PC.NURSE ---
pt did not have bm, got pt back to bed, sitting on edge of bed, set up lunch tray, call light within reach
[2023-03-11 16:52] LABS: POC Glucose,Bedside 198 (70-110)
[2023-03-11 18:01] LABS: Chloride 86 mmol/L (98-107); Sodium 133 mmol/L (136-145)
[2023-03-11 18:04] LABS: Blood Urea Nitrogen 55 mg/dl (7-17); Carbon Dioxide 39 mmol/L (22.0-30.0); Creatinine Clearance Estimated 28 mL/min (50-200); Estimated Glomerular Filt Rate 31 ml/min (>60); GFR (African American) 38 ML/MIN (>60); Glucose 199 mg/dl (74-100)
--- NOTE | 2023-03-11 18:34 | PC.NURSE ---
Addendum entered by Lou Sun RN 03/11/23 18:41: pt had 450mL UOP out after the first dose of bumex not 350mL... Original Note: pt resting in bed, pt has had 2 bowel movements this shift, pt's oxygen saturations have remained 88-96% on 35L and 50%FIO2, HR will go below 100 but very shortlived and bounces back to low 100's, esmolol drip continued at 50mcg/kg/min, pt with adequate UOP bumex decreased but still being given (pt had 350mL out after the first dose and then 500 out after the second dose), call light within reach
[2023-03-11 20:24] LABS: POC Glucose,Bedside 249 (70-110)
[2023-03-12] VITALS (14 sets, daily range): BP systolic 82–131; BP diastolic 42–77; PULSE 50–110; RESP 16–22; TEMP 36.9; O2SAT 88–99; BMI 45.3
--- NOTE | 2023-03-12 00:33 | PC.NURSE ---
IV in right hand noted to be red, swollen, and patient complaining of pain. [employer]GRAMS DIRECTOR notified. Pharmacy contacted and informed that last medication to run through IV before complications was Flagyl. They state this is an irritant and to ice and elevate the extremity. Ice applied, however patient refuses to change positions to elevate arm. Patient informed that symptoms could progress and cause complications without elevation; she verbalized understanding however she still refuses. Will continue to educate patient and attempt to elevate extremity.
--- NOTE | 2023-03-12 01:08 | ECG_ITS ---
APPROVED REPORT Exam: Resting ECG HR:89 bpm ECG Measurements Heart Rate 89 AXES QRSd 99 QRS -44 QT 362 T 57 QTc 408 Conclusion ATRIAL FIBRILLATION LEFT AXIS DEVIATION [QRS AXIS < -30] PATTERN CONSISTENT WITH PULMONARY DISEASE INCOMPLETE RIGHT BUNDLE BRANCH BLOCK [90+ ms QRS DURATION, TERMINAL R IN V1/V2, 40+ ms S IN I/aVL/V4/V5/V6] NONSPECIFIC ST & T-WAVE ABNORMALITY ABNORMAL ECG UNCONFIRMED REPORT Electronically signed by : Kyle Thomas MD 03/12/2023 19:57:33
[2023-03-12 01:48] LABS: Troponin I 0.02 ng/ml (0.00-0.034)
[2023-03-12 04:17] LABS: Chloride 86 mmol/L (98-107); Sodium 134 mmol/L (136-145)
[2023-03-12 04:18] LABS: Basophils # 0.1 K/mm3 (0-0.2); Basophils % 0.4 % (0.1-2.0); Eosinophils # 0.4 K/mm3 (0.0-0.4); Eosinophils % 2.2 % (0.1-12.0); Hematocrit 39.8 % (37.0-47.0); Hemoglobin 12.7 g/dL (12.2-16.2); Lymphocytes # 2.2 K/mm3 (0.7-4.5); Lymphocytes % 13.4 % (10-50); Mean Corpuscular Hemoglobin 29.7 pg (27.0-31.2); Mean Corpuscular Volume 92.8 fl (81-99); Mean Platelet Volume 7.9 fl (7.4-10.4); Monocytes # 0.9 K/mm3 (0.1-1.0); Monocytes % 5.3 % (1.7-9.3); Neutrophils # 12.8 K/mm3 (1.8-7.8); Neutrophils % 78.8 % (37.0-80.0); Platelet Count 285 K/mm3 (142-424); Potassium 3.7 mmoL/L (3.5-5.1); Red Blood Count 4.29 M/mm3 (4.20-5.40); Red Cell Distribution Width 15.8 % (11.5-17.5); White Blood Count 16.3 K/mm3 (4.8-10.8)
[2023-03-12 04:20] LABS: Alanine Aminotransferase 27 U/L (12-78); Alkaline Phosphatase 120 U/L (38-126); Anion Gap 11.7 mEq/L (5-15); Aspartate Amino Transferase 34 U/L (14-36); Bilirubin,Total 0.7 mg/dl (0.2-1.3); Blood Urea Nitrogen 58 mg/dl (7-17); Calcium 9.2 mg/dl (8.4-10.2); Carbon Dioxide 40 mmol/L (22.0-30.0); Creatinine Clearance Estimated 30 mL/min (50-200); Estimated Glomerular Filt Rate 34 ml/min (>60); GFR (African American) 41 ML/MIN (>60); Glucose 86 mg/dl (74-100)
[2023-03-12 04:21] LABS: Albumin Level 3.7 g/dl (3.5-5.0); Globulin 3.6 g/dL (1.3-3.2); Magnesium 1.9 mg/dl (1.6-2.3); Total Protein,Serum 7.3 g/dl (6.3-8.2)
[2023-03-12 04:26] LABS: MANUAL DIFFERENTIAL MANUAL DIFFERENTIAL (MANUAL DIFF)
[2023-03-12 05:24] LABS: Eosinophils % 5 % (0-3); Lymphocytes % 12 % (10-50); Monocytes % 3 % (2-9); Neutrophils % 80 % (42-76); Total Cells Counted 100
[2023-03-12 05:25] LABS: Platelet Estimate Normal; RBC Morphology Normal
[2023-03-12 05:34] LABS: POC Glucose,Bedside 161 (70-110)
--- NOTE | 2023-03-12 07:55 | EXP.PHA.PN ---
Subjective *Date: 03/12/23 *Time: 07:55 Medical Exam Vital signs and Labs for Last 24 Hours: Vital Signs Temp Pulse Pulse Resp BP Pulse Ox O2 Del Method 03/12/23 06:00 79 18 122/54 L 92 L Vapotherm 03/12/23 06:15 94 L Vapotherm 03/12/23 05:00 Vapotherm 03/12/23 04:00 83 18 125/46 L 97 Vapotherm 03/12/23 04:00 83 97 Vapotherm 03/12/23 03:00 Vapotherm 03/12/23 04:00 90 03/12/23 02:00 82 16 94/50 L 99 Vapotherm 03/12/23 01:00 Vapotherm 03/12/23 00:00 80 03/12/23 00:00 78 18 82/42 L 88 L Vapotherm 03/12/23 00:12 83 03/12/23 00:12 94 H 03/11/23 23:00 Vapotherm 03/11/23 22:00 95 H 20 113/90 99 Vapotherm 03/11/23 20:00 110 H 03/11/23 21:00 Vapotherm 03/11/23 20:00 107 H 20 134/66 96 Vapotherm 03/11/23 20:00 102 H 91 L Vapotherm 03/11/23 18:46 107 H 03/11/23 18:46 108 H 03/11/23 18:46 94 L Vapotherm 03/11/23 18:28 Vapotherm 03/11/23 18:00 105 H 22 104/57 L 99 Mechanical Ventilation 03/11/23 16:00 90 L Vapotherm 03/11/23 17:00 Vapotherm 03/11/23 16:00 100 H 03/11/23 12:01 140 H 03/11/23 15:52 98.3 F 03/11/23 14:52 Vapotherm 03/11/23 13:00 Vapotherm 03/11/23 14:00 97 H 18 89/43 L 90 L Vapotherm 03/11/23 13:20 95 03/11/23 12:50 112 H 03/11/23 12:50 110 H 03/11/23 11:00 Vapotherm 03/11/23 11:37 98.2 F 03/11/23 08:00 110 H 03/11/23 10:00 111 H 21 96/62 L 90 L Vapotherm 03/11/23 08:00 95 Vapotherm 03/11/23 09:45 115 H 03/11/23 09:00 Vapotherm 03/11/23 08:39 123 H 20 110/64 89 L Vapotherm 03/11/23 08:00 108 H 24 98/60 L 95 Vapotherm 03/11/23 09:17 104 H 122/60 95 Vapotherm 03/11/23 09:00 94 H 102/43 L 90 L Vapotherm O2 Flow Rate FiO2 03/12/23 06:00 25 30 03/12/23 06:15 25 30 03/12/23 05:00 30 03/12/23 04:00 30 40 03/12/23 04:00 30 40 03/12/23 03:00 30 03/12/23 04:00 03/12/23 02:00 35 50 03/12/23 01:00 35 03/12/23 00:00 03/12/23 00:00 35 50 03/12/23 00:12 03/12/23 00:12 03/11/23 23:00 35 03/11/23 22:00 35 50 03/11/23 20:00 03/11/23 21:00 35 03/11/23 20:00 35 50 03/11/23 20:00 35 50 03/11/23 18:46 03/11/23 18:46 03/11/23 18:46 35 50 03/11/23 18:28 35 03/11/23 18:00 35 50 03/11/23 16:00 35 50 03/11/23 17:00 35 03/11/23 16:00 03/11/23 12:01 03/11/23 15:52 03/11/23 14:52 35 03/11/23 13:00 35 03/11/23 14:00 35 03/11/23 13:20 35 50 03/11/23 12:50 03/11/23 12:50 03/11/23 11:00 35 03/11/23 11:37 03/11/23 08:00 03/11/23 10:00 40 50 09/06/23 08:00 40 50 03/11/23 09:45 03/11/23 09:00 40 03/11/23 08:39 40 50 03/11/23 08:00 40 55 03/11/23 09:17 40 50 03/11/23 09:00 40 50 Intake and Output 03/11/23 03/11/23 03/12/23 15:59 23:59 07:59 Intake Total 1630 / 4795.104 1486.104 / 4795.104 800 / 800 Output Total 56 / 1056 500 / 1056 850 / 850 Balance 1574 / 3739.104 986.104 / 3739.104 -50 / -50 Intake: Intake, Oral Amount 930 / 2680 1040 / 2680 500 / 500 Intake, Total IV Amount 700 / 2115.104 446.104 / 2115.104 300 / 300 Azithromycin 500 mg In 0.9 % 250 / 250 Sodium Chloride 250 ml @ 250 mls/hr IV ONCE ONE Rx#:[id number] Cefepime HCl 2 gm In 0.9 % 100 / 200 100 / 100 Sodium Chloride 100 ml @ 200 mls/hr IV Q12H [facility] Rx#:[id number] Metronidaz/Sod Chl 500 mg In 100 / 200 200 / 200 100 ml @ 100 mls/hr IV Q8H [facility] Rx#:[id number] levETIRAcetam 750 mg In 0.9 % 100 / 200 Sodium Chloride 100 ml @ 215 mls/hr IV Q12 [facility] Rx#:[id number] Output: Output, Urine Amount 56 / 1056 500 / 1056 850 / 850 Other: Number of Unmeasured Voids 450 1 Number of Bowel Movements 1 Weight 131.088
--- NOTE | 2023-03-12 09:04 | EXP.PULM.PN ---
Subjective *Date: 03/12/23 *Time: 10:16 Pulmonology Exam Inpatient Vital signs and Labs for Last 24 Hours: Temp Pulse Resp BP Pulse Ox O2 Del Method O2 Flow Rate 98.5 F 110 H 18 122/54 L 99 Nasal Cannula 4 03/12/23 08:00 03/12/23 08:00 03/12/23 06:00 03/12/23 06:00 03/12/23 08:05 03/12/23 08:05 03/12/23 08:05 FiO2 30 03/12/23 06:15 Laboratory Results - last 24 hr 03/11/23 11:16: POC Glucose 239 H 03/11/23 16:45: POC Glucose 198 H 03/11/23 17:47: Sodium 133 L, Potassium 4.0, Chloride 86 L, Carbon Dioxide 39 H, Anion Gap 12.0, BUN 55 H, Creatinine 1.60 H, Estimated Creat Clear 28, Estimated GFR 31 L, Est GFR ( Amer) 38 L, Glucose 199 H D, Calcium 9.0 03/11/23 20:17: POC Glucose 249 H 03/12/23 01:17: Troponin I 0.02 03/12/23 04:05: WBC 16.3 H, RBC 4.29, Hgb 12.7, Hct 39.8, MCV 92.8, MCH 29.7, MCHC 32.0, RDW 15.8, Plt Count 285, MPV 7.9, Neut % (Auto) 78.8, Lymph % (Auto) 13.4, [place] % (Auto) 5.3, Eos % (Auto) 2.2, Baso % (Auto) 0.4, Neut # (Auto) 12.8 H, Lymph # (Auto) 2.2, [place] # (Auto) 0.9, Eos # (Auto) 0.4, Baso # (Auto) 0.1, Total Counted 100, Neutrophils % (Manual) 80 H, Lymphocytes % (Manual) 12, Monocytes % (Manual) 3, Eosinophils % (Manual) 5 H, Platelet Estimate Normal, RBC Morphology Normal, Sodium 134 L, Potassium 3.7, Chloride 86 L, Carbon Dioxide 40 H, Anion Gap 11.7, BUN 58 H, Creatinine 1.50 H, Estimated Creat Clear 30, Estimated GFR 34 L, Est GFR ( Amer) 41 L, Glucose 86 D, Calcium 9.2, Magnesium 1.9 D, Total Bilirubin 0.7, AST 34 D, ALT 27, Alkaline Phosphatase 120, Total Protein 7.3, Albumin 3.7, Globulin 3.6 H, Albumin/Globulin Ratio 1.0 L 03/12/23 05:27: POC Glucose 161 H I & O for Labs for Last 24 Hours: Intake & Output 03/09/23 03/10/23 03/11/23 03/12/23 23:59 23:59 23:59 23:59 Intake Total 829 / 829 955.636 / 8692.210 3064.104 / 4795.104 800 / 800 Output Total 3425 / 4025 4050 / 4050 1056 / 1056 850 / 850 Balance -2596 / -3196 -3094.364 / -2854.364 3739.104 / 3739.104 -50 / -50 Weight 289 lb 288 lb 15.993 oz Microbiology Reports for the Last 24 Hours: Microbiology 03/07/23 10:43 Blood Blood Culture - Preliminary NO GROWTH AFTER 48 HOURS 03/07/23 10:17 Blood Blood Culture - Preliminary NO GROWTH AFTER 48 HOURS Constitutional: Present severe distress Head: Present normocephalic and atraumatic ENT: Present normal exam, normal oropharynx and mucous membranes moist Neck: Present normal inspection and full ROM Respiratory: Present respiratory distress, rhonchi and crackles; Absent wheezes or able to speak in complete sentences Cardiac: Present Tachycardia and radial pulses present; Absent S1/S2 GI: Present soft and distention; Absent tenderness or guarding Rectal (female): Present deferred (female): Present deferred Skin: Present intact; Absent cyanosis or jaundice Neuro: Present alert and awake Extremities: Present normal inspection; Absent clubbing or cyanosis Psychiatric: Present normal affect and cooperative Assessment and Plan *Assessment and plan (1) Acute respiratory failure with hypoxemia: Status: Acute Category: Medical Code(s): J96.01 - Acute respiratory failure with hypoxia (2) Pleural effusion due to CHF (congestive heart failure): Status: Acute Category: Medical Code(s): I50.9 - Heart failure, unspecified (3) Atelectasis of both lungs: Status: Acute Category: Medical Code(s): J98.11 - Atelectasis (4) Pneumonia: Status: Acute Qualifiers: Laterality: bilateral Lung location: lower lobe of lung Pneumonia type: due to unspecified organism Qualified Code(s): J18.9 - Pneumonia, unspecified organism Category: Medical Code(s): J18.9 - Pneumonia, unspecified organism Plan Ms. Cortés is a 77-year-old female history of COPD CHF presented to hospital worsening respiratory distress hypoxic respiratory failur
--- NOTE | 2023-03-12 09:12 | XR_ITS ---
FINAL REPORT CLINICAL HISTORY: hypoxia COMPARISON: 03/10/2023 FINDINGS: A single portable view of the chest was obtained. Cardiomegaly is noted. There is partially improved pulmonary vascular congestion. The mediastinum is within normal limits. There is improved aeration of the lungs. There is persistent small right pleural effusion and right lung base atelectasis or pneumonia. The bony thorax is intact. IMPRESSION: Persistent small right pleural effusion and right lung base atelectasis or pneumonia. Improved pulmonary vascular congestion and aeration of the lungs. Reviewed, Interpreted and Dictated by Albino Nuno III, MD Transcribed by Myah Stoner Authenticated and [facility]
--- NOTE | 2023-03-12 09:52 | EXP.DC.SUM ---
General Admission date:: 03/07/23 Discharge date: 03/12/23 HPI HPI HPI: Dina Cortés is a 77 year old female with a past medical history of COPD on 2L NC continously, diastolic CHF, pulmonary hypertension, CAD, atrial fibrillation on Xarelto, morbid obesity, htn, hld, and t2dm. She is a [place] [facility] [place] resident at [facility] who presented to the ED with 2 weeks of worsening shortness of breath associated with a productive cough and chills. She denies wheezing and worsening swelling. She hasn't had any recent hospitalizations. She denies worsening swelling of the lower extremities but may have had worsening swelling of the abdomen. Initial vitals from the ED: spo2 89% on 6L NC - BP 141/76 - HR 94 - RR 22 - T 98F Initial workup: CBC with 11.6L wbcs CMP with na 136, K 5, cr 1.0 ua 3-5 wbcs cxr interstitial prominence and asymmetric bibasilar airspace disease. asymmetric pleural effusions, left greater than right. Hospital Course Hospital Course Hospital Course: Dina Cortés is a 77 year old female with a past medical history of COPD on 2L NC continously, diastolic CHF, pulmonary hypertension, CAD, atrial fibrillation on Xarelto, morbid obesity, htn, hld, and t2dm. 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 She is admitted with acute on chronic heart failure with reduced ejection fraction, suspected pneumonia, acute on chronic hypoxemic respiratory failure. Pulmonology and cardiology consulted. Has done well with weaning of oxygen as patient diuresed. Complete antibiotics for pneumonia. Stable to discharge back to long-term care facility. Problems addressed as follows: Acute on chronic heart failure with reduced ejection fraction A-fib with RVR Hyperlipidemia Hypertension -Cardiology consulted, appreciate their recommendations. Discussed case with cardiology daily. We will continue diuresis. Transition to oral regimen to continue at discharge. Continue Bumex 2 mg daily, metolazone 5 mg daily, spironolactone 12.5 mg daily. Creatinine stable at 1.5. Needs repeat labs in 1 week. Has diuresed over 9 L negative fluid balance during admission with improvement in her breathing. Echocardiogram was obtained during admission showing EF of 40% with AV stenosis of 1.3 cm?. Has a significantly dilated right ventricle. Will need follow-up with cardiology in the next 1 to 2 weeks. For her A-fib with RVR, necessitated initiation of digoxin and was temporarily on an esmolol drip. Has had good rate control with metoprolol succinate 200 mg twice daily. Plan to continue this and digoxin at discharge. Entresto was initiated because of her heart failure, decreased to 48/51 mg twice daily. Continue Xarelto, decreased to 15 mg for renal dosing. Transitioned statin therapy to Lipitor. Stable from a cardiac standpoint for discharge back to her long-term care facility. Acute on chronic hypoxemic respiratory failure Pneumonia -Pulmonology consulted, appreciate their recommendations. Patient has been able to wean off of Vapotherm to nasal cannula during admission. Maintaining goal saturations greater 90% while awake on 2 L. Desats while sleeping into the mid 80s. Recommend 4 L while sleeping and 2 L while awake. Responded well to diuretics and antibiotics. Will transition to levofloxacin for 1 more doses to complete 7 days total of antibiotics. Continues to have mild leukocytosis. Recommend CBC and CMP in 1 week. Continue breathing treatments and inhalers as ordered. Diabetes: Treated with Lantus 50 units twice daily and sliding scale insulin during admission. Transition back to home regimen of Novolin 70/30 at discharge. Class III obesity complicates all aspects of her care Patient has diuresed well. Oxygen requirement at 2 L. Stable for discharge back to long-term care facility. Recommend close follow-up with pulmonology and cardiology.
--- NOTE | 2023-03-12 10:12 | PC.NURSE ---
Addendum entered by Rhoda Lancaster RN 03/12/23 10:39: [address] Fuentes that pt o2 sats while sleeping on 4lpm are 86-88. nno Original Note: [address] Fuentes face to face that pt is noted to have a desaturation in her o2 levels while asleep. sats noted to be 80% on [address] fuentes, increase pt to 4 lpm while asleep and observe for any improvements.
--- NOTE | 2023-03-12 11:09 | EXP.CARD.PN ---
Subjective Subjective Date: 03/12/23 Time: 09:00 Principal diagnosis: acute HFrEF, afib with RVR Interval history: This is a 77-year-old white female presented to the emergency department with worsening shortness of breath. The patient was found to have an acute exacerbation of her HFrEF. The patient was treated with IV Bumex and oral metolazone. She has also been started on oral spironolactone and oral Entresto. She has tolerated these medications well. The patient has had a significant diuresis since throughout her hospitalization and she will be converted over to all oral diuretics today. The patient did go into atrial fibrillation with RVR and rate controlled on IV esmolol, oral metoprolol and IV/oral digoxin. Her esmolol drip was stopped overnight and this morning she remains in atrial fibrillation with rate control on oral metoprolol and oral digoxin. She is feeling much better this morning. She states her shortness of breath has significantly improved. She states that when she transfers from bed to chair and ambulates she is no longer having any shortness of breath. She denies any lower extremity edema. She denies chest pain or pressure. She denies any fever, chills, nausea, vomiting, diarrhea, PND or orthopnea. The patient is on oxygen via nasal cannula this morning. She states that she is ready for discharge back to her residential facility. Exam Data for Last 24 hours Vital signs and Labs for Last 24 Hours: Temp Pulse Resp BP Pulse Ox O2 Del Method O2 Flow Rate 98.5 F 104 H 22 110/68 88 L Nasal Cannula 2 03/12/23 08:00 03/12/23 10:03/12/23 10:00 03/12/23 10:03/12/23 10:03/12/23 10:03/12/23 10:00 FiO2 30 03/12/23 07:40 Laboratory Results - last 24 hr 03/11/23 11:16: POC Glucose 239 H 03/11/23 16:45: POC Glucose 198 H 03/11/23 17:47: Sodium 133 L, Potassium 4.0, Chloride 86 L, Carbon Dioxide 39 H, Anion Gap 12.0, BUN 55 H, Creatinine 1.60 H, Estimated Creat Clear 28, Estimated GFR 31 L, Est GFR ( Amer) 38 L, Glucose 199 H D, Calcium 9.0 03/11/23 20:17: POC Glucose 249 H 03/12/23 01:17: Troponin I 0.02 03/12/23 04:05: WBC 16.3 H, RBC 4.29, Hgb 12.7, Hct 39.8, MCV 92.8, MCH 29.7, MCHC 32.0, RDW 15.8, Plt Count 285, MPV 7.9, Neut % (Auto) 78.8, Lymph % (Auto) 13.4, [place] % (Auto) 5.3, Eos % (Auto) 2.2, Baso % (Auto) 0.4, Neut # (Auto) 12.8 H, Lymph # (Auto) 2.2, [place] # (Auto) 0.9, Eos # (Auto) 0.4, Baso # (Auto) 0.1, Total Counted 100, Neutrophils % (Manual) 80 H, Lymphocytes % (Manual) 12, Monocytes % (Manual) 3, Eosinophils % (Manual) 5 H, Platelet Estimate Normal, RBC Morphology Normal, Sodium 134 L, Potassium 3.7, Chloride 86 L, Carbon Dioxide 40 H, Anion Gap 11.7, BUN 58 H, Creatinine 1.50 H, Estimated Creat Clear 30, Estimated GFR 34 L, Est GFR ( Amer) 41 L, Glucose 86 D, Calcium 9.2, Magnesium 1.9 D, Total Bilirubin 0.7, AST 34 D, ALT 27, Alkaline Phosphatase 120, Total Protein 7.3, Albumin 3.7, Globulin 3.6 H, Albumin/Globulin Ratio 1.0 L 03/12/23 05:27: POC Glucose 161 H I & O for Last 24 hours: Intake & Output 03/09/23 03/10/23 03/11/23 03/12/23 23:59 23:59 23:59 23:59 Intake Total 829 / 829 955.636 / 8600.556 1090.104 / 4795.104 800 / 800 Output Total 3425 / 4025 4050 / 4050 1056 / 1056 1100 / 1100 Balance -2596 / -3196 -3094.364 / -2854.364 3739.104 / 3739.104 -300 / -300 Weight 289 lb 288 lb 15.993 oz Microbiology Reports for the Last 24 Hours: Microbiology 03/07/23 10:43 Blood Blood Culture - Final NO GROWTH AFTER 5 DAYS 03/07/23 10:17 Blood Blood Culture - Final NO GROWTH AFTER 5 DAYS Constitutional Constitutional: no acute distress and morbidly obese *Routine HEENT Exam Head: Present normocephalic and atraumatic ENT: Present mucous membranes moist *Routine Neck Exam Neck: Present supple, full ROM and normal carotid upstroke; Absent JVD, carotid bruit or lymphadenopathy *Routine Respirat
[2023-03-12 12:14] LABS: POC Glucose,Bedside 105 (70-110)
--- NOTE | 2023-03-12 12:47 | PC.NURSE ---
1153 called report to Mariam at [facility]. 1214 attempted to call son Michael. 1216 called and notified son Steve that pt was being transferred back to [place]. 1218 called and notified [facility] that pt was ready for transport back to [place].
== END 2023-03-12 14:45 | DRG 193 ==
LOC: ER 11:14 → 2ND 11:28
PROVIDERS: Internal Medicine Adolescent Medicine; Nurse Practitioner Critical Care Medicine; Nurse Practitioner Family; Admitting Provider Internal Medicine; Emergency Provider Emergency Medicine; Visit Provider Internal Medicine
DX: J18.9 Pneumonia, unspecified organism (principal); I50.33 Acute on chronic diastolic (congestive) heart failure; J96.21 Acute and chronic respiratory failure with hypoxia; J44.0 Chronic obstructive pulmonary disease with (acute) lower respiratory infection; Z68.42 Body mass index [BMI] 45.0-49.9, adult; E66.01 Morbid (severe) obesity due to excess calories; I48.91 Unspecified atrial fibrillation; I27.20 Pulmonary hypertension, unspecified; Z79.4 Long term (current) use of insulin; I11.0 Hypertensive heart disease with heart failure; E11.40 Type 2 diabetes mellitus with diabetic neuropathy, unspecified; E66.9 Obesity, unspecified
CPT/HCPCS: 36415; 71045; 71275; 80048; 80053; 80061; 80076; 81001; 82803; 82962; 83605; 83735; 83880; 84145; 84484; 85007; 85025; 87040; 87081; 87636; 93005; 93306; 94640; 94660; 94760; 94761; 99291; J0456; J0696; J1953; J2405; J2543; Q9967

== ENCOUNTER 2023-04-07 14:17 | Emergency (ER) | payer MEDICARE, MEDICAID, SELFPAY ==
[2023-04-07 14:30] VITALS: BP 111/59; PULSE 68; RESP 20; TEMP 36.8; O2SAT 97; BMI 43.8
--- NOTE | 2023-04-07 14:31 | XR_ITS ---
FINAL REPORT CLINICAL HISTORY: concern for shoulder fx previously Pain due to fall a couple weeks ago. FINDINGS: Right shoulder Three views were obtained. There is no acute fracture or dislocation. Mild and moderate degenerative changes are present. No soft tissue abnormality is identified. IMPRESSION: No acute process. Reviewed, Interpreted and Dictated by Albino Nuno III, MD Transcribed by Alma Schaefer Authenticated and [facility]
--- NOTE | 2023-04-07 14:31 | XR_ITS ---
FINAL REPORT CLINICAL HISTORY: concern for shoulder fx previously pain due to fall a couple weeks ago. FINDINGS: Right scapula Two views were obtained. There is no acute fracture or dislocation. There is mild AC joint degenerative change. No soft tissue abnormality is identified. IMPRESSION: No acute process. Reviewed, Interpreted and Dictated by Albino Nuno III, MD Transcribed by Alma Schaefer Authenticated and [facility]
--- NOTE | 2023-04-07 14:31 | XR_ITS ---
FINAL REPORT CLINICAL HISTORY: concern for shoulder fx previously pain due to fall a couple weeks ago. FINDINGS: Right humerus Two views were obtained. Images are suboptimal. There is no acute fracture or dislocation. There are mild degenerative changes. No soft tissue abnormality is identified. IMPRESSION: No acute process. Reviewed, Interpreted and Dictated by Albino Nuno III, MD Transcribed by Alma Schaefer Authenticated and [facility]
--- NOTE | 2023-04-07 14:50 | HMH.EDGENADL ---
Discharge Plan Disposition Patient Disposition: Home, Self-Care Condition: Good Prescriptions Prescriptions: No Action acetaminophen [Tylenol Extra Strength] 500 mg tablet 500 mg PO Q4HP PRN (Reason: pain) bisacodyl [Dulcolax (bisacodyl)] 10 mg suppository 10 mg VA .Q72HP PRN (Reason: Constipation) Rx Instructions: EVERY 3 DAYS NEEDED. Systane Complete 0.6 % drops 1 drp OPHTHALMIC BIDP PRN (Reason: Dry Eyes) anastrozole 1 mg tablet 1 mg PO DAILY polyethylene glycol 3350 [Miralax] 17 gram/dose powder 17 g PO DAILYP PRN (Reason: Constipation) Xarelto 15 mg tablet 15 mg PO 1700 Rx Instructions: must administer with evening meal bupropion HCl 150 mg tablet sustained-release 12 hr 150 mg PO DAILY digoxin 125 mcg (0.125 mg) tablet 125 mcg PO DAILY Qty: 30 2RF Entresto 24-26 mg tablet 1 tab PO BID Qty: 60 2RF gabapentin 400 mg capsule 400 mg PO TID Qty: 90 2RF hydrocodone-acetaminophen 10-325 mg tablet 1 tab PO .COMPLEX Qty: 90 0RF Rx Instructions: 1 tab orally; 1 tablet BID PRN & 1 tablet QHS ondansetron HCl 4 MG tablet 4 mg PO Q6HP PRN (Reason: Nausea) nitroglycerin 0.4 MG tablet, sublingual 0.4 mg SL NEEDED PRN (Reason: Chest Pain) levetiracetam 750 MG tablet 750 mg PO BID duloxetine 60 MG capsule,delayed release(DR/EC) 120 mg PO DAILY [id number]-Hn-auis-minerals 1 EACH tablet 1 each PO DAILY famotidine 20 MG tablet 20 mg PO HS linaclotide 290 MCG capsule 290 mcg PO DAILY Gaviscon 95-358 mg/15 mL Suspension 30 ml PO Q4HP PRN (Reason: upset stomach) simethicone 80 mg Tablet,Chewable 80 mg PO TIDP PRN (Reason: gas pain) Novolin 70-30 FlexPen U-100 100 unit/mL (70-30) Insulin Pen 52 unit SQ AM Novolin 70-30 FlexPen U-100 100 unit/mL (70-30) Insulin Pen 47 unit SQ 1130,1630 Rx Instructions: with lunch and supper melatonin 5 mg Tablet 5 mg PO HS albuterol sulfate 90 mcg/actuation HFA aerosol inhaler 2 inh INHALATION Q6HP PRN (Reason: shortness of breath or wheezing) sennosides-docusate sodium [Senokot-S] 8.6-50 mg Tablet 1 tab-cap PO BID ipratropium-albuterol 0.5 mg-3 mg(2.5 mg base)/3 mL solution for nebulization 3 ml INHALATION Q6HP PRN (Reason: shortness of breath or wheezing) buspirone 15 mg tablet 15 mg PO BID Jardiance 10 mg tablet 10 mg PO DAILY Anoro Ellipta 62.5-25 mcg/actuation Blister With Device 1 inh INHALATION DAILY cholecalciferol (vitamin D3) [Vitamin D3] 50 mcg (2,000 unit) Tablet 50 mcg PO DAILY atorvastatin 40 mg Tablet 40 mg PO HS 30 Days Qty: 30 0RF metoprolol succinate 100 mg Tablet Extended Release 24 Hr 200 mg PO BID 30 Days Qty: 0 0RF spironolactone 25 mg Tablet 12.5 mg PO DAILY 30 Days Qty: 0 0RF pantoprazole 40 mg Tablet,Delayed Release (Dr/Ec) 40 mg PO DAILY 30 Days Qty: 0 0RF levofloxacin 750 mg tablet 750 mg PO DAILY 1 Days Qty: 1 0RF Rx Instructions: please administer 03/13/23 metolazone 2.5 mg tablet 2.5 mg PO DAILY 30 Days Qty: 0 0RF bumetanide 2 mg tablet 2 mg PO BID 30 Days Qty: 0 0RF Referrals Follow up/Referrals: Daniel Collins APRN [Primary Care Provider] - See instructions Activity Restrictions/Add. Instructions Additional Instructions/Restrictions: Call your family doctor to establish care for this visit to the emergency department and schedule follow-up within 48 hours to ensure improvement. If you have any worsening of your condition or any other concerning signs or symptoms, return to the emergency department or your primary care doctor for further evaluation. Clinical Impressions Clinical Impression: Acute pain of right shoulder Fall Qualifiers: Encounter type: initial encounter Qualified Code(s): W19.XXXA - Unspecified fall, initial encounter Discharge ED Provider: Rian Oliver
[2023-04-07 15:30] VITALS: BP 93/34; PULSE 61; O2SAT 98
[2023-04-07 16:00] VITALS: BP 96/37; PULSE 61; O2SAT 99
[2023-04-07 16:30] VITALS: BP 106/46; PULSE 57; O2SAT 100
--- NOTE | 2023-04-07 16:36 | PC.NURSE ---
DR RAY AT BEDSIDE TO UPDATE PT
[2023-04-07 16:39] VITALS: BP 106/46; PULSE 60; RESP 18; TEMP 36.7; O2SAT 100
== END 2023-04-07 16:47 | disposition home or self-care (01) ==
PROVIDERS: Emergency Provider Emergency Medicine; PCP Nurse Practitioner Family
DX: M25.511 Pain in right shoulder (principal); I11.0 Hypertensive heart disease with heart failure; I50.33 Acute on chronic diastolic (congestive) heart failure; I25.118 Atherosclerotic heart disease of native coronary artery with other forms of angina pectoris; J96.22 Acute and chronic respiratory failure with hypercapnia; J44.9 Chronic obstructive pulmonary disease, unspecified; I42.9 Cardiomyopathy, unspecified; E11.9 Type 2 diabetes mellitus without complications; E78.5 Hyperlipidemia, unspecified; Z87.891 Personal history of nicotine dependence; W06.XXXA Fall from bed, initial encounter
CPT/HCPCS: 73010; 73030; 73060; 99284

== ENCOUNTER 2023-05-26 06:13 | Emergency (ER) | payer MEDICARE, MEDICAID, SELFPAY ==
[2023-05-26] VITALS (10 sets, daily range): BP systolic 90–113; BP diastolic 46–70; PULSE 54–78; RESP 18–20; TEMP 36.6; O2SAT 93–98; BMI 49.3
--- NOTE | 2023-05-26 06:11 | XR_ITS ---
FINAL REPORT CLINICAL HISTORY: fall, elbow pain FINDINGS: Right elbow Four views were obtained. There is no acute fracture or dislocation. There are mild degenerative changes. No soft tissue abnormality is identified. IMPRESSION: No acute process. Reviewed, Interpreted and Dictated by Albino Nuno III, MD Transcribed by Alma Schaefer Authenticated and [facility]
--- NOTE | 2023-05-26 06:11 | XR_ITS ---
FINAL REPORT CLINICAL HISTORY: fall, pain FINDINGS: Right shoulder Three views were obtained. There is no acute fracture or dislocation. There are moderate degenerative changes. The bones are osteopenic. No soft tissue abnormality is identified. IMPRESSION: No acute process. Reviewed, Interpreted and Dictated by Albino Nuno III, MD Transcribed by Alma Schaefer Authenticated and [facility]
--- NOTE | 2023-05-26 06:11 | CT_ITS ---
FINAL REPORT TECHNIQUE: Axial images were performed through the brain.This study was performed with techniques to keep radiation doses as low as reasonably achievable, (ALARA). Individualized dose reduction techniques using automated exposure control or adjustment of mA and/or kV according to the patient''s size were employed. CLINICAL HISTORY: fall on thinners COMPARISON: 01/15/2023 FINDINGS: There is age-appropriate atrophy. The ventricles are normal in size for the degree of atrophy. There is no extra-axial fluid or midline shift. There is no evidence of acute hemorrhage or mass. No skull abnormality is seen on the bone window images. IMPRESSION: Atrophy. No acute intracranial process. Reviewed, Interpreted and Dictated by Albino Nuno III, MD Transcribed by Tim Parra Authenticated and [facility]
--- NOTE | 2023-05-26 06:11 | XR_ITS ---
FINAL REPORT CLINICAL HISTORY: fall, pain FINDINGS: Right hip Three views were obtained. Images are suboptimal secondary to patient's body habitus. No definite fracture is identified. There are mild degenerative changes. IMPRESSION: No acute process. If symptoms are severe or persist, recommend CT. Reviewed, Interpreted and Dictated by Albino Nuno III, MD Transcribed by Alma Schaefer Authenticated and [facility]
--- NOTE | 2023-05-26 06:11 | XR_ITS ---
FINAL REPORT CLINICAL HISTORY: fall, pain FINDINGS: Right humerus Two views were obtained. There is no acute fracture or dislocation. There are mild degenerative changes. No soft tissue abnormality is identified. IMPRESSION: No acute process. Reviewed, Interpreted and Dictated by Albino Nuno III, MD Transcribed by Alma Schaefer Authenticated and [facility]
--- NOTE | 2023-05-26 06:11 | XR_ITS ---
FINAL REPORT CLINICAL HISTORY: fall FINDINGS: SINGLE-VIEW CHEST There is cardiomegaly. The mediastinum is normal. There are bibasilar opacities, may represent atelectasis or pneumonia. There is no pneumothorax. IMPRESSION: Bibasilar atelectasis versus pneumonia. Reviewed, Interpreted and Dictated by Albino Nuno III, MD Transcribed by Alma Schaefer Authenticated and [facility]
--- NOTE | 2023-05-26 06:11 | XR_ITS ---
FINAL REPORT CLINICAL HISTORY: fall, shoulder pain FINDINGS: Right shoulder Three nonstandard views were obtained. There is no definite fracture or dislocation. There are mild degenerative changes. No soft tissue abnormality is identified. IMPRESSION: No acute process. Reviewed, Interpreted and Dictated by Albino Nuno III, MD Transcribed by Alma Schaefer Authenticated and [facility]
--- NOTE | 2023-05-26 06:13 | HMH.EDGENADL ---
Discharge Plan Disposition Patient Disposition: Xfer [facility] Condition: Good Prescriptions Prescriptions: No Action acetaminophen [Tylenol Extra Strength] 500 mg tablet 500 mg PO Q4HP PRN (Reason: pain) bisacodyl [Dulcolax (bisacodyl)] 10 mg suppository 10 mg [place] .Q72HP PRN (Reason: Constipation) Rx Instructions: EVERY 3 DAYS NEEDED. anastrozole 1 mg tablet 1 mg PO DAILY polyethylene glycol 3350 [Miralax] 17 gram/dose powder 17 g PO DAILYP PRN (Reason: Constipation) cyanocobalamin (vitamin B-12) 100 mcg tablet 100 mcg PO DAILY metformin 1,000 mg tablet 1,000 mg PO BID alum-mag hydroxide-simeth [Advanced Antacid-Antigas] 200-200-20 mg/5 mL suspension 10 ml PO QID PRN Rx Instructions: administer between meals and at bedtime senna 8.6 mg capsule 8.6 mg PO BID Systane Balance 0.6 % drops 1 drp ophthalmic (eye) BID PRN Linzess 290 mcg capsule 290 mcg PO DAILY Anoro Ellipta 62.5-25 mcg/actuation blister with device 1 inh inhalation DAILY Xarelto 15 mg tablet 15 mg PO 1700 Rx Instructions: must administer with evening meal bupropion HCl 150 mg tablet sustained-release 12 hr 150 mg PO DAILY digoxin 125 mcg (0.125 mg) tablet 125 mcg PO DAILY Qty: 30 2RF Entresto 24-26 mg tablet 1 tab PO BID Qty: 60 2RF gabapentin 400 mg capsule 400 mg PO TID Qty: 90 2RF hydrocodone-acetaminophen 10-325 mg tablet 1 tab PO .COMPLEX Qty: 90 0RF Rx Instructions: 1 tab orally; 1 tablet BID PRN & 1 tablet QHS ondansetron HCl 4 MG tablet 4 mg PO Q6HP PRN (Reason: Nausea) nitroglycerin 0.4 MG tablet, sublingual 0.4 mg SL NEEDED PRN (Reason: Chest Pain) levetiracetam 750 MG tablet 750 mg PO BID duloxetine 60 MG capsule,delayed release(DR/EC) 120 mg PO DAILY ngfkmbjnleij-Sb-vnnd-minerals 1 EACH tablet 1 each PO DAILY famotidine 20 MG tablet 20 mg PO HS simethicone 80 mg Tablet,Chewable 80 mg PO TIDP PRN (Reason: gas pain) Novolin 70-30 FlexPen U-100 100 unit/mL (70-30) Insulin Pen 52 unit SQ AM Novolin 70-30 FlexPen U-100 100 unit/mL (70-30) Insulin Pen 47 unit SQ 1130,1630 Rx Instructions: with lunch and supper melatonin 5 mg Tablet 5 mg PO HS albuterol sulfate 90 mcg/actuation HFA aerosol inhaler 2 inh INHALATION Q6HP PRN (Reason: shortness of breath or wheezing) ipratropium-albuterol 0.5 mg-3 mg(2.5 mg base)/3 mL solution for nebulization 3 ml INHALATION Q6HP PRN (Reason: shortness of breath or wheezing) buspirone 15 mg tablet 15 mg PO BID Jardiance 10 mg tablet 10 mg PO DAILY cholecalciferol (vitamin D3) [Vitamin D3] 50 mcg (2,000 unit) Tablet 50 mcg PO DAILY atorvastatin 40 mg Tablet 40 mg PO HS 30 Days Qty: 30 0RF metoprolol succinate 100 mg Tablet Extended Release 24 Hr 200 mg PO BID 30 Days Qty: 0 0RF spironolactone 25 mg Tablet 12.5 mg PO DAILY 30 Days Qty: 0 0RF pantoprazole 40 mg Tablet,Delayed Release (Dr/Ec) 40 mg PO DAILY 30 Days Qty: 0 0RF metolazone 2.5 mg tablet 2.5 mg PO DAILY 30 Days Qty: 0 0RF bumetanide 2 mg tablet 2 mg PO BID 30 Days Qty: 0 0RF Referrals Follow up/Referrals: Flynn Landa MD [Primary Care Provider] - See instructions Activity Restrictions/Add. Instructions Additional Instructions/Restrictions: You were evaluated in the emergency department today. Please follow-up with your primary care provider. Return to the emergency department for new or worsening symptoms. Clinical Impressions Clinical Impression: Fall Instructions Patient Instructions: How to Prevent Falls Discharge ED Provider: Nati Mendiola General Adult HPI <Jono Grayson MD - Last Filed: 05/26/23 06:41> General Chief complaint: Fall Stated complaint: fall Time Seen by Provider: 05/26/23 06:11 Mode of Arrival: EMS Source of Information: [facility]
--- NOTE | 2023-05-26 06:19 | XR_ITS ---
FINAL REPORT CLINICAL HISTORY: fall, pain FINDINGS: Left hand Three views were obtained. There is no acute fracture or dislocation. There are mild and moderate degenerative changes. No soft tissue abnormality is identified. IMPRESSION: No acute process. Reviewed, Interpreted and Dictated by Albino Nuno III, MD Transcribed by Alma Schaefer Authenticated and [facility]
--- NOTE | 2023-05-26 06:19 | XR_ITS ---
FINAL REPORT CLINICAL HISTORY: fall, pain FINDINGS: Right forearm Two views were obtained. There is no acute fracture or dislocation. There are mild degenerative changes. No soft tissue abnormality is identified. IMPRESSION: No acute process. Reviewed, Interpreted and Dictated by Albino Nuno III, MD Transcribed by Alma Schaefer Authenticated and [facility]
--- NOTE | 2023-05-26 08:52 | PC.NURSE ---
ROUNDED ON PT, PROVIDED WARM BLANKET. CALL LIGHT WITHIN REACH. UPDATED ON POC
--- NOTE | 2023-05-26 09:24 | PC.NURSE ---
report called to Cathy at [facility]
== END 2023-05-26 10:45 ==
PROVIDERS: Emergency Provider Emergency Medicine; PCP Emergency Medicine
DX: M25.511 Pain in right shoulder (principal); M79.601 Pain in right arm; M25.561 Pain in right knee; E11.9 Type 2 diabetes mellitus without complications; I11.0 Hypertensive heart disease with heart failure; I50.43 Acute on chronic combined systolic (congestive) and diastolic (congestive) heart failure; J44.9 Chronic obstructive pulmonary disease, unspecified; I25.119 Atherosclerotic heart disease of native coronary artery with unspecified angina pectoris; E78.5 Hyperlipidemia, unspecified; E66.01 Morbid (severe) obesity due to excess calories; Z79.01 Long term (current) use of anticoagulants; Z87.891 Personal history of nicotine dependence; Z79.4 Long term (current) use of insulin; Z79.84 Long term (current) use of oral hypoglycemic drugs; W06.XXXA Fall from bed, initial encounter
CPT/HCPCS: 70450; 71045; 72125; 73030; 73060; 73080; 73090; 73130; 73502; 73562; 99285

== ENCOUNTER → 2023-05-29 14:12 | Outpatient (CLI) | payer MEDICARE, MEDICAID, SELFPAY ==
--- NOTE | 2023-05-29 14:21 | CT_ITS ---
FINAL REPORT CLINICAL HISTORY: R/O DAMAGE FROM TRAUMA OR POSSIBLE ISCHEMIC EVENT COMPARISON: 05/26/2023 FINDINGS: Axial images of the head were obtained without contrast. Coronal reformatted images were also obtained. This study was performed with techniques to keep radiation doses as low as reasonably achievable (ALARA). Individualized dose reduction techniques using automated exposure control or adjustment of mA and/or kV according to the patient's size were employed. There is generalized age appropriate atrophy. There is no evidence of intracranial hemorrhage or mass. The ventricular size is within normal limits. There is mild chronic ischemic change. There is no evidence of shift of the midline structures. No skull abnormality is seen on the bone window images. IMPRESSION: No acute intracranial abnormality. Reviewed, Interpreted and Dictated by Albino Nuno III, MD Transcribed by Myah Stoner Authenticated and [facility]
== END ==
PROVIDERS: PCP Emergency Medicine; Visit Provider Emergency Medicine
DX: S09.90XA Unspecified injury of head, initial encounter (principal); W06.XXXA Fall from bed, initial encounter
CPT/HCPCS: 70450

== ENCOUNTER → 2023-06-08 12:36 | Outpatient (CLI) | payer MEDICARE, MEDICAID, SELFPAY ==
[2023-06-08 13:40] VITALS: PULSE 70; PULSE 74
== END ==
PROVIDERS: PCP Internal Medicine; Visit Provider Internal Medicine Pulmonary Disease
DX: J44.9 Chronic obstructive pulmonary disease, unspecified (principal); Z79.899 Other long term (current) drug therapy
CPT/HCPCS: 36415; 80048; 80162; 85025; 94060; 94640

== ENCOUNTER 2023-07-20 10:44 | Outpatient (CLI) | payer MEDICARE, MEDICAID, SELFPAY ==
[2023-07-20 11:04] LABS: Basophils # 0.1 K/mm3 (0-0.2); Basophils % 0.5 % (0.1-2.0); Eosinophils # 0.4 K/mm3 (0.0-0.4); Eosinophils % 3.1 % (0.1-12.0); Hemoglobin 10.8 g/dL (12.2-16.2); Lymphocytes # 1.5 K/mm3 (0.7-4.5); Lymphocytes % 13.3 % (10-50); Mean Corpuscular HGB Conc 33.8 g/dL (31.8-35.4); Mean Corpuscular Hemoglobin 32.6 pg (27.0-31.2); Mean Corpuscular Volume 96.6 fl (81-99); Monocytes # 0.5 K/mm3 (0.1-1.0); Monocytes % 4.3 % (1.7-9.3); Neutrophils # 8.9 K/mm3 (1.8-7.8); Neutrophils % 78.7 % (37.0-80.0); Platelet Count 258 K/mm3 (142-424); Red Blood Count 3.31 M/mm3 (4.20-5.40); Red Cell Distribution Width 13.9 % (11.5-17.5); White Blood Count 11.3 K/mm3 (4.8-10.8)
[2023-07-20 11:52] LABS: Chloride 86 mmol/L (98-107); Potassium 5.2 mmoL/L (3.5-5.1); Sodium 132 mmol/L (136-145)
[2023-07-20 11:55] LABS: Anion Gap 16.2 mEq/L (5-15); Blood Urea Nitrogen 46 mg/dl (7-17); Calcium 8.7 mg/dl (8.4-10.2); Carbon Dioxide 35 mmol/L (22.0-30.0); Estimated Glomerular Filt Rate 26 ml/min (>60); GFR (African American) 31 ML/MIN (>60); Glucose 157 mg/dl (74-100); Magnesium 1.6 mg/dl (1.6-2.3)
== END 2023-07-20 23:59 ==
LOC: LAB 10:45
PROVIDERS: Nurse Practitioner; PCP Internal Medicine; Visit Provider Physician Assistant
DX: D64.9 Anemia, unspecified (principal); E11.40 Type 2 diabetes mellitus with diabetic neuropathy, unspecified; E66.01 Morbid (severe) obesity due to excess calories; E78.5 Hyperlipidemia, unspecified; G47.33 Obstructive sleep apnea (adult) (pediatric); I25.10 Atherosclerotic heart disease of native coronary artery without angina pectoris; I48.91 Unspecified atrial fibrillation; I50.20 Unspecified systolic (congestive) heart failure; J44.9 Chronic obstructive pulmonary disease, unspecified; Z79.84 Long term (current) use of oral hypoglycemic drugs
CPT/HCPCS: 36415; 80048; 83735; 85025

== ENCOUNTER 2023-09-23 01:22 | Outpatient (CLI) | payer MEDICARE, MEDICAID, SELFPAY ==
[2023-09-24 16:18] LABS: Alkaline Phosphatase 321 IU/L (44-121); Bone Fraction: 28 % (14-68); Intestinal Frac.: 2 % (0-18); Liver Fraction: 70 % (18-85)
== END 2023-09-23 23:59 ==
PROVIDERS: PCP Internal Medicine; Visit Provider Internal Medicine
DX: R74.8 Abnormal levels of other serum enzymes (principal)
CPT/HCPCS: 84075; 84080

== ENCOUNTER 2023-10-15 00:48 | Outpatient (CLI) | payer MEDICARE, MEDICAID, SELFPAY ==
[2023-10-15 01:44] LABS: Microscopic, Urine URINE MICROSCOPIC (MICROSCOPIC)
[2023-10-15 01:49] LABS: Appearance,Urine CLEAR (Clear); Bilirubin,Urine Negative (Negative); Blood, Urine Negative (Negative); Color,Urine YELLOW (Yellow); Glucose,Urine (UA) Negative (Negative); Ketones,Urine Negative (Negative); Leukocyte Esterase,Urine 1+ (Negative); Nitrate,Urine Negative (Negative); Protein,Urine Negative (Negative); Urobilinogen,Urine 0.2 EU/dl (0.2)
[2023-10-15 01:52] LABS: Basophils # 0.1 K/mm3 (0-0.2); Basophils % 0.7 % (0.1-2.0); Eosinophils # 0.1 K/mm3 (0.0-0.4); Eosinophils % 1.1 % (0.1-12.0); Hematocrit 35.1 % (37.0-47.0); Hemoglobin 10.7 g/dL (12.2-16.2); Lymphocytes # 1.3 K/mm3 (0.7-4.5); Lymphocytes % 10.3 % (10-50); Mean Corpuscular HGB Conc 30.6 g/dL (31.8-35.4); Mean Corpuscular Hemoglobin 30.9 pg (27.0-31.2); Mean Corpuscular Volume 101.2 fl (81-99); Mean Platelet Volume 8.1 fl (7.4-10.4); Monocytes # 0.5 K/mm3 (0.1-1.0); Monocytes % 4.1 % (1.7-9.3); Neutrophils # 10.3 K/mm3 (1.8-7.8); Neutrophils % 83.9 % (37.0-80.0); Platelet Count 339 K/mm3 (142-424); Red Blood Count 3.47 M/mm3 (4.20-5.40); Red Cell Distribution Width 14.4 % (11.5-17.5); White Blood Count 12.2 K/mm3 (4.8-10.8)
[2023-10-15 01:53] LABS: Chloride 92 mmol/L (98-107); Sodium 135 mmol/L (136-145)
[2023-10-15 01:54] LABS: Potassium 3.9 mmoL/L (3.5-5.1)
[2023-10-15 01:56] LABS: Alanine Aminotransferase 34 U/L (12-78); Albumin Level 3.6 g/dl (3.5-5.0); Albumin/Globulin Ratio 1.2 (1.1-1.8); Alkaline Phosphatase 393 U/L (38-126); Anion Gap 11.9 mEq/L (5-15); Aspartate Amino Transferase 44 U/L (14-36); Bilirubin,Total 0.6 mg/dl (0.2-1.3); Blood Urea Nitrogen 51 mg/dl (7-17); Carbon Dioxide 35 mmol/L (22.0-30.0); Estimated Glomerular Filt Rate 31 ml/min (>60); GFR (African American) 38 ML/MIN (>60); Total Protein,Serum 6.6 g/dl (6.3-8.2)
[2023-10-15 01:57] LABS: Calcium 9.5 mg/dl (8.4-10.2); Glucose 114 mg/dl (74-100)
[2023-10-15 02:01] LABS: Bacteria,Urine 4+ /lpf; Squamous Epithelial Cell,Urine Occasional #/hpf (0-5)
[2023-10-15 02:05] LABS: NT Pro Brain Natriuretic Pep. 657 pg/mL (0-450)
== END 2023-10-15 23:59 | disposition home or self-care (01) ==
LOC: LAB.DROPOF 00:50
PROVIDERS: PCP Internal Medicine; Visit Provider Internal Medicine
DX: M79.7 Fibromyalgia (principal); B96.29 Other Escherichia coli [E. coli] as the cause of diseases classified elsewhere
CPT/HCPCS: 80053; 81001; 83880; 85025; 87086

== ENCOUNTER 2023-10-15 00:54 | Outpatient (CLI) | payer MEDICARE, MEDICAID, SELFPAY | END 2023-10-15 23:59 | disposition home or self-care (01) | LOC: LAB.DROPOF 00:56 | PROVIDERS: PCP Internal Medicine; Visit Provider Internal Medicine | DX: R53.83 Other fatigue (principal) ==

== ENCOUNTER 2023-10-21 18:33 | Outpatient (CLI) | payer MEDICARE, MEDICAID, SELFPAY ==
[2023-10-21 21:14] LABS: Gamma Glutamyl Transpeptidase 412 U/L (12-43)
== END 2023-10-21 23:59 ==
LOC: LAB.DROPOF 18:34
PROVIDERS: PCP Internal Medicine; Visit Provider Internal Medicine
DX: R74.8 Abnormal levels of other serum enzymes (principal)
CPT/HCPCS: 82977

== ENCOUNTER 2023-10-22 20:52 | Inpatient (IN) | payer MEDICARE, MEDICAID, SELFPAY ==
[2023-10-22] VITALS (12 sets, daily range): BP systolic 73–108; BP diastolic 45–62; PULSE 63–80; RESP 16–20; TEMP 35.8–36.7; O2SAT 98–100; BMI 36.5; BMI 32.1
--- NOTE | 2023-10-22 20:40 | ECG_ITS ---
APPROVED REPORT Exam: Resting ECG HR:64 bpm ECG Measurements Heart Rate 64 AXES NC 219 P 64 QRSd 108 QRS -18 QT 452 T 63 QTc 461 Conclusion SINUS RHYTHM WITH FIRST DEGREE AV BLOCK POSSIBLE RIGHT VENTRICULAR CONDUCTION DELAY [RSR (QR) IN V1/V2] NONSPECIFIC ST & T-WAVE ABNORMALITY ABNORMAL ECG UNCONFIRMED REPORT Electronically signed by : Moo Jaramillo, 10/22/2023 23:12:34
--- NOTE | 2023-10-22 20:52 | CT_ITS ---
PROCEDURE INFORMATION: Exam: CT Head Without Contrast Exam date and time: 10/22/2023 9:41 PM Age: 78 years old Clinical indication: Altered mental status/memory loss; Additional info: AMS TECHNIQUE: Imaging protocol: Computed tomography of the head without contrast. Radiation optimization: All CT scans at this facility use at least one of these dose optimization techniques: automated exposure control; mA and/or kV adjustment per patient size (includes targeted exams where dose is matched to clinical indication); or iterative reconstruction. COMPARISON: CT HEAD/BRAIN WO CON 05/29/2023 2:27 PM FINDINGS: Limitations: Motion artifact - mild. Brain: Moderate atrophy. No definite intracranial hemorrhage. No mass. Few scattered foci of decreased attenuation within periventricular/subcortical white matter. No definite edema. Cerebral ventricles: No hydrocephalus. Paranasal sinuses: No acute sinusitis. Mastoid air cells: No significant effusion. Orbital cavities: Unremarkable as visualized. Bones/joints: No acute fracture. Soft tissues: Unremarkable. Vasculature: Atherosclerotic disease of intracranial arteries. IMPRESSION: Probable chronic microvascular ischemic changes. If symptoms persist, consider MRI.
--- NOTE | 2023-10-22 20:52 | CT_ITS ---
PROCEDURE INFORMATION: Exam: CT Abdomen And Pelvis With Contrast Exam date and time: 10/22/2023 9:45 PM Age: 78 years old Clinical indication: Other: Foul smelling wound abd; Additional info: Foul smelling wound abd, AMS TECHNIQUE: Imaging protocol: Computed tomography of the abdomen and pelvis with contrast. Radiation optimization: All CT scans at this facility use at least one of these dose optimization techniques: automated exposure control; mA and/or kV adjustment per patient size (includes targeted exams where dose is matched to clinical indication); or iterative reconstruction. Contrast material: ISOVUE; Contrast volume: 75 ml; Contrast route: IV; COMPARISON: CT ABDOMEN PELVIS W CON 01/18/2021 5:39 PM FINDINGS: Lungs: Subsegmental atelectasis in the bilateral lower lobes image 6/3. Heart: Mild cardiomegaly. Liver: Ill-defined low-density left hepatic lobe image 6/12-24. This measures approximately 4.8 cm. Gallbladder and bile ducts: There has been a cholecystectomy. Pancreas: The pancreas is difficult to evaluate. Mid pancreatic thickening is difficult to exclude coronal image 1003/44. No ductal dilation. Spleen: Normal. No splenomegaly. Adrenal glands: Normal. No mass. Kidneys and ureters: Right renal cyst. Exophytic left renal cyst. Stomach and bowel: Nonspecific bowel gas pattern. Appendix: No evidence of appendicitis. Intraperitoneal space: Lower left abdominal wound with significant wall thickening image 6/99-103. The wound extends to the deep fascia sagittal image 102/95. There is a loop of small bowel in close proximity to the wound possibly adhesed to the anterior abdominal wall sagittal image 1002/94. A fistulous tract is not excluded on image 6/101-102. Vasculature: The aorta demonstrates moderate atherosclerotic calcification. Lymph nodes: Unremarkable. No enlarged lymph nodes. Urinary bladder: Romero catheter in the bladder. Reproductive: Unremarkable as visualized. Bones/joints: The lumbar spine demonstrates moderate degenerative changes at multiple levels. Probable spinal stenosis L1-L2 axial image 4/40. The thecal sac has a trefoil appearance at L3-L4 image 4/58. Soft tissues: Left lateral fascial thickening image 6/88 IMPRESSION: 1. No free air or fluid or adenopathy. 2. Lower left abdominal wound with significant wall thickening image 6/99-103. The wound extends to the deep fascia sagittal image 102/95. There is a loop of small bowel in close proximity to the wound possibly adhesed to the anterior abdominal wall sagittal image 1002/94. A fistulous tract is not excluded on image 6/101-102. Findings are consistent with significant cellulitis and possibly a fistulous tract. A CT study with oral contrast study may be helpful to further delineate this finding. 3. Left lateral fascial thickening image 6/88 4. Ill-defined low-density left hepatic lobe image 6/12-24. This measures approximately 4.8 cm. The finding is new compared with 01/18/2021. A hepatic abscess or mass is difficult to exclude. Triphasic MRI may be helpful. 5. The pancreas is difficult to evaluate. Mid pancreatic thickening is difficult to exclude coronal image 1003/44 and axial image 6/30. MRI may be helpful. 6. Nonspecific bowel gas pattern. 7. There has been a cholecystectomy. 8. Right renal cyst. Exophytic left renal cyst. 9. The aorta demonstrates moderate atherosclerotic calcification. 10. Romero catheter in the bladder. 11. Mild cardiomegaly. 12. Subsegmental atelectasis in the bilateral lower lobes image 6/3. 13. The lumbar spine demonstrates moderate degenerative changes at multiple levels. 14. Probable spinal stenosis L1-L2 axial image 4/40. 15. The thecal sac has a trefoil appearance at L3-L4 image 4/58. COMMENTS: Consistent with the [employer]'s Incidental Findings Committee white paper (J Am Melanie Radiol 2018): Any incidental renal lesion less than 1 cm or classified as too small to characterize, or any incidental cystic renal lesion characterized as simple-appearing, is likely benign. No follow-up imaging is recommended for these lesions per consensus recommendations based on imaging criteria.
--- NOTE | 2023-10-22 20:52 | XR_ITS ---
PROCEDURE INFORMATION: Exam: XR Chest Exam date and time: 10/22/2023 9:48 PM Age: 78 years old Clinical indication: Dyspnea TECHNIQUE: Imaging protocol: Radiologic exam of the chest. Views: 1 view. COMPARISON: CR XR CHEST PORTABLE 05/26/2023 6:40 AM FINDINGS: Lungs: Indistinct pulmonary vessels. Retrocardiac density .. . No focal airspace consolidation. Pleural spaces: Unremarkable. No pleural effusion. No pneumothorax. Heart/Mediastinum: Mild cardiomegaly. Bones/joints: Unremarkable. Other findings: Rotated film. IMPRESSION: 1. Rotated film. 2. Mild cardiomegaly. 3. Indistinct pulmonary vessels. Probable venous congestion. 5. No focal airspace consolidation.
--- NOTE | 2023-10-22 20:58 | ED_ITS ---
Discharge Plan Disposition Patient Disposition: Admitted Prescriptions Prescriptions: No Action acetaminophen [Tylenol Extra Strength] 500 mg tablet 500 mg PO Q4HP PRN (Reason: pain) bisacodyl [Dulcolax (bisacodyl)] 10 mg suppository 10 mg IA .Q72HP PRN (Reason: Constipation) Rx Instructions: EVERY 3 DAYS NEEDED. anastrozole 1 mg tablet 1 mg PO DAILY polyethylene glycol 3350 [Miralax] 17 gram/dose powder 17 g PO DAILYP PRN (Reason: Constipation) metformin 1,000 mg tablet 1,000 mg PO BID senna 8.6 mg capsule 8.6 mg PO BID Linzess 290 mcg capsule 290 mcg PO DAILY Xarelto 15 mg tablet 15 mg PO 1700 Rx Instructions: must administer with evening meal bupropion HCl 150 mg tablet sustained-release 12 hr 150 mg PO DAILY metolazone 5 mg tablet 5 mg PO DAILY Qty: 30 5RF alum-mag hydroxide-simeth [Advanced Antacid-Antigas] 200-200-20 mg/5 mL suspension 30 ml PO Q4H PRN (Reason: upset stomach) Rx Instructions: administer between meals and at bedtime nitroglycerin 0.4 mg tablet, sublingual 0.4 mg SL Q5M PRN (Reason: Chest Pain) Rx Instructions: May repeat x 2 doses, call MD if ineffective Systane Balance 0.6 % drops 1 drp Eye-Both BID PRN (Reason: stool) cyanocobalamin (vitamin B-12) 1,000 mcg/mL solution 100 mcg IM QMONTH digoxin 125 mcg (0.125 mg) tablet 125 mcg PO DAILY Qty: 30 2RF Rx Instructions: Hold for HR <60 Entresto 24-26 mg tablet 1 tab PO BID Qty: 60 2RF Rx Instructions: Hold for B/P <90/60 gabapentin 400 mg capsule 400 mg PO TID Qty: 90 2RF zinc sulfate [Orazinc] 50 mg zinc (220 mg) capsule 50 mg PO DAILY 14 Days Qty: 14 0RF ascorbate calcium (vitamin C) 500 mg tablet 500 mg PO DAILY Qty: 90 3RF ondansetron HCl 4 MG tablet 4 mg PO Q6HP PRN (Reason: Nausea) levetiracetam 750 MG tablet 750 mg PO BID duloxetine 60 MG capsule,delayed release(DR/EC) 120 mg PO DAILY ucwquhriyxda-Sk-vsmj-minerals 1 EACH tablet 1 each PO DAILY simethicone 80 mg Tablet,Chewable 80 mg PO TIDP PRN (Reason: gas pain) Novolin 70-30 FlexPen U-100 100 unit/mL (70-30) Insulin Pen 52 unit SQ AM Novolin 70-30 FlexPen U-100 100 unit/mL (70-30) Insulin Pen 47 unit SQ 1130,1630 Rx Instructions: with lunch and supper melatonin 5 mg Tablet 5 mg PO HS albuterol sulfate 90 mcg/actuation HFA aerosol inhaler 2 inh INHALATION Q6HP PRN (Reason: shortness of breath or wheezing) ipratropium-albuterol 0.5 mg-3 mg(2.5 mg base)/3 mL solution for nebulization 3 ml INHALATION Q6HP PRN (Reason: shortness of breath or wheezing) buspirone 15 mg tablet 15 mg PO BID Jardiance 10 mg tablet 10 mg PO DAILY cholecalciferol (vitamin D3) [Vitamin D3] 50 mcg (2,000 unit) Tablet 50 mcg PO DAILY atorvastatin 40 mg Tablet 40 mg PO HS 30 Days Qty: 30 0RF metoprolol succinate 100 mg Tablet Extended Release 24 Hr 200 mg PO BID 30 Days Qty: 0 0RF spironolactone 25 mg Tablet 12.5 mg PO DAILY 30 Days Qty: 0 0RF pantoprazole 40 mg Tablet,Delayed Release (Dr/Ec) 40 mg PO DAILY 30 Days Qty: 0 0RF metolazone 2.5 mg tablet 2.5 mg PO DAILY 30 Days Qty: 0 0RF bumetanide 2 mg tablet 2 mg PO BID 30 Days Qty: 0 0RF fexofenadine [Taya] 180 mg Tablet 180 mg PO DAILY nitrofurantoin monohyd/m-cryst [Macrobid] 100 mg Capsule 100 mg PO BID Rx Instructions: must administer with a meal/food Anoro Ellipta 62.5-25 mcg/actuation Blister With Device 1 inh INHALATION DAILY Belsomra 10 mg Tablet 5 mg PO HS Entresto 24-26 mg Tablet 1 tab PO BID hydrocodone-acetaminophen 10-325 mg tablet 1 tab PO BIDP PRN (Reason: chronic pain) Rx Instructions: 1 tablet BID PRN & 1 tablet QHS Clinical Impressions Clinical Impression: Septic shock, Hypoglycemia, Hypothermia, Hypotension, Encephalopathy acute, Multifocal pneumonia, Acute UTI Instructions Patient Instructions: DI for Hyperglycemia -- Adult, DI for Altered Mental Status Discharge ED Provider: Stella Jaramillo General Adult HPI General Chief complaint: Altered Mental Status Stated complaint: hypoglycemia Time Seen by Provider: 10/22/23 20:52 History of Present Illness HPI narrative: Patient is a 78-year-old female who is a [facility] resident normally awake alert oriented able to mobilize herself with a wheelchair who presents today significantly altered. Unknown period of time last known normal. No focal neurologic deficits from historical standpoint. Her blood sugar was low but was corrected prior to arrival and did not change her mental status. She is full code from historical standpoint. She is unable to provide any history so it is significantly limited. Dextrose was given and route. Patient was hypotensive. No further history obtainable. Related Data Home Medications Medication Instructions Recorded Confirmed duloxetine 60 mg capsule,delayed 120 mg PO DAILY Depression 04/06/19 10/22/23 release levetiracetam 750 mg tablet 750 mg PO BID seizures 04/06/19 10/22/23 tencpqcytcrp-Lc-udig-minerals 27 1 each PO DAILY Supplement 04/06/19 10/14/23 mg-0.4 mg tablet ondansetron HCl 4 mg tablet 4 mg PO Q6HP PRN Nausea 04/06/19 10/22/23 acetaminophen 500 mg tablet 500 mg PO Q4HP PRN pain 09/25/21 10/22/23 (Tylenol Extra Strength) anastrozole 1 mg tablet 1 mg PO DAILY breast cancer 09/25/21 10/22/23 bisacodyl 10 mg rectal suppository 10 mg IA .Q72HP PRN Constipation 09/25/21 10/22/23 (Dulcolax (bisacodyl)) polyethylene glycol 3350 17 17 g PO DAILYP PRN Constipation 09/25/21 10/22/23 gram/dose oral powder (Miralax) albuterol sulfate 90 mcg/actuation 2 inh inhalation Q6HP PRN 10/12/22 10/22/23 aerosol inhaler shortness of breath or wheezing insulin NPH-regular 70-30 U-100 47 unit SQ 1130,1630 Diabetes 10/12/22 10/14/23 insulin 100 unit/mL subcutaneous pen (Novolin 70-30 FlexPen U-100 Insulin) insulin NPH-regular 70-30 U-100 52 unit SQ AM Diabetes 10/12/22 10/14/23 insulin 100 unit/mL subcutaneous pen (Novolin 70-30 FlexPen U-100 Insulin) ipratropium 0.5 mg-albuterol 3 mg 3 ml inhalation Q6HP PRN shortness 10/12/22 10/22/23 (2.5 mg base)/3 mL nebulization of breath or wheezing soln melatonin 5 mg tablet 5 mg PO HS sleep 10/12/22 10/22/23 simethicone 80 mg chewable tablet 80 mg PO TIDP PRN gas pain 10/12/22 10/14/23 rivaroxaban 15 mg tablet (Xarelto) 15 mg PO 1700 Blood Thinner 10/30/22 10/22/23 bupropion HCl 150 mg tablet,12 hr 150 mg PO DAILY mood 12/24/22 10/22/23 sustained-release buspirone 15 mg tablet 15 mg PO BID Depression 12/24/22 10/22/23 empagliflozin 10 mg tablet 10 mg PO DAILY Diabetes 03/07/23 10/22/23 (Jardiance) cholecalciferol (vitamin D3) 50 50 mcg PO DAILY Supplement 03/08/23 10/14/23 mcg (2,000 unit) tablet (Vitamin D3) linaclotide 290 mcg capsule 290 mcg PO DAILY 04/09/23 10/22/23 (Linzess) metformin 1,000 mg tablet 1,000 mg PO BID 04/09/23 10/22/23 sennosides 8.6 mg capsule (senna) 8.6 mg PO BID 04/09/23 10/22/23 aluminum-mag hydroxide-simethicone 30 ml PO Q4H PRN upset stomach 07/03/23 10/22/23 200 mg-200 mg-20 mg/5 mL oral susp (Advanced Antacid-Antigas) cyanocobalamin (vitamin B-12) 100 mcg IM QMONTH vitamin 07/03/23 10/22/23 1,000 mcg/mL injection solution supplement nitroglycerin 0.4 mg sublingual 0.4 mg sublingual Q5M PRN Chest 07/03/23 10/22/23 tablet Pain propylene glycol 0.6 % eye drops 1 drp Eye-Both BID PRN stool 07/03/23 10/22/23 (Systane Balance) fexofenadine 180 mg tablet 180 mg PO DAILY 10/22/23 10/22/23 hydrocodone 10 mg-acetaminophen 1 tab PO BIDP PRN chronic pain 10/22/23 10/22/23 325 mg tablet nitrofurantoin 100 mg PO BID 10/22/23 10/22/23 monohydrate/macrocrystals 100 mg capsule (Macrobid) sacubitril 24 mg-valsartan 26 mg 1 tab PO BID 10/22/23 10/22/23 tablet (Entresto) suvorexant 10 mg tablet (Belsomra) 5 mg PO HS 10/22/23 10/22/23 umeclidinium 62.5 mcg-vilanterol 1 inh inhalation DAILY 10/22/23 10/22/23 25 mcg/actuation powdr for inhalation (Anoro Ellipta) Previous Rx's Medication Instructions Recorded atorvastatin 40 mg tablet 40 mg PO HS 30 days #30 tabs 03/12/23 bumetanide 2 mg tablet 2 mg PO BID Edema 30 days #0 tabs 03/12/23 metolazone 2.5 mg tablet 2.5 mg PO DAILY high bp 30 days #0 03/12/23 tabs metoprolol succinate 100 mg 200 mg (2 x 100 mg) PO BID 30 days 03/12/23 tablet,extended release 24 hr #0 tabs pantoprazole 40 mg tablet,delayed 40 mg PO DAILY 30 days #0 tabs 03/12/23 release spironolactone 25 mg tablet 12.5 mg (1/2 x 25 mg) PO DAILY 30 03/12/23 days #0 tabs digoxin 125 mcg (0.125 mg) tablet 125 mcg PO DAILY #30 tabs 07/03/23 sacubitril 24 mg-valsartan 26 mg 1 tab PO BID #60 tabs 07/03/23 tablet (Entresto) metolazone 5 mg tablet 5 mg PO DAILY #30 tabs 07/13/23 gabapentin 400 mg capsule 400 mg PO TID Neuropathy #90 caps 10/17/23 ascorbate calcium (vitamin C) 500 500 mg PO DAILY #90 tabs 10/20/23 mg tablet zinc sulfate 50 mg zinc (220 mg) 50 mg PO DAILY 14 days #14 caps 10/20/23 capsule (Orazinc) Allergies Allergy/AdvReac Type Severity Reaction Status Date / Time codeine [CODEINE] Allergy Mild Unknown Verified 10/14/23 10: allergy reaction naproxen [NAPROXEN] Allergy Mild Unknown Verified 10/14/23 10:26 allergy reaction pregabalin [From LYRICA] Allergy Mild Unknown Verified 10/14/23 10:26 allergy reaction promethazine [PROMETHAZINE] Allergy Mild Unknown Verified 10/14/23 10: allergy reaction JOSE ELIAS Inhibitors Allergy Unknown Verified 10/14/23 10: allergy reaction PFSH PFS Disclaimer: The information contained in this section may have been updated after the patient was seen, as this information can be updated by other users. Medical History Migraine, unspecified, not intractable, without status migrainosus Gastro-esophageal reflux disease without esophagitis Unspecified convulsions Constipation, unspecified Spinal stenosis, site unspecified Acute peptic ulcer, site unspecified, with perforation Vitamin D deficiency, unspecified Xerosis cutis Other specified arthritis, unspecified site Presence of intraocular lens Excoriation (skin-picking) disorder Iodine-deficiency related diffuse (endemic) goiter Nonrheumatic aortic (valve) stenosis Fibromyalgia Fall Fall Acute pain of right shoulder Chronic respiratory failure with hypercapnia Cardiomyopathy Atelectasis of both lungs Pleural effusion due to CHF (congestive heart failure) Acute respiratory failure with hypoxemia Pneumonia History of melanoma Breast cancer History of smoking 30 or more pack years Restrictive lung disease History of sleep apnea COPD mixed type Hematuria Coronary artery disease Diastolic dysfunction HFrEF (heart failure with reduced ejection fraction) Abnormal cardiovascular stress test Atypical angina Shortness of Breath Acute on chronic diastolic (congestive) heart failure ST segment abnormality Abnormal EKG Fatigue Abnormal stress test Edema COPD (chronic obstructive pulmonary disease) Atypical chest pain HLD (hyperlipidemia) HTN (hypertension) Diabetes Shortness of Breath Surgical History History of throat surgery History of cataract surgery History of appendectomy Family History Other No significant family history Social History Smoking Status: Unknown if ever smoked second hand exposure: No alcohol intake: never counseling provided: provider counseling substance use type: denies use current occupational status: disabled Travel in the last 8 weeks: None household members: caregiver housing: [facility] marital status: caffeine: No ROS Obtained: Yes All systems reviewed & no additional complaints except as documented Physical Exam General General appearance: obtunded Respiratory Respiratory exam: Absent normal lung sounds bilaterally or respiratory distress Cardiovascular Cardiovascular exam: Present regular rate and other (Cool extremities poor peripheral perfusion) Abdominal Exam Abdominal exam: Present soft and other (There is a very foul-smelling wound in the anterior abdomen with foul-smelling discharge no significant erythema surrounding this); Absent distention or tenderness Extremities Exam Extremities exam: Present other (Patient withdraws to pain bilateral upper extremities but not bilateral lower extremities) Neurological Exam Neurological exam: Present alert and oriented X3 Expanded Neurological Exam Coma scale eye opening: To pain Coma scale motor response: Localizes to pain Coma scale verbal response: Inappropriate Coma scale total: 10 Medical Decision Making Demond Inquiry Pt receiving controlled substance: No Vital Signs: 10/22/23 21:11 Temperature 98.0 F Temperature Source Oral Pulse Rate [Right Brachial] 63 Respiratory Rate 16 Blood Pressure [Right Arm] 73/62 L Blood Pressure Mean [Right Arm] 65 Blood Pressure Source [Right Arm] Automatic Cuff Blood Pressure Position [Right Arm] Sitting 02 Sat by Pulse Oximetry 99 Oxygen Delivery Method Nasal Cannula Oxygen Flow Rate (LPM) 2 Lab Data Lab results reviewed: Yes I reviewed the patient's lab results. Lab Results 10/22/23 20:42: WBC 10.7, RBC 3.34 L, Hgb 10.7 L, Hct 33.4 L, MCV 99.9 H, MCH 32.0 H, MCHC 32.0, RDW 14.8, Plt Count 283, MPV 7.6, Neut % (Auto) 87.6 H, Lymph % (Auto) 7.3 L, [place] % (Auto) 4.3, Eos % (Auto) 0.4, Baso % (Auto) 0.3, Neut # (Auto) 9.4 H, Lymph # (Auto) 0.8, [place] # (Auto) 0.5, Eos # (Auto) 0.0, Baso # (Auto) 0.0, Total Counted 100, Neutrophils % (Manual) 87 H, Lymphocytes % (Manual) 7 L, Monocytes % (Manual) 6, Platelet Estimate Normal, Macrocytosis 1+, Sodium 135 L, Potassium 3.0 L, Chloride 92 L, Carbon Dioxide 37 H, Anion Gap 9.0, BUN 37 H, Creatinine 1.40 H, Estimated Creat Clear 49, Estimated GFR 36 L, Est GFR ( Amer) 44 L, Glucose 109 H, Calcium 9.3, Total Bilirubin 0.6, A ST 39 H, ALT 29, Alkaline Phosphatase 344 H, Troponin I 0.02, Total Protein 6.6, Albumin 3.4 L, Globulin 3.2, Albumin/Globulin Ratio 1.1, TSH 0.12 L, Digoxin < 0.40 10/22/23 20:53: VBG pH 7.39, VBG pCO2 50.3, VBG pO2 48.6 H, VBG HCO3 29.5, VBG Total CO2 31.0 H, VBG O2 Saturation 81.2 H, VBG Base Excess 4.5 H, VBG Lactic Acid 2.2 H 10/22/23 21:30: Urine Color Yellow, Urine Appearance Sl cloudy, Urine pH 6.5, Ur Specific [employer] 1.010, Urine Protein Negative, Urine Glucose (UA) Negative, Urine Ketones Negative, Urine Blood Trace-i, Urine Nitrate Positive, Urine Bilirubin Negative, Urine Urobilinogen 0.2, Ur Leukocyte Esterase 3+ A, Urine RBC Occasional, Urine WBC 10-20, Ur Squamous Epith Cells Occasional, Urine Bacteria 3+ 10/22/23 20:42 10/22/23 20:42 Orders (Tests/Meds): ED MEDICATIONS Generic Name Dose Route Start Last Admin Trade Name Erica PRN Reason Stop Dose Admin Lactated Ringer's 1,570 mls @ 785 mls/hr 10/22/23 20:58 Lactated Ringer's 1000 Ml Bag 30 ml/kg infuse over 2 hr (1570 ml) 10/22/23 22:57 IV .Q2H ONE Vancomycin HCl 2,250 mg/ 250 mls @ 125 mls/hr 10/22/23 21:00 Sodium Chloride IV 10/22/23 22:59 ONCE ONE Sodium Chloride 10 ml 10/22/23 21:59 10/22/23 22:00 Sodium Chloride 0.9% 10ml Syr (Rad Only) IV 11/21/23 21:58 10 ml NEEDED PRN Administration Maintain IV Site Discontinued Medications Generic Name Dose Route Start Last Admin Trade Name Erica PRN Reason Stop Dose Admin Cefepime HCl 2 gm/ Sodium 100 mls @ 200 mls/hr 10/22/23 20:52 Chloride IV 10/22/23 21:21 ONCE ONE Metronidazole 500 mg in 100 mls @ 100 mls/hr 10/22/23 20:52 10/22/23 21:23 Flagyl 500mg/100ml Ivpb IV 10/22/23 21:51 100 mls/hr ONCE ONE Administration Iopamidol 75 ml 10/22/23 21:59 10/22/23 21:59 Iopamidol-370 (76%);100ml Bottle IV 10/22/23 22:00 75 ml ONCE ONE Administration Miscellaneous 1 each 10/22/23 21:00 Vancomycin Consult Request NOTAPPLIC 11/21/23 20:59 CONSULT PHARMACY JEROME ORDERS Category Date Time Status CT abdomen pelvis w con Stat Cat Scan 10/22/23 20:[address] head/brain wo con Stat Cat Scan 10/22/23 20:52 Taken CXR --portable [XR chest portable] Stat Exams 10/22/23 20:52 Completed CBC w/Auto Diff [Complete Blood Count Auto Diff] Stat Lab 10/22/23 20:42 Completed CMP [Comprehensive Metabolic Panel] Stat Lab 10/22/23 20:42 Completed Digoxin Stat Lab 10/22/23 20:42 Completed Lactate Venous Stat Lab 10/22/23 20:52 Ordered Rapid PCR Covid and Flu A/B Stat Lab 10/22/23 20:53 Ordered TSH [Thyroid Stimulating Hormone] Stat Lab 10/22/23 20:42 Completed Trop I [Troponin I] Stat Lab 10/22/23 20:42 Completed Troponin I Q3H Lab 10/22/23 23:54 Ordered Troponin I Q3H Lab 10/23/23 02:54 Ordered UA [Urinalysis and Microscopic] Stat Lab 10/22/23 21:30 Completed Blood Culture Stat Micro 10/22/23 21:20 Received Urine Culture Stat Micro 10/22/23 21:30 Received Wound Culture and Gram Stain Stat Micro 10/22/23 20:52 Ordered Venous Blood Gas Stat RT 10/22/23 20:53 Completed Tissue Perfus/Sepsis Re-Eval Sepsis Re-Evaluation Performed: Yes Date Performed: 10/22/23 Time Performed: 22:22 Medical Decision Narrative: Patient is a 78-year-old female presenting today with hypoglycemia hypothermia and hypotension presumptively with septic shock. 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 she will be treated aggressively with IV fluid resuscitation given the fact that she presumptively have septic shock 30 cc/kg lactated Ringer's have been ordered bank cefepime and Flagyl have been initiated while a source of infection is evaluated. She does not appear to have any focal neurologic deficits but we will get a CT scan of her head as well. Differential is broad patient's prognosis is poor she is full code will reassess shortly. Reassessment 10:21 PM patient remains hypotensive we will initiate norepinephrine. She does have a urinary tract infection chest x-ray personally interpreted also looked at the CT scan of the patient's chest and her lung windows she appears to have multifocal interstitial infiltrates consistent with pneumonia. Her antibiotic should cover this. She still protecting her airway her GCS is the same at 10. I discussed the case with Vicente with hospital medicine who agreed to admit the patient for further evaluation and management. 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 Clinically it is not erythematous or acutely infected does have foul-smelling discharge but that is consistent with a medication between the bowel and the skin. ET scan of the patient's head shows no acute abnormality specifically no evidence of any hemorrhaging. Clinically I do not suspect a focal deficit such as a stroke. Critical Care Critical Care Time Critical Care Time: Yes Attestation: On 10/22/23, the high probability of a clinically significant, sudden or life threatening deterioration of the following system(s) required my full and direct attention, intervention and personal management. The time I documented below is in addition to time spent performing reported procedures but includes the following listed in this critical care notation. Total Time Total Critical Care Time: 65
[2023-10-22] MEDS: LACTATED RINGERS 1000ML 1,570 ML 785 ML IV (21:00)
--- NOTE | 2023-10-22 21:09 | PC.NURSE ---
initial finger stick 181
[2023-10-22 21:14] LABS: VBG Base Excess 4.5 mmol/L (-2.4-2.3); VBG HCO3 29.5 mmol/L (23-30); VBG Oxygen Saturation 81.2 % (50-70); VBG PH 7.39 mmol/L (7.31-7.41); VBG PO2 48.6 mmol/L (28-40)
[2023-10-22 21:16] LABS: Lactate Venous 2.2 mmol/L (0.4-2.0); VBG PCO2 50.3 mmol/L (35-51)
[2023-10-22 21:19] LABS: Basophils % 0.3 % (0.1-2.0); Chloride 92 mmol/L (98-107); Eosinophils % 0.4 % (0.1-12.0); Hematocrit 33.4 % (37.0-47.0); Hemoglobin 10.7 g/dL (12.2-16.2); Lymphocytes # 0.8 K/mm3 (0.7-4.5); Lymphocytes % 7.3 % (10-50); Mean Corpuscular Volume 99.9 fl (81-99); Mean Platelet Volume 7.6 fl (7.4-10.4); Monocytes # 0.5 K/mm3 (0.1-1.0); Monocytes % 4.3 % (1.7-9.3); Neutrophils # 9.4 K/mm3 (1.8-7.8); Neutrophils % 87.6 % (37.0-80.0); Platelet Count 283 K/mm3 (142-424); Red Blood Count 3.34 M/mm3 (4.20-5.40); Red Cell Distribution Width 14.8 % (11.5-17.5); Sodium 135 mmol/L (136-145); White Blood Count 10.7 K/mm3 (4.8-10.8)
[2023-10-22 21:22] LABS: Alanine Aminotransferase 29 U/L (12-78); Alkaline Phosphatase 344 U/L (38-126); Aspartate Amino Transferase 39 U/L (14-36); Bilirubin,Total 0.6 mg/dl (0.2-1.3); Blood Urea Nitrogen 37 mg/dl (7-17); Creatinine Clearance Estimated 49 mL/min (50-200); Estimated Glomerular Filt Rate 36 ml/min (>60); GFR (African American) 44 ML/MIN (>60); MANUAL DIFFERENTIAL MANUAL DIFFERENTIAL (MANUAL DIFF)
[2023-10-22 21:23] LABS: Albumin Level 3.4 g/dl (3.5-5.0); Albumin/Globulin Ratio 1.1 (1.1-1.8); Calcium 9.3 mg/dl (8.4-10.2); Carbon Dioxide 37 mmol/L (22.0-30.0); Globulin 3.2 g/dL (1.3-3.2); Glucose 109 mg/dl (74-100); Total Protein,Serum 6.6 g/dl (6.3-8.2)
[2023-10-22] MEDS: METRONIDAZ/SOD CHL 500 MG/100 ML PIGGYBACK 100 MG IV (21:23)
--- NOTE | 2023-10-22 21:34 | PC.NURSE ---
notified lab (julius) of dig level add-on
[2023-10-22 21:35] LABS: Troponin I 0.02 ng/ml (0.00-0.034)
[2023-10-22 21:36] LABS: Microscopic, Urine URINE MICROSCOPIC (MICROSCOPIC)
[2023-10-22 21:38] LABS: Lymphocytes % 7 % (10-50); Macrocytosis 1+; Monocytes % 6 % (2-9); Neutrophils % 87 % (42-76); Platelet Estimate Normal; Total Cells Counted 100
[2023-10-22 21:40] LABS: Appearance,Urine SL CLOUDY (Clear); Bilirubin,Urine Negative (Negative); Blood, Urine TRACE-I (Negative); Color,Urine YELLOW (Yellow); Glucose,Urine (UA) Negative (Negative); Ketones,Urine Negative (Negative); Leukocyte Esterase,Urine 3+ (Negative); Nitrate,Urine POSITIVE (Negative); PH,Urine 6.5 (5.0-8.5); Protein,Urine Negative (Negative); Urobilinogen,Urine 0.2 EU/dl (0.2)
[2023-10-22 21:47] LABS: Digoxin < 0.40 ng/ml (0.2-2.00)
[2023-10-22 21:54] LABS: Thyroid Stimulating Hormone 0.12 uIU/mL (0.465-4.68)
[2023-10-22] MEDS: IOPAMIDOL-370 (76%);100ML BOTTLE 75 ML IV (21:59)
[2023-10-22] MEDS: SODIUM CHLORIDE 0.9% 10ML SYR (RAD ONLY) 10 ML IV (22:00)
[2023-10-22 22:07] LABS: Bacteria,Urine 3+ /lpf; RBC,Urine Occasional #/hpf (0-3); Squamous Epithelial Cell,Urine Occasional #/hpf (0-5)
--- NOTE | 2023-10-22 22:22 | PC.NURSE ---
Admitting notified for ICU, 216, Septic Shock, Hospitalist
--- NOTE | 2023-10-22 22:23 | EXP.HP ---
History of Present Illness *Admission Date: 10/22/23 *Reason for visit:: AMS *History of present illness: This is a 78-year-old female who is a [place] [facility] resident with numerous comorbidities, normally awake alert oriented able to mobilize herself with a wheelchair brought in by EMS referred from nursing facility for evaluation of significantly altered. Unknown period of time last known normal. History is limited due to patient current status . Most data collected from ED documentation, EMS and nursing facility report. On arrival No focal neurologic deficits from historical standpoint. Her blood sugar was low but was corrected prior to arrival and did not change her mental status. She is full code from historical standpoint. She is unable to provide any history so it is significantly limited. Dextrose was given and route. Patient was hypotensive. No further history. Admitted for treatment and management. [facility] Disclaimer: The information contained in this section may have been updated after the patient was seen, as this information can be updated by other users. Medical History Migraine, unspecified, not intractable, without status migrainosus Gastro-esophageal reflux disease without esophagitis Unspecified convulsions Constipation, unspecified Spinal stenosis, site unspecified Acute peptic ulcer, site unspecified, with perforation Vitamin D deficiency, unspecified Xerosis cutis Other specified arthritis, unspecified site Presence of intraocular lens Excoriation (skin-picking) disorder Iodine-deficiency related diffuse (endemic) goiter Nonrheumatic aortic (valve) stenosis Fibromyalgia Fall Fall Acute pain of right shoulder Chronic respiratory failure with hypercapnia Cardiomyopathy Atelectasis of both lungs Pleural effusion due to CHF (congestive heart failure) Acute respiratory failure with hypoxemia Pneumonia History of melanoma Breast cancer History of smoking 30 or more pack years Restrictive lung disease History of sleep apnea COPD mixed type Hematuria Coronary artery disease Diastolic dysfunction HFrEF (heart failure with reduced ejection fraction) Abnormal cardiovascular stress test Atypical angina Shortness of Breath Acute on chronic diastolic (congestive) heart failure ST segment abnormality Abnormal EKG Fatigue Abnormal stress test Edema COPD (chronic obstructive pulmonary disease) Atypical chest pain HLD (hyperlipidemia) HTN (hypertension) Diabetes Shortness of Breath Surgical History History of throat surgery History of cataract surgery History of appendectomy Family History Other No significant family history Social History Smoking Status: Unknown if ever smoked second hand exposure: No alcohol intake: never counseling provided: provider counseling substance use type: denies use current occupational status: disabled Travel in the last 8 weeks: None household members: caregiver housing: [facility] marital status: caffeine: No Review of Systems Review of Systems Review of systems:: unable to obtain Meds Home Medications and Allergies Home Medications Medication Instructions Recorded Confirmed Type duloxetine 60 mg capsule,delayed 120 mg PO DAILY Depression 04/06/19 10/22/23 History release levetiracetam 750 mg tablet 750 mg PO BID seizures 04/06/19 10/22/23 History rxfghdcxeqpo-Gl-gsjf-minerals 27 1 each PO DAILY Supplement 04/06/19 10/23/23 History mg-0.4 mg tablet ondansetron HCl 4 mg tablet 4 mg PO Q6HP PRN Nausea 04/06/19 10/22/23 History acetaminophen 500 mg tablet 500 mg PO Q4HP PRN pain 09/25/21 10/22/23 History (Tylenol Extra Strength) anastrozole 1 mg tablet 1 mg PO DAILY breast cancer 09/25/21 10/22/23 History bisacodyl 10 mg rectal suppository 10 mg NM .Q72HP PRN Constipation 09/25/21 10/22/23 History (Dulcolax (bisacodyl)) polyethylene glycol 3350 17 17 g PO DAILYP PRN Constipation 09/25/21 10/22/23 History gram/dose oral powder (Miralax) albuterol sulfate 90 mcg/actuation 2 inh inhalation Q6HP PRN 10/12/22 10/22/23 History aerosol inhaler shortness of breath or wheezing insulin NPH-regular 70-30 U-100 47 unit SQ 1130,1630 Diabetes 10/12/22 10/23/23 History insulin 100 unit/mL subcutaneous pen (Novolin 70-30 FlexPen U-100 Insulin) insulin NPH-regular 70-30 U-100 52 unit SQ AM Diabetes 10/12/22 10/23/23 History insulin 100 unit/mL subcutaneous pen (Novolin 70-30 FlexPen U-100 Insulin) ipratropium 0.5 mg-albuterol 3 mg 3 ml inhalation Q6HP PRN shortness 10/12/22 10/22/23 History (2.5 mg base)/3 mL nebulization of breath or wheezing soln melatonin 5 mg tablet 5 mg PO HS sleep 10/12/22 10/22/23 History simethicone 80 mg chewable tablet 80 mg PO TIDP PRN gas pain 10/12/22 10/23/23 History rivaroxaban 15 mg tablet (Xarelto) 15 mg PO 1700 Blood Thinner 10/30/22 10/22/23 History bupropion HCl 150 mg tablet,12 hr 150 mg PO DAILY mood 12/24/22 10/22/23 History sustained-release buspirone 15 mg tablet 15 mg PO BID Depression 12/24/22 10/22/23 History empagliflozin 10 mg tablet 10 mg PO DAILY Diabetes 03/07/23 10/22/23 History (Jardiance) cholecalciferol (vitamin D3) 50 50 mcg PO DAILY Supplement 03/08/23 10/23/23 History mcg (2,000 unit) tablet (Vitamin D3) atorvastatin 40 mg tablet 40 mg PO HS 30 days #30 tabs 03/12/23 10/22/23 Rx bumetanide 2 mg tablet 2 mg PO BID Edema 30 days #0 tabs 03/12/23 10/22/23 Rx metolazone 2.5 mg tablet 2.5 mg PO DAILY high bp 30 days #0 03/12/23 10/23/23 Rx tabs metoprolol succinate 100 mg 200 mg (2 x 100 mg) PO BID 30 days 03/12/23 10/23/23 Rx tablet,extended release 24 hr #0 tabs pantoprazole 40 mg tablet,delayed 40 mg PO DAILY 30 days #0 tabs 03/12/23 10/23/23 Rx release spironolactone 25 mg tablet 12.5 mg (1/2 x 25 mg) PO DAILY 30 03/12/23 10/22/23 Rx days #0 tabs linaclotide 290 mcg capsule 290 mcg PO DAILY 04/09/23 10/22/23 History (Linzess) metformin 1,000 mg tablet 1,000 mg PO BID 04/09/23 10/22/23 History sennosides 8.6 mg capsule (senna) 8.6 mg PO BID 10/05/23 04/18/24 History aluminum-mag hydroxide-simethicone 30 ml PO Q4H PRN upset stomach 07/03/23 10/22/23 History 200 mg-200 mg-20 mg/5 mL oral susp (Advanced Antacid-Antigas) cyanocobalamin (vitamin B-12) 100 mcg IM QMONTH vitamin 07/03/23 10/22/23 History 1,000 mcg/mL injection solution supplement digoxin 125 mcg (0.125 mg) tablet 125 mcg PO DAILY #30 tabs 07/03/23 10/22/23 Rx nitroglycerin 0.4 mg sublingual 0.4 mg sublingual Q5M PRN Chest 07/03/23 10/22/23 History tablet Pain propylene glycol 0.6 % eye drops 1 drp Eye-Both BID PRN stool 07/03/23 10/22/23 History (Systane Balance) sacubitril 24 mg-valsartan 26 mg 1 tab PO BID #60 tabs 07/03/23 10/14/23 Rx tablet (Entresto) metolazone 5 mg tablet 5 mg PO DAILY #30 tabs 07/13/23 10/22/23 Rx gabapentin 400 mg capsule 400 mg PO TID Neuropathy #90 caps 10/17/23 10/22/23 Rx ascorbate calcium (vitamin C) 500 500 mg PO DAILY #90 tabs 10/20/23 10/23/23 Rx mg tablet zinc sulfate 50 mg zinc (220 mg) 50 mg PO DAILY 14 days #14 caps 10/20/23 10/22/23 Rx capsule (Orazinc) fexofenadine 180 mg tablet 180 mg PO DAILY 10/22/23 10/22/23 History hydrocodone 10 mg-acetaminophen 1 tab PO BIDP PRN chronic pain 10/22/23 10/22/23 History 325 mg tablet nitrofurantoin 100 mg PO BID 10/22/23 10/22/23 History monohydrate/macrocrystals 100 mg capsule (Macrobid) sacubitril 24 mg-valsartan 26 mg 1 tab PO BID 10/22/23 10/22/23 History tablet (Entresto) suvorexant 10 mg tablet (Belsomra) 5 mg PO HS 10/22/23 10/22/23 History umeclidinium 62.5 mcg-vilanterol 1 inh inhalation DAILY 10/22/23 10/22/23 History 25 mcg/actuation powdr for inhalation (Anoro Ellipta) New Prescriptions to Start Prescriptions: Allergies Allergy/AdvReac Type Severity Reaction Status Date / Time codeine [CODEINE] Allergy Mild Unknown Verified 10/14/23 10:26 allergy reaction naproxen [NAPROXEN] Allergy Mild Unknown Verified 10/14/23 10:26 allergy reaction pregabalin [From LYRICA] Allergy Mild Unknown Verified 10/14/23 10:26 allergy reaction promethazine [PROMETHAZINE] Allergy Mild Unknown Verified 10/14/23 10:26 allergy reaction JOSE ELIAS Inhibitors Allergy Unknown Verified 10/14/23 10:26 allergy reaction Exam Data for Last 24 hours Vital signs and Labs for Last 24 Hours: Temp Pulse Resp BP Pulse Ox O2 Del Method O2 Flow Rate 98.0 F 63 16 73/62 L 99 Nasal Cannula 2 10/22/23 21:11 10/22/23 21:11 10/22/23 21:11 10/22/23 21:11 10/22/23 21:11 10/22/23 21:11 10/22/23 21:11 Laboratory Results - last 24 hr 10/22/23 20:42: WBC 10.7, RBC 3.34 L, Hgb 10.7 L, Hct 33.4 L, MCV 99.9 H, MCH 32.0 H, MCHC 32.0, RDW 14.8, Plt Count 283, MPV 7.6, Neut % (Auto) 87.6 H, Lymph % (Auto) 7.3 L, Eddy % (Auto) 4.3, Eos % (Auto) 0.4, Baso % (Auto) 0.3, Neut # (Auto) 9.4 H, Lymph # (Auto) 0.8, Eddy # (Auto) 0.5, Eos # (Auto) 0.0, Baso # (Auto) 0.0, Total Counted 100, Neutrophils % (Manual) 87 H, Lymphocytes % (Manual) 7 L, Monocytes % (Manual) 6, Platelet Estimate Normal, Macrocytosis 1+, Sodium 135 L, Potassium 3.0 L, Chloride 92 L, Carbon Dioxide 37 H, Anion Gap 9.0, BUN 37 H, Creatinine 1.40 H, Estimated Creat Clear 49, Estimated GFR 36 L, Est GFR ( Amer) 44 L, Glucose 109 H, Calcium 9.3, Total Bilirubin 0.6, AST 39 H, ALT 29, Alkaline Phosphatase 344 H, Troponin I 0.02, Total Protein 6.6, Albumin 3.4 L, Globulin 3.2, Albumin/Globulin Ratio 1.1, TSH 0.12 L, Digoxin < 0.40 10/22/23 20:53: VBG pH 7.39, VBG pCO2 50.3, VBG pO2 48.6 H, VBG HCO3 29.5, VBG Total CO2 31.0 H, VBG O2 Saturation 81.2 H, VBG Base Excess 4.5 H, VBG Lactic Acid 2.2 H 10/22/23 21:30: Urine Color Yellow, Urine Appearance Sl cloudy, Urine pH 6.5, Ur Specific [place] 1.010, Urine Protein Negative, Urine Glucose (UA) Negative, Urine Ketones Negative, Urine Blood Trace-i, Urine Nitrate Positive, Urine Bilirubin Negative, Urine Urobilinogen 0.2, Ur Leukocyte Esterase 3+ A, Urine RBC Occasional, Urine WBC 10-20, Ur Squamous Epith Cells Occasional, Urine Bacteria 3+ Temp Pulse Resp BP Pulse Ox O2 Del Method O2 Flow Rate 98.0 F 64 22 102/71 L 94 L Room Air 6 03/07/23 10:14 03/07/23 11:00 03/07/23 10:14 03/07/23 11:00 03/07/23 11:00 03/07/23 11:00 03/07/23 10:31 Laboratory Results - last 24 hr 03/07/23 10:16: WBC 11.6 H, RBC 4.02 L, Hgb 12.1 L, Hct 39.0, MCV 97.2, MCH 30.1, MCHC 31.0 L, RDW 15.5, Plt Count 314, MPV 7.8, Neut % (Auto) 83.8 H, Lymph % (Auto) 11.0, Eddy % (Auto) 4.2, Eos % (Auto) 0.8, Baso % (Auto) 0.3, Neut # (Auto) 9.7 H, Lymph # (Auto) 1.3, Eddy # (Auto) 0.5, Eos # (Auto) 0.1, Baso # (Auto) 0.0, Sodium 135 L, Potassium 5.0, Chloride 88 L, Carbon Dioxide 38 H, Anion Gap 14.0, BUN 28 H, Creatinine 1.00, Estimated Creat Clear 47, Estimated GFR 54 L, Est GFR ( Amer) 65, Glucose 139 H, Calcium 9.3, Total Bilirubin 0.3, AST 21, ALT 18, Alkaline Phosphatase 143 H, Troponin I < 0.01, Total Protein 8.2, Albumin 4.1, Globulin 4.1 H, Albumin/Globulin Ratio 1.0 L 03/07/23 10:17: Lactate 0.8 03/07/23 10:21: VBG pH 7.28 L, VBG pCO2 71.0 H, VBG pO2 54.5 H, VBG HCO3 32.5 H, VBG Total CO2 34.7 H, VBG O2 Saturation 85.8 H, VBG Base Excess 5.8 H I & O for Last 24 hours: Intake & Output 10/19/23 10/20/23 10/21/23 10/22/23 23:59 23:59 23:59 23:59 Weight 93.157 kg Intake & Output 03/04/23 03/05/23 03/06/23 03/07/23 23:59 23:59 23:59 23:59 Weight 136.531 kg Constitutional Constitutional: morbidly obese, chronically ill appearing and obtunded *Routine HEENT Exam Head: Present normocephalic Eye: Present EOMI and PERRL ENT: Present mucous membranes moist *Routine Neck Exam Neck: Present supple; Absent lymphadenopathy *Routine Respiratory Exam Respiratory: Present CTA bilaterally, respiratory distress and able to speak in complete sentences; Absent rhonchi, wheezes or crackles *Routine Cardiovascular Exam Cardiovascular: Present Normal S1 and Normal S2 *Routine Abdominal Exam Abdominal: Present soft and normoactive bowel sounds; Absent tenderness *Routine Rectal Exam Rectal:: deferred *Routine Genitalia Exam Genitalia:: deferred *Routine Extremities Exam Extremities: Absent cyanosis, clubbing or edema *Routine Skin Exam Skin: Present warm; Absent rash *Routine Neurological Exam Neurological: Present altered mental status Routine Psychiatric Exam Psychiatric: Present unable to assess H&P: Result Imaging and Cardiology EKG: Status: image reviewed by me, Preliminary report and final report Chest x-ray: Status: image reviewed by me, Preliminary report and final report CT scan - abdomen: Status: image reviewed by me, Preliminary report and final report Assessment and Plan *Assessment and plan (1) Septic shock: Status: Acute Category: Medical Code(s): A41.9 - Sepsis, unspecified organism; R65.21 - Severe sepsis with septic shock (2) Encephalopathy acute: Status: Acute Category: Medical Code(s): G93.40 - Encephalopathy, unspecified (3) Acute UTI: Status: Acute Category: Medical Code(s): N39.0 - Urinary tract infection, site not specified (4) Multifocal pneumonia: Status: Acute Category: Medical Code(s): J18.9 - Pneumonia, unspecified organism (5) Open abdominal wall wound: Status: Acute Qualifiers: Encounter type: initial encounter Qualified Code(s): S31.109A - Unspecified open wound of abdominal wall, unspecified quadrant without penetration into peritoneal cavity, initial encounter Category: Medical Code(s): S31.109A - Unspecified open wound of abdominal wall, unspecified quadrant without penetration into peritoneal cavity, initial encounter (6) COPD mixed type: Status: Chronic Category: Medical Code(s): J44.9 - Chronic obstructive pulmonary disease, unspecified (7) HFrEF (heart failure with reduced ejection fraction): Status: Acute Category: Medical Code(s): I50.20 - Unspecified systolic (congestive) heart failure (8) Atrial fibrillation: Status: Chronic Qualifiers: Atrial fibrillation type: unspecified Qualified Code(s): I48.91 - Unspecified atrial fibrillation Category: Medical Code(s): I48.91 - Unspecified atrial fibrillation (9) Type 2 diabetes mellitus with diabetic neuropathy: Status: Chronic Qualifiers: Diabetes mellitus plasma center nurse insulin use: unspecified plasma center nurse insulin use status Qualified Code(s): E11.40 - Type 2 diabetes mellitus with diabetic neuropathy, unspecified Category: Medical Code(s): E11.40 - Type 2 diabetes mellitus with diabetic neuropathy, unspecified (10) Morbid obesity: Status: Chronic Category: Medical Code(s): E66.01 - Morbid (severe) obesity due to excess calories Plan 78-year-old female who is a [place] [facility] resident with numerous comorbidities, normally awake alert oriented able to mobilize herself with a wheelchair brought in by EMS referred from nursing facility for evaluation of significantly altered. Unknown period of time last known normal. On arrival presented toxic appearance, hypotensive and hypothermic. Sepsis protocols initiated. She does have a urinary tract infection chest x-ray personally interpreted also looked at the CT scan of the patient's chest and her lung windows she appears to have multifocal interstitial infiltrates consistent with pneumonia. Findings discussed with ED. agreed for admission. Plan as follow: - Septic shock secondary to UTI and possible multifocal pneumonia Acute toxic septic encephalopaty: Admit patient. Dispo ICU continue IV resuscitation started on Vanco and cefepime. flagyl given pharmacy to dose vanco zhang culture pending on levophed monitor for organs dysfunctions. VS per unit monitor and repeat labs daily -abdominal fistula: recently evaluated by surgeon. recommended wound care management does not appear to be infected. wound culture obtained wound care consult - COPD, Afib, HFrEF,: conditions reviewed. currently stable. continue monitoring Diabetes: Accucheck before meals and as needed . sliding scale . diabetic diet morbid obesity will complicate all aspect of care On xarelto and protonix Full code
[2023-10-22 22:24] LABS: Coronavirus 19, PCR Not Detected (NotDetected); Influenza A, PCR Not Detected (NotDetected); Influenza B, PCR Not Detected (NotDetected)
--- NOTE | 2023-10-22 22:24 | PC.NURSE ---
fs 119
--- NOTE | 2023-10-22 22:37 | PC.NURSE ---
Addendum entered by Carmelina Merida RN 10/23/23 00:28: Report called to SUKUMAR Santana [employer] Original Note: Report called to SUKUMAR Santana
[2023-10-22] MEDS: CEFEPIME HCL 2 GM in 0.9 % SODIUM CHLORIDE 100 ML IV (22:45)
[2023-10-22] MEDS: NOREPINEPHRINE BITARTRATE/D5W 8 MG/250 ML PLAST..BAG 15 MG IV (22:45)
--- NOTE | 2023-10-22 23:09 | PC.NURSE ---
Spoke with MD at this time. He states that patient does not need a central line at present. 2nd floor aware. Two extra peripheral IV placed for extra access.
[2023-10-22] MEDS: 0.9 % SODIUM CHLORIDE 1000ML 1,000 ML 75 ML IV (23:55)
[2023-10-23] VITALS (27 sets, daily range): BP systolic 78–189; BP diastolic 39–88; PULSE 64–86; RESP 17–25; TEMP 35.9–37.7; O2SAT 91–100; BMI 32.1; BMI 32.2
[2023-10-23 00:34] LABS: Troponin I 0.02 ng/ml (0.00-0.034)
[2023-10-23 01:15] LABS: Reflex Lactic Add Lactic Reflex
[2023-10-23] MEDS: VANCOMYCIN HCL 2,250 MG in 0.9 % SODIUM CHLORIDE 500 ML 166 MG IV (01:28)
[2023-10-23 01:55] LABS: Lactic Acid Follow Up (RFLX 1) 1.6 mmol/L (0.7-2.1)
[2023-10-23 03:21] LABS: Basophils # 0.1 K/mm3 (0-0.2); Basophils % 0.4 % (0.1-2.0); Eosinophils # 0.1 K/mm3 (0.0-0.4); Eosinophils % 0.6 % (0.1-12.0); Hematocrit 32.1 % (37.0-47.0); Hemoglobin 10.3 g/dL (12.2-16.2); Lymphocytes # 1.2 K/mm3 (0.7-4.5); Lymphocytes % 10.9 % (10-50); Mean Corpuscular Hemoglobin 31.5 pg (27.0-31.2); Mean Corpuscular Volume 98.5 fl (81-99); Mean Platelet Volume 7.6 fl (7.4-10.4); Monocytes # 0.7 K/mm3 (0.1-1.0); Monocytes % 5.8 % (1.7-9.3); Neutrophils # 9.2 K/mm3 (1.8-7.8); Neutrophils % 82.3 % (37.0-80.0); Platelet Count 295 K/mm3 (142-424); Red Blood Count 3.26 M/mm3 (4.20-5.40); Red Cell Distribution Width 14.8 % (11.5-17.5); White Blood Count 11.2 K/mm3 (4.8-10.8)
[2023-10-23 03:37] LABS: Troponin I 0.03 ng/ml (0.00-0.034)
[2023-10-23 03:47] LABS: Chloride 98 mmol/L (98-107); Potassium 3.6 mmoL/L (3.5-5.1); Sodium 135 mmol/L (136-145)
[2023-10-23 03:49] LABS: Alanine Aminotransferase 25 U/L (12-78); Aspartate Amino Transferase 38 U/L (14-36); Blood Urea Nitrogen 31 mg/dl (7-17); Creatinine Clearance Estimated 69 mL/min (50-200); Estimated Glomerular Filt Rate 54 ml/min (>60); GFR (African American) 65 ML/MIN (>60)
[2023-10-23 03:50] LABS: Albumin Level 2.8 g/dl (3.5-5.0); Alkaline Phosphatase 303 U/L (38-126); Anion Gap 6.6 mEq/L (5-15); Bilirubin,Total 0.6 mg/dl (0.2-1.3); Calcium 8.7 mg/dl (8.4-10.2); Carbon Dioxide 34 mmol/L (22.0-30.0); Globulin 2.7 g/dL (1.3-3.2); Glucose 106 mg/dl (74-100); Magnesium 1.7 mg/dl (1.6-2.3); Total Protein,Serum 5.5 g/dl (6.3-8.2)
[2023-10-23 06:29] LABS: POC Glucose,Bedside 121 (70-110)
[2023-10-23] MEDS: CEFEPIME HCL 2 GM in 0.9 % SODIUM CHLORIDE 100 ML IV ×3 (06:33→21:06)
--- NOTE | 2023-10-23 08:11 | EXP.PHA.CONS ---
Pharmacy Consult Date: 10/23/23 Time: 08:11 Referring provider: JAEL Reason for Consult:: PHARMACY CONSULTED TO DOSE AND MANAGE VANCOMYCIN THERAPY Allergies Allergy/AdvReac Type Severity Reaction Status Date / Time codeine [CODEINE] Allergy Mild Unknown Verified 10/14/23 10:26 allergy reaction naproxen [NAPROXEN] Allergy Mild Unknown Verified 10/14/23 10:26 allergy reaction pregabalin [From LYRICA] Allergy Mild Unknown Verified 10/14/23 10:26 allergy reaction promethazine [PROMETHAZINE] Allergy Mild Unknown Verified 10/14/23 10:26 allergy reaction JOSE ELIAS Inhibitors Allergy Unknown Verified 10/14/23 10:26 allergy reaction Home Medications Medication Instructions Recorded Confirmed Type duloxetine 60 mg capsule,delayed 120 mg PO DAILY Depression 04/06/19 10/22/23 History release levetiracetam 750 mg tablet 750 mg PO BID seizures 04/06/19 10/22/23 History tqhoalggqdtp-Ev-drqn-minerals 27 1 each PO DAILY Supplement 04/06/19 10/23/23 History mg-0.4 mg tablet ondansetron HCl 4 mg tablet 4 mg PO Q6HP PRN Nausea 04/06/19 10/22/23 History acetaminophen 500 mg tablet 500 mg PO Q4HP PRN pain 09/25/21 10/22/23 History (Tylenol Extra Strength) anastrozole 1 mg tablet 1 mg PO DAILY breast cancer 09/25/21 10/22/23 History bisacodyl 10 mg rectal suppository 10 mg VT .Q72HP PRN Constipation 09/25/21 10/22/23 History (Dulcolax (bisacodyl)) polyethylene glycol 3350 17 17 g PO DAILYP PRN Constipation 09/25/21 10/22/23 History gram/dose oral powder (Miralax) albuterol sulfate 90 mcg/actuation 2 inh inhalation Q6HP PRN 10/12/22 10/22/23 History aerosol inhaler shortness of breath or wheezing insulin NPH-regular 70-30 U-100 47 unit SQ 1130,1630 Diabetes 10/12/22 10/23/23 History insulin 100 unit/mL subcutaneous pen (Novolin 70-30 FlexPen U-100 Insulin) insulin NPH-regular 70-30 U-100 52 unit SQ AM Diabetes 10/12/22 10/23/23 History insulin 100 unit/mL subcutaneous pen (Novolin 70-30 FlexPen U-100 Insulin) ipratropium 0.5 mg-albuterol 3 mg 3 ml inhalation Q6HP PRN shortness 10/12/22 10/22/23 History (2.5 mg base)/3 mL nebulization of breath or wheezing soln melatonin 5 mg tablet 5 mg PO HS sleep 10/12/22 10/22/23 History simethicone 80 mg chewable tablet 80 mg PO TIDP PRN gas pain 10/12/22 10/23/23 History rivaroxaban 15 mg tablet (Xarelto) 15 mg PO 1700 Blood Thinner 10/30/22 10/22/23 History bupropion HCl 150 mg tablet,12 hr 150 mg PO DAILY mood 12/24/22 10/22/23 History sustained-release buspirone 15 mg tablet 15 mg PO BID Depression 12/24/22 10/22/23 History empagliflozin 10 mg tablet 10 mg PO DAILY Diabetes 03/07/23 10/22/23 History (Jardiance) cholecalciferol (vitamin D3) 50 50 mcg PO DAILY Supplement 03/08/23 10/23/23 History mcg (2,000 unit) tablet (Vitamin D3) atorvastatin 40 mg tablet 40 mg PO HS 30 days #30 tabs 03/12/23 10/22/23 Rx bumetanide 2 mg tablet 2 mg PO BID Edema 30 days #0 tabs 03/12/23 10/22/23 Rx metolazone 2.5 mg tablet 2.5 mg PO DAILY high bp 30 days #0 03/12/23 10/23/23 Rx tabs metoprolol succinate 100 mg 200 mg (2 x 100 mg) PO BID 30 days 03/12/23 10/23/23 Rx tablet,extended release 24 hr #0 tabs pantoprazole 40 mg tablet,delayed 40 mg PO DAILY 30 days #0 tabs 03/12/23 10/23/23 Rx release spironolactone 25 mg tablet 12.5 mg (1/2 x 25 mg) PO DAILY 30 03/12/23 10/22/23 Rx days #0 tabs linaclotide 290 mcg capsule 290 mcg PO DAILY 04/09/23 10/22/23 History (Linzess) metformin 1,000 mg tablet 1,000 mg PO BID 04/09/23 10/22/23 History sennosides 8.6 mg capsule (senna) 8.6 mg PO BID 04/09/23 10/22/23 History aluminum-mag hydroxide-simethicone 30 ml PO Q4H PRN upset stomach 07/03/23 10/22/23 History 200 mg-200 mg-20 mg/5 mL oral susp (Advanced Antacid-[place]) cyanocobalamin (vitamin B-12) 100 mcg IM QMONTH vitamin 07/03/23 10/22/23 History 1,000 mcg/mL injection solution supplement digoxin 125 mcg (0.125 mg) tablet 125 mcg PO DAILY #30 tabs 07/03/23 10/22/23 Rx nitroglycerin 0.4 mg sublingual 0.4 mg sublingual Q5M PRN Chest 07/03/23 10/22/23 History tablet Pain propylene glycol 0.6 % eye drops 1 drp Eye-Both BID PRN stool 07/03/23 10/22/23 History (Systane Balance) sacubitril 24 mg-valsartan 26 mg 1 tab PO BID #60 tabs 07/03/23 10/14/23 Rx tablet (Entresto) metolazone 5 mg tablet 5 mg PO DAILY #30 tabs 07/13/23 10/22/23 Rx gabapentin 400 mg capsule 400 mg PO TID Neuropathy #90 caps 10/17/23 10/22/23 Rx ascorbate calcium (vitamin C) 500 500 mg PO DAILY #90 tabs 10/20/23 10/23/23 Rx mg tablet zinc sulfate 50 mg zinc (220 mg) 50 mg PO DAILY 14 days #14 caps 10/20/23 10/22/23 Rx capsule (Orazinc) fexofenadine 180 mg tablet 180 mg PO DAILY 10/22/23 10/22/23 History hydrocodone 10 mg-acetaminophen 1 tab PO BIDP PRN chronic pain 10/22/23 10/22/23 History 325 mg tablet nitrofurantoin 100 mg PO BID 10/22/23 10/22/23 History monohydrate/macrocrystals 100 mg capsule (Macrobid) sacubitril 24 mg-valsartan 26 mg 1 tab PO BID 10/22/23 10/22/23 History tablet (Entresto) suvorexant 10 mg tablet (Belsomra) 5 mg PO HS 10/22/23 10/22/23 History umeclidinium 62.5 mcg-vilanterol 1 inh inhalation DAILY 10/22/23 10/22/23 History 25 mcg/actuation powdr for inhalation (Anoro Ellipta) New Prescriptions to Start Prescriptions: Height: 1.7 m Weight: 93.157 kg Laboratory Results:: Laboratory Results - last 24 hr 10/22/23 20:42: WBC 10.7, RBC 3.34 L, Hgb 10.7 L, Hct 33.4 L, MCV 99.9 H, MCH 32.0 H, MCHC 32.0, RDW 14.8, Plt Count 283, MPV 7.6, Neut % (Auto) 87.6 H, Lymph % (Auto) 7.3 L, [place] % (Auto) 4.3, Eos % (Auto) 0.4, Baso % (Auto) 0.3, Neut # (Auto) 9.4 H, Lymph # (Auto) 0.8, [place] # (Auto) 0.5, Eos # (Auto) 0.0, Baso # (Auto) 0.0, Total Counted 100, Neutrophils % (Manual) 87 H, Lymphocytes % (Manual) 7 L, Monocytes % (Manual) 6, Platelet Estimate Normal, Macrocytosis 1+, Sodium 135 L, Potassium 3.0 L, Chloride 92 L, Carbon Dioxide 37 H, Anion Gap 9.0, BUN 37 H, Creatinine 1.40 H, Estimated Creat Clear 49, Estimated GFR 36 L, Est GFR ( Amer) 44 L, Glucose 109 H, Calcium 9.3, Total Bilirubin 0.6, AST 39 H, ALT 29, Alkaline Phosphatase 344 H, Troponin I 0.02, Total Protein 6.6, Albumin 3.4 L, Globulin 3.2, Albumin/Globulin Ratio 1.1, TSH 0.12 L, Digoxin < 0.40 10/22/23 20:53: VBG pH 7.39, VBG pCO2 50.3, VBG pO2 48.6 H, VBG HCO3 29.5, VBG Total CO2 31.0 H, VBG O2 Saturation 81.2 H, VBG Base Excess 4.5 H, VBG Lactic Acid 2.2 H 10/22/23 21:30: Urine Color Yellow, Urine Appearance Sl cloudy, Urine pH 6.5, Ur Specific [place] 1.010, Urine Protein Negative, Urine Glucose (UA) Negative, Urine Ketones Negative, Urine Blood Trace-i, Urine Nitrate Positive, Urine Bilirubin Negative, Urine Urobilinogen 0.2, Ur Leukocyte Esterase 3+ A, Urine RBC Occasional, Urine WBC 10-20, Ur Squamous Epith Cells Occasional, Urine Bacteria 3+ 10/22/23 22:15: SARS-CoV-2 (PCR) Not detected, Influenza A Untype (PCR) Not detected, Influenza Type B (PCR) Not detected 10/22/23 23:54: Troponin I 0.02 10/23/23 01:35: Lactate 1.6 10/23/23 03:10: WBC 11.2 H, RBC 3.26 L, Hgb 10.3 L, Hct 32.1 L, MCV 98.5, MCH 31.5 H, MCHC 32.0, RDW 14.8, Plt Count 295, MPV 7.6, Neut % (Auto) 82.3 H, Lymph % (Auto) 10.9, [place] % (Auto) 5.8, Eos % (Auto) 0.6, Baso % (Auto) 0.4, Neut # (Auto) 9.2 H, Lymph # (Auto) 1.2, [place] # (Auto) 0.7, Eos # (Auto) 0.1, Baso # (Auto) 0.1, Sodium 135 L, Potassium 3.6, Chloride 98, Carbon Dioxide 34 H, Anion Gap 6.6, BUN 31 H, Creatinine 1.00 D, Estimated Creat Clear 69, Estimated GFR 54 L, Est GFR ( Amer) 65 D, Glucose 106 H, Calcium 8.7, Magnesium 1.7, Total Bilirubin 0.6, AST 38 H, ALT 25, Alkaline Phosphatase 303 H, Troponin I 0.03, Total Protein 5.5 L, Albumin 2.8 L D, Globulin 2.7, Albumin/Globulin Ratio 1.0 L 10/23/23 06:13: POC Glucose 121 H Medical History: Medical History (Updated 10/22/23 @ 22:20 by Stella Jaramillo MD) Migraine, unspecified, not intractable, without status migrainosus Gastro-esophageal reflux disease without esophagitis Unspecified convulsions Constipation, unspecified Spinal stenosis, site unspecified Acute peptic ulcer, site unspecified, with perforation Vitamin D deficiency, unspecified Xerosis cutis Other specified arthritis, unspecified site Presence of intraocular lens Excoriation (skin-picking) disorder Iodine-deficiency related diffuse (endemic) goiter Nonrheumatic aortic (valve) stenosis Fibromyalgia Fall Fall Acute pain of right shoulder Chronic respiratory failure with hypercapnia Cardiomyopathy Atelectasis of both lungs Pleural effusion due to CHF (congestive heart failure) Acute respiratory failure with hypoxemia Pneumonia History of melanoma Breast cancer History of smoking 30 or more pack years Restrictive lung disease History of sleep apnea COPD mixed type Hematuria Coronary artery disease Diastolic dysfunction HFrEF (heart failure with reduced ejection fraction) Abnormal cardiovascular stress test Atypical angina Shortness of Breath Acute on chronic diastolic (congestive) heart failure ST segment abnormality Abnormal EKG Fatigue Abnormal stress test Edema COPD (chronic obstructive pulmonary disease) Atypical chest pain HLD (hyperlipidemia) HTN (hypertension) Diabetes Shortness of Breath Assessment and Plan Assessment and plan all Dx Assessment and Plan for all problems:: History of Present Illness *Admission Date: 10/22/23 *Reason for visit:: AMS *History of present illness: This is a 78-year-old female who is a group home resident with numerous comorbidities, normally awake alert oriented able to mobilize herself with a wheelchair brought in by EMS referred from nursing facility for evaluation of significantly altered. Unknown period of time last known normal. History is limited due to patient current status . Most data collected from ED documentation, EMS and nursing facility report. On arrival No focal neurologic deficits from historical standpoint. Her blood sugar was low but was corrected prior to arrival and did not change her mental status. She is full code from historical standpoint. She is unable to provide any history so it is significantly limited. Dextrose was given and route. Patient was hypotensive. No further history. Admitted for treatment and management. PT RECEIVED CEFEPIME AND VANCOMYCIN IN ER. WILL CONTINUE CEFEPIME AND START VANCOMYCIN TONIGHT AT 1750MG EVERY 24 HOURS. WILL FOLLOW DAILY LONG PATIENT CONTINUES VANCOMYCIN AND WILL ADJUST NECESSARY. THANKS
[2023-10-23] MEDS: ONDANSETRON 4MG/2ML VIAL 4 MG IV ×2 (08:46→20:47)
--- NOTE | 2023-10-23 08:55 | P.CONPHA_ITS ---
Pharmacy Intervention Comments: HOME MEDICATION LIST VERIFIED USING LIST FROM [facility]
--- NOTE | 2023-10-23 08:55 | HMH.PHAINT1 ---
Pharmacy Intervention Comments: HOME MEDICATION LIST VERIFIED USING LIST FROM [facility]
--- NOTE | 2023-10-23 09:53 | HMH.PTWOUND ---
Rehab Inpt Wound Evaluation Rehab IP Wound Evaluation Start: 10/23/23 05:51 Freq: ONCE Status: Active Protocol: Document 10/23/23 09:45 PHOCRIS (Rec: 10/23/23 09:53 PHORNE [id number]) Rehab PT Wound Assessment Subjective Subjective 78 yowf adm to [facility] with septic shock. Significant comorbidities with PMH of: Medical History (Reviewed 04/28 @ 10:29 by SUN Goodrich) Migraine, unspecified, not intractable, without status migrainosus Gastro-esophageal reflux disease without esophagitis Unspecified convulsions Constipation, unspecified Spinal stenosis, site unspecified Acute peptic ulcer, site unspecified, with perforation Vitamin D deficiency, unspecified Xerosis cutis Other specified arthritis, unspecified site Presence of intraocular lens Excoriation (skin-picking) disorder Iodine-deficiency related diffuse (endemic) goiter Nonrheumatic aortic (valve) stenosis Fibromyalgia Fall Fall Acute pain of right shoulder Chronic respiratory failure with hypercapnia Cardiomyopathy Atelectasis of both lungs Pleural effusion due to CHF ( congestive heart failure) Acute respiratory failure with hypoxemia Pneumonia History of melanoma Breast cancer History of smoking 30 or more pack years Restrictive lung disease History of sleep apnea COPD mixed type Hematuria Coronary artery disease Diastolic dysfunction HFrEF (heart failure with reduced ejection fraction) Abnormal cardiovascular stress test Atypical angina Shortness of Breath Acute on chronic diastolic ( congestive) heart failure ST segment abnormality Abnormal EKG Fatigue Abnormal stress test Edema COPD (chronic obstructive pulmonary disease) Atypical chest pain HLD (hyperlipidemia) HTN (hypertension) Diabetes Shortness of Breath Surgical History (Reviewed 04/28 @ 10:29 by Mercedes Olivier [facility]) History of throat surgery History of cataract surgery History of [place]ectomy [place] [facility] [place] around her umbilicus. CT scan suggests fistula can not be ruled out. Wound Abdomen Wound Type unknown etiology Is This a Chronic Wound Yes Wound Length (cm) 3.0 Wound Width (cm) 0.8 Wound Depth (cm) 2.1 Wound Bed Appearance Dusky Red Wound Margins Description Indistinct Surrounding Tissue Appearance [place] Wound Drainage Description Brown,White Drainage Amount Moderate Wound Topical Solution/Irrigant Saline Irrigant Packing Type Alginate Primary Dressing Composite Comment bordered foam Wound Debridement Method Gauze,Mechanical Wound Debridement Amount of Tissue Minimal Removed Dressing Change Patient Tolerance Tolerated Well Plan/Recommendation Comment Pt wound currently has no need for bedside sharp, selective debridement. Nsg staff can change dressing as above as needed every 1-2 days. Surgical consult may be helpful if fistula is present. Eval Complexity Eval Charge Codes 17987 - High Complexity Oliveros-Bello Wound Assessment Tool Assessment Wound size 1=Length x Width <4 sq cm Wound depth 3=Full thickness skin loss involving damage or necrosis of Wound edges 4=Well-defined, not attached to base, rolled under, thickened Wound undermining 1=None present Necrotic tissue type 1=Non visible Necrotic tissue amount 1=None visible Exudate type 5=Purulent: thin or thick, opaque, carpio/yellow, withour without odor Exudate amount 4=Moderate Skin color surrounding wound 1=[place] or normal for ethnic group Peripheral tissue edema 1=No swelling or edema Peripheral tissue induration 2=Induration,<2 cm around wound Granulation tissue 3=Bright, beefy red; <75% & > 25% of wound filled Epithelialization 5= < 25% wound covered Wound assessment total score 32 PHYSICIAN CERTIFICATION: I certify the specified therapy services for Dina Cortés are required, authorized, and reviewed every 30 days.
--- NOTE | 2023-10-23 10:03 | SW/DCPLANNER ---
This patient currently resides at [facility] level of care. I will continue to follow up w/ Sandi at [place] until patient is medically stable for discharge. Discharge date is unknown at this time.
--- NOTE | 2023-10-23 10:48 | CT_ITS ---
FINAL REPORT TECHNIQUE: Axial images were obtained through the chest without contrast. CLINICAL HISTORY: check for pneumonia COMPARISON: 03/09/2023 FINDINGS: There is asymmetric enlargement of the left lobe of thyroid. Thyroid parenchyma is homogeneous. There are small scattered mediastinal lymph nodes. Densely calcified paratracheal and subcarinal lymph nodes are present. There are multiple ill-defined nodular opacities throughout both lungs in the upper and lower lobes. These findings were not present on the previous exam. Previously noted moderate bilateral pleural effusions and bibasilar consolidation has resolved. Limited images of the upper abdomen are unremarkable. IMPRESSION: Multifocal opacities in both lungs which are favored to be infectious but neoplasm is not excluded. Recommend 1 to 3-month follow-up CT. Resolution of previously noted effusions and bibasilar consolidation. Reviewed, Interpreted and Dictated by Gonzalo Bryant MD Transcribed by Mercedes Sanchez Authenticated and [facility]
--- NOTE | 2023-10-23 11:01 | HMH.ITSTN ---
SPOKE WITH VITA PATINO, PT HAS TO BE TRANSPORTED BY BED WITH A NURSE. WILL DO AFTER 1PM.
[2023-10-23] MEDS: humaLOG 100 UNITS/ML 3ML VIAL (SSI) SQ ×3 (11:28→20:48)
[2023-10-23 11:29] LABS: POC Glucose,Bedside 315 (70-110)
[2023-10-23] MEDS: 0.9 % SODIUM CHLORIDE 1000ML 1,000 ML 75 ML IV (13:42)
[2023-10-23] MEDS: SODIUM CHLORIDE 3% 15ML NEB 3 ML IH (13:51)
[2023-10-23] MEDS: ACETAMINOPHEN 325MG TAB 650 MG PO (14:12)
--- NOTE | 2023-10-23 14:40 | P.PN_ITS ---
Subjective *Date: 10/23/23 *Time: 14:40 Interval history: seen at bedside, she seems comfortable in bed, complains about graf and wants it to be removed, discussed with RN, patient denied CP, SOB, N/V Exam Data for Last 24 hours Vital signs and Labs for Last 24 Hours: Temp Pulse Resp BP Pulse Ox O2 Del Method O2 Flow Rate 98.2 F 75 20 112/47 L 96 Nasal Cannula 2 10/23/23 12:00 10/23/23 14:00 10/23/23 14:00 10/23/23 14:00 10/23/23 14:00 10/23/23 14:00 10/23/23 14:00 Laboratory Results - last 24 hr 10/22/23 20:42: WBC 10.7, RBC 3.34 L, Hgb 10.7 L, Hct 33.4 L, MCV 99.9 H, MCH 32.0 H, MCHC 32.0, RDW 14.8, Plt Count 283, MPV 7.6, Neut % (Auto) 87.6 H, Lymph % (Auto) 7.3 L, [place] % (Auto) 4.3, Eos % (Auto) 0.4, Baso % (Auto) 0.3, Neut # (Auto) 9.4 H, Lymph # (Auto) 0.8, [place] # (Auto) 0.5, Eos # (Auto) 0.0, Baso # (Auto) 0.0, Total Counted 100, Neutrophils % (Manual) 87 H, Lymphocytes % (Manual) 7 L, Monocytes % (Manual) 6, Platelet Estimate Normal, Macrocytosis 1+, Sodium 135 L, Potassium 3.0 L, Chloride 92 L, Carbon Dioxide 37 H, Anion Gap 9.0, BUN 37 H, Creatinine 1.40 H, Estimated Creat Clear 49, Estimated GFR 36 L, Est GFR ( Amer) 44 L, Glucose 109 H, Calcium 9.3, Total Bilirubin 0.6, AST 39 H, ALT 29, Alkaline Phosphatase 344 H, Troponin I 0.02, Total Protein 6.6, Albumin 3.4 L, Globulin 3.2, Albumin/Globulin Ratio 1.1, TSH 0.12 L, Digoxin < 0.40 10/22/23 20:53: VBG pH 7.39, VBG pCO2 50.3, VBG pO2 48.6 H, VBG HCO3 29.5, VBG Total CO2 31.0 H, VBG O2 Saturation 81.2 H, VBG Base Excess 4.5 H, VBG Lactic Acid 2.2 H 10/22/23 21:30: Urine Color Yellow, Urine Appearance Sl cloudy, Urine pH 6.5, Ur Specific [place] 1.010, Urine Protein Negative, Urine Glucose (UA) Negative, Urine Ketones Negative, Urine Blood Trace-i, Urine Nitrate Positive, Urine Bilirubin Negative, Urine Urobilinogen 0.2, Ur Leukocyte Esterase 3+ A, Urine RBC Occasional, Urine WBC 10-20, Ur Squamous Epith Cells Occasional, Urine Bacteria 3+ 10/22/23 22:15: SARS-CoV-2 (PCR) Not detected, Influenza A Untype (PCR) Not detected, Influenza Type B (PCR) Not detected 10/22/23 23:54: Troponin I 0.02 10/23/23 01:35: Lactate 1.6 10/23/23 03:10: WBC 11.2 H, RBC 3.26 L, Hgb 10.3 L, Hct 32.1 L, MCV 98.5, MCH 31.5 H, MCHC 32.0, RDW 14.8, Plt Count 295, MPV 7.6, Neut % (Auto) 82.3 H, Lymph % (Auto) 10.9, [place] % (Auto) 5.8, Eos % (Auto) 0.6, Baso % (Auto) 0.4, Neut # (Auto) 9.2 H, Lymph # (Auto) 1.2, [place] # (Auto) 0.7, Eos # (Auto) 0.1, Baso # (Auto) 0.1, Sodium 135 L, Potassium 3.6, Chloride 98, Carbon Dioxide 34 H, Anion Gap 6.6, BUN 31 H, Creatinine 1.00 D, Estimated Creat Clear 69, Estimated GFR 54 L, Est GFR ( Amer) 65 D, Glucose 106 H, Calcium 8.7, Magnesium 1.7, Total Bilirubin 0.6, AST 38 H, ALT 25, Alkaline Phosphatase 303 H, Troponin I 0.03, Total Protein 5.5 L, Albumin 2.8 L D, Globulin 2.7, Albumin/Globulin Ratio 1.0 L 10/23/23 06:13: POC Glucose 121 H 10/23/23 11:21: POC Glucose 315 H* I & O for Last 24 hours: Intake & Output 10/20/23 10/21/23 10/22/23 10/23/23 23:59 23:59 23:59 23:59 Intake Total 17.75 / 18.75 3065.313 / 3065.313 Output Total 3075 / 3075 Balance 17.75 / 18.75 -9.687 / -9.687 Weight 93.157 kg 93.15 kg Constitutional Constitutional: no acute distress *Routine HEENT Exam Head: Present normocephalic Eye: Present EOMI and PERRL ENT: Present mucous membranes moist *Routine Neck Exam Neck: Present supple; Absent lymphadenopathy *Routine Respiratory Exam Respiratory: Present CTA bilaterally *Routine Cardiovascular Exam Cardiovascular: Present RRR *Routine Abdominal Exam Abdominal: Present soft and normoactive bowel sounds; Absent tenderness *Routine Extremities Exam Extremities: Absent cyanosis, clubbing or edema *Routine Skin Exam Skin: Present warm; Absent rash *Routine Neurological Exam Neurological: Present alert and oriented X3 Assessment and Plan *Assessment and plan (1) Septic shock: Status: Acute Category: Medical Code(s): A41.9 - Sepsis, unspecified organism; R65.21 - Severe sepsis with septic shock (2) Encephalopathy acute: Status: Acute Category: Medical Code(s): G93.40 - Encephalopathy, unspecified (3) Acute UTI: Status: Acute Category: Medical Code(s): N39.0 - Urinary tract infection, site not specified (4) Multifocal pneumonia: Status: Acute Category: Medical Code(s): J18.9 - Pneumonia, unspecified organism (5) Open abdominal wall wound: Status: Acute Qualifiers: Encounter type: initial encounter Qualified Code(s): S31.109A - Unspecified open wound of abdominal wall, unspecified quadrant without penetration into peritoneal cavity, initial encounter Category: Medical Code(s): S31.109A - Unspecified open wound of abdominal wall, unspecified quadrant without penetration into peritoneal cavity, initial encounter (6) COPD mixed type: Status: Chronic Category: Medical Code(s): J44.9 - Chronic obstructive pulmonary disease, unspecified (7) HFrEF (heart failure with reduced ejection fraction): Status: Acute Category: Medical Code(s): I50.20 - Unspecified systolic (congestive) heart failure (8) Atrial fibrillation: Status: Chronic Qualifiers: Atrial fibrillation type: unspecified Qualified Code(s): I48.91 - Unspecified atrial fibrillation Category: Medical Code(s): I48.91 - Unspecified atrial fibrillation (9) Type 2 diabetes mellitus with diabetic neuropathy: Status: Chronic Qualifiers: Diabetes mellitus detention insulin use: unspecified technician terminal and repeater insulin use status Qualified Code(s): E11.40 - Type 2 diabetes mellitus with diabetic neuropathy, unspecified Category: Medical Code(s): E11.40 - Type 2 diabetes mellitus with diabetic neuropathy, unspecified (10) Morbid obesity: Status: Chronic Category: Medical Code(s): E66.01 - Morbid (severe) obesity due to excess calories Plan 78-year-old female who is a [facility] with numerous comorbidities, normally awake alert oriented able to mobilize herself with a wheelchair brought in by EMS referred from nursing facility for evaluation of significantly altered. Unknown period of time last known normal. On arrival presented toxic appearance, hypotensive and hypothermic. Sepsis protocols initiated. She does have a urinary tract infection chest x-ray personally interpreted also looked at the CT scan of the patient's chest and her lung windows she appears to have multifocal interstitial infiltrates consistent with pneumonia. Findings discussed with ED. agreed for admission. Plan as follow: - Septic shock secondary to UTI and possible multifocal pneumonia Acute toxic septic encephalopaty: - improving continue IV resuscitation started on Vanco and cefepime. flagyl given pharmacy to dose vanco zhang culture pending on levophed monitor for organs dysfunctions. 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 recommended wound care management does not appear to be infected. wound culture obtained wound care consult - COPD, Afib, HFrEF,: conditions reviewed. currently stable. continue monitoring Diabetes: sliding scale . diabetic diet morbid obesity will complicate all aspect of care On xarelto and protonix Full code continue IV abx with cefepime, flagyl, vancomycin, CTA chest, consult pulmonary, wean levophed, ok to remove graf catheter
--- NOTE | 2023-10-23 15:08 | P.CONS_ITS ---
History of Present Illness History of present illness: Ms. Cortés is a 78-year-old female senior living resident current [id number] smoking history prior diagnosis of COPD, sleep apnea not compliant with her CPAP therapy on nocturnal oxygen therapy at 2 L, chronic hypercarbic respiratory failure presented to the hospital altered mental status and pulmonary was called but concerning for pneumonia. Patient admission was also found to be hypotensive in shock leading respiratory improvement in her MAP greater than 65. She continue to receive norepinephrine at 2 mcg this morning. [facility] Disclaimer: The information contained in this section may have been updated after the patient was seen, as this information can be updated by other users. Medical History (Updated 10/23/23 @ 15:21 by Aashish Meyer MD) Multiple pulmonary nodules Migraine, unspecified, not intractable, without status migrainosus Gastro-esophageal reflux disease without esophagitis Unspecified convulsions Constipation, unspecified Spinal stenosis, site unspecified Acute peptic ulcer, site unspecified, with perforation Vitamin D deficiency, unspecified Xerosis cutis Other specified arthritis, unspecified site Presence of intraocular lens Excoriation (skin-picking) disorder Iodine-deficiency related diffuse (endemic) goiter Nonrheumatic aortic (valve) stenosis Fibromyalgia Fall Fall Acute pain of right shoulder Chronic respiratory failure with hypercapnia Cardiomyopathy Atelectasis of both lungs Pleural effusion due to CHF (congestive heart failure) Acute respiratory failure with hypoxemia Pneumonia History of melanoma Breast cancer History of smoking 30 or more pack years Restrictive lung disease History of sleep apnea COPD mixed type Hematuria Coronary artery disease Diastolic dysfunction HFrEF (heart failure with reduced ejection fraction) Abnormal cardiovascular stress test Atypical angina Shortness of Breath Acute on chronic diastolic (congestive) heart failure ST segment abnormality Abnormal EKG Fatigue Abnormal stress test Edema COPD (chronic obstructive pulmonary disease) Atypical chest pain HLD (hyperlipidemia) HTN (hypertension) Diabetes Shortness of Breath Surgical History History of throat surgery History of cataract surgery History of appendectomy Family History Other No significant family history Social History Smoking Status: Unknown if ever smoked second hand exposure: No alcohol intake: never counseling provided: provider counseling substance use type: denies use current occupational status: disabled Travel in the last 8 weeks: None household members: caregiver housing: senior living marital status: caffeine: No Review of Systems Constitutional Constitutional: Reports anorexia, Denies body ache(s) and Denies fatigue Eyes Eyes: Denies eye discharge, Denies dry eyes, Denies irritation and Denies itchy eyes ENT Ears, Nose, Mouth, and Throat: Denies epistaxis, Denies facial pain, Denies lip swelling and Denies throat swelling *Cardiovascular Cardiovascular: Reports dyspnea, Reports dyspnea on exertion, Reports orthopnea and Reports palpitations *Respiratory Respiratory: Reports chest congestion, Reports cough, Reports dyspnea, Reports dyspnea on exertion, Denies excessive phlegm production and Denies wheezing *Gastrointestinal Gastrointestinal: Denies abdominal pain, Denies belching and Denies cramping *Musculoskeletal Musculoskeletal: Reports back pain Psychiatric Psychiatric: Denies homicidal ideation and Denies suicidal ideation Endocrine Endocrine: Denies fatigue, Denies heat intolerance and Reports palpitations Hematologic/Lymphatic Hematologic/Lymphatic: Denies easy bleeding and Denies lymphadenopathy Allergic/Immunologic Allergic/Immunologic: Denies itchy eyes, Denies lip swelling, Denies throat swelling and Denies wheezing Pulmonology Exam Inpatient Vital signs and Labs for Last 24 Hours: Temp Pulse Resp BP Pulse Ox O2 Del Method O2 Flow Rate 98.2 F 72 22 100/55 L 96 Nasal Cannula 2 10/23/23 12:00 10/23/23 15:00 10/23/23 15:00 10/23/23 15:00 10/23/23 15:00 10/23/23 15:00 10/23/23 15:00 Laboratory Results - last 24 hr 10/22/23 20:42: WBC 10.7, RBC 3.34 L, Hgb 10.7 L, Hct 33.4 L, MCV 99.9 H, MCH 32.0 H, MCHC 32.0, RDW 14.8, Plt Count 283, MPV 7.6, Neut % (Auto) 87.6 H, Lymph % (Auto) 7.3 L, Leslie % (Auto) 4.3, Eos % (Auto) 0.4, Baso % (Auto) 0.3, Neut # (Auto) 9.4 H, Lymph # (Auto) 0.8, Leslie # (Auto) 0.5, Eos # (Auto) 0.0, Baso # (Auto) 0.0, Total Counted 100, Neutrophils % (Manual) 87 H, Lymphocytes % (Manual) 7 L, Monocytes % (Manual) 6, Platelet Estimate Normal, Macrocytosis 1+, Sodium 135 L, Potassium 3.0 L, Chloride 92 L, Carbon Dioxide 37 H, Anion Gap 9.0, BUN 37 H, Creatinine 1.40 H, Estimated Creat Clear 49, Estimated GFR 36 L, Est GFR ( Amer) 44 L, Glucose 109 H, Calcium 9.3, Total Bilirubin 0.6, A ST 39 H, ALT 29, Alkaline Phosphatase 344 H, Troponin I 0.02, Total Protein 6.6, Albumin 3.4 L, Globulin 3.2, Albumin/Globulin Ratio 1.1, TSH 0.12 L, Digoxin < 0.40 10/22/23 20:53: VBG pH 7.39, VBG pCO2 50.3, VBG pO2 48.6 H, VBG HCO3 29.5, VBG Total CO2 31.0 H, VBG O2 Saturation 81.2 H, VBG Base Excess 4.5 H, VBG Lactic Acid 2.2 H 10/22/23 21:30: Urine Color Yellow, Urine Appearance Sl cloudy, Urine pH 6.5, Ur Specific Banks 1.010, Urine Protein Negative, Urine Glucose (UA) Negative, Urine Ketones Negative, Urine Blood Trace-i, Urine Nitrate Positive, Urine Bilirubin Negative, Urine Urobilinogen 0.2, Ur Leukocyte Esterase 3+ A, Urine RBC Occasional, Urine WBC 10-20, Ur Squamous Epith Cells Occasional, Urine Bacteria 3+ 10/22/23 22:15: SARS-CoV-2 (PCR) Not detected, Influenza A Untype (PCR) Not detected, Influenza Type B (PCR) Not detected 10/22/23 23:54: Troponin I 0.02 10/23/23 01:35: Lactate 1.6 10/23/23 03:10: WBC 11.2 H, RBC 3.26 L, Hgb 10.3 L, Hct 32.1 L, MCV 98.5, MCH 31.5 H, MCHC 32.0, RDW 14.8, Plt Count 295, MPV 7.6, Neut % (Auto) 82.3 H, Lymph % (Auto) 10.9, Leslie % (Auto) 5.8, Eos % (Auto) 0.6, Baso % (Auto) 0.4, Neut # (Auto) 9.2 H, Lymph # (Auto) 1.2, Leslie # (Auto) 0.7, Eos # (Auto) 0.1, Baso # (Auto) 0.1, Sodium 135 L, Potassium 3.6, Chloride 98, Carbon Dioxide 34 H, Anion Gap 6.6, BUN 31 H, Creatinine 1.00 D, Estimated Creat Clear 69, Estimated GFR 54 L, Est GFR ( Amer) 65 D, Glucose 106 H, Calcium 8.7, Magnesium 1.7, Total Bilirubin 0.6, AST 38 H, ALT 25, Alkaline Phosphatase 303 H, Troponin I 0.03, Total Protein 5.5 L, Albumin 2.8 L D, Globulin 2.7, Albumin/Globulin Ratio 1.0 L 10/23/23 06:13: POC Glucose 121 H 10/23/23 11:21: POC Glucose 315 H* I & O for Labs for Last 24 Hours: Intake & Output 10/20/23 10/21/23 10/22/23 10/23/23 23:59 23:59 23:59 23:59 Intake Total 17.75 / 18.75 3165.313 / 3165.313 Output Total 3075 / 3075 Balance 17.75 / 18.75 90.313 / 90.313 Weight 205 lb 6 oz 205 lb 5.769 oz Microbiology Reports for the Last 24 Hours: Microbiology 03/07/23 10:43 Blood Blood Culture - Preliminary NO GROWTH AFTER 48 HOURS 03/07/23 10:17 Blood Blood Culture - Preliminary NO GROWTH AFTER 48 HOURS Constitutional: Present mild distress Head: Present normocephalic and atraumatic ENT: Present normal exam, normal oropharynx and mucous membranes moist Neck: Present normal inspection and full ROM Respiratory: Present rhonchi and normal respiratory effort; Absent prolonged expiratory phase, respiratory distress, wheezes or able to speak in complete sentences Cardiac: Present Tachycardia and radial pulses present; Absent S1/S2 GI: Present soft and distention; Absent tenderness or guarding Rectal (female): Present deferred (female): Present deferred Skin: Present intact; Absent cyanosis or jaundice Neuro: Present alert and awake Extremities: Present normal inspection; Absent clubbing or cyanosis Psychiatric: Present normal affect and cooperative Meds Home Medications and Allergies Home Medications Medication Instructions Recorded Confirmed Type duloxetine 60 mg capsule,delayed 120 mg PO DAILY Depression 04/06/19 10/22/23 History release levetiracetam 750 mg tablet 750 mg PO BID seizures 04/06/19 10/22/23 History idjmolbfeyne-Dw-shsg-minerals 27 1 each PO DAILY Supplement 04/06/19 10/23/23 History mg-0.4 mg tablet ondansetron HCl 4 mg tablet 4 mg PO Q6HP PRN Nausea 04/06/19 10/22/23 History acetaminophen 500 mg tablet 500 mg PO Q4HP PRN mild pain or 09/25/21 10/22/23 History (Tylenol Extra Strength) fever anastrozole 1 mg tablet 1 mg PO DAILY breast cancer 09/25/21 10/22/23 History bisacodyl 10 mg rectal suppository 10 mg SD .Q72HP PRN Constipation 09/25/21 10/22/23 History (Dulcolax (bisacodyl)) polyethylene glycol 3350 17 17 g PO DAILYP PRN Constipation 09/25/21 10/22/23 History gram/dose oral powder (Miralax) albuterol sulfate 90 mcg/actuation 2 inh inhalation Q6HP PRN 10/12/22 10/22/23 History aerosol inhaler shortness of breath or wheezing insulin NPH-regular 70-30 U-100 47 unit SQ 1130,1630 Diabetes 10/12/22 10/23/23 History insulin 100 unit/mL subcutaneous pen (Novolin 70-30 FlexPen U-100 Insulin) insulin NPH-regular 70-30 U-100 52 unit SQ AM Diabetes 10/12/22 10/23/23 History insulin 100 unit/mL subcutaneous pen (Novolin 70-30 FlexPen U-100 Insulin) ipratropium 0.5 mg-albuterol 3 mg 3 ml inhalation Q6HP PRN shortness 10/12/22 10/22/23 History (2.5 mg base)/3 mL nebulization of breath or wheezing soln melatonin 5 mg tablet 5 mg PO HS sleep 10/12/22 10/22/23 History simethicone 80 mg chewable tablet 80 mg PO TIDP PRN gas pain 10/12/22 10/23/23 History rivaroxaban 15 mg tablet (Xarelto) 15 mg PO 1700 Blood Thinner 10/30/22 10/22/23 History bupropion HCl 150 mg tablet,12 hr 150 mg PO DAILY mood 12/24/22 10/22/23 History sustained-release buspirone 15 mg tablet 15 mg PO BID Depression 12/24/22 10/22/23 History empagliflozin 10 mg tablet 10 mg PO DAILY Diabetes 03/07/23 10/22/23 History (Jardiance) cholecalciferol (vitamin D3) 50 50 mcg PO DAILY Supplement 03/08/23 10/23/23 History mcg (2,000 unit) tablet (Vitamin D3) atorvastatin 40 mg tablet 40 mg PO HS 30 days #30 tabs 03/12/23 10/22/23 Rx bumetanide 2 mg tablet 2 mg PO BID Edema 30 days #0 tabs 03/12/23 10/22/23 Rx metoprolol succinate 100 mg 200 mg (2 x 100 mg) PO BID 30 days 03/12/23 10/23/23 Rx tablet,extended release 24 hr #0 tabs pantoprazole 40 mg tablet,delayed 40 mg PO DAILY 30 days #0 tabs 03/12/23 10/23/23 Rx release linaclotide 290 mcg capsule 290 mcg PO DAILY 04/09/23 10/22/23 History (Linzess) metformin 1,000 mg tablet 1,000 mg PO BID 04/09/23 10/22/23 History sennosides 8.6 mg capsule (senna) 8.6 mg PO BID 04/09/23 10/22/23 History aluminum-mag hydroxide-simethicone 30 ml PO Q4H PRN upset stomach 07/03/23 10/22/23 History 200 mg-200 mg-20 mg/5 mL oral susp (Advanced Antacid-Antigas) cyanocobalamin (vitamin B-12) 100 mcg IM MONTHLY vitamin 07/03/23 10/23/23 History 1,000 mcg/mL injection solution supplement nitroglycerin 0.4 mg sublingual 0.4 mg sublingual Q5M PRN Chest 07/03/23 10/22/23 History tablet Pain propylene glycol 0.6 % eye drops 1 drp Eye-Both BID PRN stool 07/03/23 10/22/23 History (Systane Balance) metolazone 5 mg tablet 5 mg PO DAILY #30 tabs 07/13/23 10/22/23 Rx gabapentin 400 mg capsule 400 mg PO TID Neuropathy #90 caps 10/17/23 10/22/23 Rx ascorbate calcium (vitamin C) 500 500 mg PO DAILY #90 tabs 10/20/23 10/23/23 Rx mg tablet fexofenadine 180 mg tablet 180 mg PO DAILY 10/22/23 10/22/23 History hydrocodone 10 mg-acetaminophen 1 tab PO BIDP PRN chronic pain 10/22/23 10/22/23 History 325 mg tablet nitrofurantoin 100 mg PO BID 10/22/23 10/22/23 History monohydrate/macrocrystals 100 mg capsule (Macrobid) sacubitril 24 mg-valsartan 26 mg 1 tab PO BID 10/22/23 10/22/23 History tablet (Entresto) umeclidinium 62.5 mcg-vilanterol 1 inh inhalation DAILY 10/22/23 10/22/23 History 25 mcg/actuation powdr for inhalation (Anoro Ellipta) digoxin 125 mcg (0.125 mg) tablet 187.5 mcg PO DAILY 10/23/23 10/23/23 History hydrocodone 10 mg-acetaminophen 1 tab PO HS 10/23/23 10/23/23 History 325 mg tablet levocetirizine 5 mg tablet 5 mg PO DAILY 10/23/23 10/23/23 History zinc sulfate 50 mg zinc (220 mg) 220 mg PO DAILY 10/23/23 10/23/23 History capsule (Orazinc) New Prescriptions to Start Prescriptions: Allergies Allergy/AdvReac Type Severity Reaction Status Date / Time codeine [CODEINE] Allergy Mild Unknown Verified 10/14/23 10:26 allergy reaction naproxen [NAPROXEN] Allergy Mild Unknown Verified 10/14/23 10:26 allergy reaction pregabalin [From LYRICA] Allergy Mild Unknown Verified 10/14/23 10:26 allergy reaction promethazine [PROMETHAZINE] Allergy Mild Unknown Verified 10/14/23 10:26 allergy reaction JOSE ELIAS Inhibitors Allergy Unknown Verified 10/14/23 10:26 allergy reaction Results Laboratory Findings 10/23/23 03:10 10/23/23 03:10 Abnormal lab findings: Abnormal Labs 10/22/23 10/22/23 10/22/23 20:42 20:53 21:30 WBC RBC 3.34 L Hgb 10.7 L Hct 33.4 L MCV 99.9 H MCH 32.0 H Neut % (Auto) 87.6 H Lymph % (Auto) 7.3 L Neut # (Auto) 9.4 H Neutrophils % (Manual) 87 H Lymphocytes % (Manual) 7 L VBG pO2 48.6 H VBG Total CO2 31.0 H VBG O2 Saturation 81.2 H VBG Base Excess 4.5 H VBG Lactic Acid 2.2 H Sodium 135 L Potassium 3.0 L Chloride 92 L Carbon Dioxide 37 H BUN 37 H Creatinine 1.40 H Estimated GFR 36 L Est GFR ( Amer) 44 L Glucose 109 H POC Glucose AST 39 H Alkaline Phosphatase 344 H Total Protein Albumin 3.4 L Albumin/Globulin Ratio TSH 0.12 L Ur Leukocyte Esterase 3+ A 10/23/23 10/23/23 10/23/23 03:10 06:13 11:21 WBC 11.2 H RBC 3.26 L Hgb 10.3 L Hct 32.1 L MCV MCH 31.5 H Neut % (Auto) 82.3 H Lymph % (Auto) Neut # (Auto) 9.2 H Neutrophils % (Manual) Lymphocytes % (Manual) VBG pO2 VBG Total CO2 VBG O2 Saturation VBG Base Excess VBG Lactic Acid Sodium 135 L Potassium Chloride Carbon Dioxide 34 H BUN 31 H Creatinine Estimated GFR 54 L Est GFR ( Amer) Glucose 106 H POC Glucose 121 H 315 H* AST 38 H Alkaline Phosphatase 303 H Total Protein 5.5 L Albumin 2.8 L D Albumin/Globulin Ratio 1.0 L TSH Ur Leukocyte Esterase Assessment and Plan *Assessment and plan (1) Multiple pulmonary nodules: Status: Acute Category: Medical Code(s): R91.8 - Other nonspecific abnormal finding of lung field (2) Multifocal pneumonia: Status: Acute Category: Medical Code(s): J18.9 - Pneumonia, unspecified organism Plan Ms. Cortés is a 78-year-old female senior living resident current [id number]-[id number] smoking history prior diagnosis of COPD, sleep apnea not compliant with her CPAP therapy on nocturnal oxygen therapy at 2 L, chronic hypercarbic respiratory failure presented to the hospital altered mental status and pulmonary was called but concerning for pneumonia. Patient admission was also found to be hypotensive in shock leading respiratory improvement in her MAP greater than 65. She continue to receive norepinephrine at 2 mcg this morning. As per the notes, patient blood glucose was low, repleted however that did not improve her altered mentation prior to presentation. Mild neutrophilic leukocytosis upon admission. Afebrile. CT chest from this morning, no dense consolidation/airspace disease noted. No pleural effusions noted. Patient noted to have bilateral pulmonary nodules which were new and somewhat present from prior. These can be followed as an outpatient basis with 3-month CT chest without contrast. Patient on examination today does not appear to be in any respiratory distress. On room air saturating 93%. Chest clear to auscultate. Patient currently receiving vancomycin and cefepime and Flagyl for septic shock. The Noted pulmonary findings appear less likely to be possible etiology of the noted shock at this point of time. Patient CT abdomen is also concerning for abdominal wall cellulitis along with her urine analysis concerning for UTI which is currently being evaluated by primary team for alternate possible sources of her septic shock at this point of time. Plan: Continue DuoNebs every 6 hours on a scheduled basis Continue oxygen supplementation as needed during the daytime to maintain O2 saturation goal of 90% and above. Continue oxygen supplementation at 2 L at night. Continue current antibiotics, will have a low threshold to de-escalate antibiotics pending clinical improvement, blood and urine cultures.
--- NOTE | 2023-10-23 15:32 | PC.NURSE ---
Patient complained of abdominal pain, tylenol administered. Some relief noted but patient stated she was still having epigastric pain. Bowel sounds active, abdomen non distended. Dr. Rebolledo notified, awaiting orders. VS stable and Levophed drip weaned off. Patient on baseline 2LNC. IV antibiotics given. Lung sounds clear
[2023-10-23 16:47] LABS: POC Glucose,Bedside 300 (70-110)
[2023-10-23 20:31] LABS: POC Glucose,Bedside 242 (70-110)
[2023-10-23] MEDS: VANCOMYCIN/WATER FOR INJ (PEG) 1.75 GM/350 ML PIGGYBACK IV (20:48)
--- NOTE | 2023-10-23 22:02 | PC.NURSE ---
received report from Kavon Reza, RN
[2023-10-24] VITALS: BP 162/80; PULSE 85; PULSE 90; RESP 16; TEMP 37.1; O2SAT 100
[2023-10-24 02:00] VITALS: BP 127/74; PULSE 86; RESP 22; O2SAT 94
[2023-10-24 04:00] VITALS: BP 151/68; PULSE 89; PULSE 90; RESP 20; TEMP 36.7; O2SAT 95; BMI 32.2
[2023-10-24] MEDS: 0.9 % SODIUM CHLORIDE 1000ML 1,000 ML 75 ML IV (04:42)
--- NOTE | 2023-10-24 05:27 | PC.NURSE ---
Patient is to be moved to [facility] per JARRET Osuna. Patient has not required levophed tonight.
[2023-10-24 06:32] LABS: POC Glucose,Bedside 274 (70-110)
[2023-10-24] MEDS: CEFEPIME HCL 2 GM in 0.9 % SODIUM CHLORIDE 100 ML IV (06:40)
[2023-10-24] MEDS: humaLOG 100 UNITS/ML 3ML VIAL (SSI) SQ ×2 (06:40→11:29)
[2023-10-24 07:45] VITALS: BP 129/62; PULSE 95; RESP 18; TEMP 36.9; O2SAT 92
[2023-10-24 11:24] LABS: POC Glucose,Bedside 224 (70-110)
--- NOTE | 2023-10-24 11:25 | PC.NURSE ---
called report to Mariam PATINO at [place].
--- NOTE | 2023-10-24 11:26 | P.DS_ITS ---
General Admission date:: 10/22/23 Discharge date: 10/24/23 HPI HPI HPI: This is a 78-year-old female who is a [place] [facility] resident with numerous comorbidities, normally awake alert oriented able to mobilize herself with a wheelchair brought in by EMS referred from nursing facility for evaluation of significantly altered. Unknown period of time last known normal. History is limited due to patient current status . Most data collected from ED documentation, EMS and nursing facility report. On arrival No focal neurologic deficits from historical standpoint. Her blood sugar was low but was corrected prior to arrival and did not change her mental status. She is full code from historical standpoint. She is unable to provide any history so it is significantly limited. Dextrose was given and route. Patient was hypotensive. No further history. Admitted for treatment and management. Hospital Course Hospital Course Hospital Course: Patient was seen and evaluated at the bedside on the day of discharge. Patient wishes to be discharged. All patient questions were answered and patient was given time to ask questions. Patient was discharged in stable condition. Patient understands that she can return to ER in case of any sudden changes in health. Total time spent on DC - 38 mins 78-year-old female who is a [facility] resident with numerous comorbidities, normally awake alert oriented able to mobilize herself with a wheelchair brought in by EMS referred from nursing facility for evaluation of significantly altered. Unknown period of time last known normal. On arrival presented toxic appearance, hypotensive and hypothermic. Sepsis protocols initiated. She does have a urinary tract infection chest x-ray personally interpreted also looked at the CT scan of the patient's chest and her lung windows she appears to have multifocal interstitial infiltrates consistent with pneumonia. Findings discussed with ED. agreed for admission. 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 recommended wound care management f/u as OP - COPD, Afib, HFrEF: - stable Diabetes:sliding scale diabetic diet morbid obesity will complicate all aspect of care On xarelto and protonix Exam Data for Last 24 hours Vital signs and Labs for Last 24 Hours: Temp Pulse Resp BP Pulse Ox O2 Del Method O2 Flow Rate 98.4 F 95 H 18 129/62 92 L Nasal Cannula 2 10/24/23 07:45 10/24/23 07:45 10/24/23 07:45 10/24/23 07:45 10/24/23 07:45 10/24/23 08:50 10/24/23 08:50 Laboratory Results - last 24 hr 10/23/23 11:21: POC Glucose 315 H* 10/23/23 16:29: POC Glucose 300 H 10/23/23 20:22: POC Glucose 242 H 10/24/23 06:25: POC Glucose 274 H 10/24/23 11:17: POC Glucose 224 H I & O for Last 24 hours: Intake & Output 10/21/23 10/22/23 10/23/23 10/24/23 23:59 23:59 23:59 23:59 Intake Total 17.75 / 18.75 4065.313 / 4415.313 1250 / 1250 Output Total 4975 / 5375 1750 / 1750 Balance 17.75 / 18.75 -909.687 / -959.687 -500 / -500 Weight 93.157 kg 93.15 kg 93.18 kg Constitutional Constitutional: no acute distress *Routine HEENT Exam Head: Present normocephalic Eye: Present EOMI and PERRL ENT: Present mucous membranes moist *Routine Neck Exam Neck: Present supple; Absent lymphadenopathy *Routine Respiratory Exam Respiratory: Present CTA bilaterally *Routine Cardiovascular Exam Cardiovascular: Present RRR *Routine Abdominal Exam Abdominal: Present soft and normoactive bowel sounds; Absent tenderness *Routine Extremities Exam Extremities: Absent cyanosis, clubbing or edema *Routine Skin Exam Skin: Present warm; Absent rash *Routine Neurological Exam Neurological: Present alert and oriented X3 Results Data Completed and Pending Labs on day of discharge: Labs from last 24 hours 10/24/23 10/24/23 10/23/23 11:17 06:25 20:22 POC Glucose 224 H 274 H 242 H 10/23/23 10/23/23 16:29 11:21 POC Glucose 300 H 315 H* DS: Diagnosis Discharge Diagnosis (1) Multiple pulmonary nodules: Status: Acute Code(s): R91.8 - Other nonspecific abnormal finding of lung field (2) Multifocal pneumonia: Status: Acute Code(s): J18.9 - Pneumonia, unspecified organism Meds Home Medications and Allergies Home Medications Medication Instructions Recorded Confirmed Type duloxetine 60 mg capsule,delayed 120 mg PO DAILY Depression 10/02/19 04/18/24 History release levetiracetam 750 mg tablet 750 mg PO BID seizures 04/06/19 10/22/23 History arsuyrsgmazd-Kn-edyq-minerals 27 1 each PO DAILY Supplement 04/06/19 10/23/23 History mg-0.4 mg tablet ondansetron HCl 4 mg tablet 4 mg PO Q6HP PRN Nausea 04/06/19 10/22/23 History acetaminophen 500 mg tablet 500 mg PO Q4HP PRN mild pain or 09/25/21 10/22/23 History (Tylenol Extra Strength) fever anastrozole 1 mg tablet 1 mg PO DAILY breast cancer 09/25/21 10/22/23 History bisacodyl 10 mg rectal suppository 10 mg SD .Q72HP PRN Constipation 09/25/21 10/22/23 History (Dulcolax (bisacodyl)) polyethylene glycol 3350 17 17 g PO DAILYP PRN Constipation 09/25/21 10/22/23 History gram/dose oral powder (Miralax) albuterol sulfate 90 mcg/actuation 2 inh inhalation Q6HP PRN 10/12/22 10/22/23 History aerosol inhaler shortness of breath or wheezing insulin NPH-regular 70-30 U-100 47 unit SQ 1130,1630 Diabetes 10/12/22 10/23/23 History insulin 100 unit/mL subcutaneous pen (Novolin 70-30 FlexPen U-100 Insulin) insulin NPH-regular 70-30 U-100 52 unit SQ AM Diabetes 10/12/22 10/23/23 History insulin 100 unit/mL subcutaneous pen (Novolin 70-30 FlexPen U-100 Insulin) ipratropium 0.5 mg-albuterol 3 mg 3 ml inhalation Q6HP PRN shortness 10/12/22 10/22/23 History (2.5 mg base)/3 mL nebulization of breath or wheezing soln melatonin 5 mg tablet 5 mg PO HS sleep 10/12/22 10/22/23 History simethicone 80 mg chewable tablet 80 mg PO TIDP PRN gas pain 10/12/22 10/23/23 History rivaroxaban 15 mg tablet (Xarelto) 15 mg PO 1700 Blood Thinner 10/30/22 10/22/23 History bupropion HCl 150 mg tablet,12 hr 150 mg PO DAILY mood 12/24/22 10/22/23 History sustained-release buspirone 15 mg tablet 15 mg PO BID Depression 12/24/22 10/22/23 History empagliflozin 10 mg tablet 10 mg PO DAILY Diabetes 03/07/23 10/22/23 History (Jardiance) cholecalciferol (vitamin D3) 50 50 mcg PO DAILY Supplement 03/08/23 10/23/23 History mcg (2,000 unit) tablet (Vitamin D3) atorvastatin 40 mg tablet 40 mg PO HS 30 days #30 tabs 03/12/23 10/22/23 Rx bumetanide 2 mg tablet 2 mg PO BID Edema 30 days #0 tabs 03/12/23 10/22/23 Rx metoprolol succinate 100 mg 200 mg (2 x 100 mg) PO BID 30 days 03/12/23 10/23/23 Rx tablet,extended release 24 hr #0 tabs pantoprazole 40 mg tablet,delayed 40 mg PO DAILY 30 days #0 tabs 03/12/23 10/23/23 Rx release linaclotide 290 mcg capsule 290 mcg PO DAILY 04/09/23 10/22/23 History (Linzess) metformin 1,000 mg tablet 1,000 mg PO BID 04/09/23 10/22/23 History sennosides 8.6 mg capsule (senna) 8.6 mg PO BID 04/09/23 10/22/23 History aluminum-mag hydroxide-simethicone 30 ml PO Q4H PRN upset stomach 07/03/23 10/22/23 History 200 mg-200 mg-20 mg/5 mL oral susp (Advanced Antacid-Antigas) cyanocobalamin (vitamin B-12) 100 mcg IM MONTHLY vitamin 07/03/23 10/23/23 History 1,000 mcg/mL injection solution supplement nitroglycerin 0.4 mg sublingual 0.4 mg sublingual Q5M PRN Chest 07/03/2310/04 History tablet Pain propylene glycol 0.6 % eye drops 1 drp Eye-Both BID PRN stool 07/03/23 10/22/23 History (Systane Balance) metolazone 5 mg tablet 5 mg PO DAILY #30 tabs 07/13/23 10/22/23 Rx gabapentin 400 mg capsule 400 mg PO TID Neuropathy #90 caps 10/17/23 10/22/23 Rx ascorbate calcium (vitamin C) 500 500 mg PO DAILY #90 tabs 10/20/23 10/23/23 Rx mg tablet fexofenadine 180 mg tablet 180 mg PO DAILY 10/22/23 10/22/23 History hydrocodone 10 mg-acetaminophen 1 tab PO BIDP PRN chronic pain 10/22/23 10/22/23 History 325 mg tablet nitrofurantoin 100 mg PO BID 10/22/23 10/22/23 History monohydrate/macrocrystals 100 mg capsule (Macrobid) sacubitril 24 mg-valsartan 26 mg 1 tab PO BID 10/22/23 10/22/23 History tablet (Entresto) umeclidinium 62.5 mcg-vilanterol 1 inh inhalation DAILY 10/22/23 10/22/23 History 25 mcg/actuation powdr for inhalation (Anoro Ellipta) digoxin 125 mcg (0.125 mg) tablet 187.5 mcg PO DAILY 10/23/23 10/23/23 History hydrocodone 10 mg-acetaminophen 1 tab PO HS 10/23/23 10/23/23 History 325 mg tablet levocetirizine 5 mg tablet 5 mg PO DAILY 10/23/23 10/23/23 History zinc sulfate 50 mg zinc (220 mg) 220 mg PO DAILY 10/23/23 10/23/23 History capsule (Orazinc) amoxicillin 875 mg-potassium 1 tab PO Q12H 7 days #14 tabs 10/24/23 Rx clavulanate 125 mg tablet doxycycline hyclate 100 mg tablet 100 mg PO BID 7 days #14 tabs 10/24/23 Rx New Prescriptions to Start Prescriptions: amoxicillin-pot clavulanate Amaury,Irfan doxycycline hyclate Amaury,Irfan Allergies Allergy/AdvReac Type Severity Reaction Status Date / Time codeine [CODEINE] Allergy Mild Unknown Verified 10/14/23 10:26 allergy reaction naproxen [NAPROXEN] Allergy Mild Unknown Verified 10/14/23 10:26 allergy reaction pregabalin [From LYRICA] Allergy Mild Unknown Verified 10/14/23 10:26 allergy reaction promethazine [PROMETHAZINE] Allergy Mild Unknown Verified 10/14/23 10:26 allergy reaction JOSE ELIAS Inhibitors Allergy Unknown Verified 10/14/23 10:26 allergy reaction Discharge Plan Disposition Patient Disposition: Xfer SNF Condition: Critical Discharge Order Discharge Orders: Discharge Order (Routine); Ordered 10/24/23 Ordered By: Ok Rebolledo Follow up Plan Follow up with: Ke Connell DO [Primary Care Provider] - 1 week Prescriptions/Medication Reconciliation: New doxycycline hyclate 100 mg tablet 100 mg PO BID 7 Days Qty: 14 0RF amoxicillin-pot clavulanate 875-125 mg tablet 1 tab PO Q12H 7 Days Qty: 14 0RF Continued acetaminophen [Tylenol Extra Strength] 500 mg tablet 500 mg PO Q4HP PRN (Reason: mild pain or fever ) bisacodyl [Dulcolax (bisacodyl)] 10 mg suppository 10 mg SD .Q72HP PRN (Reason: Constipation) Rx Instructions: EVERY 3 DAYS NEEDED. anastrozole 1 mg tablet 1 mg PO DAILY polyethylene glycol 3350 [Miralax] 17 gram/dose powder 17 g PO DAILYP PRN (Reason: Constipation) metformin 1,000 mg tablet 1,000 mg PO BID senna 8.6 mg capsule 8.6 mg PO BID Linzess 290 mcg capsule 290 mcg PO DAILY Xarelto 15 mg tablet 15 mg PO 1700 Rx Instructions: must administer with evening meal bupropion HCl 150 mg tablet sustained-release 12 hr 150 mg PO DAILY metolazone 5 mg tablet 5 mg PO DAILY Qty: 30 5RF alum-mag hydroxide-simeth [Advanced Antacid-Antigas] 200-200-20 mg/5 mL suspension 30 ml PO Q4H PRN (Reason: upset stomach) Rx Instructions: administer between meals and at bedtime nitroglycerin 0.4 mg tablet, sublingual 0.4 mg SL Q5M PRN (Reason: Chest Pain) Rx Instructions: May repeat x 2 doses, call MD if ineffective Systane Balance 0.6 % drops 1 drp Eye-Both BID PRN (Reason: stool) cyanocobalamin (vitamin B-12) 1,000 mcg/mL solution 100 mcg IM MONTHLY gabapentin 400 mg capsule 400 mg PO TID Qty: 90 2RF ascorbate calcium (vitamin C) 500 mg tablet 500 mg PO DAILY Qty: 90 3RF ondansetron HCl 4 MG tablet 4 mg PO Q6HP PRN (Reason: Nausea) levetiracetam 750 MG tablet 750 mg PO BID duloxetine 60 MG capsule,delayed release(DR/EC) 120 mg PO DAILY skocoxgvvgrn-Ql-edbe-minerals 1 EACH tablet 1 each PO DAILY simethicone 80 mg Tablet,Chewable 80 mg PO TIDP PRN (Reason: gas pain) Novolin 70-30 FlexPen U-100 100 unit/mL (70-30) Insulin Pen 52 unit SQ AM Novolin 70-30 FlexPen U-100 100 unit/mL (70-30) Insulin Pen 47 unit SQ 1130,1630 Rx Instructions: with lunch and supper melatonin 5 mg Tablet 5 mg PO HS albuterol sulfate 90 mcg/actuation HFA aerosol inhaler 2 inh INHALATION Q6HP PRN (Reason: shortness of breath or wheezing) ipratropium-albuterol 0.5 mg-3 mg(2.5 mg base)/3 mL solution for nebulization 3 ml INHALATION Q6HP PRN (Reason: shortness of breath or wheezing) buspirone 15 mg tablet 15 mg PO BID Jardiance 10 mg tablet 10 mg PO DAILY cholecalciferol (vitamin D3) [Vitamin D3] 50 mcg (2,000 unit) Tablet 50 mcg PO DAILY atorvastatin 40 mg Tablet 40 mg PO HS 30 Days Qty: 30 0RF metoprolol succinate 100 mg Tablet Extended Release 24 Hr 200 mg PO BID 30 Days Qty: 0 0RF pantoprazole 40 mg Tablet,Delayed Release (Dr/Ec) 40 mg PO DAILY 30 Days Qty: 0 0RF bumetanide 2 mg tablet 2 mg PO BID 30 Days Qty: 0 0RF fexofenadine 180 mg Tablet 180 mg PO DAILY nitrofurantoin monohyd/m-cryst [Macrobid] 100 mg Capsule 100 mg PO BID Rx Instructions: must administer with a meal/food Anoro Ellipta 62.5-25 mcg/actuation Blister With Device 1 inh INHALATION DAILY Entresto 24-26 mg Tablet 1 tab PO BID hydrocodone-acetaminophen 10-325 mg tablet 1 tab PO BIDP PRN (Reason: chronic pain) Rx Instructions: 1 tablet BID PRN & 1 tablet QHS hydrocodone-acetaminophen 10-325 mg tablet 1 tab PO HS levocetirizine 5 mg tablet 5 mg PO DAILY digoxin 125 mcg (0.125 mg) tablet 187.5 mcg PO DAILY Rx Instructions: Hold for HR <60 zinc sulfate [Orazinc] 50 mg zinc (220 mg) capsule 220 mg PO DAILY Problem Reconciliation Problems Reviewed?: Yes Patient Discharge Instructions ACTIVITY: Ambulate as tolerated DIET: continue same diet Patient Instructions: DI for Sepsis -- Adult, Catheter-associated Urinary Tract Infection Providers Primary Care Provider: Ke Connell Admit Provider: Ok Rebolledo Attending Provider: Ok Rebolledo
[2023-10-24 11:41] VITALS: BP 139/62; PULSE 92; RESP 18; TEMP 36.8; O2SAT 95
--- NOTE | 2023-10-24 11:55 | PC.NURSE ---
called [facility] for transfer.
[2023-10-24] MEDS: ONDANSETRON 4MG ODT 4 MG SL (12:43)
== END 2023-10-24 13:11 | DRG 871 ==
LOC: ER 22:20 → 2ND 23:53
PROVIDERS: Nurse Practitioner Family; Admitting Provider Internal Medicine; Emergency Provider Student in an Organized Health Care Education/Training Program; PCP Internal Medicine; Visit Provider Internal Medicine
DX: A41.9 Sepsis, unspecified organism (principal); G92.8 Other toxic encephalopathy; J18.9 Pneumonia, unspecified organism; R65.21 Severe sepsis with septic shock; N39.0 Urinary tract infection, site not specified; I50.22 Chronic systolic (congestive) heart failure; I42.9 Cardiomyopathy, unspecified; K63.2 Fistula of intestine; I11.0 Hypertensive heart disease with heart failure; J44.9 Chronic obstructive pulmonary disease, unspecified; Z85.820 Personal history of malignant melanoma of skin; Z85.3 Personal history of malignant neoplasm of breast; I25.10 Atherosclerotic heart disease of native coronary artery without angina pectoris; E78.5 Hyperlipidemia, unspecified; K21.9 Gastro-esophageal reflux disease without esophagitis; E11.40 Type 2 diabetes mellitus with diabetic neuropathy, unspecified; E66.01 Morbid (severe) obesity due to excess calories; Z68.32 Body mass index [BMI] 32.0-32.9, adult; Z79.01 Long term (current) use of anticoagulants; Z79.84 Long term (current) use of oral hypoglycemic drugs; R68.0 Hypothermia, not associated with low environmental temperature
CPT/HCPCS: 36415; 70450; 71045; 71250; 74177; 80053; 80162; 81001; 82803; 82962; 82977; 83605; 83735; 84443; 84484; 85007; 85025; 87040; 87070; 87086; 87205; 87636; 93005; 94761; 99291; J2405; J3370; Q9967

== ENCOUNTER 2023-11-04 18:46 | Inpatient (IN) | payer MEDICARE, MEDICAID, SELFPAY ==
--- NOTE | 2023-11-04 18:52 | XR_ITS ---
PROCEDURE INFORMATION: Exam: XR Chest Exam date and time: 11/04/2023 6:59 PM Age: 78 years old Clinical indication: Shortness of breath; Additional info: AMS, SOA, abd pain TECHNIQUE: Imaging protocol: Radiologic exam of the chest. Views: 1 view. COMPARISON: CT CHEST WO CON 10/23/2023 1:14 PM FINDINGS: Lungs: Low lung volumes. Question mild-moderate central vascular congestion. Mild right and moderate left perihilar and basilar interstitial and alveolar opacities suggesting pulmonary edema, subsegmental atelectasis, or pneumonitis. Pleural spaces: No definite pleural effusion although technique limits sensitivity on the left. No pneumothorax. Heart/Mediastinum: Heart size within normal limits for portable AP technique and the degree of rotation. Bones/joints: No acute osseous abnormalities are identified. Osteopenia. Other findings: Moderate leftward rotation. IMPRESSION: 1. Technically limited exam. 2. Perihilar and basilar interstitial and alveolar opacities, left greater than right, which could represent edema, atelectasis, or pneumonia. 3. Question mild-moderate vascular congestion.
--- NOTE | 2023-11-04 18:52 | CT_ITS ---
PROCEDURE INFORMATION: Exam: CTA Chest With Contrast Exam date and time: 11/04/2023 7:36 PM Age: 78 years old Clinical indication: Shortness of breath; Additional info: AMS, SOChelsi TECHNIQUE: Imaging protocol: Computed tomographic angiography of the chest with contrast. Exam focused on the arteries. 3D rendering (Not supervised by radiologist): MIP and/or 3D reconstructed images were created by the technologist. Radiation optimization: All CT scans at this facility use at least one of these dose optimization techniques: automated exposure control; mA and/or kV adjustment per patient size (includes targeted exams where dose is matched to clinical indication); or iterative reconstruction. Contrast material: ISOVUE; Contrast volume: 70 ml; Contrast route: INTRAVENOUS (IV); COMPARISON: CT ANGIO CHEST PE PROTOCOL 03/09/2023 2:19 PM FINDINGS: Pulmonary arteries: No large central pulmonary emboli were identified. Assessment of the small peripheral subsegmental branches was nondiagnostic at a few levels due to gross respiratory motion. Mild-moderate dilatation of the central pulmonary arteries suggesting pulmonary arterial hypertension. Aorta: Mild aortic ectasia/tortuosity. Mild-moderate aortic valvular calcification. No aortic aneurysm or dissection. No mediastinal hematoma. Thyroid: Thyromegaly with generalized heterogeneity and a few scattered low-density nodules, largest 19 mm on the left. Recommend nonemergent thyroid ultrasound assessment if not previously evaluated. Lungs: Granulomatous calcifications in the mediastinum and right lung. No acute tracheobronchial abnormalities. Patchy atelectasis in the left lung, felt to be positional. Minor dependent atelectasis in the right lung. There are multiple poorly marginated pulmonary nodules throughout both lungs with hazy/ill-defined margins, no calcification, and no evidence of central cavitation. These involve all lobes, with largest in the central left lower lobe measuring 1.9 cm. These are nonspecific. Consider atypical infection such as fungal or mycobacterial infection, possibly early septic emboli. Hemorrhagic pulmonary metastases could produce this appearance. Inflammatory processes such as granulomatosis with polyangiitis are another consideration. Pleural spaces: No pleural effusion. No pneumothorax. Heart: Mild cardiomegaly. Minimal coronary artery calcification. No pericardial effusion. Esophagus: The esophagus is largely contracted but demonstrates no gross abnormality. Lymph nodes: No supraclavicular or axillary adenopathy. No mediastinal or hilar adenopathy. Bones/joints: No acute osseous abnormalities are identified. Osteopenia. Soft tissues: The soft tissues of the chest wall demonstrate no acute abnormality. IMPRESSION: 1. No large central pulmonary emboli. Assessment of the small peripheral branch vessels was limited although no suspected peripheral emboli are identified. 2. Numerous poorly marginated non cavitating pulmonary nodules throughout both lungs, consider atypical infection versus early septic emboli, versus hemorrhagic metastases, or non infectious inflammatory process. 3. Mild-moderate changes of pulmonary arterial hypertension. 4. Thyromegaly with numerous low-density nodules, probably multinodular goiter. Recommend nonemergent thyroid ultrasound assessment if not previously evaluated. 5. Additional nonemergent findings detailed above. COMMENTS: Consistent with the [employer]'s Incidental Findings Committee white paper (J Am Melanie Radiol 2015): In patients aged 35 years and older with an incidental thyroid nodule equal to or greater than 1.[address], MRI or extrathyroidal US, further evaluation with dedicated thyroid US is recommended for patients with normal life expectancy and without comorbidities. For smaller nodules without suspicious features, no further evaluation or follow up is recommended.
--- NOTE | 2023-11-04 18:52 | CT_ITS ---
PROCEDURE INFORMATION: Exam: CTA Abdomen and Pelvis With Contrast Exam date and time: 11/04/2023 7:36 PM Age: 78 years old Clinical indication: Abdominal pain; Acute; Additional info: Diffuse abd pain out of prop to exam TECHNIQUE: Imaging protocol: Computed tomographic angiography of the abdomen and pelvis with contrast. Exam focused on the arteries. 3D rendering (Not supervised by radiologist): MIP and/or 3D reconstructed images were created by the technologist. Radiation optimization: All CT scans at this facility use at least one of these dose optimization techniques: automated exposure control; mA and/or kV adjustment per patient size (includes targeted exams where dose is matched to clinical indication); or iterative reconstruction. Contrast material: ISOVUE; Contrast volume: 70 ml; Contrast route: INTRAVENOUS (IV); COMPARISON: CT ABDOMEN PELVIS W CON 10/22/2023 9:45 PM FINDINGS: Esophagus: The visualized distal esophagus is largely contracted without gross abnormality. Aorta: Abdominal aorta demonstrates moderate calcific plaque without aneurysm, dissection, or stenosis. Celiac trunk and mesenteric arteries: Celiac artery and its major branch vessels are unremarkable.. SMA and its major branch vessels are unremarkable. CIPRIANO is unremarkable. Renal arteries: Right renal artery is unremarkable. Left renal artery is unremarkable. Right iliac arteries: Right iliac arteries are unremarkable. Left iliac arteries: Left iliac arteries demonstrate minor calcific plaque but are otherwise unremarkable. Liver: Normal contour. No mass lesions. No intrahepatic biliary ductal dilatation. Gallbladder and bile ducts: Prior cholecystectomy with no significant dilatation of the common bile duct. Pancreas: Question mild stranding near the pancreatic tail, cannot exclude mild pancreatitis, correlate with lipase. No ductal dilatation. Very early contrast phase and patient positioning with non conventional reconstruction planes limits pancreatic characterization somewhat. Spleen: Splenomegaly measuring 18 cm maximum dimension. No focal splenic lesions. Adrenal glands: Normal. No adrenal mass. Kidneys and ureters: Indeterminate 15 mm lesion arising from the anterior interpolar left renal cortex on series 4, image 104, measuring 50 Hounsfield units. It is increased in size from 01/18/2021. Recommend multiphasic pre and postcontrast MR or CT. No hydronephrosis or hydroureter. No urinary tract stones are identified. Simple right renal cortical cyst unchanged. Stomach and bowel: The stomach is largely contracted. The small bowel is nondilated with no gross abnormality. There is a moderate amount of stool distributed throughout the colon suggesting constipation. Appendix: The appendix is not identified. No secondary signs of appendicitis. Intraperitoneal space: No peritoneal free fluid or air. A portion of the lateral left peritoneal space was excluded from the field of view. Lymph nodes: No adenopathy. Urinary bladder: The urinary bladder is moderately distended but otherwise unremarkable. Reproductive: Unremarkable as visualized. Bones/joints: No acute osseous abnormalities. Mild-moderate lumbar spondylosis. Soft tissues: Question mild periumbilical soft tissue swelling and umbilical skin thickening, similar to 10/22/2023, correlate clinically for cellulitis, versus possibly chronic postoperative fibrosis as there was previously a fatty umbilical hernia on 01/18/2021 which may have been repaired, correlate with operative history. A portion of the lateral left abdominal wall was excluded from the field of view related to body habitus. IMPRESSION: 1. Question mild stranding near the pancreatic tail, cannot exclude pancreatitis, correlate with lipase. No fluid collections. 2. Moderate colonic stool, possible constipation. 3. There is an indeterminate 15 mm lesion in the anterior interpolar left renal cortex concerning for potential neoplasm, recommend nonemergent multiphasic pre and postcontrast MRI or CT. 4. No acute vascular abnormalities. 5. Splenomegaly. 6. Periumbilical stranding and skin thickening, possibly chronic postoperative changes although correlate clinically for cellulitis. No abscess. 7. Limited scan due to body habitus with a portion of the leftward abdomen excluded from the field of view. 8. Additional nonemergent findings detailed above.
--- NOTE | 2023-11-04 18:52 | CT_ITS ---
FINAL REPORT CLINICAL HISTORY: ams COMPARISON: 10/22/2023 FINDINGS: Moderate atrophy and chronic microvascular changes are noted. No cortical edema is present. There is no mass or hemorrhage. Ventricles are normal. Bone windows show no skull fracture or obvious obstructive lesion. IMPRESSION: Atrophy and chronic microvascular changes without acute intracranial abnormality, no change from prior. Reviewed, Interpreted and Dictated by Nandini Shirley MD Transcribed by Myah Stoner Authenticated and . [facility]
[2023-11-04 19:00] VITALS: BP 88/46; PULSE 70; RESP 16; O2SAT 96; BMI 47.2
--- NOTE | 2023-11-04 19:00 | HMH.EDGENADL ---
Discharge Plan Disposition Patient Disposition: Admitted Clinical Impressions Clinical Impression: Sepsis, Encephalopathy, Pneumonia Discharge ED Provider: Robbin Mccarty General Adult HPI General Chief complaint: Altered Mental Status Stated complaint: AMS Time Seen by Provider: 11/04/23 18:48 History of Present Illness HPI narrative: Please note that above description of symptoms, in this electronic medical record under categorization of recalled from ER triage doctor by RN are reflective of an initial nursing assessment, however, is not reflective of my full history and physical exam that was personally taken and clarified. Consequentially, this preceding description of symptoms, which may include the patient's categorized chief complaint in the EMR, do not reflect my personal clinical impression, and the ultimate description of history of present illness and patient stated complaints should be deferred to this section of the note. Unless stated otherwise or congruent with this section of the note, additional signs, symptoms, or incongruence should be interpreted as inaccurate with my clinical impression. Related Data Home Medications Medication Instructions Recorded Confirmed duloxetine 60 mg capsule,delayed 120 mg PO DAILY Depression 04/06/19 10/22/23 release levetiracetam 750 mg tablet 750 mg PO BID seizures 04/06/19 10/22/23 fmuqqehzvhcf-Ur-yduy-minerals 27 1 each PO DAILY Supplement 04/06/19 10/23/23 mg-0.4 mg tablet ondansetron HCl 4 mg tablet 4 mg PO Q6HP PRN Nausea 04/06/19 10/22/23 acetaminophen 500 mg tablet 500 mg PO Q4HP PRN mild pain or 09/25/21 10/22/23 (Tylenol Extra Strength) fever anastrozole 1 mg tablet 1 mg PO DAILY breast cancer 09/25/21 10/22/23 bisacodyl 10 mg rectal suppository 10 mg MT .Q72HP PRN Constipation 09/25/21 10/22/23 (Dulcolax (bisacodyl)) polyethylene glycol 3350 17 17 g PO DAILYP PRN Constipation 09/25/21 10/22/23 gram/dose oral powder (Miralax) albuterol sulfate 90 mcg/actuation 2 inh inhalation Q6HP PRN 10/12/22 10/22/23 aerosol inhaler shortness of breath or wheezing insulin NPH-regular 70-30 U-100 47 unit SQ 1130,1630 Diabetes 10/12/22 10/23/23 insulin 100 unit/mL subcutaneous pen (Novolin 70-30 FlexPen U-100 Insulin) insulin NPH-regular 70-30 U-100 52 unit SQ AM Diabetes 10/12/22 10/23/23 insulin 100 unit/mL subcutaneous pen (Novolin 70-30 FlexPen U-100 Insulin) ipratropium 0.5 mg-albuterol 3 mg 3 ml inhalation Q6HP PRN shortness 10/12/22 10/22/23 (2.5 mg base)/3 mL nebulization of breath or wheezing soln melatonin 5 mg tablet 5 mg PO HS sleep 10/12/22 10/22/23 simethicone 80 mg chewable tablet 80 mg PO TIDP PRN gas pain 10/12/22 10/23/23 rivaroxaban 15 mg tablet (Xarelto) 15 mg PO 1700 Blood Thinner 10/30/22 10/22/23 bupropion HCl 150 mg tablet,12 hr 150 mg PO DAILY mood 12/24/22 10/22/23 sustained-release buspirone 15 mg tablet 15 mg PO BID Depression 12/24/22 10/22/23 empagliflozin 10 mg tablet 10 mg PO DAILY Diabetes 03/07/23 10/22/23 (Jardiance) cholecalciferol (vitamin D3) 50 50 mcg PO DAILY Supplement 03/08/23 10/23/23 mcg (2,000 unit) tablet (Vitamin D3) linaclotide 290 mcg capsule 290 mcg PO DAILY 04/09/23 10/22/23 (Linzess) metformin 1,000 mg tablet 1,000 mg PO BID 04/09/23 10/22/23 sennosides 8.6 mg capsule (senna) 8.6 mg PO BID 04/09/23 10/22/23 aluminum-mag hydroxide-simethicone 30 ml PO Q4H PRN upset stomach 07/03/23 10/22/23 200 mg-200 mg-20 mg/5 mL oral susp (Advanced Antacid-Antigas) cyanocobalamin (vitamin B-12) 100 mcg IM MONTHLY vitamin 07/03/23 10/23/23 1,000 mcg/mL injection solution supplement nitroglycerin 0.4 mg sublingual 0.4 mg sublingual Q5M PRN Chest 07/03/23 10/22/23 tablet Pain propylene glycol 0.6 % eye drops 1 drp Eye-Both BID PRN stool 07/03/23 10/22/23 (Systane Balance) fexofenadine 180 mg tablet 180 mg PO DAILY 10/22/23 10/22/23 hydrocodone 10 mg-acetaminophen 1 tab PO BIDP PRN chronic pain 10/22/23 10/22/23 325 mg tablet nitrofurantoin 100 mg PO BID 10/22/23 10/22/23 monohydrate/macrocrystals 100 mg capsule (Macrobid) sacubitril 24 mg-valsartan 26 mg 1 tab PO BID 10/22/23 10/22/23 tablet (Entresto) umeclidinium 62.5 mcg-vilanterol 1 inh inhalation DAILY 10/22/23 10/22/23 25 mcg/actuation powdr for inhalation (Anoro Ellipta) digoxin 125 mcg (0.125 mg) tablet 187.5 mcg PO DAILY 10/23/23 10/23/23 hydrocodone 10 mg-acetaminophen 1 tab PO HS 10/23/23 10/23/23 325 mg tablet levocetirizine 5 mg tablet 5 mg PO DAILY 10/23/23 10/23/23 zinc sulfate 50 mg zinc (220 mg) 220 mg PO DAILY 10/23/23 10/23/23 capsule (Orazinc) Previous Rx's Medication Instructions Recorded atorvastatin 40 mg tablet 40 mg PO HS 30 days #30 tabs 03/12/23 bumetanide 2 mg tablet 2 mg PO BID Edema 30 days #0 tabs 03/12/23 metoprolol succinate 100 mg 200 mg (2 x 100 mg) PO BID 30 days 03/12/23 tablet,extended release 24 hr #0 tabs pantoprazole 40 mg tablet,delayed 40 mg PO DAILY 30 days #0 tabs 03/12/23 release metolazone 5 mg tablet 5 mg PO DAILY #30 tabs 07/13/23 gabapentin 400 mg capsule 400 mg PO TID Neuropathy #90 caps 10/17/23 ascorbate calcium (vitamin C) 500 500 mg PO DAILY #90 tabs 10/20/23 mg tablet amoxicillin 875 mg-potassium 1 tab PO Q12H 7 days #14 tabs 10/24/23 clavulanate 125 mg tablet doxycycline hyclate 100 mg tablet 100 mg PO BID 7 days #14 tabs 10/24/23 Allergies Allergy/AdvReac Type Severity Reaction Status Date / Time codeine [CODEINE] Allergy Mild Unknown Verified 10/14/23 10:26 allergy reaction naproxen [NAPROXEN] Allergy Mild Unknown Verified 10/14/23 10:26 allergy reaction pregabalin [From LYRICA] Allergy Mild Unknown Verified 10/14/23 10:26 allergy reaction promethazine [PROMETHAZINE] Allergy Mild Unknown Verified 10/14/23 10:26 allergy reaction JOSE ELIAS Inhibitors Allergy Unknown Verified 10/14/23 10:26 allergy reaction PFSH PFSH Disclaimer: The information contained in this section may have been updated after the patient was seen, as this information can be updated by other users. Medical History (Updated 11/04/23 @ 23:27 by Robbin Mccarty MD) Multiple pulmonary nodules Migraine, unspecified, not intractable, without status migrainosus Gastro-esophageal reflux disease without esophagitis Unspecified convulsions Constipation, unspecified Spinal stenosis, site unspecified Acute peptic ulcer, site unspecified, with perforation Vitamin D deficiency, unspecified Xerosis cutis Other specified arthritis, unspecified site Presence of intraocular lens Excoriation (skin-picking) disorder Iodine-deficiency related diffuse (endemic) goiter Nonrheumatic aortic (valve) stenosis Fibromyalgia Fall Fall Acute pain of right shoulder Chronic respiratory failure with hypercapnia Cardiomyopathy Atelectasis of both lungs Pleural effusion due to CHF (congestive heart failure) Acute respiratory failure with hypoxemia Pneumonia History of melanoma Breast cancer History of smoking 30 or more pack years Restrictive lung disease History of sleep apnea COPD mixed type Hematuria Coronary artery disease Diastolic dysfunction HFrEF (heart failure with reduced ejection fraction) Abnormal cardiovascular stress test Atypical angina Shortness of Breath Acute on chronic diastolic (congestive) heart failure ST segment abnormality Abnormal EKG Fatigue Abnormal stress test Edema COPD (chronic obstructive pulmonary disease) Atypical chest pain HLD (hyperlipidemia) HTN (hypertension) Diabetes Shortness of Breath Surgical History History of throat surgery History of cataract surgery History of appendectomy Family History Other No significant family history Social History Smoking Status: Unknown if ever smoked second hand exposure: No alcohol intake: never counseling provided: provider counseling substance use type: denies use current occupational status: disabled Travel in the last 8 weeks: None household members: caregiver housing: skilled nursing marital status: caffeine: No ROS Obtained: Yes unobtainable due to mental status Physical Exam General General appearance: in distress, obese and other (Lethargic, but arousable) Eye Eye exam: Present PERRL and EOMI; Absent conjunctival injection Respiratory Respiratory exam: Present wheezes; Absent respiratory distress, stridor, accessory muscle use or prolonged expiratory phase Cardiovascular Cardiovascular exam: Present regular rate and normal rhythm Abdominal Exam Abdominal exam: Present soft, tenderness and guarding; Absent distention, rebound or rigidity Comment: Drainage coming from umbilicus, appears to be scant, bloody. Extremities Exam Extremities exam: Present edema Neurological Exam Neurological exam: Present other (GCS 13); Absent alert or oriented X3 Skin Skin exam: Present warm and dry Medical Decision Making Medical Records Medical records reviewed: Yes I reviewed the patient's medical records. Demond Inquiry Pt receiving controlled substance: No Demond was queried for this patient: No Vital Signs: 11/04/23 19:00 11/04/23 21:59 Temperature 97.9 F Temperature Source Oral Pulse Rate 66 Pulse Rate [Left Radial] 70 Respiratory Rate 16 17 Blood Pressure 106/55 L Blood Pressure [Right Arm] 88/46 L Blood Pressure Mean [Right Arm] 60 02 Sat by Pulse Oximetry 96 Oxygen Delivery Method Nasal Cannula Oxygen Flow Rate (LPM) 2 Lab Data Lab Results 11/04/23 18:47: WBC 9.4, RBC 3.29 L, Hgb 10.2 L, Hct 32.4 L, MCV 98.6, MCH 31.0, MCHC 31.4 L, RDW 14.9, Plt Count 340, MPV 8.1, Neut % (Auto) 85.5 H, Lymph % (Auto) 9.5 L, [place] % (Auto) 3.9, Eos % (Auto) 0.6, Baso % (Auto) 0.5, Neut # (Auto) 8.0 H, Lymph # (Auto) 0.9, [place] # (Auto) 0.4, Eos # (Auto) 0.1, Baso # (Auto) 0.0, Total Counted 100, Neutrophils % (Manual) 86 H, Lymphocytes % (Manual) 10, Monocytes % (Manual) 4, Platelet Estimate Normal, RBC Morphology Normal, Sodium 135 L, Potassium 3.4 L, Chloride 95 L, Carbon Dioxide 34 H, Anion Gap 9.4, BUN 43 H, Creatinine 1.50 H, Estimated Creat Clear 33, Estimated GFR 34 L, Est GFR ( Amer) 41 L, Glucose 127 H, Calcium 8.8, Total Bilirubin 0.9, AST 47 H, ALT 31, Alkaline Phosphatase 432 H, Troponin I 0.07 H, NT-Pro-B Natriuret Pep 1420 H, Total Protein 6.5, Albumin 3.2 L, Globulin 3.3 H, Albumin/Globulin Ratio 1.0 L, Lipase 23 11/04/23 19:11: VBG pH 7.44 H, VBG pCO2 39.6, VBG pO2 76.0 H, VBG HCO3 26.0, VBG Total CO2 27.2 H, VBG O2 Saturation 94.2 H, VBG Base Excess 1.8, VBG Lactic Acid 2.5 H 11/04/23 19:20: Lactate 1.7, Ammonia < 9 L 11/04/23 20:22: Urine Color Yellow, Urine Appearance Clear, Urine pH 5.5, Ur Specific Riddle 1.015, Urine Protein Negative, Urine Glucose (UA) Negative, Urine Ketones Negative, Urine Blood Negative, Urine Nitrate Negative, Urine Bilirubin Negative, Urine Urobilinogen 0.2, Ur Leukocyte Esterase Trace, Urine RBC None, Urine WBC 3-5, Ur Squamous Epith Cells Occasional, Urine Bacteria Trace 11/04/23 18:47 11/04/23 18:47 Orders (Tests/Meds): ED MEDICATIONS Generic Name Dose Route Start Last Admin Trade Name Freq PRN Reason Stop Dose Admin Heparin Sodium (Porcine) 5,000 unit 11/04/23 21:30 Heparin Sodium 5,000 Unit/Ml Vial SQ 12/04/23 21:29 Q8H JEROME Sodium Chloride 1,000 mls @ 75 mls/hr 11/04/23 21:30 11/04/23 23:21 Sod Chlor 0.9% 1000ml Bag IV 12/04/23 21:29 75 mls/hr .[id number] JEROME Administration Sodium Chloride 10 ml 11/04/23 19:36 11/04/23 19:37 Sodium Chloride 0.9% 10ml Syr (Rad Only) IV 12/04/23 19:35 10 ml NEEDED PRN Administration Maintain IV Site Discontinued Medications Generic Name Dose Route Start Last Admin Trade Name Erica PRN Reason Stop Dose Admin Albuterol/Ipratropium 6 ml 11/04/23 19:16 11/04/23 19:42 Ipratropium/Albuterol 3 Ml Neb IH 11/04/23 19:17 6 ml ONCE ONE Administration Piperacillin Sod/Tazobactam 100 mls @ 200 mls/hr 11/04/23 19:14 11/04/23 19:41 Sod 4.5 gm/ Sodium Chloride IV 11/04/23 19:43 200 mls/hr ONCE ONE Administration Sodium Chloride 1,990 mls @ 995 mls/hr 11/04/23 19:53 11/04/23 20:01 Sod Chlor 0.9% 1000ml Bag 30 ml/kg infuse over 2 hr (1990 ml) 11/04/23 21:52 995 mls/hr IV Administration .Q2H ONE Iopamidol 70 ml 11/04/23 19:36 11/04/23 19:37 Iopamidol-370 (76%);100ml Bottle IV 11/04/23 19:37 70 ml ONCE ONE Administration Methylprednisolone Sodium Succinate 125 mg 11/04/23 19:16 11/04/23 19:41 Methylprednisolone Sod Succ 125mg Vial IV 11/04/23 19:17 125 mg ONCE ONE Administration Sodium Chloride 50 ml 11/04/23 19:36 11/04/23 19:38 0.9 % Sodium Chloride 50 Ml Vial IV 11/04/23 19:37 50 ml ONCE ONE Administration ORDERS Category Date Time Status CT angio abdomen pelvis Stat Cat Scan 11/04/23 18:[address] head/brain wo con Stat Cat Scan 11/04/23 18:52 Taken CTA Chest [CT angio chest PE protocol] Stat Cat Scan 11/04/23 18:52 Completed Cardiology Consult [Consult to Cardiology] [CONS] Cons 11/04/23 21:28 Active Routine CXR --portable [XR chest portable] Stat Exams 11/04/23 18:52 Completed Ammonia Stat Lab 11/04/23 19:20 Completed CBC w/Auto Diff [Complete Blood Count Auto Diff] Stat Lab 11/04/23 18:47 Completed CMP [Comprehensive Metabolic Panel] Stat Lab 11/04/23 18:47 Completed Complete Blood Count Auto Diff AMLAB Lab 11/05/23 06:00 Ordered Comprehensive Metabolic Panel AMLAB Lab 11/05/23 06:00 Ordered Lactic Acid Stat Lab 11/04/23 19:20 Completed Lipase Stat Lab 11/04/23 18:47 Completed Magnesium AMLAB Lab 11/05/23 06:00 Ordered NT Pro Brain Natriuretic Pep. Stat Lab 11/04/23 18:47 Completed Trop I [Troponin I] Stat Lab 11/04/23 18:47 Completed Troponin I Q3H Lab 11/04/23 22:57 Received Troponin I Q3H Lab 11/05/23 01:00 Ordered UA [Urinalysis and Microscopic] Stat Lab 11/04/23 20:22 Completed Blood Culture Stat Micro 11/04/23 19:55 Received VBG [Venous Blood Gas] Stat RT 11/04/23 19:11 Completed Medical Decision Narrative: 78-year-old female history of hypertension, hyperlipidemia, CAD, COPD, CHF, morbid obesity, A-fib on Xarelto, presenting with altered mental status. Per EMS, per skilled nursing staff, typically alert, oriented, appropriate, mobile with wheelchair with minimal assistance. Today, patient has been sleepy, confused. She is also had vomiting and diarrhea, reportedly. EMS called for altered mental status. Blood sugar 116, patient GCS 13 on arrival here to the emergency department. Answering questions, but intermittently and inappropriately. Lungs 0with bilateral wheezes, but good air movement. Lower extremity edema. Cardiac sounds appear to be within normal limits. Mucous membranes are moist, nontachycardic, mildly hypotensive. Pupils are equal and reactive, EOMs intact when eyes are manually opened. Patient only intermittently opening her eyes to voice. Moving all extremities spontaneously. Differential includes sepsis, urinary tract infection, pneumonia, ACS, CHF exacerbation, COPD exacerbation, intracranial bleed, metabolic abnormality, medication side effect, polypharmacy, among others. Patient was given Unasyn, IV fluids for symptomatic management and correction of underlying abnormalities. Workup independently interpreted and significant for nonactionable CBC. Nonactionable VBG. Patient's chemistry concerning for [place] prerenal. Electrolytes largely nonactionable. Troponin mildly elevated 0.07, BNP elevated at 1400. CT head without acute intracranial hemorrhage. CT PE negative. She does have concern for pneumonia on CT PE. CT abdomen pelvis without acute intra-abdominal abnormality. See radiology read for full review of final results. Independent interpretation of EKG shows sinus rhythm 68 beats a minute with prolonged MT interval 226 ms. QRS and QT intervals within normal limits. There is an incomplete right bundle branch block. On reevaluation, patient still at baseline upon arrival. Given patient presentation, workup, history, this most likely represents acute encephalopathy in the setting of pneumonia. Because patient high risk for clinical decompensation, deemed appropriate for inpatient admission. Results were relayed to patient who voiced understanding and patient was agreeable to inpatient admission and management. Patient was admitted to the hospital for further definitive management. Critical Care Critical Care Time Critical Care Time: No
[2023-11-04 19:11] LABS: Chloride 95 mmol/L (98-107); Potassium 3.4 mmoL/L (3.5-5.1); Sodium 135 mmol/L (136-145)
[2023-11-04 19:14] LABS: Alanine Aminotransferase 31 U/L (12-78); Albumin Level 3.2 g/dl (3.5-5.0); Alkaline Phosphatase 432 U/L (38-126); Anion Gap 9.4 mEq/L (5-15); Aspartate Amino Transferase 47 U/L (14-36); Bilirubin,Total 0.9 mg/dl (0.2-1.3); Blood Urea Nitrogen 43 mg/dl (7-17); Calcium 8.8 mg/dl (8.4-10.2); Carbon Dioxide 34 mmol/L (22.0-30.0); Creatinine Clearance Estimated 33 mL/min (50-200); Estimated Glomerular Filt Rate 34 ml/min (>60); GFR (African American) 41 ML/MIN (>60); Globulin 3.3 g/dL (1.3-3.2); Glucose 127 mg/dl (74-100); Total Protein,Serum 6.5 g/dl (6.3-8.2)
[2023-11-04 19:17] LABS: Basophils % 0.5 % (0.1-2.0); Eosinophils # 0.1 K/mm3 (0.0-0.4); Eosinophils % 0.6 % (0.1-12.0); Hematocrit 32.4 % (37.0-47.0); Hemoglobin 10.2 g/dL (12.2-16.2); Lymphocytes # 0.9 K/mm3 (0.7-4.5); Lymphocytes % 9.5 % (10-50); Mean Corpuscular HGB Conc 31.4 g/dL (31.8-35.4); Mean Corpuscular Volume 98.6 fl (81-99); Mean Platelet Volume 8.1 fl (7.4-10.4); Monocytes # 0.4 K/mm3 (0.1-1.0); Monocytes % 3.9 % (1.7-9.3); Neutrophils % 85.5 % (37.0-80.0); Platelet Count 340 K/mm3 (142-424); Red Blood Count 3.29 M/mm3 (4.20-5.40); Red Cell Distribution Width 14.9 % (11.5-17.5); White Blood Count 9.4 K/mm3 (4.8-10.8)
[2023-11-04 19:18] LABS: VBG Base Excess 1.8 mmol/L (-2.4-2.3); VBG Oxygen Saturation 94.2 % (50-70); VBG PCO2 39.6 mmol/L (35-51); VBG PH 7.44 mmol/L (7.31-7.41); VBG Total CO2 27.2 mmol/L (23-27)
[2023-11-04 19:19] LABS: Lactate Venous 2.5 mmol/L (0.4-2.0)
[2023-11-04 19:20] LABS: MANUAL DIFFERENTIAL MANUAL DIFFERENTIAL (MANUAL DIFF)
[2023-11-04 19:23] LABS: NT Pro Brain Natriuretic Pep. 1420 pg/mL (0-450)
[2023-11-04 19:27] LABS: Troponin I 0.07 ng/ml (0.00-0.034)
--- NOTE | 2023-11-04 19:32 | PC.NURSE ---
Pt is in CT at this time.
[2023-11-04] MEDS: SODIUM CHLORIDE 0.9% 10ML SYR (RAD ONLY) 10 ML IV (19:37)
[2023-11-04] MEDS: IOPAMIDOL-370 (76%);100ML BOTTLE 70 ML IV (19:37)
[2023-11-04] MEDS: 0.9 % SODIUM CHLORIDE 50 ML VIAL IV (19:38)
[2023-11-04 19:39] LABS: Ammonia < 9 umol/L (9-30); Lactic Acid 1.7 mmol/L (0.7-2.1)
[2023-11-04] MEDS: METHYLPREDNISOLONE SOD SUCC 125MG VIAL 125 MG IV (19:41)
[2023-11-04] MEDS: PIPERACILLIN/TAZO 4.5 GM in 0.9 % SODIUM CHLORIDE 100 ML IV (19:41)
[2023-11-04] MEDS: IPRATROPIUM/ALBUTEROL 3 ML NEB 6 ML IH (19:42)
--- NOTE | 2023-11-04 19:46 | ECG_ITS ---
APPROVED REPORT Exam: Resting ECG HR:68 bpm ECG Measurements Heart Rate 68 AXES TN 226 P 77 QRSd 96 QRS -8 QT 409 T 0 QTc 426 Conclusion SINUS RHYTHM WITH FIRST DEGREE AV BLOCK INCOMPLETE RIGHT BUNDLE BRANCH BLOCK Electronically signed by : GABRIEL LEONG, 11/05/2023 14:59:11
[2023-11-04] MEDS: SODIUM CHLORIDE 995 ML IV (20:01)
[2023-11-04 20:30] LABS: Lymphocytes % 10 % (10-50); Monocytes % 4 % (2-9); Neutrophils % 86 % (42-76); Platelet Estimate Normal; RBC Morphology Normal; Total Cells Counted 100
[2023-11-04 20:37] LABS: Microscopic, Urine URINE MICROSCOPIC (MICROSCOPIC)
[2023-11-04 20:39] LABS: Appearance,Urine CLEAR (Clear); Bilirubin,Urine Negative (Negative); Blood, Urine Negative (Negative); Color,Urine YELLOW (Yellow); Glucose,Urine (UA) Negative (Negative); Ketones,Urine Negative (Negative); Leukocyte Esterase,Urine TRACE (Negative); Nitrate,Urine Negative (Negative); PH,Urine 5.5 (5.0-8.5); Protein,Urine Negative (Negative); Specific Gravity, Urine 1.015 (1.005-1.030); Urobilinogen,Urine 0.2 EU/dl (0.2)
[2023-11-04 20:52] LABS: Lipase 23 U/L (23-300)
[2023-11-04 21:20] LABS: Bacteria,Urine Trace /lpf; Squamous Epithelial Cell,Urine Occasional #/hpf (0-5)
--- NOTE | 2023-11-04 21:22 | PC.NURSE ---
MD cantu on phone with hospitalist
--- NOTE | 2023-11-04 21:27 | P.HP_ITS ---
History of Present Illness *Admission Date: 11/04/23 *Reason for visit:: AMS *History of present illness: This is a 78-year-old female history of hypertension, hyperlipidemia, CAD, COPD, CHF, morbid obesity, A-fib on Xarelto, abdominal fistula recently admitted for septic shock secondary to UTI and Pneumonia, discharged back to her nursing facility after clinically improvement on 10/23. Per nursing staff patient was normally awake alert oriented able to mobilize herself with a wheelchair. Today she was brought in by EMS referred from nursing facility for evaluation of significantly altered. Last time seen normal two days ago. History is limited due to patient current status . Most data collected from ED documentation, EMS and nursing facility report. On arrival No focal neurologic deficits from historical standpoint. Patient seems obtunded and answer question intermittent. She is unable to provide any history so it is significantly limited. Readmitted for treatment and management. [facility] Disclaimer: The information contained in this section may have been updated after the patient was seen, as this information can be updated by other users. Medical History (Updated 11/05/23 @ 01:31 by Jonathan Lakhani APRN) Multiple pulmonary nodules Migraine, unspecified, not intractable, without status migrainosus Gastro-esophageal reflux disease without esophagitis Unspecified convulsions Constipation, unspecified Spinal stenosis, site unspecified Acute peptic ulcer, site unspecified, with perforation Vitamin D deficiency, unspecified Xerosis cutis Other specified arthritis, unspecified site Presence of intraocular lens Excoriation (skin-picking) disorder Iodine-deficiency related diffuse (endemic) goiter Nonrheumatic aortic (valve) stenosis Fibromyalgia Fall Fall Acute pain of right shoulder Chronic respiratory failure with hypercapnia Cardiomyopathy Atelectasis of both lungs Pleural effusion due to CHF (congestive heart failure) Acute respiratory failure with hypoxemia Pneumonia History of melanoma Breast cancer History of smoking 30 or more pack years Restrictive lung disease History of sleep apnea COPD mixed type Hematuria Coronary artery disease Diastolic dysfunction HFrEF (heart failure with reduced ejection fraction) Abnormal cardiovascular stress test Atypical angina Shortness of Breath Acute on chronic diastolic (congestive) heart failure ST segment abnormality Abnormal EKG Fatigue Abnormal stress test Edema COPD (chronic obstructive pulmonary disease) Atypical chest pain HLD (hyperlipidemia) HTN (hypertension) Diabetes Shortness of Breath Surgical History History of throat surgery History of cataract surgery History of appendectomy Family History Other No significant family history Social History Smoking Status: Unknown if ever smoked second hand exposure: No alcohol intake: never counseling provided: provider counseling substance use type: denies use current occupational status: disabled Travel in the last 8 weeks: None household members: caregiver housing: half-way marital status: caffeine: No Review of Systems Review of Systems Review of systems:: unable to obtain Meds Home Medications and Allergies Home Medications Medication Instructions Recorded Confirmed Type duloxetine 60 mg capsule,delayed 120 mg PO DAILY Depression 04/06/19 11/04/23 History release levetiracetam 750 mg tablet 750 mg PO BID seizures 04/06/19 11/04/23 History uqsitowulrbs-Ei-wkeo-minerals 27 1 each PO DAILY Supplement 04/06/19 11/04/23 History mg-0.4 mg tablet ondansetron HCl 4 mg tablet 4 mg PO Q6HP PRN Nausea 04/06/19 11/04/23 History acetaminophen 500 mg tablet 500 mg PO Q4HP PRN mild pain or 09/25/21 11/04/23 History (Tylenol Extra Strength) fever anastrozole 1 mg tablet 1 mg PO DAILY breast cancer 09/25/21 11/04/23 History bisacodyl 10 mg rectal suppository 10 mg OR .Q72HP PRN Constipation 09/25/21 11/04/23 History (Dulcolax (bisacodyl)) polyethylene glycol 3350 17 17 g PO DAILY 09/25/21 11/04/23 History gram/dose oral powder (Miralax) albuterol sulfate 90 mcg/actuation 2 inh inhalation Q6HP PRN 10/12/22 11/04/23 History aerosol inhaler shortness of breath or wheezing insulin NPH-regular 70-30 U-100 47 unit SQ 1130,1630 Diabetes 10/12/22 11/04/23 History insulin 100 unit/mL subcutaneous pen (Novolin 70-30 FlexPen U-100 Insulin) insulin NPH-regular 70-30 U-100 52 unit SQ AM Diabetes 10/12/22 11/04/23 History insulin 100 unit/mL subcutaneous pen (Novolin 70-30 FlexPen U-100 Insulin) ipratropium 0.5 mg-albuterol 3 mg 3 ml inhalation Q6HP PRN shortness 10/12/22 11/04/23 History (2.5 mg base)/3 mL nebulization of breath or wheezing soln melatonin 5 mg tablet 5 mg PO HS sleep 10/12/22 11/04/23 History simethicone 80 mg chewable tablet 80 mg PO TID PRN gas pain 10/12/22 11/04/23 History rivaroxaban 15 mg tablet (Xarelto) 15 mg PO 1700 Blood Thinner 10/30/22 11/04/23 History bupropion HCl 150 mg tablet,12 hr 150 mg PO DAILY mood 12/24/22 11/04/23 History sustained-release buspirone 15 mg tablet 15 mg PO BID Depression 12/24/22 11/04/23 History empagliflozin 10 mg tablet 10 mg PO DAILY Diabetes 03/07/23 11/04/23 History (Jardiance) cholecalciferol (vitamin D3) 50 50 mcg PO DAILY Supplement 03/08/23 11/04/23 History mcg (2,000 unit) tablet (Vitamin D3) atorvastatin 40 mg tablet 40 mg PO HS 30 days #30 tabs 03/12/23 11/04/23 Rx bumetanide 2 mg tablet 2 mg PO BID Edema 30 days #0 tabs 03/12/23 11/04/23 Rx metoprolol succinate 100 mg 200 mg (2 x 100 mg) PO BID 30 days 03/12/23 11/04/23 Rx tablet,extended release 24 hr #0 tabs pantoprazole 40 mg tablet,delayed 40 mg PO DAILY 30 days #0 tabs 03/12/23 11/04/23 Rx release linaclotide 290 mcg capsule 290 mcg PO DAILY 04/09/23 11/04/23 History (Linzess) metformin 1,000 mg tablet 1,000 mg PO BID 04/09/23 11/04/23 History sennosides 8.6 mg capsule (senna) 8.6 mg PO BID 04/09/23 11/04/23 History cyanocobalamin (vitamin B-12) 100 mcg IM MONTHLY vitamin 07/03/23 11/04/23 History 1,000 mcg/mL injection solution supplement nitroglycerin 0.4 mg sublingual 0.4 mg sublingual Q5M PRN Chest 07/03/23 11/04/23 History tablet Pain propylene glycol 0.6 % eye drops 1 drp Eye-Both BID PRN Dry Eyes 07/03/23 11/04/23 History (Systane Balance) metolazone 5 mg tablet 5 mg PO DAILY #30 tabs 07/13/23 11/04/23 Rx gabapentin 400 mg capsule 400 mg PO TID Neuropathy #90 caps 10/17/23 11/04/23 Rx fexofenadine 180 mg tablet 180 mg PO DAILY PRN allergies 10/22/23 11/04/23 History hydrocodone 10 mg-acetaminophen 1 tab PO BIDP PRN chronic pain 10/22/23 11/04/23 History 325 mg tablet sacubitril 24 mg-valsartan 26 mg 1 tab PO BID 10/22/23 11/04/23 History tablet (Entresto) umeclidinium 62.5 mcg-vilanterol 1 inh inhalation DAILY 10/22/23 11/04/23 History 25 mcg/actuation powdr for inhalation (Anoro Ellipta) digoxin 125 mcg (0.125 mg) tablet 187.5 mcg PO DAILY 10/23/23 11/04/23 History hydrocodone 10 mg-acetaminophen 1 tab PO HS 10/23/23 11/04/23 History 325 mg tablet levocetirizine 5 mg tablet 5 mg PO DAILY 10/23/23 11/04/23 History aluminum-mag hydroxide-simethicone 5 ml PO Q4H PRN antacid 11/04/23 11/04/23 History 200 mg-200 mg-20 mg/5 mL oral susp New Prescriptions to Start Prescriptions: Allergies Allergy/AdvReac Type Severity Reaction Status Date / Time codeine [CODEINE] Allergy Mild Unknown Verified 10/14/23 10:26 allergy reaction naproxen [NAPROXEN] Allergy Mild Unknown Verified 10/14/23 10:26 allergy reaction pregabalin [From LYRICA] Allergy Mild Unknown Verified 10/14/23 10:26 allergy reaction promethazine [PROMETHAZINE] Allergy Mild Unknown Verified 10/14/23 10:26 allergy reaction JOSE ELIAS Inhibitors Allergy Unknown Verified 10/14/23 10:26 allergy reaction Exam Data for Last 24 hours Vital signs and Labs for Last 24 Hours: Pulse Resp BP Pulse Ox 70 16 88/46 L 96 11/04/23 19:00 11/04/23 19:00 11/04/23 19:00 11/04/23 19:00 Laboratory Results - last 24 hr 11/04/23 18:47: WBC 9.4, RBC 3.29 L, Hgb 10.2 L, Hct 32.4 L, MCV 98.6, MCH 31.0, MCHC 31.4 L, RDW 14.9, Plt Count 340, MPV 8.1, Neut % (Auto) 85.5 H, Lymph % (Auto) 9.5 L, [place] % (Auto) 3.9, Eos % (Auto) 0.6, Baso % (Auto) 0.5, Neut # (Auto) 8.0 H, Lymph # (Auto) 0.9, [place] # (Auto) 0.4, Eos # (Auto) 0.1, Baso # (Auto) 0.0, Total Counted 100, Neutrophils % (Manual) 86 H, Lymphocytes % (Manual) 10, Monocytes % (Manual) 4, Platelet Estimate Normal, RBC Morphology Normal, Sodium 135 L, Potassium 3.4 L, Chloride 95 L, Carbon Dioxide 34 H, Anion Gap 9.4, BUN 43 H, Creatinine 1.50 H, Estimated Creat Clear 33, Estimated GFR 34 L, Est GFR ( Amer) 41 L, Glucose 127 H, Calcium 8.8, Total Bilirubin 0.9, AST 47 H, ALT 31, Alkaline Phosphatase 432 H, Troponin I 0.07 H, NT-Pro-B Natriuret Pep 1420 H, Total Protein 6.5, Albumin 3.2 L, Globulin 3.3 H, Albumin/Globulin Ratio 1.0 L, Lipase 23 11/04/23 19:11: VBG pH 7.44 H, VBG pCO2 39.6, VBG pO2 76.0 H, VBG HCO3 26.0, VBG Total CO2 27.2 H, VBG O2 Saturation 94.2 H, VBG Base Excess 1.8, VBG Lactic Acid 2.5 H 11/04/23 19:20: Lactate 1.7, Ammonia < 9 L 11/04/23 20:22: Urine Color Yellow, Urine Appearance Clear, Urine pH 5.5, Ur Specific [place] 1.015, Urine Protein Negative, Urine Glucose (UA) Negative, Urine Ketones Negative, Urine Blood Negative, Urine Nitrate Negative, Urine Bilirubin Negative, Urine Urobilinogen 0.2, Ur Leukocyte Esterase Trace, Urine RBC None, Urine WBC 3-5, Ur Squamous Epith Cells Occasional, Urine Bacteria Trace Temp Pulse Resp BP Pulse Ox O2 Del Method O2 Flow Rate 98.0 F 64 22 102/71 L 94 L Room Air 6 03/07/23 10:14 03/07/23 11:00 03/07/23 10:14 03/07/23 11:00 03/07/23 11:00 03/07/23 11:00 03/07/23 10:31 Laboratory Results - last 24 hr 03/07/23 10:16: WBC 11.6 H, RBC 4.02 L, Hgb 12.1 L, Hct 39.0, MCV 97.2, MCH 30.1, MCHC 31.0 L, RDW 15.5, Plt Count 314, MPV 7.8, Neut % (Auto) 83.8 H, Lymph % (Auto) 11.0, [place] % (Auto) 4.2, Eos % (Auto) 0.8, Baso % (Auto) 0.3, Neut # (Auto) 9.7 H, Lymph # (Auto) 1.3, [place] # (Auto) 0.5, Eos # (Auto) 0.1, Baso # (Auto) 0.0, Sodium 135 L, Potassium 5.0, Chloride 88 L, Carbon Dioxide 38 H, Anion Gap 14.0, BUN 28 H, Creatinine 1.00, Estimated Creat Clear 47, Estimated GFR 54 L, Est GFR ( Amer) 65, Glucose 139 H, Calcium 9.3, Total Bilirubin 0.3, AST 21, ALT 18, Alkaline Phosphatase 143 H, Troponin I < 0.01, Total Protein 8.2, Albumin 4.1, Globulin 4.1 H, Albumin/Globulin Ratio 1.0 L 03/07/23 10:17: Lactate 0.8 03/07/23 10:21: VBG pH 7.28 L, VBG pCO2 71.0 H, VBG pO2 54.5 H, VBG HCO3 32.5 H, VBG Total CO2 34.7 H, VBG O2 Saturation 85.8 H, VBG Base Excess 5.8 H I & O for Last 24 hours: Intake & Output 11/01/23 11/02/23 11/03/23 11/04/23 23:59 23:59 23:59 23:59 Weight 145.15 kg Intake & Output 03/04/23 03/05/23 03/06/23 03/07/23 23:59 23:59 23:59 23:59 Weight 136.531 kg Constitutional Constitutional: morbidly obese, chronically ill appearing and obtunded *Routine HEENT Exam Head: Present normocephalic Eye: Present EOMI and PERRL ENT: Present mucous membranes moist *Routine Neck Exam Neck: Present supple; Absent lymphadenopathy *Routine Respiratory Exam Respiratory: Present CTA bilaterally, respiratory distress and able to speak in complete sentences; Absent rhonchi, wheezes or crackles *Routine Cardiovascular Exam Cardiovascular: Present Normal S1 and Normal S2 *Routine Abdominal Exam Abdominal: Present soft and normoactive bowel sounds; Absent tenderness *Routine Rectal Exam Rectal:: deferred *Routine Genitalia Exam Genitalia:: deferred *Routine Extremities Exam Extremities: Absent cyanosis, clubbing or edema *Routine Skin Exam Skin: Present warm; Absent rash *Routine Neurological Exam Neurological: Present altered mental status Routine Psychiatric Exam Psychiatric: Present unable to assess H&P: Result Imaging and Cardiology EKG: Status: image reviewed by me, Preliminary report and final report CT scan - chest: Status: image reviewed by me, Preliminary report and final report Chest x-ray: Status: image reviewed by me, Preliminary report and final report CT scan - head: Status: image reviewed by me and Preliminary report Assessment and Plan *Assessment and plan (1) Septic shock: Status: Acute Category: Medical Code(s): A41.9 - Sepsis, unspecified organism; R65.21 - Severe sepsis with septic shock (2) Encephalopathy acute: Status: Acute Category: Medical Code(s): G93.40 - Encephalopathy, unspecified (3) Multiple pulmonary nodules: Status: Acute Category: Medical Code(s): R91.8 - Other nonspecific abnormal finding of lung field (4) Open abdominal wall wound: Status: Acute Qualifiers: Encounter type: initial encounter Qualified Code(s): S31.109A - Unspecified open wound of abdominal wall, unspecified quadrant without penetration into peritoneal cavity, initial encounter Category: Medical Code(s): S31.109A - Unspecified open wound of abdominal wall, unspecified quadrant without penetration into peritoneal cavity, initial encounter (5) Acute kidney injury superimposed on CKD: Status: Acute Category: Medical Code(s): N17.9 - Acute kidney failure, unspecified; N18.9 - Chronic kidney disease, unspecified (6) Renal lesion: Status: Acute Category: Medical Code(s): N28.9 - Disorder of kidney and ureter, unspecified (7) COPD mixed type: Status: Chronic Category: Medical Code(s): J44.9 - Chronic obstructive pulmonary disease, unspecified (8) HFrEF (heart failure with reduced ejection fraction): Status: Acute Category: Medical Code(s): I50.20 - Unspecified systolic (congestive) heart failure (9) Atrial fibrillation: Status: Chronic Qualifiers: Atrial fibrillation type: unspecified Qualified Code(s): I48.91 - Unspecified atrial fibrillation Category: Medical Code(s): I48.91 - Unspecified atrial fibrillation (10) Type 2 diabetes mellitus with diabetic neuropathy: Status: Chronic Qualifiers: Diabetes mellitus longterm insulin use: unspecified longterm insulin use status Qualified Code(s): E11.40 - Type 2 diabetes mellitus with diabetic neuropathy, unspecified Category: Medical Code(s): E11.40 - Type 2 diabetes mellitus with diabetic neuropathy, unspecified (11) Morbid obesity: Status: Chronic Category: Medical Code(s): E66.01 - Morbid (severe) obesity due to excess calories (12) Chronic anemia: Status: Chronic Category: Medical Code(s): D64.9 - Anemia, unspecified (13) Cardiomyopathy: Status: Acute Qualifiers: Cardiomyopathy type: dilated Qualified Code(s): I42.0 - Dilated cardiomyopathy Category: Medical Code(s): I42.9 - Cardiomyopathy, unspecified Plan 78-year-old female history of hypertension, hyperlipidemia, CAD, COPD, CHF, morbid obesity, A-fib on Xarelto, abdominal fistula recently admitted for septic shock secondary to UTI and Pneumonia, discharged back to her nursing facility after clinically improvement on 10/23. on arrival sepsis protocols initiated. chest x-ray personally interpreted also looked at the CT scan of the patient's chest and her lung windows she appears to have multiples nodulary nodules no focal consolidation, CTA of abdomen concerning for left renal cortex lesion malignancy suspicious. concerning for pancreatic inflammation, however not clinically supported. findings might be correlated with abdominal fistula. that also has foul smell. Labs are consistent with hypokalemia. [place] on CKD, chronic anemia. Findings discussed with ED. agreed for admission. Plan as follow: - Septic shock secondary to UTI and possible multifocal pneumonia Acute on chronic toxic septic encephalopaty: Admit patient. Dispo ICU continue IV resuscitation gentle started on zoxyn 8h. recent completed course on broad abx redraw wound culture pending. last wound care was postive to staph was treated with vancomycin last BC negative. urine was positive to Klebsiella Pneumonae. Urine look clear at this point on levophed insert graf for accurate output. and assisting with wound healing monitor for organs dysfunctions. VS per unit CT of head does not showed acute gross intracraneal process. Pending radiology final reading monitor and repeat labs daily -abdominal fistula, foul odor: associated dermatitis around stoma: recently evaluated by surgeon. recommended wound care management. wound culture obtained wound care consult ARG[place] on CKD Left renal cortex lesion suspected malignancy MRI recommended for definitive. Might be possible when creatinine improved - COPD, Afib, HFrEF,: elevated troponin conditions reviewed. elevated BNP elevated troponin. likely secondary NV. EKG first degree block with non specific ST changes. cardiology consulted. continuous cardiac monitoring COPD currently stable. patient does not look on exacerbation incomplete sepsis bolus given due to concern of overloading with fluid continue monitoring Diabetes: Accucheck before meals and as needed . sliding scale . diabetic diet when mentally improves morbid obesity will complicate all aspect of care. Patient clinically ill with numeral comorbidities. preserved prognosis Case management consult to assist with zhang of care and define goals of care On xarelto and protonix Full code
--- NOTE | 2023-11-04 21:33 | PC.NURSE ---
notified house supervisors of admission
--- NOTE | 2023-11-04 21:37 | PC.NURSE ---
pt admitted to room 218 for AMS, encephalopathy, abdominal cellulitis, and ARGENT[place] to hospitalist
[2023-11-04 21:59] VITALS: BP 106/55; PULSE 66; RESP 17; TEMP 36.6; O2SAT 97
[2023-11-04 22:07] VITALS: BP 108/47; PULSE 70; RESP 18; TEMP 36.6; O2SAT 98; BMI 36.4
--- NOTE | 2023-11-04 22:07 | PC.NURSE ---
patient arrived to floor via stretcher @22:06
[2023-11-04 23:12] LABS: Reflex Lactic Add Lactic Reflex
[2023-11-04] MEDS: 0.9 % SODIUM CHLORIDE 1000ML 1,000 ML 75 ML IV (23:21)
[2023-11-04 23:27] LABS: Troponin I 0.06 ng/ml (0.00-0.034)
[2023-11-04 23:29] LABS: Lactic Acid Follow Up (RFLX 1) 1.3 mmol/L (0.7-2.1)
[2023-11-04] MEDS: NOREPINEPHRINE BITARTRATE/D5W 8 MG/250 ML PLAST..BAG 15 MG IV (23:30)
[2023-11-04] MEDS: HEPARIN SODIUM 5,000 UNIT/ML VIAL 5000 UNIT SQ (23:38)
--- NOTE | 2023-11-04 23:53 | PC.WOUNDNOTE ---
Stage 2 ulceration to gin area Blanchable redness noted to left hip Umbilicus with foul smelling dark drainage RLE
[2023-11-05] VITALS (29 sets, daily range): BP systolic 80–138; BP diastolic 34–86; PULSE 59–86; RESP 15–24; TEMP 36.6–37.4; O2SAT 91–100; BMI 36.4
[2023-11-05 03:12] LABS: Troponin I 0.04 ng/ml (0.00-0.034)
[2023-11-05 05:52] LABS: POC Glucose,Bedside 102 (70-110)
[2023-11-05 06:11] LABS: Basophils % 0.4 % (0.1-2.0); Eosinophils # 0.1 K/mm3 (0.0-0.4); Eosinophils % 0.7 % (0.1-12.0); Hematocrit 32.4 % (37.0-47.0); Hemoglobin 10.3 g/dL (12.2-16.2); Lymphocytes # 0.9 K/mm3 (0.7-4.5); Lymphocytes % 12.3 % (10-50); Mean Corpuscular HGB Conc 31.9 g/dL (31.8-35.4); Mean Corpuscular Hemoglobin 31.3 pg (27.0-31.2); Mean Platelet Volume 7.6 fl (7.4-10.4); Monocytes # 0.4 K/mm3 (0.1-1.0); Monocytes % 5.5 % (1.7-9.3); Neutrophils # 6.1 K/mm3 (1.8-7.8); Neutrophils % 81.3 % (37.0-80.0); Platelet Count 288 K/mm3 (142-424); White Blood Count 7.5 K/mm3 (4.8-10.8)
[2023-11-05 06:20] LABS: Alanine Aminotransferase 27 U/L (12-78); Albumin/Globulin Ratio 0.9 (1.1-1.8); Alkaline Phosphatase 386 U/L (38-126); Anion Gap 6.9 mEq/L (5-15); Aspartate Amino Transferase 42 U/L (14-36); Bilirubin,Total 0.7 mg/dl (0.2-1.3); Blood Urea Nitrogen 36 mg/dl (7-17); Calcium 8.7 mg/dl (8.4-10.2); Carbon Dioxide 34 mmol/L (22.0-30.0); Chloride 98 mmol/L (98-107); Creatinine Clearance Estimated 69 mL/min (50-200); Estimated Glomerular Filt Rate 44 ml/min (>60); GFR (African American) 53 ML/MIN (>60); Globulin 3.2 g/dL (1.3-3.2); Glucose 88 mg/dl (74-100); Magnesium 1.4 mg/dl (1.6-2.3); Sodium 136 mmol/L (136-145); Total Protein,Serum 6.2 g/dl (6.3-8.2)
[2023-11-05 06:30] LABS: Potassium 2.9 mmoL/L (3.5-5.1)
[2023-11-05] MEDS: KCl 20mEq/100ml 100 ML 50 MEQ IV ×3 (07:03→13:23)
--- NOTE | 2023-11-05 08:01 | SW/DCPLANNER ---
Addendum entered by Mecca Garcia 11/06/23 09:48: Patient's son stated the plan for this patient is to return to [facility] level of care once medically stable for discharge. Addendum entered by Mecca Garcia 11/06/23 09:39: I attempted to call patient's son (per nursings request) regarding discharge plans. No answer at this time VM left. Original Note: This patient currently resides at [facility]. I will continue to follow up w/ Rosangela at [facility] until discharge date is known. Updated patient information will be faxed.
--- NOTE | 2023-11-05 08:01 | PC.NURSE ---
All documentation and care provided by Kalyani Oseguera was completed under my direct supervision. Rhoda Lancaster RN
[2023-11-05] MEDS: 0.9 % SODIUM CHLORIDE 1000ML 1,000 ML 75 ML IV (08:46)
[2023-11-05] MEDS: HEPARIN SODIUM 5,000 UNIT/ML VIAL 5000 UNIT SQ ×2 (08:46→16:29)
--- NOTE | 2023-11-05 09:29 | CA_ITS ---
APPROVED REPORT EXAM: Comprehensive 2D, Doppler, and color-flow Echocardiogram Clinical Registered Nurse: Tamera Nieves RVT Ht: 5 ft 8 in Wt: 246lbs BSA: 2.23 BP: 108/59 mmHg Indications: CHF, HFrEF,CM,CAD,DM,HTN,HLD,COPD,MOD TDS-PT BODY HABITUS,PT KEPT MOVING DURING EXAM M-Mode Dimensions RVDd 4.24 cm (0.9-2.6) LA Diam 4.88 cm (1.9-4.0) LVDd 5.43 cm (3.5-5.7) LVDs 3.31 cm (3.5-5.7) IVSd 0.93 cm (0.6-1.1) PWd 0.81 cm (0.6-1.1) EF (Teich) 68.90% FS 39.00% EDV (Teich) 143.10 mL ESV (Teich) 44.50 mL LV Diastology E Decel Time 150 (160-240 msec) E/A Ratio 1.0 Aortic Valve HAFSA Index 0.76 cm2/m2 AoV Peak Ismael. 248.0 (50-130 cm/s) AO Peak GR. 24.70 mmHg AO Mean GR. 14.50 (<5 mmHg) AO VTI 51.8 (18-25 cm) HAFSA (VTI) 1.75 (2.5-4.5 cm2) Mitral Valve MV E Max Ismael. 98.0 (40-130 cm/s) MV A Velocity 96.0 (40-130 cm/s) E/A Ratio 1.02 MV PHT 44.0 ms Pulmonary Valve PV Peak Velocity 125.0 (50-150 cm/s) Tricuspid Valve TR P. Velocity 242.00 cm/s RAP Estimate 10.00 mmHg RVSP 33.40 mmHg Left Ventricle The left ventricle is normal size. The left ventricular systolic function is normal. The left ventricular ejection fraction is within the normal range. There is increased LV wall thickness. There is normal LV segmental wall motion. Grade 2 diastolic dysfunction is present. LVEF is 55%. Right Ventricle Right ventricle is moderate to severely dilated. Right ventricle is moderately hypokinetic. Atria Left atrium is mildly dilated. Right atrium is mildly dilated. There is no Doppler evidence of interatrial shunt. Aortic Valve The aortic valve is moderately thickened. Mild to moderate aortic stenosis. HAFSA by 2D planimetry is 1.5 cm???. Peak velocity 2.8 m/s. Mean AV gradient 18 mmHg. Max AV gradient 32 mmHg. Trace aortic regurgitation is present. Mitral Valve The mitral valve is mildly thickened. No evidence of mitral valve stenosis. Trace mitral regurgitation. Tricuspid Valve The tricuspid valve leaflets are thin and pliable. Trace tricuspid regurgitation. There is insufficient TR jet to estimate RVSP. Pulmonic Valve The pulmonary valve is normal in structure. Trace pulmonic regurgitation. Great Vessels The aortic root is normal in size. The ascending aorta is not well-visualized. The IVC is not well-visualized. Pericardium There is no pericardial effusion. Other Information Study Quality: Fair Conclusion Normal LV systolic function. Grade 2 diastolic dysfunction. Moderate to severe RV dilation with moderate reduction in RV function. Mild biatrial dilation. Mild to moderate aortic stenosis. HAFSA by 2D planimetry is 1.5 cm???. Peak velocity 2.8 m/s. Mean AV gradient 18 mmHg. Max AV gradient 32 mmHg. Electronically signed by : Magda Lee MD 11/09/2023 12:25:09
[2023-11-05] MEDS: SODIUM CHLORIDE 3% 15ML NEB 3 ML IH (09:40)
--- NOTE | 2023-11-05 10:26 | HMH.PTWOUND ---
Rehab Inpt Wound Evaluation Rehab IP Wound Evaluation Start: 11/04/23 22:36 Freq: ONCE Status: Active Protocol: Document 11/05/23 10:19 MYCHAL (Rec: 11/05/23 10:26 MYCHAL [id number]) Rehab PT Wound Assessment Subjective Subjective 78 yowf adm to [facility] with AMS, encephalopathy, [place], possible abdominal cellulitis. PMH of hypertension, hyperlipidemia, CAD, COPD, CHF, morbid obesity , A-fib on Xarelto, abdominal fistula recently admitted for septic shock secondary to UTI and Pneumonia, discharged back to her nursing facility after clinically improvement on . She had previous wound in her umbilical region previously with a possible fistula, but difficult to determine based on previous CT . Wound Anterior Abdomen Wound Type possible fistula Is This a Chronic Wound Yes Wound Length (cm) 8.0 Wound Width (cm) 1.0 Wound Depth (cm) 2.2 Wound Bed Appearance Beefy Red Wound Margins Description Indistinct Surrounding Tissue Appearance [place] Wound Drainage Description Sanguineous,Brown Drainage Amount Moderate Wound Topical Solution/Irrigant Saline Irrigant Packing Type Alginate Primary Dressing Composite Dressing Change Patient Tolerance Tolerated Well Plan/Recommendation Comment Wound appears clean and bloody at this time with significant sanguineous drainage ntoed after exploration of depth. No debridement needed at this time, but direct cause of the wound remains uncertain. Swab culture obtained with nsg present. Eval Complexity Eval Charge Codes 71280 - High Complexity Oliveros-Bello Wound Assessment Tool Assessment Wound size 2=Length x Width 4--<16 sq cm Wound depth 3=Full thickness skin loss involving damage or necrosis of Wound edges 3=Well-defined, not attached to wound base Wound undermining 1=None present Necrotic tissue type 1=Non visible Necrotic tissue amount 1=None visible Exudate type 2=Bloody Exudate amount 4=Moderate Skin color surrounding wound 1=[place] or normal for ethnic group Peripheral tissue edema 1=No swelling or edema Peripheral tissue induration 2=Induration,<2 cm around wound Granulation tissue 2=Bright, beefy red;75% to 100 % of wound filled &/or tissue overgrowth Epithelialization 5= < 25% wound covered Wound assessment total score 28 PHYSICIAN CERTIFICATION: I certify the specified therapy services for Dina Joyce Moo are required, authorized, and reviewed every 30 days.
--- NOTE | 2023-11-05 11:06 | EXP.PHA.CONS ---
Pharmacy Consult Date: 11/05/23 Time: 11:07 Referring provider: ANUSHA Reason for Consult:: PHARMACY CONSULTED TO INITIATE AND MONITOR VANCOMYCIN THERAPY Allergies Allergy/AdvReac Type Severity Reaction Status Date / Time codeine [CODEINE] Allergy Mild Unknown Verified 10/14/23 10:26 allergy reaction naproxen [NAPROXEN] Allergy Mild Unknown Verified 10/14/23 10:26 allergy reaction pregabalin [From LYRICA] Allergy Mild Unknown Verified 10/14/23 10:26 allergy reaction promethazine [PROMETHAZINE] Allergy Mild Unknown Verified 10/14/23 10:26 allergy reaction JOSE ELIAS Inhibitors Allergy Unknown Verified 10/14/23 10:26 allergy reaction Home Medications Medication Instructions Recorded Confirmed Type duloxetine 60 mg capsule,delayed 120 mg PO DAILY 04/06/19 11/05/23 History release levetiracetam 750 mg tablet 750 mg PO BID seizures 04/06/19 11/05/23 History ftidzhvysnyi-Ay-lyam-minerals 27 1 each PO DAILY Supplement 04/06/19 11/05/23 History mg-0.4 mg tablet ondansetron HCl 4 mg tablet 4 mg PO Q6HP PRN Nausea 04/06/19 11/05/23 History acetaminophen 500 mg tablet 500 mg PO Q4HP PRN Fever Or Pain 09/25/21 11/05/23 History (Tylenol Extra Strength) anastrozole 1 mg tablet 1 mg PO DAILY breast cancer 09/25/21 11/05/23 History bisacodyl 10 mg rectal suppository 10 mg NE Q72H PRN Constipation 09/25/21 11/05/23 History (Dulcolax (bisacodyl)) polyethylene glycol 3350 17 17 g PO DAILYP PRN Constipation 09/25/21 11/05/23 History gram/dose oral powder (Miralax) albuterol sulfate 90 mcg/actuation 2 inh inhalation Q6HP PRN 10/12/22 11/05/23 History aerosol inhaler Shortness Of Breath Or Wheezing insulin NPH-regular 70-30 U-100 47 unit SQ 1130,1630 10/12/22 11/05/23 History insulin 100 unit/mL subcutaneous pen (Novolin 70-30 FlexPen U-100 Insulin) insulin NPH-regular 70-30 U-100 52 unit SQ 0630 10/12/22 11/05/23 History insulin 100 unit/mL subcutaneous pen (Novolin 70-30 FlexPen U-100 Insulin) ipratropium 0.5 mg-albuterol 3 mg 3 ml inhalation Q6HP PRN Shortness 10/12/22 11/05/23 History (2.5 mg base)/3 mL nebulization Of Breath Or Wheezing soln melatonin 5 mg tablet 5 mg PO HS sleep 10/12/22 11/05/23 History simethicone 80 mg chewable tablet 80 mg PO TIDP PRN GAS 10/12/22 11/05/23 History rivaroxaban 15 mg tablet (Xarelto) 15 mg PO QPMWITHMEAL 10/30/22 11/05/23 History buspirone 15 mg tablet 15 mg PO BID 12/24/22 11/05/23 History empagliflozin 10 mg tablet 10 mg PO DAILY 03/07/23 11/05/23 History (Jardiance) cholecalciferol (vitamin D3) 50 50 mcg PO DAILY 03/08/23 11/05/23 History mcg (2,000 unit) tablet (Vitamin D3) atorvastatin 40 mg tablet 40 mg PO HS 30 days #30 tabs 03/12/23 11/05/23 Rx metoprolol succinate 100 mg 200 mg (2 x 100 mg) PO BID 30 days 03/12/23 11/05/23 Rx tablet,extended release 24 hr #0 tabs pantoprazole 40 mg tablet,delayed 40 mg PO DAILY 30 days #0 tabs 03/12/23 11/05/23 Rx release linaclotide 290 mcg capsule 290 mcg PO DAILY 04/09/23 11/05/23 History (Linzess) metformin 1,000 mg tablet 1,000 mg PO BIDWMEAL 04/09/23 11/05/23 History sennosides 8.6 mg capsule (senna) 8.6 mg PO BID 04/09/23 11/05/23 History cyanocobalamin (vitamin B-12) 1,000 mcg IM MONTHLY 07/03/23 11/05/23 History 1,000 mcg/mL injection solution nitroglycerin 0.4 mg sublingual 0.4 mg sublingual Q5MINP PRN Chest 07/03/23 11/05/23 History tablet Pain propylene glycol 0.6 % eye drops 1 drp Eye-Both BIDP PRN Dry Eyes 07/03/23 11/05/23 History (Systane Balance) metolazone 5 mg tablet 5 mg PO DAILY #30 tabs 07/13/23 11/05/23 Rx fexofenadine 180 mg tablet 180 mg PO DAILYP PRN Allergy 10/22/23 11/05/23 History Symptoms hydrocodone 10 mg-acetaminophen 1 tab PO BIDP PRN Moderate Pain 10/22/23 11/05/23 History 325 mg tablet (Scale Score 5-6) sacubitril 24 mg-valsartan 26 mg 1 tab PO BID 10/22/23 11/05/23 History tablet (Entresto) umeclidinium 62.5 mcg-vilanterol 1 inh inhalation DAILY 10/22/23 11/05/23 History 25 mcg/actuation powdr for inhalation (Anoro Ellipta) digoxin 125 mcg (0.125 mg) tablet 187.5 mcg PO DAILY 10/23/23 11/05/23 History hydrocodone 10 mg-acetaminophen 1 tab PO HS 10/23/23 11/05/23 History 325 mg tablet levocetirizine 5 mg tablet 5 mg PO DAILY 10/23/23 11/05/23 History aluminum-mag hydroxide-simethicone 30 ml PO Q4HP PRN Heartburn 11/04/23 11/05/23 History 200 mg-200 mg-20 mg/5 mL oral susp ascorbic acid (vitamin C) 500 mg 500 mg PO DAILY 11/05/23 11/05/23 History tablet bumetanide 2 mg tablet 2 mg PO BIDL Edema 11/05/23 11/05/23 History bupropion HCl 100 mg tablet,12 hr 100 mg PO DAILY 11/05/23 11/05/23 History sustained-release gabapentin 400 mg capsule 400 mg PO TID 11/05/23 11/05/23 History New Prescriptions to Start Prescriptions: Height: 1.75 m Weight: 111.72 kg Laboratory Results:: Laboratory Results - last 24 hr 11/04/23 18:47: WBC 9.4, RBC 3.29 L, Hgb 10.2 L, Hct 32.4 L, MCV 98.6, MCH 31.0, MCHC 31.4 L, RDW 14.9, Plt Count 340, MPV 8.1, Neut % (Auto) 85.5 H, Lymph % (Auto) 9.5 L, [place] % (Auto) 3.9, Eos % (Auto) 0.6, Baso % (Auto) 0.5, Neut # (Auto) 8.0 H, Lymph # (Auto) 0.9, [place] # (Auto) 0.4, Eos # (Auto) 0.1, Baso # (Auto) 0.0, Total Counted 100, Neutrophils % (Manual) 86 H, Lymphocytes % (Manual) 10, Monocytes % (Manual) 4, Platelet Estimate Normal, RBC Morphology Normal, Sodium 135 L, Potassium 3.4 L, Chloride 95 L, Carbon Dioxide 34 H, Anion Gap 9.4, BUN 43 H, Creatinine 1.50 H, Estimated Creat Clear 33, Estimated GFR 34 L, Est GFR ( Amer) 41 L, Glucose 127 H, Calcium 8.8, Total Bilirubin 0.9, AST 47 H, ALT 31, Alkaline Phosphatase 432 H, Troponin I 0.07 H, NT-Pro-B Natriuret Pep 1420 H, Total Protein 6.5, Albumin 3.2 L, Globulin 3.3 H, Albumin/Globulin Ratio 1.0 L, Lipase 23 11/04/23 19:11: VBG pH 7.44 H, VBG pCO2 39.6, VBG pO2 76.0 H, VBG HCO3 26.0, VBG Total CO2 27.2 H, VBG O2 Saturation 94.2 H, VBG Base Excess 1.8, VBG Lactic Acid 2.5 H 11/04/23 19:20: Lactate 1.7, Ammonia < 9 L 11/04/23 20:22: Urine Color Yellow, Urine Appearance Clear, Urine pH 5.5, Ur Specific [place] 1.015, Urine Protein Negative, Urine Glucose (UA) Negative, Urine Ketones Negative, Urine Blood Negative, Urine Nitrate Negative, Urine Bilirubin Negative, Urine Urobilinogen 0.2, Ur Leukocyte Esterase Trace, Urine RBC None, Urine WBC 3-5, Ur Squamous Epith Cells Occasional, Urine Bacteria Trace 11/04/23 22:57: Troponin I 0.06 H 11/04/23 23:13: Lactate 1.3 11/05/23 02:40: Troponin I 0.04 H 11/05/23 05:34: WBC 7.5, RBC 3.30 L, Hgb 10.3 L, Hct 32.4 L, MCV 98.0, MCH 31.3 H, MCHC 31.9, RDW 15.0, Plt Count 288, MPV 7.6, Neut % (Auto) 81.3 H, Lymph % (Auto) 12.3, [place] % (Auto) 5.5, Eos % (Auto) 0.7, Baso % (Auto) 0.4, Neut # (Auto) 6.1, Lymph # (Auto) 0.9, [place] # (Auto) 0.4, Eos # (Auto) 0.1, Baso # (Auto) 0.0, Sodium 136, Potassium 2.9 L*, Chloride 98, Carbon Dioxide 34 H, Anion Gap 6.9, BUN 36 H, Creatinine 1.20 H, Estimated Creat Clear 69, Estimated GFR 44 L, Est GFR ( Amer) 53 L D, Glucose 88 D, Calcium 8.7, Magnesium 1.4 L, Total Bilirubin 0.7, AST 42 H, ALT 27, Alkaline Phosphatase 386 H, Total Protein 6.2 L, Albumin 3.0 L, Globulin 3.2, Albumin/Globulin Ratio 0.9 L 11/05/23 05:42: POC Glucose 102 Medical History: Medical History (Updated 11/05/23 @ 01:31 by Jonathan Lakhani APRN) Multiple pulmonary nodules Migraine, unspecified, not intractable, without status migrainosus Gastro-esophageal reflux disease without esophagitis Unspecified convulsions Constipation, unspecified Spinal stenosis, site unspecified Acute peptic ulcer, site unspecified, with perforation Vitamin D deficiency, unspecified Xerosis cutis Other specified arthritis, unspecified site Presence of intraocular lens Excoriation (skin-picking) disorder Iodine-deficiency related diffuse (endemic) goiter Nonrheumatic aortic (valve) stenosis Fibromyalgia Fall Fall Acute pain of right shoulder Chronic respiratory failure with hypercapnia Cardiomyopathy Atelectasis of both lungs Pleural effusion due to CHF (congestive heart failure) Acute respiratory failure with hypoxemia Pneumonia History of melanoma Breast cancer History of smoking 30 or more pack years Restrictive lung disease History of sleep apnea COPD mixed type Hematuria Coronary artery disease Diastolic dysfunction HFrEF (heart failure with reduced ejection fraction) Abnormal cardiovascular stress test Atypical angina Shortness of Breath Acute on chronic diastolic (congestive) heart failure ST segment abnormality Abnormal EKG Fatigue Abnormal stress test Edema COPD (chronic obstructive pulmonary disease) Atypical chest pain HLD (hyperlipidemia) HTN (hypertension) Diabetes Shortness of Breath Assessment and Plan Assessment and plan all Dx Assessment and Plan for all problems:: ZOSYN 3.37GGM INITIATED BY HOSPITALIST AND VANCOMYCIN 1750MG (15MG/KG) IVPB EVERY 12 HOURS STARTED ON 11/05/23 ~1200. PHARMACY WILL FOLLOW PT DAILY AND ADJUST NECESSARY LONG PATIENT CONTINUES ON VANCOMYIN.
[2023-11-05] MEDS: PIPERACILLIN/TAZO 3.375 GM in 0.9 % SODIUM CHLORIDE 50 ML IV ×2 (12:18→18:23)
[2023-11-05 12:30] LABS: POC Glucose,Bedside 137 (70-110)
--- NOTE | 2023-11-05 12:37 | PC.NURSE ---
1212 received call from Chelsi saeed in cards. orders received to dc ivf, place pt on dobutamine drip then dc levo drip 1 hour later. pt also to have right heart cath today. notified galina that pt is on levo 2 mcg with stable bp, drip being turned off at this time. d/t new information dobutamine drip was dc per chelsi saeed.
--- NOTE | 2023-11-05 12:48 | PC.NURSE ---
1230 Pt a/o x 4 at this time. pt aware of date, time, president and that she is in the hospital. pt explained procedure needed (right heart cath) pt consented at this time. Stella mirza RN at bedside for conversation as well. Pt son/POA Steve Otoole called and notified of procedure needed as well. poa agreeable to procedure for pt as well. telephone consent obtained by everette and florin
[2023-11-05] MEDS: VANCOMYCIN/WATER FOR INJ (PEG) 1.75 GM/350 ML PIGGYBACK IV (13:17)
--- NOTE | 2023-11-05 13:35 | PC.NURSE ---
contacted dr chavez. pt ivf were dc by cardiology. pt is now unable to tolerate potassium infusing. may lidocaine be mixed in potassium bag? per dr chavez hold 3rd bag of potassium. unable to change administration as medication order was dc.
--- NOTE | 2023-11-05 13:59 | P.CONCA_ITS ---
History of Present Illness History of Present Illness Consult date: 11/05/23 Requesting physician: Ok Rebolledo Chief complaint: altered mental status History of present illness: This is a 78-year-old white female with a past medical history of's coronary artery disease, hypertension, hyperlipidemia, congestive heart failure, atrial fibrillation and abdominal fistula who was recently admitted for septic shock secondary to UTI and pneumonia and discharged from the hospital on 10/24/2023. The patient resides at a skilled nursing facility and nursing staff states that the patient was typically awake and alert but she was found to have a significantly altered mental status and EMS was called. The patient was transported here to [facility]. The patient was only able to give a very limited history due to her altered mental status. Most of her history is obtained from her past medical records. On my evaluation today the patient denies any chest pain or shortness of breath. She states that she has not had any lower extremity edema. These are the only questions that she answers. She seems very lethargic and tired this morning. It is very hard to keep the patient awake and she provides very little history or information. The patient was readmitted to the hospital and found to have an elevated troponin. [facility] Disclaimer: The information contained in this section may have been updated after the patient was seen, as this information can be updated by other users. Medical History (Updated 11/05/23 @ 14:19 by Bridgette Oliver APRN) Hypokalemia (HFpEF) heart failure with preserved ejection fraction Multiple pulmonary nodules Migraine, unspecified, not intractable, without status migrainosus Gastro-esophageal reflux disease without esophagitis Unspecified convulsions Constipation, unspecified Spinal stenosis, site unspecified Acute peptic ulcer, site unspecified, with perforation Vitamin D deficiency, unspecified Xerosis cutis Other specified arthritis, unspecified site Presence of intraocular lens Excoriation (skin-picking) disorder Iodine-deficiency related diffuse (endemic) goiter Nonrheumatic aortic (valve) stenosis Fibromyalgia Fall Fall Acute pain of right shoulder Chronic respiratory failure with hypercapnia Cardiomyopathy Atelectasis of both lungs Pleural effusion due to CHF (congestive heart failure) Acute respiratory failure with hypoxemia Pneumonia History of melanoma Breast cancer History of smoking 30 or more pack years Restrictive lung disease History of sleep apnea COPD mixed type Hematuria Coronary artery disease Diastolic dysfunction HFrEF (heart failure with reduced ejection fraction) Abnormal cardiovascular stress test Atypical angina Shortness of Breath Acute on chronic diastolic (congestive) heart failure ST segment abnormality Abnormal EKG Fatigue Abnormal stress test Edema COPD (chronic obstructive pulmonary disease) Atypical chest pain HLD (hyperlipidemia) HTN (hypertension) Diabetes Shortness of Breath Surgical History History of throat surgery History of cataract surgery History of appendectomy Family History Other No significant family history Social History Smoking Status: Unknown if ever smoked second hand exposure: No alcohol intake: never counseling provided: provider counseling substance use type: denies use current occupational status: disabled Travel in the last 8 weeks: None household members: caregiver housing: skilled nursing marital status: caffeine: No Review of Systems Review of Systems Review of systems:: unable to obtain (Patient unable to provide any history and gave a very limited review of systems.) *Cardiovascular Cardiovascular: Denies chest pain, Denies dyspnea and Denies leg edema *Respiratory Respiratory: Denies dyspnea Exam Data for Last 24 hours Vital signs and Labs for Last 24 Hours: Temp Pulse Resp BP Pulse Ox O2 Del Method O2 Flow Rate 98.0 F 65 18 87/50 L 98 Nasal Cannula 2 11/05/23 11:53 11/05/23 13:00 11/05/23 13:00 11/05/23 13:00 11/05/23 13:00 11/05/23 13:14 11/05/23 13:00 Laboratory Results - last 24 hr 11/04/23 18:47: WBC 9.4, RBC 3.29 L, Hgb 10.2 L, Hct 32.4 L, MCV 98.6, MCH 31.0, MCHC 31.4 L, RDW 14.9, Plt Count 340, MPV 8.1, Neut % (Auto) 85.5 H, Lymph % (Auto) 9.5 L, Emery % (Auto) 3.9, Eos % (Auto) 0.6, Baso % (Auto) 0.5, Neut # (Auto) 8.0 H, Lymph # (Auto) 0.9, Emery # (Auto) 0.4, Eos # (Auto) 0.1, Baso # (Auto) 0.0, Total Counted 100, Neutrophils % (Manual) 86 H, Lymphocytes % (Manual) 10, Monocytes % (Manual) 4, Platelet Estimate Normal, RBC Morphology Normal, Sodium 135 L, Potassium 3.4 L, Chloride 95 L, Carbon Dioxide 34 H, Anion Gap 9.4, BUN 43 H, Creatinine 1.50 H, Estimated Creat Clear 33, Estimated GFR 34 L, Est GFR ( Amer) 41 L, Glucose 127 H, Calcium 8.8, Total Bilirubin 0.9, AST 47 H, ALT 31, Alkaline Phosphatase 432 H, Troponin I 0.07 H, NT-Pro-B Natriuret Pep 1420 H, Total Protein 6.5, Albumin 3.2 L, Globulin 3.3 H, Albumin/Globulin Ratio 1.0 L, Lipase 23 11/04/23 19:11: VBG pH 7.44 H, VBG pCO2 39.6, VBG pO2 76.0 H, VBG HCO3 26.0, VBG Total CO2 27.2 H, VBG O2 Saturation 94.2 H, VBG Base Excess 1.8, VBG Lactic Acid 2.5 H 11/04/23 19:20: Lactate 1.7, Ammonia < 9 L 11/04/23 20:22: Urine Color Yellow, Urine Appearance Clear, Urine pH 5.5, Ur Specific [place] 1.015, Urine Protein Negative, Urine Glucose (UA) Negative, Urine Ketones Negative, Urine Blood Negative, Urine Nitrate Negative, Urine Bilirubin Negative, Urine Urobilinogen 0.2, Ur Leukocyte Esterase Trace, Urine RBC None, Urine WBC 3-5, Ur Squamous Epith Cells Occasional, Urine Bacteria Trace 11/04/23 22:57: Troponin I 0.06 H 11/04/23 23:13: Lactate 1.3 11/05/23 02:40: Troponin I 0.04 H 11/05/23 05:34: WBC 7.5, RBC 3.30 L, Hgb 10.3 L, Hct 32.4 L, MCV 98.0, MCH 31.3 H, MCHC 31.9, RDW 15.0, Plt Count 288, MPV 7.6, Neut % (Auto) 81.3 H, Lymph % (Auto) 12.3, Emery % (Auto) 5.5, Eos % (Auto) 0.7, Baso % (Auto) 0.4, Neut # (Auto) 6.1, Lymph # (Auto) 0.9, Emery # (Auto) 0.4, Eos # (Auto) 0.1, Baso # (Auto) 0.0, Sodium 136, Potassium 2.9 L*, Chloride 98, Carbon Dioxide 34 H, Anion Gap 6.9, BUN 36 H, Creatinine 1.20 H, Estimated Creat Clear 69, Estimated GFR 44 L, Est GFR ( Amer) 53 L D, Glucose 88 D, Calcium 8.7, Magnesium 1.4 L, Total Bilirubin 0.7, AST 42 H, ALT 27, Alkaline Phosphatase 386 H, Total Protein 6.2 L, Albumin 3.0 L, Globulin 3.2, Albumin/Globulin Ratio 0.9 L 11/05/23 05:42: POC Glucose 102 11/05/23 12:17: POC Glucose 137 H I & O for Last 24 hours: Intake & Output 11/02/23 11/03/23 11/04/23 11/05/23 23:59 23:59 23:59 23:59 Intake Total 1528.676 / 1528.676 Output Total 5100 / 5100 Balance -3571.324 / -3571.324 Weight 246 lb 4.8 oz 246 lb 4.807 oz Constitutional Constitutional: morbidly obese, chronically ill appearing and somnolent *Routine HEENT Exam Head: Present normocephalic and atraumatic ENT: Present mucous membranes moist *Routine Neck Exam Neck: Present supple, full ROM and normal carotid upstroke; Absent JVD, carotid bruit or lymphadenopathy *Routine Respiratory Exam Respiratory: Present CTA bilaterally, normal respiratory effort, able to speak in complete sentences and symmetric chest movement *Routine Cardiovascular Exam Cardiovascular: Present RRR, Normal S1 and Normal S2; Absent murmur or gallop *Routine Abdominal Exam Abdominal: Present soft and normoactive bowel sounds; Absent tenderness, distended or organomegaly *Routine Extremities Exam Extremities: Present edema, full ROM, pulses intact and normal capillary refill; Absent cyanosis or clubbing *Routine Skin Exam Skin: Present intact and warm; Absent erythema *Routine Neurological Exam Neurological: Present alert, oriented X3 and CN II-XII intact; Absent sensory deficit or motor deficit Routine Psychiatric Exam Psychiatric: Present normal affect Meds Home Medications and Allergies Home Medications Medication Instructions Recorded Confirmed Type duloxetine 60 mg capsule,delayed 120 mg PO DAILY 04/06/19 11/05/23 History release levetiracetam 750 mg tablet 750 mg PO BID seizures 04/06/19 11/05/23 History yguokqthvfud-Js-wufi-minerals 27 1 each PO DAILY Supplement 04/06/19 11/05/23 History mg-0.4 mg tablet ondansetron HCl 4 mg tablet 4 mg PO Q6HP PRN Nausea 04/06/19 11/05/23 History acetaminophen 500 mg tablet 500 mg PO Q4HP PRN Fever Or Pain 09/25/21 11/05/23 History (Tylenol Extra Strength) anastrozole 1 mg tablet 1 mg PO DAILY breast cancer 09/25/21 11/05/23 History bisacodyl 10 mg rectal suppository 10 mg AK Q72H PRN Constipation 09/25/21 11/05/23 History (Dulcolax (bisacodyl)) polyethylene glycol 3350 17 17 g PO DAILYP PRN Constipation 09/25/21 11/05/23 History gram/dose oral powder (Miralax) albuterol sulfate 90 mcg/actuation 2 inh inhalation Q6HP PRN 10/12/22 11/05/23 History aerosol inhaler Shortness Of Breath Or Wheezing insulin NPH-regular 70-30 U-100 47 unit SQ 1130,1630 10/12/22 11/05/23 History insulin 100 unit/mL subcutaneous pen (Novolin 70-30 FlexPen U-100 Insulin) insulin NPH-regular 70-30 U-100 52 unit SQ 0630 10/12/22 11/05/23 History insulin 100 unit/mL subcutaneous pen (Novolin 70-30 FlexPen U-100 Insulin) ipratropium 0.5 mg-albuterol 3 mg 3 ml inhalation Q6HP PRN Shortness 10/12/22 11/05/23 History (2.5 mg base)/3 mL nebulization Of Breath Or Wheezing soln melatonin 5 mg tablet 5 mg PO HS sleep 10/12/22 11/05/23 History simethicone 80 mg chewable tablet 80 mg PO TIDP PRN GAS 10/12/22 11/05/23 History rivaroxaban 15 mg tablet (Xarelto) 15 mg PO QPMWITHMEAL 10/30/22 11/05/23 History buspirone 15 mg tablet 15 mg PO BID 12/24/22 11/05/23 History empagliflozin 10 mg tablet 10 mg PO DAILY 03/07/23 11/05/23 History (Jardiance) cholecalciferol (vitamin D3) 50 50 mcg PO DAILY 03/08/23 11/05/23 History mcg (2,000 unit) tablet (Vitamin D3) atorvastatin 40 mg tablet 40 mg PO HS 30 days #30 tabs 03/12/23 11/05/23 Rx metoprolol succinate 100 mg 200 mg (2 x 100 mg) PO BID 30 days 03/12/23 11/05/23 Rx tablet,extended release 24 hr #0 tabs pantoprazole 40 mg tablet,delayed 40 mg PO DAILY 30 days #0 tabs 03/12/23 11/05/23 Rx release linaclotide 290 mcg capsule 290 mcg PO DAILY 04/09/23 11/05/23 History (Linzess) metformin 1,000 mg tablet 1,000 mg PO BIDWMEAL 04/09/23 11/05/23 History sennosides 8.6 mg capsule (senna) 8.6 mg PO BID 04/09/23 11/05/23 History cyanocobalamin (vitamin B-12) 1,000 mcg IM MONTHLY 07/03/23 11/05/23 History 1,000 mcg/mL injection solution nitroglycerin 0.4 mg sublingual 0.4 mg sublingual Q5MINP PRN Chest 07/03/23 11/05/23 History tablet Pain propylene glycol 0.6 % eye drops 1 drp Eye-Both BIDP PRN Dry Eyes 07/03/23 11/05/23 History (Systane Balance) metolazone 5 mg tablet 5 mg PO DAILY #30 tabs 07/13/23 11/05/23 Rx fexofenadine 180 mg tablet 180 mg PO DAILYP PRN Allergy 10/22/23 11/05/23 History Symptoms hydrocodone 10 mg-acetaminophen 1 tab PO BIDP PRN Moderate Pain 10/22/23 11/05/23 History 325 mg tablet (Scale Score 5-6) sacubitril 24 mg-valsartan 26 mg 1 tab PO BID 10/22/23 11/05/23 History tablet (Entresto) umeclidinium 62.5 mcg-vilanterol 1 inh inhalation DAILY 10/22/23 11/05/23 History 25 mcg/actuation powdr for inhalation (Anoro Ellipta) digoxin 125 mcg (0.125 mg) tablet 187.5 mcg PO DAILY 10/23/23 11/05/23 History hydrocodone 10 mg-acetaminophen 1 tab PO HS 10/23/23 11/05/23 History 325 mg tablet levocetirizine 5 mg tablet 5 mg PO DAILY 10/23/23 11/05/23 History aluminum-mag hydroxide-simethicone 30 ml PO Q4HP PRN Heartburn 11/04/23 11/05/23 History 200 mg-200 mg-20 mg/5 mL oral susp ascorbic acid (vitamin C) 500 mg 500 mg PO DAILY 11/05/23 11/05/23 History tablet bumetanide 2 mg tablet 2 mg PO BIDL Edema 11/05/23 11/05/23 History bupropion HCl 100 mg tablet,12 hr 100 mg PO DAILY 11/05/23 11/05/23 History sustained-release gabapentin 400 mg capsule 400 mg PO TID 11/05/23 11/05/23 History New Prescriptions to Start Prescriptions: Allergies Allergy/AdvReac Type Severity Reaction Status Date / Time codeine [CODEINE] Allergy Mild Unknown Verified 10/14/23 10:26 allergy reaction naproxen [NAPROXEN] Allergy Mild Unknown Verified 10/14/23 10:26 allergy reaction pregabalin [From LYRICA] Allergy Mild Unknown Verified 10/14/23 10:26 allergy reaction promethazine [PROMETHAZINE] Allergy Mild Unknown Verified 10/14/23 10:26 allergy reaction JOSE ELIAS Inhibitors Allergy Unknown Verified 10/14/23 10:26 allergy reaction Assessment and Plan *Assessment and plan (1) Acute kidney injury superimposed on CKD: Status: Acute Category: Medical Code(s): N17.9 - Acute kidney failure, unspecified; N18.9 - Chronic kidney disease, unspecified (2) Encephalopathy: Status: Acute Category: Medical Code(s): G93.40 - Encephalopathy, unspecified (3) Pneumonia: Status: Acute Category: Medical Code(s): J18.9 - Pneumonia, unspecified organism (4) Renal lesion: Status: Acute Category: Medical Code(s): N28.9 - Disorder of kidney and ureter, unspecified (5) BUDDY (obstructive sleep apnea): Problem Comment: Declined treatment and currently on O2, 2 L/min x 24 hrs Status: Chronic Category: Medical Code(s): G47.33 - Obstructive sleep apnea (adult) (pediatric) (6) (HFpEF) heart failure with preserved ejection fraction: Status: Resolved Qualifiers: Heart failure chronicity: acute on chronic Qualified Code(s): I50.33 - Acute on chronic diastolic (congestive) heart failure Category: Medical Code(s): I50.30 - Unspecified diastolic (congestive) heart failure (7) HTN (hypertension): Status: Chronic Qualifiers: Hypertension type: essential hypertension Qualified Code(s): I10 - Essential (primary) hypertension Category: Medical Code(s): I10 - Essential (primary) hypertension (8) HLD (hyperlipidemia): Status: Chronic Qualifiers: Hyperlipidemia type: mixed hyperlipidemia Qualified Code(s): E78.2 - Mixed hyperlipidemia Category: Medical Code(s): E78.5 - Hyperlipidemia, unspecified (9) COPD (chronic obstructive pulmonary disease): Status: Chronic Qualifiers: COPD type: chronic bronchitis Chronic bronchitis type: simple Qualified Code(s): J41.0 - Simple chronic bronchitis Category: Medical Code(s): J44.9 - Chronic obstructive pulmonary disease, unspecified (10) Type 2 diabetes mellitus with diabetic neuropathy: Status: Chronic Qualifiers: Diabetes mellitus senior care insulin use: unspecified senior care insulin use status Qualified Code(s): E11.40 - Type 2 diabetes mellitus with diabetic neuropathy, unspecified Category: Medical Code(s): E11.40 - Type 2 diabetes mellitus with diabetic neuropathy, unspecified (11) Morbid obesity: Status: Chronic Category: Medical Code(s): E66.01 - Morbid (severe) obesity due to excess calories (12) Atrial fibrillation: Status: Chronic Qualifiers: Atrial fibrillation type: unspecified Qualified Code(s): I48.91 - Unspecified atrial fibrillation Category: Medical Code(s): I48.91 - Unspecified atrial fibrillation (13) Coronary artery disease: Status: Acute Qualifiers: Associated angina: without angina Coronary Disease-Associated Artery/Lesion type: [place] artery [place] vs. transplanted heart: [place] heart Qualified Code(s): I25.10 - Atherosclerotic heart disease of [place] coronary artery without angina pectoris Category: Medical Code(s): I25.10 - Atherosclerotic heart disease of [place] coronary artery without angina pectoris (14) Hypokalemia: Status: Acute Category: Medical Code(s): E87.6 - Hypokalemia Plan Plan: 1. The patient has been readmitted to the hospital with encephalopathy and pneumonia. She is currently getting IV antibiotics. Will defer this to the hospitalist. 2. The patient was getting gentle rehydration for her encephalopathy. The patient has known severely dilated right ventricle. Will stop IV fluids. She will likely need to be diuresed because she would likely go into pulmonary edema after getting IV fluids with her severely dilated right ventricle. 3. Will plan to proceed with right cardiac catheterization at this time to evaluate her intracardial pressures and her volume status to determine how much diuresis she will need. 4. The patient's POA has been educated the risk and benefits of proceeding with right cardiac catheterization. They verbalized understanding and are agreeable in proceeding with that procedure. 5. The patient will be n.p.o. in preparation for right cardiac catheterization. 6. Will obtain an echocardiogram today to evaluate her LV function. Her EF was down to 40% in March 2023. 7. Stop IV fluids. 8. The patient was hypotensive and started on a Levophed drip. Her blood pressure has improved and her Levophed has been weaned off at this time. If she were to become hypotensive again consider starting her on a dobutamine drip at 2.5 instead of the Levophed to help with diuresis. 9. Following right cardiac catheterization will determine what diuretics to put the patient on. 10. She does have a renal lesion noted on CT. This will need to be followed up on an outpatient basis. 11. Coronary artery disease is present. She had mild stenosis in March 2023. She does have a mildly elevated troponin. This is most likely a type II DE from demand ischemia from HFpEF and her recent sepsis. 12. Her blood pressure is stable at this time. 13. Her LDL goal is less than 55. Her LDL was 91 in March 2023. Will repeat a lipid panel in the morning. 13. She does have slightly elevated liver enzymes. Will repeat her liver enzymes in the morning. 14. The patient is hypokalemic today. Her potassium is being replaced per the hospitalist. Will defer. 15. Further recommendations will be made pending the patient's response to treatment and the results of her right cardiac catheterization today. Thank you for the opportunity to help participate in the care of this patient. All recommendations and orders are per Dr. Lee. Addendum: Echocardiogram shows improvement in her ejection fraction which is now normal. She still has a severely dilated right ventricle. Will proceed with right cardiac catheterization as scheduled to determine her volume status and diuretics.
--- NOTE | 2023-11-05 14:50 | PC.NURSE ---
1452 received update from Chelsi Oliver in cardiology. pt to go down for right heart cath in am. pt ordered to receive bumex iv push this evening, notified galina that pt bp is soft at this time. 92/49 (56). pt is currently off of all drips. asked galina since pt is going for case in am, may she have diet order this evening. ok to have pt cardiac diet tonight, npo after midnight. galina to discuss parameters for pressors with cardiology
[2023-11-05 16:39] LABS: POC Glucose,Bedside 134 (70-110)
--- NOTE | 2023-11-05 17:28 | P.PN_ITS ---
Subjective *Date: 11/05/23 *Time: 17:28 Interval history: patient is seen at bedside, she is requiring vasopressor support, not holding conversations, arounsable to pain Exam Data for Last 24 hours Vital signs and Labs for Last 24 Hours: Temp Pulse Resp BP Pulse Ox O2 Del Method O2 Flow Rate 98 F 65 24 84/34 L 98 Nasal Cannula 2 11/05/23 16:00 11/05/23 16:00 11/05/23 16:00 11/05/23 16:00 11/05/23 16:00 11/05/23 16:00 11/05/23 16:00 Laboratory Results - last 24 hr 11/04/23 18:47: WBC 9.4, RBC 3.29 L, Hgb 10.2 L, Hct 32.4 L, MCV 98.6, MCH 31.0, MCHC 31.4 L, RDW 14.9, Plt Count 340, MPV 8.1, Neut % (Auto) 85.5 H, Lymph % (Auto) 9.5 L, [place] % (Auto) 3.9, Eos % (Auto) 0.6, Baso % (Auto) 0.5, Neut # (Auto) 8.0 H, Lymph # (Auto) 0.9, [place] # (Auto) 0.4, Eos # (Auto) 0.1, Baso # (Auto) 0.0, Total Counted 100, Neutrophils % (Manual) 86 H, Lymphocytes % (Manual) 10, Monocytes % (Manual) 4, Platelet Estimate Normal, RBC Morphology Normal, Sodium 135 L, Potassium 3.4 L, Chloride 95 L, Carbon Dioxide 34 H, Anion Gap 9.4, BUN 43 H, Creatinine 1.50 H, Estimated Creat Clear 33, Estimated GFR 34 L, Est GFR ( Amer) 41 L, Glucose 127 H, Calcium 8.8, Total Bilirubin 0.9, AST 47 H, ALT 31, Alkaline Phosphatase 432 H, Troponin I 0.07 H, NT-Pro-B Natriuret Pep 1420 H, Total Protein 6.5, Albumin 3.2 L, Globulin 3.3 H, Albumin/Globulin Ratio 1.0 L, Lipase 23 11/04/23 19:11: VBG pH 7.44 H, VBG pCO2 39.6, VBG pO2 76.0 H, VBG HCO3 26.0, VBG Total CO2 27.2 H, VBG O2 Saturation 94.2 H, VBG Base Excess 1.8, VBG Lactic Acid 2.5 H 11/04/23 19:20: Lactate 1.7, Ammonia < 9 L 11/04/23 20:22: Urine Color Yellow, Urine Appearance Clear, Urine pH 5.5, Ur Specific [place] 1.015, Urine Protein Negative, Urine Glucose (UA) Negative, Urine Ketones Negative, Urine Blood Negative, Urine Nitrate Negative, Urine Bilirubin Negative, Urine Urobilinogen 0.2, Ur Leukocyte Esterase Trace, Urine RBC None, Urine WBC 3-5, Ur Squamous Epith Cells Occasional, Urine Bacteria Trace 11/04/23 22:57: Troponin I 0.06 H 11/04/23 23:13: Lactate 1.3 11/05/23 02:40: Troponin I 0.04 H 11/05/23 05:34: WBC 7.5, RBC 3.30 L, Hgb 10.3 L, Hct 32.4 L, MCV 98.0, MCH 31.3 H, MCHC 31.9, RDW 15.0, Plt Count 288, MPV 7.6, Neut % (Auto) 81.3 H, Lymph % (Auto) 12.3, [place] % (Auto) 5.5, Eos % (Auto) 0.7, Baso % (Auto) 0.4, Neut # (Au to) 6.1, Lymph # (Auto) 0.9, [place] # (Auto) 0.4, Eos # (Auto) 0.1, Baso # (Auto) 0.0, Sodium 136, Potassium 2.9 L*, Chloride 98, Carbon Dioxide 34 H, Anion Gap 6.9, BUN 36 H, Creatinine 1.20 H, Estimated Creat Clear 69, Estimated GFR 44 L, Est GFR ( Amer) 53 L D, Glucose 88 D, Calcium 8.7, Magnesium 1.4 L, Total Bilirubin 0.7, AST 42 H, ALT 27, Alkaline Phosphatase 386 H, Total Protein 6.2 L, Albumin 3.0 L, Globulin 3.2, Albumin/Globulin Ratio 0.9 L 11/05/23 05:42: POC Glucose 102 11/05/23 12:17: POC Glucose 137 H 11/05/23 16:27: POC Glucose 134 H I & O for Last 24 hours: Intake & Output 11/02/23 11/03/23 11/04/23 11/05/23 23:59 23:59 23:59 23:59 Intake Total 1868.676 / 1868.676 Output Total 5325 / 5325 Balance -3456.324 / -3456.324 Weight 111.72 kg 111.72 kg Constitutional Constitutional: obtunded *Routine HEENT Exam Head: Present normocephalic Eye: Present EOMI and PERRL ENT: Present mucous membranes moist *Routine Neck Exam Neck: Present supple; Absent lymphadenopathy *Routine Respiratory Exam Respiratory: Present CTA bilaterally *Routine Cardiovascular Exam Cardiovascular: Present RRR *Routine Abdominal Exam Abdominal: Present soft and normoactive bowel sounds; Absent tenderness Comments: she has abdominal wound covered in dressing *Routine Extremities Exam Extremities: Absent cyanosis, clubbing or edema *Routine Skin Exam Skin: Present warm; Absent rash *Routine Neurological Exam Neurological: Present altered mental status Assessment and Plan *Assessment and plan (1) Septic shock: Status: Acute Category: Medical Code(s): A41.9 - Sepsis, unspecified organism; R65.21 - Severe sepsis with septic shock (2) Encephalopathy acute: Status: Acute Category: Medical Code(s): G93.40 - Encephalopathy, unspecified (3) Multiple pulmonary nodules: Status: Acute Category: Medical Code(s): R91.8 - Other nonspecific abnormal finding of lung field (4) Open abdominal wall wound: Status: Acute Qualifiers: Encounter type: initial encounter Qualified Code(s): S31.109A - Unspecified open wound of abdominal wall, unspecified quadrant without penetration into peritoneal cavity, initial encounter Category: Medical Code(s): S31.109A - Unspecified open wound of abdominal wall, unspecified quadrant without penetration into peritoneal cavity, initial encounter (5) Acute kidney injury superimposed on CKD: Status: Acute Category: Medical Code(s): N17.9 - Acute kidney failure, unspecified; N18.9 - Chronic kidney disease, unspecified (6) Renal lesion: Status: Acute Category: Medical Code(s): N28.9 - Disorder of kidney and ureter, unspecified (7) COPD mixed type: Status: Chronic Category: Medical Code(s): J44.9 - Chronic obstructive pulmonary disease, unspecified (8) HFrEF (heart failure with reduced ejection fraction): Status: Acute Category: Medical Code(s): I50.20 - Unspecified systolic (congestive) heart failure (9) Atrial fibrillation: Status: Chronic Qualifiers: Atrial fibrillation type: unspecified Qualified Code(s): I48.91 - Unspecified atrial fibrillation Category: Medical Code(s): I48.91 - Unspecified atrial fibrillation (10) Type 2 diabetes mellitus with diabetic neuropathy: Status: Chronic Qualifiers: Diabetes mellitus health practice manager insulin use: unspecified health practice manager insulin use status Qualified Code(s): E11.40 - Type 2 diabetes mellitus with diabetic neuropathy, unspecified Category: Medical Code(s): E11.40 - Type 2 diabetes mellitus with diabetic neuropathy, unspecified (11) Morbid obesity: Status: Chronic Category: Medical Code(s): E66.01 - Morbid (severe) obesity due to excess calories (12) Chronic anemia: Status: Chronic Category: Medical Code(s): D64.9 - Anemia, unspecified (13) Cardiomyopathy: Status: Acute Qualifiers: Cardiomyopathy type: dilated Qualified Code(s): I42.0 - Dilated cardiomyopathy Category: Medical Code(s): I42.9 - Cardiomyopathy, unspecified Plan 78-year-old female history of hypertension, hyperlipidemia, CAD, COPD, CHF, morbid obesity, A-fib on Xarelto, abdominal fistula recently admitted for septic shock secondary to UTI and Pneumonia, discharged back to her nursing facility after clinically improvement on 10/23. on arrival sepsis protocols initiated. chest x-ray personally interpreted also looked at the CT scan of the patient's chest and her lung windows she appears to have multiples nodulary nodules no focal consolidation, CTA of abdomen concerning for left renal cortex lesion malignancy suspicious. concerning for pancreatic inflammation, however not clinically supported. findings might be correlated with abdominal fistula. that also has foul smell. Labs are consistent with hypokalemia. [place] on CKD, chronic anemia. Findings discussed with ED. agreed for admission. Plan as follow: - Septic shock secondary to UTI and possible multifocal pneumonia , infected abdominal wound? 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 recent completed course on broad abx redraw wound culture pending. last wound care was postive to staph was treated with vancomycin last BC negative. urine was positive to Klebsiella Pneumonae. Urine look clear at this point on levophed insert graf for accurate output. and assisting with wound healing monitor for organs dysfunctions. VS per unit CT of head does not showed acute gross intracraneal process. Pending radiology final reading monitor and repeat labs daily -abdominal fistula, foul odor: associated dermatitis/cellulitis around stoma: recently evaluated by surgeon. recommended wound care management. wound culture obtained , consult general surgery for possible debridement/infected wound wound care consult [place] on CKD Left renal cortex lesion suspected malignancy MRI recommended for definitive. Might be possible when creatinine improved - COPD, Afib, HFrEF,: elevated troponin conditions reviewed. elevated BNP elevated troponin. likely secondary [place]. EKG first degree block with non specific ST changes. cardiology consulted. continuous cardiac monitoring COPD currently stable. patient does not look on exacerbation incomplete sepsis bolus given due to concern of overloading with fluid continue monitoring Diabetes: Accucheck before meals and as needed . sliding scale . diabetic diet when mentally improves morbid obesity will complicate all aspect of care. Patient clinically ill with numeral comorbidities. preserved prognosis Case management consult to assist with zhang of care and define goals of care On xarelto and protonix Full code continue on IV abx with vancomycin and zosyn, f/u on cultures, consult general surgery for possible debridement/infected wound
--- NOTE | 2023-11-05 17:58 | PC.NURSE ---
Patient has awakened off and on throughout the shift. pt is alert to self and location but is confused on why she is at the hospital. pt is disbelieving that she is sick and that anything is wrong with her leading to admission. staff attempts to turn pt every 2 hours, but pt prefers her left side and will place herself back on her left side. redness noted to left hip at 1730 hour. pt turned on right hip and set up for supper. nad noted, pt has dressing to umbilical area r/t fistula
[2023-11-05 20:31] LABS: POC Glucose,Bedside 184 (70-110)
[2023-11-06] VITALS (27 sets, daily range): BP systolic 106–163; BP diastolic 53–99; PULSE 63–85; RESP 16–26; TEMP 36.8–37.1; O2SAT 92–99; BMI 36.4; BMI 36.2
[2023-11-06] MEDS: VANCOMYCIN/WATER FOR INJ (PEG) 1.75 GM/350 ML PIGGYBACK IV ×2 (00:12→16:03)
[2023-11-06] MEDS: HEPARIN SODIUM 5,000 UNIT/ML VIAL 5000 UNIT SQ ×4 (00:12→23:31)
[2023-11-06] MEDS: PIPERACILLIN/TAZO 3.375 GM in 0.9 % SODIUM CHLORIDE 50 ML IV ×3 (02:00→18:13)
[2023-11-06] MEDS: ONDANSETRON 4MG/2ML VIAL 4 MG IV ×3 (04:27→22:35)
[2023-11-06 06:03] LABS: Basophils % 0.5 % (0.1-2.0); Eosinophils # 0.1 K/mm3 (0.0-0.4); Eosinophils % 1.5 % (0.1-12.0); Hematocrit 31.4 % (37.0-47.0); Lymphocytes # 0.8 K/mm3 (0.7-4.5); Lymphocytes % 14.8 % (10-50); Mean Corpuscular HGB Conc 31.8 g/dL (31.8-35.4); Mean Corpuscular Hemoglobin 31.9 pg (27.0-31.2); Mean Corpuscular Volume 100.2 fl (81-99); Monocytes # 0.4 K/mm3 (0.1-1.0); Monocytes % 7.7 % (1.7-9.3); Neutrophils % 75.6 % (37.0-80.0); Platelet Count 244 K/mm3 (142-424); Red Blood Count 3.14 M/mm3 (4.20-5.40); Red Cell Distribution Width 15.1 % (11.5-17.5); White Blood Count 5.3 K/mm3 (4.8-10.8)
[2023-11-06 06:10] LABS: Alanine Aminotransferase 21 U/L (12-78); Albumin Level 2.9 g/dl (3.5-5.0); Alkaline Phosphatase 392 U/L (38-126); Anion Gap 11.2 mEq/L (5-15); Aspartate Amino Transferase 35 U/L (14-36); Bilirubin,Direct 0.4 mg/dl (0.0-0.4); Bilirubin,Indirect 0.3 mg/dL (0.0-0.9); Bilirubin,Total 0.7 mg/dl (0.2-1.3); Bilirubin,Unconjugated 0.3 mg/dL (0.0-1.1); Blood Urea Nitrogen 25 mg/dl (7-17); Calcium 8.7 mg/dl (8.4-10.2); Carbon Dioxide 32 mmol/L (22.0-30.0); Chloride 98 mmol/L (98-107); Chol/HDL Ratio 4.4 (1-3.5); Cholesterol 110 mg/dl (140-200); Creatinine Clearance Estimated 83 mL/min (50-200); Estimated Glomerular Filt Rate 70 ml/min (>60); GFR (African American) 84 ML/MIN (>60); Glucose 206 mg/dl (74-100); HDL Cholesterol 25 mg/dl (40-60); Potassium 3.2 mmoL/L (3.5-5.1); Sodium 138 mmol/L (136-145); Triglycerides 178 mg/dl (30-150); VLDL Cholesterol 36 mg/dL (0-40)
[2023-11-06 06:21] LABS: Direct LDL Cholesterol 64.01 mg/dL (100-129)
--- NOTE | 2023-11-06 07:02 | IR_ITS ---
APPROVED REPORT Patient Location: Inpatient PROCEDURES Right heart catheterization INDICATION Pulmonary hypertension, Congestive heart failure Informed consent was obtained prior to the procedure. COMPLICATIONS NONE Estimated Blood Loss: LESS THAN 10 ML TECHNIQUE One percent lidocaine was used to anesthetize the right anterior aspect of the neck. A vamp wetter needle was used to identify the right internal jugular vein. Following this a larger cannulation needle was used to cannulate the right internal jugular vein and a wire was passed into the vein. Prior to the 7 [place] sheath being inserted the wire was confirmed under fluoroscopic guidance to be in the inferior vena cava. A 7 [place] sheath was introduced and a [place]Harjinder catheter was floated using hemodynamic waveforms in the pulmonary artery, right ventricle , and right atrium. Saturations were obtained in the pulmonary artery and the right atrium. At the end of the procedure the patient was transferred to the postop holding area in stable condition for sheath removal. ANGIOGRAPHIC RESULTS Right atrial pressure 2 mmHg Pulmonary artery pressure 20/10 mmHg Pulmonary occlusion pressure 5 mmHg Right atrial saturation 72% Pulmonary artery saturation 66% Hemoglobin 10 Aortic saturation 99% Cardiac output 6.6 L/min IMPRESSION Low to normal intracardial pulmonary filling pressures PLAN 1. Treatment per primary cardiology and hospitalist team Electronically signed by : Ke Luo MD 11/06/2023 12:28:56
[2023-11-06] MEDS: diphenhydrAMINE 50MG/ML VIAL 50 MG IV (10:11)
[2023-11-06] MEDS: 0.9 % SODIUM CHLORIDE 500 ML 25 ML IV (10:18)
[2023-11-06] MEDS: HEPARIN 1,000 UNITS/500ML NS (CATH LAB) 3000 UNIT IV (10:18)
[2023-11-06] MEDS: LIDOCAINE 1% 10ML MDV 20 ML IJ (10:19)
[2023-11-06] MEDS: MIDAZOLAM HCL 1MG/1ML 5ML VIAL 1 MG IV (10:41)
[2023-11-06] MEDS: FENTANYL 100MCG/2ML VIAL 25 MCG IV (10:41)
[2023-11-06] MEDS: POTASSIUM CHLORIDE 20MEQ TAB 40 MEQ PO (11:22)
--- NOTE | 2023-11-06 11:25 | EXP.CARD.PN ---
Subjective Subjective Date: 11/06/23 Time: 10:30 Principal diagnosis: elevated troponin Interval history: This is a 78-year-old female who presented to the emergency department with an altered mental status. The patient had an elevated troponin so cardiology was consulted. This morning she denies any chest pain or pressure. She denies any shortness of breath or edema. She denies any fever, chills, nausea, vomiting, diarrhea, PND or orthopnea. The patient is awake and alert today but she is a very poor historian. The patient has been weaned off of pressors and her blood pressure is well-controlled today. Exam Data for Last 24 hours Vital signs and Labs for Last 24 Hours: Temp Pulse Resp BP Pulse Ox O2 Del Method O2 Flow Rate 98.2 F 73 17 138/71 92 L Room Air 2 11/06/23 08:04 11/06/23 11:00 11/06/23 11:00 11/06/23 11:00 11/06/23 11:00 11/06/23 11:00 11/06/23 06:00 Laboratory Results - last 24 hr 11/05/23 12:17: POC Glucose 137 H 11/05/23 16:27: POC Glucose 134 H 11/05/23 20:24: POC Glucose 184 H 11/06/23 05:18: WBC 5.3 D, RBC 3.14 L, Hgb 10.0 L, Hct 31.4 L, MCV 100.2 H, MCH 31.9 H, MCHC 31.8, RDW 15.1, Plt Count 244, MPV 8.0, Neut % (Auto) 75.6, Lymph % (Auto) 14.8, [place] % (Auto) 7.7, Eos % (Auto) 1.5, Baso % (Auto) 0.5, Neut # (Auto) 4.0, Lymph # (Auto) 0.8, [place] # (Auto) 0.4, Eos # (Auto) 0.1, Baso # (Auto) 0.0, Sodium 138, Potassium 3.2 L, Chloride 98, Carbon Dioxide 32 H, Anion Gap 11.2, BUN 25 H D, Creatinine 0.80 D, Estimated Creat Clear 83, Estimated GFR 70, Est GFR ( Amer) 84 D, Glucose 206 H D, Calcium 8.7, Total Bilirubin 0.7, Direct Bilirubin 0.4, Conjugated Bilirubin 0.0, Indirect Bilirubin 0.3, Unconjugated Bilirubin 0.3, AST 35, ALT 21, Alkaline Phosphatase 392 H, Total Protein 6.0 L, Albumin 2.9 L, Triglycerides 178 H, Cholesterol 110 L, LDL Cholesterol Direct 64.01 L, VLDL Cholesterol 36, HDL Cholesterol 25 L, Cholesterol/HDL Ratio 4.4 H I & O for Last 24 hours: Intake & Output 11/03/23 11/04/23 11/05/23 11/06/23 23:59 23:59 23:59 23:59 Intake Total 2168.676 / 2168.676 0 / 0 Output Total 5600 / 5600 1850 / 1850 Balance -3431.324 / -3431.324 -1850 / -1850 Weight 246 lb 4.8 oz 246 lb 4.807 oz 244 lb 11.41 oz Constitutional Constitutional: morbidly obese, chronically ill appearing and somnolent *Routine HEENT Exam Head: Present normocephalic and atraumatic ENT: Present mucous membranes moist *Routine Neck Exam Neck: Present supple, full ROM and normal carotid upstroke; Absent JVD, carotid bruit or lymphadenopathy *Routine Respiratory Exam Respiratory: Present CTA bilaterally, normal respiratory effort, able to speak in complete sentences and symmetric chest movement *Routine Cardiovascular Exam Cardiovascular: Present RRR, Normal S1 and Normal S2; Absent murmur or gallop *Routine Abdominal Exam Abdominal: Present soft and normoactive bowel sounds; Absent tenderness, distended or organomegaly *Routine Extremities Exam Extremities: Present full ROM, pulses intact and normal capillary refill; Absent cyanosis, clubbing or edema *Routine Skin Exam Skin: Present intact and warm; Absent erythema *Routine Neurological Exam Neurological: Present alert, oriented X3 and CN II-XII intact; Absent sensory deficit or motor deficit Routine Psychiatric Exam Psychiatric: Present normal affect Progress Note: A&P Assessment and plan (1) (HFpEF) heart failure with preserved ejection fraction: Status: Acute (2) Coronary artery disease: Status: Acute (3) Septic shock: Status: Acute (4) Encephalopathy acute: Status: Acute (5) Multiple pulmonary nodules: Status: Acute (6) Open abdominal wall wound: Status: Acute (7) Acute kidney injury superimposed on CKD: Status: Acute (8) Renal lesion: Status: Acute (9) COPD mixed type: Status: Chronic (10) Atrial fibrillation: Status: Chronic (11) Type 2 diabetes mellitus with diabetic neuropathy: Status: Chronic (12) Morbid obesity: Status: Chronic (13) Chronic anemia: Status: Chronic (14) Cardiomyopathy: Status: Acute (15) HTN (hypertension): Status: Chronic (16) HLD (hyperlipidemia): Status: Chronic Assessment and Plan Assessment and Plan for All Diagnoses:: Plan: 1. The patient was admitted to the hospital with encephalopathy and pneumonia. She is currently getting IV diuretics. Will defer. 2. The patient has known severely dilated right ventricle on echocardiogram this visit. She has known severe diastolic dysfunction. She was scheduled to undergo right cardiac catheterization yesterday to evaluate her intracardial pressures and determine her volume status and how much diuresis she required. However, the procedure was not completed because there was some confusion about whether or not she was consented. Her right cardiac catheterization will be completed today to evaluate her intracardial pressures and determine her volume status. 3. The patient will remain n.p.o. this morning in preparation for right cardiac catheterization. 4. Her echocardiogram showed a normal ejection fraction which is up from 40% in March 2023. She has severe right ventricular dilatation. 5. The patient's blood pressure is well-controlled. She has been weaned off of all pressors at this time. 6. She denies any chest pain or pressure. She does have a mild elevation in her troponin which is most likely a type II PR from demand ischemia from her sepsis and pneumonia. No plans for invasive left cardiac catheterization at this time. 7. The patient does have a renal lesion noted on CT. This will need to be followed up on an outpatient basis. 8. Her LDL goal is less than 55. Her LDL is 64. She is on a statin. 9. The patient does have a history of paroxysmal atrial fibrillation. She is on Xarelto for long-term anticoagulation. 10. Her liver enzymes have normalized. 11. The patient has chronic anemia. 12. Further recommendations will be made pending the patient's response to treatment and the results of her right cardiac catheterization today. Thank you for the opportunity to help participate in the care of this patient. All recommendations and orders are per Dr. Lee. Addendum: Right cardiac catheterization shows: Right atrial pressure 2 mmHg Pulmonary artery pressure 20/10 mmHg Pulmonary occlusion pressure 5 mmHg Right atrial saturation 72% Pulmonary artery saturation 66% Hemoglobin 10 Aortic saturation 99% Cardiac output 6.6 L/min IMPRESSION Low to normal intracardial pulmonary filling pressures PLAN 1. Treatment per primary cardiology and hospitalist team The patient has low to normal intracardial pulmonary filling pressures. She does not require diuresis at this time. She may benefit from very gentle rehydration but we will leave this up to the hospitalist. No further recommendations at this time from a cardiac standpoint. She can follow-up in cardiology clinic in 1 to 2 weeks on an outpatient basis when she is discharged from the hospital.
[2023-11-06 11:36] LABS: POC Glucose,Bedside 238 (70-110)
--- NOTE | 2023-11-06 12:45 | P.CONS_ITS ---
History of Present Illness *Admission Date: 11/04/23 *Reason for visit:: Periumbilical wound *History of present illness: This is a 78-year-old female seen in consultation from the Hospitalist Service for evaluation regarding periumbilical wound. She was evaluated in the outpatient setting on October 14, 2023 and diagnosed complex periumbilical wound of undetermined etiology/significance. Initial plans were to proceed with dry dressing changes and a 1 week follow-up was scheduled. She did not maintain her 1 week appointment. She is currently admitted for evaluation management of sepsis, urinary tract infection, and pneumonia. Her gin-umbilical wound has progressed and now has satellite lesions. The surgical service was consulted for reevaluation. Forwarded from admission H&P: This is a 78-year-old female history of hypertension, hyperlipidemia, CAD, COPD, CHF, morbid obesity, A-fib on Xarelto, abdominal fistula recently admitted for septic shock secondary to UTI and Pneumonia, discharged back to her nursing facility after clinically improvement on 10/23. Per nursing staff patient was normally awake alert oriented able to mobilize herself with a wheelchair. Today she was brought in by EMS referred from nursing facility for evaluation of significantly altered. Last time seen normal two days ago. History is limited due to patient current status . Most data collected from ED documentation, EMS and nursing facility report. On arrival No focal neurologic deficits from historical standpoint. Patient seems obtunded and answer question intermittent. She is unable to provide any history so it is significantly limited. Readmitted for treatment and management. [facility] Disclaimer: The information contained in this section may have been updated after the patient was seen, as this information can be updated by other users. Medical History (Updated 11/06/23 @ 12:52 by Osmar Leal MD) (HFpEF) heart failure with preserved ejection fraction Hypokalemia Multiple pulmonary nodules Migraine, unspecified, not intractable, without status migrainosus Gastro-esophageal reflux disease without esophagitis Unspecified convulsions Constipation, unspecified Spinal stenosis, site unspecified Acute peptic ulcer, site unspecified, with perforation Vitamin D deficiency, unspecified Xerosis cutis Other specified arthritis, unspecified site Presence of intraocular lens Excoriation (skin-picking) disorder Iodine-deficiency related diffuse (endemic) goiter Nonrheumatic aortic (valve) stenosis Fibromyalgia Fall Fall Acute pain of right shoulder Chronic respiratory failure with hypercapnia Cardiomyopathy Atelectasis of both lungs Pleural effusion due to CHF (congestive heart failure) Acute respiratory failure with hypoxemia Pneumonia History of melanoma Breast cancer History of smoking 30 or more pack years Restrictive lung disease History of sleep apnea COPD mixed type Hematuria Coronary artery disease Diastolic dysfunction HFrEF (heart failure with reduced ejection fraction) Abnormal cardiovascular stress test Atypical angina Shortness of Breath Acute on chronic diastolic (congestive) heart failure ST segment abnormality Abnormal EKG Fatigue Abnormal stress test Edema COPD (chronic obstructive pulmonary disease) Atypical chest pain HLD (hyperlipidemia) HTN (hypertension) Diabetes Shortness of Breath Surgical History History of throat surgery History of cataract surgery History of appendectomy Family History Other No significant family history Social History Smoking Status: Unknown if ever smoked second hand exposure: No alcohol intake: never counseling provided: provider counseling substance use type: denies use current occupational status: disabled Travel in the last 8 weeks: None household members: caregiver housing: long-term marital status: caffeine: No Meds Home Medications and Allergies Home Medications Medication Instructions Recorded Confirmed Type duloxetine 60 mg capsule,delayed 120 mg PO DAILY 04/06/19 11/05/23 History release levetiracetam 750 mg tablet 750 mg PO BID seizures 04/06/19 11/05/23 History zewvfngrigts-Il-rucb-minerals 27 1 each PO DAILY Supplement 04/06/19 11/05/23 History mg-0.4 mg tablet ondansetron HCl 4 mg tablet 4 mg PO Q6HP PRN Nausea 04/06/19 11/05/23 History acetaminophen 500 mg tablet 500 mg PO Q4HP PRN Fever Or Pain 09/25/21 11/05/23 History (Tylenol Extra Strength) anastrozole 1 mg tablet 1 mg PO DAILY breast cancer 09/25/21 11/05/23 History bisacodyl 10 mg rectal suppository 10 mg WA Q72H PRN Constipation 09/25/21 11/05/23 History (Dulcolax (bisacodyl)) polyethylene glycol 3350 17 17 g PO DAILYP PRN Constipation 09/25/21 11/05/23 History gram/dose oral powder (Miralax) albuterol sulfate 90 mcg/actuation 2 inh inhalation Q6HP PRN 10/12/22 11/05/23 History aerosol inhaler Shortness Of Breath Or Wheezing insulin NPH-regular 70-30 U-100 47 unit SQ 1130,1630 10/12/22 11/05/23 History insulin 100 unit/mL subcutaneous pen (Novolin 70-30 FlexPen U-100 Insulin) insulin NPH-regular 70-30 U-100 52 unit SQ 0630 10/12/22 11/05/23 History insulin 100 unit/mL subcutaneous pen (Novolin 70-30 FlexPen U-100 Insulin) ipratropium 0.5 mg-albuterol 3 mg 3 ml inhalation Q6HP PRN Shortness 10/12/22 11/05/23 History (2.5 mg base)/3 mL nebulization Of Breath Or Wheezing soln melatonin 5 mg tablet 5 mg PO HS sleep 10/12/22 11/05/23 History simethicone 80 mg chewable tablet 80 mg PO TIDP PRN GAS 10/12/22 11/05/23 History rivaroxaban 15 mg tablet (Xarelto) 15 mg PO QPMWITHMEAL 10/30/22 11/05/23 History buspirone 15 mg tablet 15 mg PO BID 12/24/22 11/05/23 History empagliflozin 10 mg tablet 10 mg PO DAILY 03/07/23 11/05/23 History (Jardiance) cholecalciferol (vitamin D3) 50 50 mcg PO DAILY 03/08/23 11/05/23 History mcg (2,000 unit) tablet (Vitamin D3) atorvastatin 40 mg tablet 40 mg PO HS 30 days #30 tabs 03/12/23 11/05/23 Rx metoprolol succinate 100 mg 200 mg (2 x 100 mg) PO BID 30 days 03/12/23 11/05/23 Rx tablet,extended release 24 hr #0 tabs pantoprazole 40 mg tablet,delayed 40 mg PO DAILY 30 days #0 tabs 03/12/23 11/05/23 Rx release linaclotide 290 mcg capsule 290 mcg PO DAILY 04/09/23 11/05/23 History (Linzess) metformin 1,000 mg tablet 1,000 mg PO BIDWMEAL 04/09/23 11/05/23 History sennosides 8.6 mg capsule (senna) 8.6 mg PO BID 04/09/23 11/05/23 History cyanocobalamin (vitamin B-12) 1,000 mcg IM MONTHLY 07/03/23 11/05/23 History 1,000 mcg/mL injection solution nitroglycerin 0.4 mg sublingual 0.4 mg sublingual Q5MINP PRN Chest 07/03/23 11/05/23 History tablet Pain propylene glycol 0.6 % eye drops 1 drp Eye-Both BIDP PRN Dry Eyes 07/03/23 11/05/23 History (Systane Balance) metolazone 5 mg tablet 5 mg PO DAILY #30 tabs 07/13/23 11/05/23 Rx fexofenadine 180 mg tablet 180 mg PO DAILYP PRN Allergy 10/22/23 11/05/23 History Symptoms hydrocodone 10 mg-acetaminophen 1 tab PO BIDP PRN Moderate Pain 10/22/23 11/05/23 History 325 mg tablet (Scale Score 5-6) sacubitril 24 mg-valsartan 26 mg 1 tab PO BID 10/22/23 11/05/23 History tablet (Entresto) umeclidinium 62.5 mcg-vilanterol 1 inh inhalation DAILY 10/22/23 11/05/23 History 25 mcg/actuation powdr for inhalation (Anoro Ellipta) digoxin 125 mcg (0.125 mg) tablet 187.5 mcg PO DAILY 10/23/23 11/05/23 History hydrocodone 10 mg-acetaminophen 1 tab PO HS 10/23/23 11/05/23 History 325 mg tablet levocetirizine 5 mg tablet 5 mg PO DAILY 10/23/23 11/05/23 History aluminum-mag hydroxide-simethicone 30 ml PO Q4HP PRN Heartburn 11/04/23 11/05/23 History 200 mg-200 mg-20 mg/5 mL oral susp ascorbic acid (vitamin C) 500 mg 500 mg PO DAILY 11/05/23 11/05/23 History tablet bumetanide 2 mg tablet 2 mg PO BIDL Edema 11/05/23 11/05/23 History bupropion HCl 100 mg tablet,12 hr 100 mg PO DAILY 11/05/23 11/05/23 History sustained-release gabapentin 400 mg capsule 400 mg PO TID 11/05/23 11/05/23 History New Prescriptions to Start Prescriptions: Allergies Allergy/AdvReac Type Severity Reaction Status Date / Time codeine [CODEINE] Allergy Mild Unknown Verified 10/14/23 10:26 allergy reaction naproxen [NAPROXEN] Allergy Mild Unknown Verified 10/14/23 10:26 allergy reaction pregabalin [From LYRICA] Allergy Mild Unknown Verified 10/14/23 10:26 allergy reaction promethazine [PROMETHAZINE] Allergy Mild Unknown Verified 10/14/23 10:26 allergy reaction JOSE ELIAS Inhibitors Allergy Unknown Verified 10/14/23 10:26 allergy reaction Exam (Inpt) Vital signs and Labs for Last 24 Hours: Temp Pulse Resp BP Pulse Ox O2 Del Method O2 Flow Rate 98.2 F 73 17 138/71 92 L Nasal Cannula 1 11/06/23 08:04 11/06/23 11:00 11/06/23 11:00 11/06/23 11:00 11/06/23 11:00 11/06/23 11:31 11/06/23 11:31 Laboratory Results - last 24 hr 11/05/23 16:27: POC Glucose 134 H 11/05/23 20:24: POC Glucose 184 H 11/06/23 05:18: WBC 5.3 D, RBC 3.14 L, Hgb 10.0 L, Hct 31.4 L, MCV 100.2 H, MCH 31.9 H, MCHC 31.8, RDW 15.1, Plt Count 244, MPV 8.0, Neut % (Auto) 75.6, Lymph % (Auto) 14.8, [place] % (Auto) 7.7, Eos % (Auto) 1.5, Baso % (Auto) 0.5, Neut # (Auto) 4.0, Lymph # (Auto) 0.8, [place] # (Auto) 0.4, Eos # (Auto) 0.1, Baso # (Auto) 0.0, Sodium 138, Potassium 3.2 L, Chloride 98, Carbon Dioxide 32 H, Anion Gap 11.2, BUN 25 H D, Creatinine 0.80 D, Estimated Creat Clear 83, Estimated GFR 70, Est GFR ( Amer) 84 D, Glucose 206 H D, Calcium 8.7, Total Bilirubin 0.7, Direct Bilirubin 0.4, Conjugated Bilirubin 0.0, Indirect Bilirubin 0.3, Unconjugated Bilirubin 0.3, AST 35, ALT 21, Alkaline Phosphatase 392 H, Total Protein 6.0 L, Albumin 2.9 L, Triglycerides 178 H, Cholesterol 110 L, LDL Cholesterol Direct 64.01 L, VLDL Cholesterol 36, HDL Cholesterol 25 L, C holesterol/HDL Ratio 4.4 H 11/06/23 11:30: POC Glucose 238 H I & O for Labs for Last 24 Hours: Intake & Output 11/04/23 11/05/23 11/06/23 11/07/23 11:59 11:59 11:59 11:59 Intake Total 1268.301 / 1476.301 900.375 / 900.375 Output Total 4925 / 5100 2525 / 2525 Balance -3656.699 / -3623.699 -1624.625 / -1624.625 Weight 246 lb 4.807 oz 244 lb 11.41 oz Constitutional: chronically ill appearing Respiratory: Absent respiratory distress Comment:: Complex umbilical wound with 3 infraumbilical satellite lesions . Superficial raised/thickening with discoloration noted. Discoloration is not classic for cellulitic change. Sanguinous ooze also noted. Results Labs 11/06/23 05:18 11/06/23 05:18 Labs: Laboratory Results - last 24 hr 11/05/23 16:27: POC Glucose 134 H 11/05/23 20:24: POC Glucose 184 H 11/06/23 05:18: WBC 5.3 D, RBC 3.14 L, Hgb 10.0 L, Hct 31.4 L, MCV 100.2 H, MCH 31.9 H, MCHC 31.8, RDW 15.1, Plt Count 244, MPV 8.0, Neut % (Auto) 75.6, Lymph % (Auto) 14.8, [place] % (Auto) 7.7, Eos % (Auto) 1.5, Baso % (Auto) 0.5, Neut # (Auto) 4.0, Lymph # (Auto) 0.8, [place] # (Auto) 0.4, Eos # (Auto) 0.1, Baso # (Auto) 0.0, Sodium 138, Potassium 3.2 L, Chloride 98, Carbon Dioxide 32 H, Anion Gap 11.2, BUN 25 H D, Creatinine 0.80 D, Estimated Creat Clear 83, Estimated GFR 70, Est GFR ( Amer) 84 D, Glucose 206 H D, Calcium 8.7, Total Bilirubin 0.7, Direct Bilirubin 0.4, Conjugated Bilirubin 0.0, Indirect Bilirubin 0.3, Unconjugated Bilirubin 0.3, AST 35, ALT 21, Alkaline Phosphatase 392 H, Total Protein 6.0 L, Albumin 2.9 L, Triglycerides 178 H, Cholesterol 110 L, LDL Cholesterol Direct 64.01 L, VLDL Cholesterol 36, HDL Cholesterol 25 L, C holesterol/HDL Ratio 4.4 H 11/06/23 11:30: POC Glucose 238 H Assessment and Plan *Assessment and plan (1) Open abdominal wall wound: Status: Acute Qualifiers: Encounter type: initial encounter Qualified Code(s): S31.109A - Unspecified open wound of abdominal wall, unspecified quadrant without penetration into peritoneal cavity, initial encounter Category: Medical Code(s): S31.109A - Unspecified open wound of abdominal wall, unspecified quadrant without penetration into peritoneal cavity, initial encounter (2) Abnormality, skin: Status: Acute Category: Medical Code(s): L98.9 - Disorder of the skin and subcutaneous tissue, unspecified Plan Umbilical wound with infraumbilical satellite lesions . Definitive etiology equivocal. Initially proceed with dry dressing changes Likely obtain punch biopsies (at least of 1 or 2 of the satellite lesions) during this hospitalization
[2023-11-06 13:01] LABS: CATHL Arterial O2 SAT 66 % (90-100); CATHL Venous O2 SAT 72 % (75-80)
--- NOTE | 2023-11-06 16:32 | P.PN_ITS ---
Subjective *Date: 11/06/23 *Time: 16:32 Interval history: patient is seen at bedside, she is no longer requiring vasopressor support, no acute events overnight Exam Data for Last 24 hours Vital signs and Labs for Last 24 Hours: Temp Pulse Resp BP Pulse Ox O2 Del Method O2 Flow Rate 98.8 F 70 20 143/77 H 96 Room Air 1 11/06/23 11:15 11/06/23 14:00 11/06/23 14:00 11/06/23 14:00 11/06/23 14:00 11/06/23 15:00 11/06/23 11:45 Laboratory Results - last 24 hr 11/05/23 16:27: POC Glucose 134 H 11/05/23 20:24: POC Glucose 184 H 11/06/23 05:18: WBC 5.3 D, RBC 3.14 L, Hgb 10.0 L, Hct 31.4 L, MCV 100.2 H, MCH 31.9 H, MCHC 31.8, RDW 15.1, Plt Count 244, MPV 8.0, Neut % (Auto) 75.6, Lymph % (Auto) 14.8, [place] % (Auto) 7.7, Eos % (Auto) 1.5, Baso % (Auto) 0.5, Neut # (Auto) 4.0, Lymph # (Auto) 0.8, [place] # (Auto) 0.4, Eos # (Auto) 0.1, Baso # (Auto) 0.0, Sodium 138, Potassium 3.2 L, Chloride 98, Carbon Dioxide 32 H, Anion Gap 11.2, BUN 25 H D, Creatinine 0.80 D, Estimated Creat Clear 83, Estimated GFR 70, Est GFR ( Amer) 84 D, Glucose 206 H D, Calcium 8.7, Total Bilirubin 0.7, Direct Bilirubin 0.4, Conjugated Bilirubin 0.0, Indirect Bilirubin 0.3, Unconjugated Bilirubin 0.3, AST 35, ALT 21, Alkaline Phosphatase 392 H, Total Protein 6.0 L, Albumin 2.9 L, Triglycerides 178 H, Cholesterol 110 L, LDL Cholesterol Direct 64.01 L, VLDL Cholesterol 36, HDL Cholesterol 25 L, Cholesterol/HDL Ratio 4.4 H 11/06/23 10:30: ABG O2 Sat (Measured) 66 L, POC VBG O2 Sat (Rafa) 72 L 05/03/24 11:30: POC Glucose 238 H I & O for Last 24 hours: Intake & Output 11/03/23 11/04/23 11/05/23 11/06/23 23:59 23:59 23:59 23:59 Intake Total 2168.676 / 2168.676 270 / 270 Output Total 5600 / 5600 1850 / 1850 Balance -3431.324 / -3431.324 -1580 / -1580 Weight 111.72 kg 111.72 kg 111 kg Constitutional Constitutional: obtunded *Routine HEENT Exam Head: Present normocephalic Eye: Present EOMI and PERRL ENT: Present mucous membranes moist *Routine Neck Exam Neck: Present supple; Absent lymphadenopathy *Routine Respiratory Exam Respiratory: Present CTA bilaterally *Routine Cardiovascular Exam Cardiovascular: Present RRR *Routine Abdominal Exam Abdominal: Present soft and normoactive bowel sounds; Absent tenderness Comments: she has abdominal wound covered in dressing *Routine Extremities Exam Extremities: Absent cyanosis, clubbing or edema *Routine Skin Exam Skin: Present warm; Absent rash *Routine Neurological Exam Neurological: Present altered mental status Assessment and Plan *Assessment and plan (1) Septic shock: Status: Acute Category: Medical Code(s): A41.9 - Sepsis, unspecified organism; R65.21 - Severe sepsis with septic shock (2) Encephalopathy acute: Status: Acute Category: Medical Code(s): G93.40 - Encephalopathy, unspecified (3) Multiple pulmonary nodules: Status: Acute Category: Medical Code(s): R91.8 - Other nonspecific abnormal finding of lung field (4) Open abdominal wall wound: Status: Acute Qualifiers: Encounter type: initial encounter Qualified Code(s): S31.109A - Unspecified open wound of abdominal wall, unspecified quadrant without penetration into peritoneal cavity, initial encounter Category: Medical Code(s): S31.109A - Unspecified open wound of abdominal wall, unspecified quadrant without penetration into peritoneal cavity, initial encounter (5) Acute kidney injury superimposed on CKD: Status: Acute Category: Medical Code(s): N17.9 - Acute kidney failure, unspecified; N18.9 - Chronic kidney disease, unspecified (6) Renal lesion: Status: Acute Category: Medical Code(s): N28.9 - Disorder of kidney and ureter, unspecified (7) COPD mixed type: Status: Chronic Category: Medical Code(s): J44.9 - Chronic obstructive pulmonary disease, unspecified (8) HFrEF (heart failure with reduced ejection fraction): Status: Acute Category: Medical Code(s): I50.20 - Unspecified systolic (congestive) heart failure (9) Atrial fibrillation: Status: Chronic Qualifiers: Atrial fibrillation type: unspecified Qualified Code(s): I48.91 - Unspecified atrial fibrillation Category: Medical Code(s): I48.91 - Unspecified atrial fibrillation (10) Type 2 diabetes mellitus with diabetic neuropathy: Status: Chronic Qualifiers: Diabetes mellitus group home insulin use: unspecified group home insulin use status Qualified Code(s): E11.40 - Type 2 diabetes mellitus with diabetic neuropathy, unspecified Category: Medical Code(s): E11.40 - Type 2 diabetes mellitus with diabetic neuropathy, unspecified (11) Morbid obesity: Status: Chronic Category: Medical Code(s): E66.01 - Morbid (severe) obesity due to excess calories (12) Chronic anemia: Status: Chronic Category: Medical Code(s): D64.9 - Anemia, unspecified (13) Cardiomyopathy: Status: Acute Qualifiers: Cardiomyopathy type: dilated Qualified Code(s): I42.0 - Dilated cardiomyopathy Category: Medical Code(s): I42.9 - Cardiomyopathy, unspecified Plan 78-year-old female history of hypertension, hyperlipidemia, CAD, COPD, CHF, morbid obesity, A-fib on Xarelto, abdominal fistula recently admitted for septic shock secondary to UTI and Pneumonia, discharged back to her nursing facility after clinically improvement on 10/23. on arrival sepsis protocols initiated. chest x-ray personally interpreted also looked at the CT scan of the patient's chest and her lung windows she appears to have multiples nodulary nodules no focal consolidation, CTA of abdomen concerning for left renal cortex lesion malignancy suspicious. concerning for pancreatic inflammation, however not clinically supported. findings might be correlated with abdominal fistula. that also has foul smell. Labs are consistent with hypokalemia. [place] on CKD, chronic anemia. Findings discussed with ED. agreed for admission. Plan as follow: - Septic shock secondary to UTI and possible multifocal pneumonia , infected abdominal wound? 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 recent completed course on broad abx redraw wound culture pending. last wound care was postive to staph was treated with vancomycin last BC negative. urine was positive to Klebsiella Pneumonae. Urine look clear at this point on levophed insert graf for accurate output. and assisting with wound healing monitor for organs dysfunctions. VS per unit CT of head does not showed acute gross intracraneal process. Pending radiology final reading monitor and repeat labs daily -abdominal fistula, foul odor: associated dermatitis/cellulitis around stoma: recently evaluated by surgeon. recommended wound care management. wound culture obtained , consult general surgery for possible debridement/infected wound wound care consult [place] on CKD - improved Left renal cortex lesion suspected malignancy MRI recommended for definitive. Might be possible when creatinine improved , likely as OP - COPD, Afib, HFrEF,: elevated troponin conditions reviewed. elevated BNP elevated troponin. likely secondary NV. EKG first degree block with non specific ST changes. cardiology consulted. continuous cardiac monitoring COPD currently stable. patient does not look on exacerbation incomplete sepsis bolus given due to concern of overloading with fluid continue monitoring Diabetes: Accucheck before meals and as needed . sliding scale . diabetic diet when mentally improves morbid obesity will complicate all aspect of care. Patient clinically ill with numeral comorbidities. preserved prognosis Case management consult to assist with zhang of care and define goals of care On xarelto and protonix Full code continue on IV abx with vancomycin and zosyn, f/u on cultures, consulted general surgery for possible debridement/infected wound, recommend punch biopsies of satelite lesions
[2023-11-06 16:48] LABS: POC Glucose,Bedside 204 (70-110)
--- NOTE | 2023-11-06 18:42 | PC.NURSE ---
pt has done well today. intermittent periods of confusion. I did confirm with her son's who the POA was (Oscar). VSS.
[2023-11-06 21:34] LABS: POC Glucose,Bedside 189 (70-110)
[2023-11-07] VITALS (8 sets, daily range): BP systolic 144–164; BP diastolic 46–81; PULSE 79–104; RESP 18–20; TEMP 36.7–37.2; O2SAT 93–97; BMI 35.3
[2023-11-07] MEDS: PIPERACILLIN/TAZO 3.375 GM in 0.9 % SODIUM CHLORIDE 50 ML IV ×2 (01:51→11:50)
--- NOTE | 2023-11-07 01:55 | PC.NURSE ---
Pt complaining of nausea, hasn't had any episodes of vomiting. no complaints of pain. VSS. Spoke with Jonathan, changed the order to receive zofran q4. will continue to monitor.
[2023-11-07] MEDS: humaLOG 100 UNITS/ML 3ML VIAL (SSI) SQ (06:34)
[2023-11-07] MEDS: SACUBITRIL/VALSARTAN 24-26MG TABLET 1 EACH PO ×2 (09:00→22:15)
[2023-11-07] MEDS: BUSPIRONE HCL 10 MG TABLET 15 MG PO (09:01)
[2023-11-07] MEDS: SENNA 8.6MG TABLET 8.6 MG PO ×2 (09:01→22:16)
[2023-11-07] MEDS: buPROPion HCL 100 MG TABLET PO (09:01)
[2023-11-07] MEDS: levETIRAcetam 500 MG TABLET 750 MG PO (09:02)
[2023-11-07] MEDS: DULOXETINE 30MG CAPSULE.DR 120 MG PO (09:02)
[2023-11-07] MEDS: DIGOXIN 0.125MG TABLET 187.5 MCG PO (09:03)
--- NOTE | 2023-11-07 10:31 | EXP.SURG.PN ---
Subjective Patient reports: no new complaints Exam Data for Last 24 hours Vital signs and Labs for Last 24 Hours: Temp Pulse Resp BP Pulse Ox O2 Del Method O2 Flow Rate 98.4 F 79 18 144/78 H 93 L Room Air 2 11/07/23 07:20 11/07/23 09:03 11/07/23 07:20 11/07/23 07:20 11/07/23 07:20 11/07/23 08:45 11/06/23 22:30 Laboratory Results - last 24 hr 11/06/23 10:30: ABG O2 Sat (Measured) 66 L, POC VBG O2 Sat (Rafa) 72 L 11/06/23 11:30: POC Glucose 238 H 11/06/23 16:41: POC Glucose 204 H 11/06/23 21:23: POC Glucose 189 H I & O for Last 24 hours: Intake & Output 11/04/23 11/05/23 11/06/23 11/07/23 11:59 11:59 11:59 11:59 Intake Total 1268.301 / 1476.301 900.375 / 900.375 670 / 670 Output Total 4925 / 5100 2525 / 2525 5100 / 5100 Balance -3656.699 / -3623.699 -1624.625 / -1624.625 -4430 / -4430 Weight 246 lb 4.807 oz 244 lb 11.41 oz 238 lb 11.2 oz Constitutional Constitutional: chronically ill appearing *Routine Respiratory Exam Respiratory: Absent respiratory distress *Routine Cardiovascular Exam Cardiovascular: Absent tachycardia *Routine Skin Exam Comments: Unchanged umbilical/periumbilical skin changes with satellite lesions. Progress Note: A&P Assessment and plan (1) Abnormality, skin: Status: Acute (2) Open abdominal wall wound: Status: Acute Assessment and Plan Assessment and Plan for All Diagnoses:: Keep area clean and dry Punch biopsies to be completed this morning
--- NOTE | 2023-11-07 10:34 | EXP.OP.NOTE ---
Date of procedure: 11/07/23 Pre-op Diagnosis:: Abnormality of skin in the periumbilical region with satellite lesions Post-op Diagnosis:: Same Procedure performed:: Punch biopsy (x 3) of periumbilical skin lesion Surgeon:: Osmar Leal MD Anesthesia: local Estimated blood loss (mL): 5 Operative findings:: 5 mm punch biopsies obtained (x 3) Operative note:: After informed consent was obtained the patient was maintained in the supine position. Her periumbilical region was prepped with chlorhexidine. After infiltration local anesthetic a 5 mm punch biopsies were obtained of the primary lesion and of the 2 most apparent satellite lesions. Pressure was utilized to achieve hemostasis. The entire region was packed with dry gauze and dressings were applied. Condition: stable Disposition: no change Specimens:: Punch biopsy of periumbilical lesion obtained for pathologic evaluation and additional specimens obtained for Gram stain/culture Complications:: No immediate
--- NOTE | 2023-11-07 11:36 | P.DS_ITS ---
General Admission date:: 11/04/23 Discharge date: 11/07/23 HPI HPI HPI: This is a 78-year-old female seen in consultation from the Hospitalist Service for evaluation regarding periumbilical wound. She was evaluated in the outpatient setting on October 14, 2023 and diagnosed complex periumbilical wound of undetermined etiology/significance. Initial plans were to proceed with dry dressing changes and a 1 week follow-up was scheduled. She did not maintain her 1 week appointment. She is currently admitted for evaluation management of sepsis, urinary tract infection, and pneumonia. Her gin-umbilical wound has progressed and now has satellite lesions. The surgical service was consulted for reevaluation. Forwarded from admission H&P: This is a 78-year-old female history of hypertension, hyperlipidemia, CAD, COPD, CHF, morbid obesity, A-fib on Xarelto, abdominal fistula recently admitted for septic shock secondary to UTI and Pneumonia, discharged back to her nursing facility after clinically improvement on 10/23. Per nursing staff patient was normally awake alert oriented able to mobilize herself with a wheelchair. Today she was brought in by EMS referred from nursing facility for evaluation of significantly altered. Last time seen normal two days ago. History is limited due to patient current status . Most data collected from ED documentation, EMS and nursing facility report. On arrival No focal neurologic deficits from historical standpoint. Patient seems obtunded and answer question intermittent. She is unable to provide any history so it is significantly limited. Readmitted for treatment and management. Hospital Course Hospital Course Hospital Course: 78-year-old female history of hypertension, hyperlipidemia, CAD, COPD, CHF, morbid obesity, A-fib on Xarelto, abdominal fistula recently admitted for septic shock secondary to UTI and Pneumonia, discharged back to her nursing facility after clinically improvement on 10/23. on arrival sepsis protocols initiated. chest x-ray personally interpreted also looked at the CT scan of the patient's chest and her lung windows she appears to have multiples nodulary nodules no focal consolidation, CTA of abdomen concerning for left renal cortex lesion malignancy suspicious. concerning for pancreatic inflammation, however not clin ically supported. findings might be correlated with abdominal fistula. that also has foul smell. Labs are consistent with hypokalemia. ARG[place] on CKD, chronic anemia. Findings discussed with ED. agreed for admission. 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 Patient wishes to be discharged. All patient questions were answered and patient was given time to ask questions. Patient was discharged in stable condition. Patient understands that she can return to ER in case of any sudden changes in health. Total time spent on DC - 38 mins Exam Data for Last 24 hours Vital signs and Labs for Last 24 Hours: Temp Pulse Resp BP Pulse Ox O2 Del Method O2 Flow Rate 98.4 F 79 18 144/78 H 93 L Room Air 2 11/07/23 07:20 11/07/23 09:03 11/07/23 07:20 11/07/23 07:20 11/07/23 07:20 11/07/23 10:58 11/06/23 22:30 Laboratory Results - last 24 hr 11/06/23 10:30: ABG O2 Sat (Measured) 66 L, POC VBG O2 Sat (Rafa) 72 L 11/06/23 11:30: POC Glucose 238 H 11/06/23 16:41: POC Glucose 204 H 11/06/23 21:23: POC Glucose 189 H I & O for Last 24 hours: Intake & Output 11/04/23 11/05/23 11/06/23 11/07/23 23:59 23:59 23:59 23:59 Intake Total 2168.676 / 2168.676 270 / 670 400 / 400 Output Total 5600 / 5600 3050 / 4650 3900 / 3900 Balance -3431.324 / -3431.324 -2780 / -3980 -3500 / -3500 Weight 111.72 kg 111.72 kg 111 kg 108.272 kg Constitutional Constitutional: obtunded *Routine HEENT Exam Head: Present normocephalic Eye: Present EOMI and PERRL ENT: Present mucous membranes moist *Routine Neck Exam Neck: Present supple; Absent lymphadenopathy *Routine Respiratory Exam Respiratory: Present CTA bilaterally *Routine Cardiovascular Exam Cardiovascular: Present RRR *Routine Abdominal Exam Abdominal: Present soft and normoactive bowel sounds; Absent tenderness Comments: she has abdominal wound covered in dressing *Routine Extremities Exam Extremities: Absent cyanosis, clubbing or edema *Routine Skin Exam Skin: Present warm; Absent rash *Routine Neurological Exam Neurological: Present altered mental status Results Data Completed and Pending Labs on day of discharge: Labs from last 24 hours 11/06/23 11/06/23 11/06/23 21:23 16:41 11:30 ABG O2 Sat (Measured) POC VBG O2 Sat (Rafa) POC Glucose 189 H 204 H 238 H 11/06/23 10:30 ABG O2 Sat (Measured) 66 L POC VBG O2 Sat (Rafa) 72 L POC Glucose DS: Diagnosis Discharge Diagnosis (1) Abnormality, skin: Status: Acute Code(s): L98.9 - Disorder of the skin and subcutaneous tissue, unspecified (2) Open abdominal wall wound: Status: Acute Code(s): S31.109A - Unspecified open wound of abdominal wall, unspecified quadrant without penetration into peritoneal cavity, initial encounter Qualifiers: Encounter type: initial encounter Qualified Code(s): S31.109A - Unspecified open wound of abdominal wall, unspecified quadrant without penetration into peritoneal cavity, initial encounter Meds Home Medications and Allergies Home Medications Medication Instructions Recorded Confirmed Type duloxetine 60 mg capsule,delayed 120 mg PO DAILY 04/06/19 11/05/23 History release levetiracetam 750 mg tablet 750 mg PO BID seizures 04/06/19 11/05/23 History zhjpdzlqcksj-Jr-zbvx-minerals 27 1 each PO DAILY Supplement 04/06/19 11/05/23 History mg-0.4 mg tablet ondansetron HCl 4 mg tablet 4 mg PO Q6HP PRN Nausea 04/06/19 11/05/23 History acetaminophen 500 mg tablet 500 mg PO Q4HP PRN Fever Or Pain 09/25/21 11/05/23 History (Tylenol Extra Strength) anastrozole 1 mg tablet 1 mg PO DAILY breast cancer 09/25/21 11/05/23 History bisacodyl 10 mg rectal suppository 10 mg AL Q72H PRN Constipation 09/25/21 11/05/23 History (Dulcolax (bisacodyl)) polyethylene glycol 3350 17 17 g PO DAILYP PRN Constipation 09/25/21 11/05/23 History gram/dose oral powder (Miralax) albuterol sulfate 90 mcg/actuation 2 inh inhalation Q6HP PRN 10/12/22 11/05/23 History aerosol inhaler Shortness Of Breath Or Wheezing insulin NPH-regular 70-30 U-100 47 unit SQ 1130,1630 10/12/22 11/05/23 History insulin 100 unit/mL subcutaneous pen (Novolin 70-30 FlexPen U-100 Insulin) insulin NPH-regular 70-30 U-100 52 unit SQ 0630 10/12/22 11/05/23 History insulin 100 unit/mL subcutaneous pen (Novolin 70-30 FlexPen U-100 Insulin) ipratropium 0.5 mg-albuterol 3 mg 3 ml inhalation Q6HP PRN Shortness 10/12/22 11/05/23 History (2.5 mg base)/3 mL nebulization Of Breath Or Wheezing soln melatonin 5 mg tablet 5 mg PO HS sleep 10/12/22 11/05/23 History simethicone 80 mg chewable tablet 80 mg PO TIDP PRN GAS 10/12/22 11/05/23 History rivaroxaban 15 mg tablet (Xarelto) 15 mg PO QPMWITHMEAL 10/30/22 11/05/23 History buspirone 15 mg tablet 15 mg PO BID 12/24/22 11/05/23 History empagliflozin 10 mg tablet 10 mg PO DAILY 03/07/23 11/05/23 History (Jardiance) cholecalciferol (vitamin D3) 50 50 mcg PO DAILY 03/08/23 11/05/23 History mcg (2,000 unit) tablet (Vitamin D3) atorvastatin 40 mg tablet 40 mg PO HS 30 days #30 tabs 03/12/23 11/05/23 Rx metoprolol succinate 100 mg 200 mg (2 x 100 mg) PO BID 30 days 03/12/23 11/05/23 Rx tablet,extended release 24 hr #0 tabs pantoprazole 40 mg tablet,delayed 40 mg PO DAILY 30 days #0 tabs 03/12/23 11/05/23 Rx release linaclotide 290 mcg capsule 290 mcg PO DAILY 04/09/23 11/05/23 History (Linzess) metformin 1,000 mg tablet 1,000 mg PO BIDWMEAL 04/09/23 11/05/23 History sennosides 8.6 mg capsule (senna) 8.6 mg PO BID 04/09/23 11/05/23 History cyanocobalamin (vitamin B-12) 1,000 mcg IM MONTHLY 07/03/23 11/05/23 History 1,000 mcg/mL injection solution nitroglycerin 0.4 mg sublingual 0.4 mg sublingual Q5MINP PRN Chest 07/03/23 11/05/23 History tablet Pain propylene glycol 0.6 % eye drops 1 drp Eye-Both BIDP PRN Dry Eyes 07/03/23 11/05/23 History (Systane Balance) metolazone 5 mg tablet 5 mg PO DAILY #30 tabs 07/13/23 11/05/23 Rx fexofenadine 180 mg tablet 180 mg PO DAILYP PRN Allergy 10/22/23 11/05/23 History Symptoms hydrocodone 10 mg-acetaminophen 1 tab PO BIDP PRN Moderate Pain 10/22/23 11/05/23 History 325 mg tablet (Scale Score 5-6) sacubitril 24 mg-valsartan 26 mg 1 tab PO BID 10/22/23 11/05/23 History tablet (Entresto) umeclidinium 62.5 mcg-vilanterol 1 inh inhalation DAILY 10/22/23 11/05/23 History 25 mcg/actuation powdr for inhalation (Anoro Ellipta) digoxin 125 mcg (0.125 mg) tablet 187.5 mcg PO DAILY 10/23/23 11/05/23 History hydrocodone 10 mg-acetaminophen 1 tab PO HS 10/23/23 11/05/23 History 325 mg tablet levocetirizine 5 mg tablet 5 mg PO DAILY 10/23/23 11/05/23 History aluminum-mag hydroxide-simethicone 30 ml PO Q4HP PRN Heartburn 11/04/23 11/05/23 History 200 mg-200 mg-20 mg/5 mL oral susp ascorbic acid (vitamin C) 500 mg 500 mg PO DAILY 11/05/23 11/05/23 History tablet bumetanide 2 mg tablet 2 mg PO BIDL Edema 11/05/23 11/05/23 History bupropion HCl 100 mg tablet,12 hr 100 mg PO DAILY 11/05/23 11/05/23 History sustained-release gabapentin 400 mg capsule 400 mg PO TID 11/05/23 11/05/23 History ciprofloxacin HCl 500 mg tablet 500 mg PO Q12H 7 days #14 tabs 11/07/23 Rx clindamycin HCl 300 mg capsule 300 mg PO TID 7 days #21 caps 11/07/23 Rx New Prescriptions to Start Prescriptions: ciprofloxacin HCl Ok Rebolledo clindamycin HCl Amaury,Ok Allergies Allergy/AdvReac Type Severity Reaction Status Date / Time codeine [CODEINE] Allergy Mild Unknown Verified 10/14/23 10:26 allergy reaction naproxen [NAPROXEN] Allergy Mild Unknown Verified 10/14/23 10:26 allergy reaction pregabalin [From LYRICA] Allergy Mild Unknown Verified 10/14/23 10:26 allergy reaction promethazine [PROMETHAZINE] Allergy Mild Unknown Verified 10/14/23 10:26 allergy reaction JOSE ELIAS Inhibitors Allergy Unknown Verified 10/14/23 10:26 allergy reaction Discharge Plan Disposition Patient Disposition: [facility] Condition: Good Discharge Order Discharge Orders: Discharge Order (Routine); Ordered 11/07/23 Ordered By: Ok Rebolledo Follow up Plan Follow up with: Albino Guillory MD [Staff Physician] - 1 week (Please call for 1 week appointment.) Ke Luo MD [Staff Physician] - 2 weeks (Please call for 2 week appointment.) Prescriptions/Medication Reconciliation: New clindamycin HCl 300 mg capsule 300 mg PO TID 7 Days Qty: 21 0RF ciprofloxacin HCl 500 mg tablet 500 mg PO Q12H 7 Days Qty: 14 0RF Continued acetaminophen [Tylenol Extra Strength] 500 mg tablet 500 mg PO Q4HP PRN (Reason: Fever Or Pain) bisacodyl [Dulcolax (bisacodyl)] 10 mg suppository 10 mg AL Q72H PRN (Reason: Constipation) anastrozole 1 mg tablet 1 mg PO DAILY polyethylene glycol 3350 [Miralax] 17 gram/dose powder 17 g PO DAILYP PRN (Reason: Constipation) metformin 1,000 mg tablet 1,000 mg PO BIDWMEAL senna 8.6 mg capsule 8.6 mg PO BID Linzess 290 mcg capsule 290 mcg PO DAILY Rx Instructions: do not crush Xarelto 15 mg tablet 15 mg PO QPMWITHMEAL Rx Instructions: must administer with evening meal metolazone 5 mg tablet 5 mg PO DAILY Qty: 30 5RF nitroglycerin 0.4 mg tablet, sublingual 0.4 mg SL Q5MINP PRN (Reason: Chest Pain) Rx Instructions: May repeat x 2 doses, call MD if ineffective Systane Balance 0.6 % drops 1 drp Eye-Both BIDP PRN (Reason: Dry Eyes) cyanocobalamin (vitamin B-12) 1,000 mcg/mL solution 1,000 mcg IM MONTHLY ondansetron HCl 4 MG tablet 4 mg PO Q6HP PRN (Reason: Nausea) levetiracetam 750 MG tablet 750 mg PO BID Rx Instructions: do not crush duloxetine 60 MG capsule,delayed release(DR/EC) 120 mg PO DAILY Rx Instructions: do not crush wqmbzdrwgtyu-Wb-ovbw-minerals 1 EACH tablet 1 each PO DAILY simethicone 80 mg Tablet,Chewable 80 mg PO TIDP PRN (Reason: GAS) Novolin 70-30 FlexPen U-100 100 unit/mL (70-30) Insulin Pen 52 unit SQ 0630 Novolin 70-30 FlexPen U-100 100 unit/mL (70-30) Insulin Pen 47 unit SQ 1130,1630 Rx Instructions: 1130 and 1630 melatonin 5 mg Tablet 5 mg PO HS albuterol sulfate 90 mcg/actuation HFA aerosol inhaler 2 inh INHALATION Q6HP PRN (Reason: Shortness Of Breath Or Wheezing) ipratropium-albuterol 0.5 mg-3 mg(2.5 mg base)/3 mL solution for nebulization 3 ml INHALATION Q6HP PRN (Reason: Shortness Of Breath Or Wheezing) buspirone 15 mg tablet 15 mg PO BID Jardiance 10 mg tablet 10 mg PO DAILY cholecalciferol (vitamin D3) [Vitamin D3] 50 mcg (2,000 unit) Tablet 50 mcg PO DAILY atorvastatin 40 mg Tablet 40 mg PO HS 30 Days Qty: 30 0RF metoprolol succinate 100 mg Tablet Extended Release 24 Hr 200 mg PO BID 30 Days Qty: 0 0RF Rx Instructions: do not crush pantoprazole 40 mg Tablet,Delayed Release (Dr/Ec) 40 mg PO DAILY 30 Days Qty: 0 0RF Rx Instructions: do not crush fexofenadine 180 mg Tablet 180 mg PO DAILYP PRN (Reason: Allergy Symptoms) Anoro Ellipta 62.5-25 mcg/actuation Blister With Device 1 inh INHALATION DAILY Entresto 24-26 mg Tablet 1 tab PO BID hydrocodone-acetaminophen 10-325 mg tablet 1 tab PO BIDP PRN (Reason: Moderate Pain (Scale Score 5-6)) hydrocodone-acetaminophen 10-325 mg tablet 1 tab PO HS levocetirizine 5 mg tablet 5 mg PO DAILY digoxin 125 mcg (0.125 mg) tablet 187.5 mcg PO DAILY Rx Instructions: Hold for HR <60 alum-mag hydroxide-simeth 200-200-20 mg/5 mL Suspension 30 ml PO Q4HP PRN (Reason: Heartburn) bupropion HCl 100 mg Tablet Sustained-Release 12 Hr 100 mg PO DAILY ascorbic acid (vitamin C) 500 mg Tablet 500 mg PO DAILY bumetanide 2 mg tablet 2 mg PO BIDL gabapentin 400 mg capsule 400 mg PO TID Problem Reconciliation Problems Reviewed?: Yes Patient Discharge Instructions ACTIVITY: Ambulate as tolerated DIET: continue same diet Patient Instructions: Skin Biopsy, DI for Heart Failure, DI for Pneumonia -- Adult, DI for Cardiac Catheterization, DI for Surgical Site Infection, DI for Sepsis -- Adult, DI for Encephalopathy, DI for Acute Kidney Injury, Catheter- Associated Urinary Tract Infection Providers Primary Care Provider: Provider,Referral Admit Provider: Ok Rebolledo Attending Provider: Ok Rebolledo
[2023-11-07] MEDS: humaLOG MIX 75/25 3ML FLEXPEN 47 UNIT SQ (11:53)
--- NOTE | 2023-11-07 11:53 | PC.NURSE ---
Current Medications Dina Cortés 1945 Atorvastatin Calcium (Atorvastatin 40mg Tablet) 40 mg PO HS [facility] Stop: 12/07/23 20:59 Bupropion HCl (Bupropion Hcl 100 Mg Tablet) 100 mg PO DAILY [facility] Stop: 12/07/23 08:59 Last Admin: 11/07/23 09:01 Dose: 100 mg Buspirone HCl (Buspirone Hcl 10 Mg Tablet) 15 mg PO BID [facility] Stop: 12/07/23 08:59 Last Admin: 11/07/23 09:01 Dose: 15 mg Digoxin (Digoxin 0.125mg Tablet) 187.5 mcg PO DAILY [facility] Stop: 12/07/23 08:59 Last Admin: 11/07/23 09:03 Dose: 187.5 mcg Duloxetine HCl (Duloxetine 30mg Capsule.Dr) 120 mg PO DAILY [facility] Stop: 12/07/23 08:59 Last Admin: 11/07/23 09:02 Dose: 120 mg Piperacillin Sod/Tazobactam (Sod 3.375 gm/ Sodium Chloride) 50 mls @ 100 mls/hr IV Q8H [facility] Stop: 11/15/23 10:29 Last Admin: 11/07/23 01:51 Dose: 100 mls/hr Vancomycin/PEG/NADA/Lysine/Water (Vancomycin 1.75gm/350ml (Peg) Premix) 1.75 gm in 350 mls @ 175 mls/hr IV Q18H [facility] Stop: 11/15/23 16:59 Last Admin: 11/06/23 16:03 Dose: 175 mls/hr Insulin Human Lispro (Humalog 100 Units/Ml 3ml Vial (Ssi)) 0 unit SQ ACHS [facility]; Protocol Stop: 12/07/23 10:59 Last Admin: 11/07/23 06:34 Dose: 5 unit Insulin Lispro Protam/Lispro Human (Humalog Mix 75/25 3ml Flexpen) 47 unit SQ 1130,1630 [facility] Stop: 12/07/23 11:29 Insulin Lispro Protam/Lispro Human (Humalog Mix 75/25 3ml Flexpen) 52 unit SQ 0630 [facility] Stop: 12/07/23 06:29 Last Admin: 11/07/23 06:12 Dose: Not Given Levetiracetam (Levetiracetam 500 Mg Tablet) 750 mg PO BID [facility] Stop: 12/07/23 08:59 Last Admin: 11/07/23 09:02 Dose: 750 mg Melatonin (Melatonin 5mg Tablet) 5 mg PO HS [facility] Stop: 12/07/23 00:24 Last Admin: 11/07/23 01:03 Dose: Not Given Miscellaneous (Pha To Nursing Instruction) 1 each NOTAPPLIC ONCE ONE Stop: 11/08/23 04:01 Ondansetron HCl (Ondansetron 4mg/2ml Vial) 4 mg IV Q4HP PRN PRN Reason: Nausea Stop: 12/07/23 01:51 Polyethylene Glycol (Polyethylene Glycol 3350 17 Gm Packet) 17 gm PO DAILYP PRN PRN Reason: Constipation Stop: 12/07/23 08:14 Rivaroxaban (Rivaroxaban 15mg Tablet) 15 mg PO QPMWITHMEAL [facility] Stop: 12/07/23 17:29 Sacubitril/Valsartan (Sacubitril/Valsartan 24-26mg Tablet) 1 each PO BID [facility] Stop: 12/07/23 08:59 Last Admin: 11/07/23 09:00 Dose: 1 each Sennosides (Senna 8.6mg Tablet) 8.6 mg PO BID [facility] Stop: 12/07/23 08:59 Last Admin: 11/07/23 09:01 Dose: 8.6 mg Sodium Chloride (Sodium Chloride 3% 15ml Neb) 3 ml IH ONCE PRN PRN Reason: INDUCE SPUTUM COLLECTION Stop: 12/05/23 07:56 Last Admin: 11/05/23 09:40 Dose: 3 ml Sodium Chloride (Sodium Chloride 0.9% 10ml Flush Syringe) 10 ml IV NEEDED PRN PRN Reason: Maintain IV Site Stop: 12/06/23 10:14
[2023-11-07] MEDS: VANCOMYCIN/WATER FOR INJ (PEG) 1.75 GM/350 ML PIGGYBACK IV (11:57)
--- NOTE | 2023-11-07 13:23 | PC.NURSE ---
Report called to Dave.
[2023-11-07] MEDS: LIDOCAINE 1% 10ML MDV 2 ML IJ (13:29)
--- NOTE | 2023-11-07 16:53 | PC.NURSE ---
Pt has been up to chair this shift. Tolerated it well. SHe has been anxious this afternoon, asking multiple times when she can go back home. Awaiting ambulance at this time for transport. Pt has had 3 BMs this shift. F/C DC. IV and central line DC. Call light within reach.
[2023-11-07] MEDS: RIVAROXABAN 15MG TABLET 15 MG PO (18:37)
[2023-11-07] MEDS: ATORVASTATIN 40MG TABLET 40 MG PO (22:16)
[2023-11-08] VITALS: BP 149/60; PULSE 90; RESP 20; TEMP 36.6; O2SAT 91
[2023-11-08] MEDS: MELATONIN 5MG TABLET 5 MG PO (01:53)
[2023-11-08 04:00] VITALS: BP 149/95; PULSE 101; RESP 18; TEMP 36.6; O2SAT 97; BMI 35.3
[2023-11-08 04:20] LABS: Vancomycin,Trough 19.5 ug/mL (5.0-10.0)
[2023-11-08 04:51] LABS: POC Glucose,Bedside 95 (70-110)
[2023-11-08 04:51] LABS: POC Glucose,Bedside 112 (70-110)
[2023-11-08 04:51] LABS: POC Glucose,Bedside 282 (70-110)
[2023-11-08 04:51] LABS: POC Glucose,Bedside 227 (70-110)
[2023-11-08 05:39] LABS: POC Glucose,Bedside 135 (70-110)
--- NOTE | 2023-11-08 07:42 | PC.NURSE ---
pt. continues to wait for transportation back to the [place] [facility], pt. has been restless and anxious, pt. gets up to the bedside commode with assistance, pt. has no c/o pain, bed alarm is on and functioning for safety, call button is in reach.
[2023-11-08 08:00] VITALS: BP 135/75; PULSE 118; RESP 18; TEMP 36.3; O2SAT 94
--- NOTE | 2023-11-08 08:58 | EXP.PHA.PN ---
Subjective *Date: 11/08/23 *Time: 08:58 Medical Exam Vital signs and Labs for Last 24 Hours: Vital Signs Temp Pulse Pulse Resp BP Pulse Ox O2 Del Method 11/08/23 08:00 97.3 F L 118 H 18 135/75 94 L Room Air 11/08/23 07:00 Room Air 11/08/23 05:00 Room Air 11/08/23 04:00 97.9 F 101 H 18 149/95 H 97 Room Air 11/08/23 03:00 Room Air 11/08/23 01:00 Room Air 11/08/23 00:00 97.9 F 90 20 149/60 H 91 L Room Air 11/07/23 23:00 Room Air 11/07/23 21:00 Room Air 11/07/23 20:00 Room Air 11/07/23 20:00 98.1 F 104 H 20 163/81 H 96 Room Air 11/07/23 18:38 Room Air 11/07/23 16:49 Room Air 11/07/23 16:00 98.1 F 89 18 149/64 H 97 Room Air 11/07/23 15:00 Room Air 11/07/23 13:00 Room Air 11/07/23 12:00 98.0 F 102 H 18 156/46 H 96 Room Air 11/07/23 10:58 Room Air 11/07/23 09:03 79 Intake and Output 11/07/23 11/08/23 11/08/23 23:59 07:59 15:59 Intake Total 670 / 1250 Output Total 0 / 4200 0 / 0 0 / 0 Balance 670 / -2950 0 / 0 0 / 0 Intake: Intake, Oral Amount 270 / 850 Intake, Total IV Amount 400 / 400 Piperacillin/Tazo 3.375 gm In 0 50 / 50 .9 % Sodium Chloride 50 ml @ 100 mls/hr IV Q8H [facility] Rx#: [id number] Vancomycin/Water For Inj (Peg) 350 / 350 1.75 gm In 350 ml @ 175 mls/hr IV Q12H [facility] Rx#:[id number] Output: Output, Urine Amount 0 / 2600 0 / 0 0 / 0 Other: Number of Unmeasured Voids 1 1 1 Number of Bowel Movements 1 1 1 Weight 108.272 kg Patient Weight 11/08/23 23:59 Weight 108.272 kg Laboratory Results - last 24 hr 11/07/23 05:57: POC Glucose 227 H 11/07/23 11:33: POC Glucose 282 H 11/07/23 18:36: POC Glucose 112 H 11/07/23 21:32: POC Glucose 95 11/08/23 03:56: Vancomycin Trough 19.5 H 11/08/23 05:31: POC Glucose 135 H I & O for Labs for Last 24 Hours: Intake & Output 11/05/23 11/06/23 11/07/23 11/08/23 23:59 23:59 23:59 23:59 Intake Total 2168.676 / 2168.676 270 / 670 1250 / 1250 Output Total 5600 / 5600 3050 / 4650 4200 / 4200 0 / 0 Balance -3431.324 / -3431.324 -2780 / -3980 -2950 / -2950 0 / 0 Weight 111.72 kg 111 kg 108.272 kg 108.272 kg The patient's infection will respond to the chosen ABx?: Yes Is the patient receiving the right drug, dose, and route?: Yes Could a more targeted ABx be ordered?: No (BACK TO [facility] ON [facility]; CX PENDING)
== END 2023-11-08 08:40 | DRG 871 ==
LOC: ER 20:49 → 2ND 21:42
PROVIDERS: Internal Medicine; Nurse Practitioner Family; Admitting Provider Internal Medicine; Emergency Provider Emergency Medicine; Visit Provider Internal Medicine
PROC: 4A023N6 Measurement of Cardiac Sampling and Pressure, Right Heart, Percutaneous Approach (ICD-10-PCS; principal; 2023-11-06 09:15)
DX: A41.9 Sepsis, unspecified organism (principal); G92.8 Other toxic encephalopathy; G93.41 Metabolic encephalopathy; R65.21 Severe sepsis with septic shock; N17.9 Acute kidney failure, unspecified; I50.22 Chronic systolic (congestive) heart failure; J96.12 Chronic respiratory failure with hypercapnia; I13.0 Hypertensive heart and chronic kidney disease with heart failure and stage 1 through stage 4 chronic kidney disease, or unspecified chronic kidney disease; K63.2 Fistula of intestine; I48.20 Chronic atrial fibrillation, unspecified; E78.5 Hyperlipidemia, unspecified; J44.9 Chronic obstructive pulmonary disease, unspecified; Z85.3 Personal history of malignant neoplasm of breast; Z85.820 Personal history of malignant melanoma of skin; I25.10 Atherosclerotic heart disease of native coronary artery without angina pectoris; E66.01 Morbid (severe) obesity due to excess calories; Z68.35 Body mass index [BMI] 35.0-35.9, adult; I48.91 Unspecified atrial fibrillation; Z79.01 Long term (current) use of anticoagulants; I35.0 Nonrheumatic aortic (valve) stenosis; Z87.891 Personal history of nicotine dependence; E11.22 Type 2 diabetes mellitus with diabetic chronic kidney disease; N18.9 Chronic kidney disease, unspecified; L30.8 Other specified dermatitis; Z79.4 Long term (current) use of insulin; Z79.84 Long term (current) use of oral hypoglycemic drugs; N28.9 Disorder of kidney and ureter, unspecified; G47.33 Obstructive sleep apnea (adult) (pediatric); E78.2 Mixed hyperlipidemia; E11.40 Type 2 diabetes mellitus with diabetic neuropathy, unspecified; E87.6 Hypokalemia; I27.20 Pulmonary hypertension, unspecified; L98.9 Disorder of the skin and subcutaneous tissue, unspecified; C44.509 Unspecified malignant neoplasm of skin of other part of trunk
CPT/HCPCS: 93451; 11104; 11105 ×2; 36415; 70450; 71045; 71275; 74174; 80048; 80053; 80061; 80076; 80202; 81001; 82140; 82803; 82810; 82962; 83605; 83690; 83735; 83880; 84484; 85007; 85025; 87040; 87070; 87205; 88305; 88341; 88342; 88360; 93005; 93306; 99152; 99285; C1894; J1644; J2405; J2543; Q9967

== ENCOUNTER 2023-11-13 09:28 | Emergency (ER) | payer MEDICARE, MEDICAID, SELFPAY ==
[2023-11-13] VITALS (13 sets, daily range): BP systolic 74–111; BP diastolic 30–66; PULSE 43–57; RESP 14–19; TEMP 36.4–36.7; O2SAT 73–99; BMI 37.7
--- NOTE | 2023-11-13 09:40 | PC.NURSE ---
in room talking with patient at this time.
--- NOTE | 2023-11-13 09:43 | XR_ITS ---
FINAL REPORT CLINICAL HISTORY: dyspnea COMPARISON: 11/04/2023 FINDINGS: A single portable view of the chest was obtained. The heart size is enlarged. There is mild pulmonary vascular congestion which is worse. The mediastinum is within normal limits. Improved bibasilar opacities are consistent with improved pneumonia or atelectasis. The bony thorax is intact. IMPRESSION: Worse pulmonary vascular congestion. Improved pneumonia or atelectasis. Reviewed, Interpreted and Dictated by Albino Nuno III, MD Transcribed by Mercedes Sanchez Authenticated and [facility]
--- NOTE | 2023-11-13 09:44 | HMH.EDGENADL ---
Discharge Plan Disposition Patient Disposition: Xfer Other Prescriptions Prescriptions: No Action acetaminophen [Tylenol Extra Strength] 500 mg tablet 500 mg PO Q4HP PRN (Reason: Fever Or Pain) bisacodyl [Dulcolax (bisacodyl)] 10 mg suppository 10 mg NC Q72H PRN (Reason: Constipation) anastrozole 1 mg tablet 1 mg PO DAILY polyethylene glycol 3350 [Miralax] 17 gram/dose powder 17 g PO DAILYP PRN (Reason: Constipation) metformin 1,000 mg tablet 1,000 mg PO BIDWMEAL senna 8.6 mg capsule 8.6 mg PO BID Linzess 290 mcg capsule 290 mcg PO DAILY Rx Instructions: do not crush Xarelto 15 mg tablet 15 mg PO QPMWITHMEAL Rx Instructions: must administer with evening meal metolazone 5 mg tablet 5 mg PO DAILY Qty: 30 5RF nitroglycerin 0.4 mg tablet, sublingual 0.4 mg SL Q5MINP PRN (Reason: Chest Pain) Rx Instructions: May repeat x 2 doses, call MD if ineffective Systane Balance 0.6 % drops 1 drp Eye-Both BIDP PRN (Reason: Dry Eyes) cyanocobalamin (vitamin B-12) 1,000 mcg/mL solution 1,000 mcg IM MONTHLY ondansetron HCl 4 MG tablet 4 mg PO Q6HP PRN (Reason: Nausea) levetiracetam 750 MG tablet 750 mg PO BID Rx Instructions: do not crush duloxetine 60 MG capsule,delayed release(DR/EC) 120 mg PO DAILY Rx Instructions: do not crush [id number]-Lh-eigq-minerals 1 EACH tablet 1 each PO DAILY simethicone 80 mg Tablet,Chewable 80 mg PO TIDP PRN (Reason: GAS) Novolin 70-30 FlexPen U-100 100 unit/mL (70-30) Insulin Pen 52 unit SQ 0630 Novolin 70-30 FlexPen U-100 100 unit/mL (70-30) Insulin Pen 47 unit SQ 1130,1630 Rx Instructions: 1130 and 1630 melatonin 5 mg Tablet 5 mg PO HS albuterol sulfate 90 mcg/actuation HFA aerosol inhaler 2 inh INHALATION Q6HP PRN (Reason: Shortness Of Breath Or Wheezing) ipratropium-albuterol 0.5 mg-3 mg(2.5 mg base)/3 mL solution for nebulization 3 ml INHALATION Q6HP PRN (Reason: Shortness Of Breath Or Wheezing) buspirone 15 mg tablet 15 mg PO BID Jardiance 10 mg tablet 10 mg PO DAILY cholecalciferol (vitamin D3) [Vitamin D3] 50 mcg (2,000 unit) Tablet 50 mcg PO DAILY atorvastatin 40 mg Tablet 40 mg PO HS 30 Days Qty: 30 0RF metoprolol succinate 100 mg Tablet Extended Release 24 Hr 200 mg PO BID 30 Days Qty: 0 0RF Rx Instructions: do not crush pantoprazole 40 mg Tablet,Delayed Release (Dr/Ec) 40 mg PO DAILY 30 Days Qty: 0 0RF Rx Instructions: do not crush fexofenadine 180 mg Tablet 180 mg PO DAILYP PRN (Reason: Allergy Symptoms) Anoro Ellipta 62.5-25 mcg/actuation Blister With Device 1 inh INHALATION DAILY Entresto 24-26 mg Tablet 1 tab PO BID hydrocodone-acetaminophen 10-325 mg tablet 1 tab PO BIDP PRN (Reason: Moderate Pain (Scale Score 5-6)) hydrocodone-acetaminophen 10-325 mg tablet 1 tab PO HS levocetirizine 5 mg tablet 5 mg PO DAILY digoxin 125 mcg (0.125 mg) tablet 187.5 mcg PO DAILY Rx Instructions: Hold for HR <60 alum-mag hydroxide-simeth 200-200-20 mg/5 mL Suspension 30 ml PO Q4HP PRN (Reason: Heartburn) bupropion HCl 100 mg Tablet Sustained-Release 12 Hr 100 mg PO DAILY ascorbic acid (vitamin C) 500 mg Tablet 500 mg PO DAILY bumetanide 2 mg tablet 2 mg PO BIDL gabapentin 400 mg capsule 400 mg PO TID clindamycin HCl 300 mg capsule 300 mg PO TID 7 Days Qty: 21 0RF ciprofloxacin HCl 500 mg tablet 500 mg PO Q12H 7 Days Qty: 14 0RF Referrals Follow up/Referrals: Provider,Referral, MD [Primary Care Provider] - See instructions Clinical Impressions Clinical Impression: Generalized weakness, Encephalopathy, [place] (acute kidney injury) Discharge ED Provider: Stella Jaramillo General Adult HPI General Chief complaint: Weakness Stated complaint: AMS Time Seen by Provider: 11/13/23 09:32 Mode of Arrival: EMS Source of Information: Patient and EMS Limitations: No Limitations Description of Symptoms (Recalled from ER Triage Doc. by RN): Per EMS and senior living patient has been more confused today. group home stated that she has had a low bp and unable to lift her head at times. Patient reports that she just feels weak. History of Present Illness HPI narrative: Patient is a 78-year-old female sent in from senior living for generalized weakness. She was recently admitted on November 03 for septic shock with possible multifocal pneumonia. She remained in the hospital for 3 days and was discharged on the fourth sent back to the senior living. 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 Currently the senior living focal or definitive symptoms. Patient is at her baseline from a neurologic standpoint other than being more lethargic than normal symptoms at the moment. Related Data Home Medications Medication Instructions Recorded Confirmed duloxetine 60 mg capsule,delayed 120 mg PO DAILY 04/06/19 11/05/23 release levetiracetam 750 mg tablet 750 mg PO BID seizures 04/06/19 11/05/23 dadfttnyeayv-Wu-uwin-minerals 27 1 each PO DAILY Supplement 04/06/19 11/05/23 mg-0.4 mg tablet ondansetron HCl 4 mg tablet 4 mg PO Q6HP PRN Nausea 04/06/19 11/05/23 acetaminophen 500 mg tablet 500 mg PO Q4HP PRN Fever Or Pain 09/25/21 11/05/23 (Tylenol Extra Strength) anastrozole 1 mg tablet 1 mg PO DAILY breast cancer 09/25/21 11/05/23 bisacodyl 10 mg rectal suppository 10 mg NC Q72H PRN Constipation 09/25/21 11/05/23 (Dulcolax (bisacodyl)) polyethylene glycol 3350 17 17 g PO DAILYP PRN Constipation 09/25/21 11/05/23 gram/dose oral powder (Miralax) albuterol sulfate 90 mcg/actuation 2 inh inhalation Q6HP PRN 10/12/22 11/05/23 aerosol inhaler Shortness Of Breath Or Wheezing insulin NPH-regular 70-30 U-100 47 unit SQ 1130,1630 10/12/22 11/05/23 insulin 100 unit/mL subcutaneous pen (Novolin 70-30 FlexPen U-100 Insulin) insulin NPH-regular 70-30 U-100 52 unit SQ 0630 10/12/22 11/05/23 insulin 100 unit/mL subcutaneous pen (Novolin 70-30 FlexPen U-100 Insulin) ipratropium 0.5 mg-albuterol 3 mg 3 ml inhalation Q6HP PRN Shortness 10/12/22 11/05/23 (2.5 mg base)/3 mL nebulization Of Breath Or Wheezing soln melatonin 5 mg tablet 5 mg PO HS sleep 10/12/22 11/05/23 simethicone 80 mg chewable tablet 80 mg PO TIDP PRN GAS 10/12/22 11/05/23 rivaroxaban 15 mg tablet (Xarelto) 15 mg PO QPMWITHMEAL 10/30/22 11/05/23 buspirone 15 mg tablet 15 mg PO BID 12/24/22 11/05/23 empagliflozin 10 mg tablet 10 mg PO DAILY 03/07/23 11/05/23 (Jardiance) cholecalciferol (vitamin D3) 50 50 mcg PO DAILY 03/08/23 11/05/23 mcg (2,000 unit) tablet (Vitamin D3) linaclotide 290 mcg capsule 290 mcg PO DAILY 04/09/23 11/05/23 (Linzess) metformin 1,000 mg tablet 1,000 mg PO BIDWMEAL 04/09/23 11/05/23 sennosides 8.6 mg capsule (senna) 8.6 mg PO BID 04/09/23 11/05/23 cyanocobalamin (vitamin B-12) 1,000 mcg IM MONTHLY 07/03/23 11/05/23 1,000 mcg/mL injection solution nitroglycerin 0.4 mg sublingual 0.4 mg sublingual Q5MINP PRN Chest 07/03/23 11/05/23 tablet Pain propylene glycol 0.6 % eye drops 1 drp Eye-Both BIDP PRN Dry Eyes 07/03/23 11/05/23 (Systane Balance) fexofenadine 180 mg tablet 180 mg PO DAILYP PRN Allergy 10/22/23 11/05/23 Symptoms hydrocodone 10 mg-acetaminophen 1 tab PO BIDP PRN Moderate Pain 10/22/23 11/05/23 325 mg tablet (Scale Score 5-6) sacubitril 24 mg-valsartan 26 mg 1 tab PO BID 10/22/23 11/05/23 tablet (Entresto) umeclidinium 62.5 mcg-vilanterol 1 inh inhalation DAILY 10/22/23 11/05/23 25 mcg/actuation powdr for inhalation (Anoro Ellipta) digoxin 125 mcg (0.125 mg) tablet 187.5 mcg PO DAILY 10/23/23 11/05/23 hydrocodone 10 mg-acetaminophen 1 tab PO HS 10/23/23 11/05/23 325 mg tablet levocetirizine 5 mg tablet 5 mg PO DAILY 10/23/23 11/05/23 aluminum-mag hydroxide-simethicone 30 ml PO Q4HP PRN Heartburn 11/04/23 11/05/23 200 mg-200 mg-20 mg/5 mL oral susp ascorbic acid (vitamin C) 500 mg 500 mg PO DAILY 11/05/23 11/05/23 tablet bumetanide 2 mg tablet 2 mg PO BIDL Edema 11/05/23 11/05/23 bupropion HCl 100 mg tablet,12 hr 100 mg PO DAILY 11/05/23 11/05/23 sustained-release gabapentin 400 mg capsule 400 mg PO TID 11/05/23 11/05/23 Previous Rx's Medication Instructions Recorded atorvastatin 40 mg tablet 40 mg PO HS 30 days #30 tabs 03/12/23 metoprolol succinate 100 mg 200 mg (2 x 100 mg) PO BID 30 days 03/12/23 tablet,extended release 24 hr #0 tabs pantoprazole 40 mg tablet,delayed 40 mg PO DAILY 30 days #0 tabs 03/12/23 release metolazone 5 mg tablet 5 mg PO DAILY #30 tabs 07/13/23 ciprofloxacin HCl 500 mg tablet 500 mg PO Q12H 7 days #14 tabs 11/07/23 clindamycin HCl 300 mg capsule 300 mg PO TID 7 days #21 caps 11/07/23 Allergies Allergy/AdvReac Type Severity Reaction Status Date / Time codeine [CODEINE] Allergy Mild Unknown Verified 10/14/23 10:26 allergy reaction naproxen [NAPROXEN] Allergy Mild Unknown Verified 10/14/23 10:26 allergy reaction pregabalin [From LYRICA] Allergy Mild Unknown Verified 10/14/23 10:26 allergy reaction promethazine [PROMETHAZINE] Allergy Mild Unknown Verified 10/14/23 10:26 allergy reaction [facility]AS Inhibitors Allergy Unknown Verified 10/14/23 10:26 allergy reaction [facility] Disclaimer: The information contained in this section may have been updated after the patient was seen, as this information can be updated by other users. Medical History (Updated 11/13/23 @ 11:15 by Stella Jaramillo MD) (HFpEF) heart failure with preserved ejection fraction Hypokalemia Multiple pulmonary nodules Migraine, unspecified, not intractable, without status migrainosus Gastro-esophageal reflux disease without esophagitis Unspecified convulsions Constipation, unspecified Spinal stenosis, site unspecified Acute peptic ulcer, site unspecified, with perforation Vitamin D deficiency, unspecified Xerosis cutis Other specified arthritis, unspecified site Presence of intraocular lens Excoriation (skin-picking) disorder Iodine-deficiency related diffuse (endemic) goiter Nonrheumatic aortic (valve) stenosis Fibromyalgia Fall Fall Acute pain of right shoulder Chronic respiratory failure with hypercapnia Cardiomyopathy Atelectasis of both lungs Pleural effusion due to CHF (congestive heart failure) Acute respiratory failure with hypoxemia Pneumonia History of melanoma Breast cancer History of smoking 30 or more pack years Restrictive lung disease History of sleep apnea COPD mixed type Hematuria Coronary artery disease Diastolic dysfunction HFrEF (heart failure with reduced ejection fraction) Abnormal cardiovascular stress test Atypical angina Shortness of Breath Acute on chronic diastolic (congestive) heart failure ST segment abnormality Abnormal EKG Fatigue Abnormal stress test Edema COPD (chronic obstructive pulmonary disease) Atypical chest pain HLD (hyperlipidemia) HTN (hypertension) Diabetes Shortness of Breath Surgical History History of throat surgery History of cataract surgery History of appendectomy Family History Other No significant family history Social History Smoking Status: Never smoker second hand exposure: No alcohol intake: never counseling provided: provider counseling substance use type: denies use current occupational status: disabled Travel in the last 8 weeks: None household members: caregiver housing: senior living marital status: caffeine: No ROS Obtained: Yes All systems reviewed & no additional complaints except as documented Physical Exam General General appearance: lethargic Respiratory Respiratory exam: Present normal lung sounds bilaterally; Absent respiratory distress Cardiovascular Cardiovascular exam: Present normal rhythm and bradycardia Abdominal Exam Abdominal exam: Present other (Abdomen is distended there is an enterocutaneous fistula without any erythema or purulent drainage) Neurological Exam Neurological exam: Present alert and oriented X3 Medical Decision Making Demond Inquiry Pt receiving controlled substance: No Vital Signs: 11/13/23 09:28 11/13/23 09:31 11/13/23 10:10 Temperature 97.6 F Temperature Source Oral Pulse Rate 55 L 57 L Pulse Rate [Radial] 55 L Respiratory Rate 16 16 Blood Pressure 107/52 L 104/43 L Blood Pressure [Right Arm] 111/49 L Blood Pressure Mean [Right Arm] 69 Blood Pressure Source [Right Arm] Automatic Cuff Blood Pressure Position [Right Arm] Sitting 02 Sat by Pulse Oximetry 96 96 96 Oxygen Delivery Method Nasal Cannula Nasal Cannula Nasal Cannula Oxygen Flow Rate (LPM) 2 2 2 11/13/23 10:21 11/13/23 11:00 11/13/23 11:31 Temperature Temperature Source Pulse Rate 55 L Pulse Rate [Radial] Respiratory Rate 14 19 15 Blood Pressure 103/49 L 103/45 L 88/46 L Blood Pressure [Right Arm] Blood Pressure Mean [Right Arm] Blood Pressure Source [Right Arm] Blood Pressure Position [Right Arm] 02 Sat by Pulse Oximetry 97 Oxygen Delivery Method Oxygen Flow Rate (LPM) 11/13/23 12:01 11/13/23 12:05 11/13/23 12:09 Temperature Temperature Source Pulse Rate 43 L 55 L Pulse Rate [Radial] Respiratory Rate 14 17 14 Blood Pressure 95/36 L 74/30 L 89/49 L Blood Pressure [Right Arm] Blood Pressure Mean [Right Arm] Blood Pressure Source [Right Arm] Blood Pressure Position [Right Arm] 02 Sat by Pulse Oximetry 73 L 99 Oxygen Delivery Method Oxygen Flow Rate (LPM) 11/13/23 12:30 Temperature Temperature Source Pulse Rate 55 L Pulse Rate [Radial] Respiratory Rate 14 Blood Pressure 99/36 L Blood Pressure [Right Arm] Blood Pressure Mean [Right Arm] Blood Pressure Source [Right Arm] Blood Pressure Position [Right Arm] 02 Sat by Pulse Oximetry 91 L Oxygen Delivery Method Oxygen Flow Rate (LPM) Lab Data Lab results reviewed: Yes I reviewed the patient's lab results. Lab Results 11/13/23 09:09: WBC 12.3 H, RBC 3.31 L, Hgb 10.4 L, Hct 33.4 L, MCV 101.0 H, MCH 31.5 H, MCHC 31.2 L, RDW 15.0, Plt Count 349, MPV 8.2, Neut % (Auto) 83.2 H, Lymph % (Auto) 9.6 L, [place] % (Auto) 5.5, Eos % (Auto) 1.2, Baso % (Auto) 0.6, Neut # (Auto) 10.2 H, Lymph # (Auto) 1.2, [place] # (Auto) 0.7, Eos # (Auto) 0.2, Baso # (Auto) 0.1, Sodium 132 L, Potassium 3.8, Chloride 97 L, Carbon Dioxide 25, Anion Gap 13.8, BUN 44 H, Creatinine 4.20 H, Estimated Creat Clear 19, Estimated GFR 10 L*, Est GFR ( Amer) 12 L*, Glucose 135 H, Calcium 8.9, Phosphorus 6.8 H, Magnesium 1.6, Total Bilirubin 0.9, AST 55 H, ALT 33, Alkaline Phosphatase 443 H, Total Creatine Kinase 241 H, Troponin I 0.02 11/13/23 09:09: Troponin I 0.02, Total Protein 7.0, Albumin 3.4 L, Globulin 3.6 H, Albumin/Globulin Ratio 0.9 L, Digoxin 0.80 11/13/23 09:44: VBG pH 7.24 L, VBG pCO2 52.9 H, VBG pO2 47.1 H, VBG HCO3 22.2 L, VBG Total CO2 23.8, VBG O2 Saturation 75.3 H, VBG Base Excess -5.2 L, VBG Lactic Acid 2.6 H 11/13/23 10:29: Urine Color Yellow, Urine Appearance Clear, Urine pH 5.0, Ur Specific [place] >= 1.030, Urine Protein Negative, Urine Glucose (UA) Negative, Urine Ketones Trace, Urine Blood Negative, Urine Nitrate Negative, Urine Bilirubin 1+ A, Urine Urobilinogen 0.2, Ur Leukocyte Esterase Negative, Urine RBC Occasional, Urine WBC 3-5, Ur Squamous Epith Cells Occasional, Amorphous Sediment Trace, Urine Bacteria Trace 11/13/23 09:09 11/13/23 09:09 Orders (Tests/Meds): ED MEDICATIONS Discontinued Medications Generic Name Dose Route Start Last Admin Trade Name Freq PRN Reason Stop Dose Admin Lactated Ringer's 500 mls @ 999 mls/hr 11/13/23 11:15 11/13/23 11:31 Lactated Ringer's 1000 Ml Bag IV 11/13/23 11:45 Not Given .Q31M JEROME Lactated Ringer's 500 mls @ 999 mls/hr 11/13/23 11:30 11/13/23 11:33 Lactated Ringer's 500ml IV 11/13/23 12:00 999 mls/hr .Q31M ONE Administration ORDERS Category Date Time Status CXR --portable [XR chest portable] Stat Exams 11/13/23 09:43 Completed CBC w/Auto Diff [Complete Blood Count Auto Diff] Stat Lab 11/13/23 09:09 Completed CK [Creatine Kinase] Stat Lab 11/13/23 09:09 Completed CMP [Comprehensive Metabolic Panel] Stat Lab 11/13/23 09:09 Completed Digoxin Stat Lab 11/13/23 09:09 Completed Lactic Acid Stat Lab 11/13/23 09:43 Ordered Magnesium Stat Lab 11/13/23 09:09 Completed Phosphorous Stat Lab 11/13/23 09:09 Completed Trop I [Troponin I] Stat Lab 11/13/23 09:09 Completed Troponin I Q3H Lab 11/13/23 09:09 Completed Troponin I Q3H Lab 11/13/23 15:45 Ordered UA [Urinalysis and Microscopic] Stat Lab 11/13/23 10:29 Completed Blood Culture Stat Micro 11/13/23 10:01 Received Venous Blood Gas Stat RT 11/13/23 09:44 Completed ECG Data Tracing #1: I reviewed this ECG and interpreted as documented below: Medical Decision Narrative: 78-year-old with above history and physical. Differential is broad including metabolic abnormalities organ dysfunction such as renal insufficiency pneumonia and other infectious causes such as urinary tract infection etc. Will get a broad workup and reassess shortly. Vitals are stable on initial evaluation. No evidence of shock or significant endorgan damage clinically aside from slight decreased level of alertness. Reassessment chest x-ray performed to person interpreted shows vascular congestion but no definitive pneumonia. Labs remarkable for significant acute kidney injury with a creatinine today of 4.2. She was recently in the hospital and vancomycin is possible she has renal injury secondary to that. She also had a right cath which showed low filling pressures pulmonary vessels not had aggressive diuresis but may be intravascular depleted. Will try IV fluids as well. On Bumex outpatient check a digoxin level. She does not need to be on any other nephrotoxic knowledge. I will discuss the case with hospital medicine regarding the nephrology coverage. No definitive evidence of infection clinically. Urinalysis also negative. Also does not meet criteria for diagnosis of sepsis at the moment. Reassessment 12:42 PM I spoke with Dr. Johnson at [place] who accepted patient for further evaluation and management. Patient does deny any further intervention on this at the moment. Dr. Desai he is aware of this. Critical Care Critical Care Time Critical Care Time: Yes Attestation: On 11/13/23, the high probability of a clinically significant, sudden or life threatening deterioration of the following system(s) required my full and direct attention, intervention and personal management. The time I documented below is in addition to time spent performing reported procedures but includes the following listed in this critical care notation. Total Time Total Critical Care Time: 65
[2023-11-13 09:59] LABS: VBG Base Excess -5.2 mmol/L (-2.4-2.3); VBG HCO3 22.2 mmol/L (23-30); VBG Oxygen Saturation 75.3 % (50-70); VBG PH 7.24 mmol/L (7.31-7.41); VBG PO2 47.1 mmol/L (28-40); VBG Total CO2 23.8 mmol/L (23-27)
[2023-11-13 10:01] LABS: Lactate Venous 2.6 mmol/L (0.4-2.0); VBG PCO2 52.9 mmol/L (35-51)
[2023-11-13 10:07] LABS: Basophils # 0.1 K/mm3 (0-0.2); Basophils % 0.6 % (0.1-2.0); Eosinophils # 0.2 K/mm3 (0.0-0.4); Eosinophils % 1.2 % (0.1-12.0); Hematocrit 33.4 % (37.0-47.0); Hemoglobin 10.4 g/dL (12.2-16.2); Lymphocytes # 1.2 K/mm3 (0.7-4.5); Lymphocytes % 9.6 % (10-50); Mean Corpuscular HGB Conc 31.2 g/dL (31.8-35.4); Mean Corpuscular Hemoglobin 31.5 pg (27.0-31.2); Mean Platelet Volume 8.2 fl (7.4-10.4); Monocytes # 0.7 K/mm3 (0.1-1.0); Monocytes % 5.5 % (1.7-9.3); Neutrophils # 10.2 K/mm3 (1.8-7.8); Neutrophils % 83.2 % (37.0-80.0); Platelet Count 349 K/mm3 (142-424); Red Blood Count 3.31 M/mm3 (4.20-5.40); White Blood Count 12.3 K/mm3 (4.8-10.8)
[2023-11-13 10:08] LABS: Chloride 97 mmol/L (98-107); Sodium 132 mmol/L (136-145)
--- NOTE | 2023-11-13 10:08 | ECG_ITS ---
APPROVED REPORT Exam: Resting ECG HR:56 bpm ECG Measurements Heart Rate 56 AXES QRSd 97 QRS -25 QT 435 T 74 QTc 426 Conclusion SINUS RHYTHM WITH HIGH GRADE AV BLOCK BORDERLINE LEFT AXIS DEVIATION [QRS AXIS < -20] LOW QRS VOLTAGE IN PRECORDIAL LEADS [QRS DEFLECTION < 1.0 mV IN CHEST LEADS] PATTERN CONSISTENT WITH PULMONARY DISEASE INCOMPLETE RIGHT BUNDLE BRANCH BLOCK [90+ ms QRS DURATION, TERMINAL R IN V1/V2, 40+ ms S IN I/aVL/V4/V5/V6] NONSPECIFIC T-WAVE ABNORMALITY CRITICAL TEST RESULT UNCONFIRMED REPORT Electronically signed by : Moo Jaramillo, 11/13/2023 15:04:25
[2023-11-13 10:09] LABS: Potassium 3.8 mmoL/L (3.5-5.1)
[2023-11-13 10:11] LABS: Alanine Aminotransferase 33 U/L (12-78); Albumin Level 3.4 g/dl (3.5-5.0); Albumin/Globulin Ratio 0.9 (1.1-1.8); Alkaline Phosphatase 443 U/L (38-126); Anion Gap 13.8 mEq/L (5-15); Aspartate Amino Transferase 55 U/L (14-36); Bilirubin,Total 0.9 mg/dl (0.2-1.3); Blood Urea Nitrogen 44 mg/dl (7-17); Carbon Dioxide 25 mmol/L (22.0-30.0); Creatinine Clearance Estimated 19 mL/min (50-200); Estimated Glomerular Filt Rate 10 ml/min (>60); GFR (African American) 12 ML/MIN (>60); Globulin 3.6 g/dL (1.3-3.2)
[2023-11-13 10:12] LABS: Calcium 8.9 mg/dl (8.4-10.2); Glucose 135 mg/dl (74-100); Magnesium 1.6 mg/dl (1.6-2.3); Phosphorous 6.8 mg/dl (2.5-4.5)
[2023-11-13 10:23] LABS: Troponin I 0.02 ng/ml (0.00-0.034)
[2023-11-13 10:34] LABS: Microscopic, Urine URINE MICROSCOPIC (MICROSCOPIC)
[2023-11-13 10:42] LABS: Appearance,Urine CLEAR (Clear); Blood, Urine Negative (Negative); Color,Urine YELLOW (Yellow); Glucose,Urine (UA) Negative (Negative); Ketones,Urine TRACE (Negative); Leukocyte Esterase,Urine Negative (Negative); Nitrate,Urine Negative (Negative); Protein,Urine Negative (Negative); Specific Gravity, Urine >= 1.030 (1.005-1.030); Urobilinogen,Urine 0.2 EU/dl (0.2)
--- NOTE | 2023-11-13 10:51 | PC.NURSE ---
Rounded on patient, no needs voiced at this time.
[2023-11-13 10:56] LABS: Bilirubin,Urine 1+ (Negative)
[2023-11-13 11:03] LABS: Amorphous Sediment,Urine Trace /lpf; Bacteria,Urine Trace /lpf
[2023-11-13 11:04] LABS: RBC,Urine Occasional #/hpf (0-3); Squamous Epithelial Cell,Urine Occasional #/hpf (0-5)
[2023-11-13 11:16] LABS: Creatine Kinase 241 U/L (30-135)
[2023-11-13] MEDS: RINGERS SOLUTION,LACTATED 500 ML 999 ML IV (11:33)
--- NOTE | 2023-11-13 11:35 | PC.NURSE ---
o/p with [facility] transfer center for possible transfer at this time.
--- NOTE | 2023-11-13 12:33 | PC.NURSE ---
o/p with [facility] for update
--- NOTE | 2023-11-13 12:35 | PC.NURSE ---
o/p with hospitalist from [facility].
[2023-11-13 13:28] LABS: Lactic Acid 1.7 mmol/L (0.7-2.1)
[2023-11-13 13:41] LABS: Troponin I 0.02 ng/ml (0.00-0.034)
--- NOTE | 2023-11-13 13:45 | PC.NURSE ---
Report called to SUKUMAR Bravo at [facility].
[2023-11-13 14:00] LABS: Reflex Lactic Add Lactic Reflex
== END 2023-11-13 14:11 | disposition other institution (70) ==
PROVIDERS: Emergency Provider Student in an Organized Health Care Education/Training Program
DX: G93.41 Metabolic encephalopathy; N17.9 Acute kidney failure, unspecified; E87.1 Hypo-osmolality and hyponatremia; I95.9 Hypotension, unspecified; I44.39 Other atrioventricular block; R53.1 Weakness; J44.9 Chronic obstructive pulmonary disease, unspecified; I11.0 Hypertensive heart disease with heart failure; I50.33 Acute on chronic diastolic (congestive) heart failure; E78.5 Hyperlipidemia, unspecified; E11.9 Type 2 diabetes mellitus without complications; I25.119 Atherosclerotic heart disease of native coronary artery with unspecified angina pectoris; K21.9 Gastro-esophageal reflux disease without esophagitis; Z87.891 Personal history of nicotine dependence; Z79.4 Long term (current) use of insulin; Z79.84 Long term (current) use of oral hypoglycemic drugs; Z79.01 Long term (current) use of anticoagulants
CPT/HCPCS: 71045; 80053; 80162; 81001; 82550; 82803; 83605; 83735; 84100; 84484; 85025; 87040; 93005; 96360; 99291